=== PATIENT | female | born 1955 | race Two or more races ===

== ENCOUNTER 2020-10-01 13:00 | Outpatient (RCR) | payer MEDICARE, OTHER, MEDICAID, SELFPAY | END 2020-10-02 10:13 | disposition home or self-care (01) | LOC: HO.OT 13:00 | PROVIDERS: Visit Provider Orthopaedic Surgery | DX: M67.90 Unspecified disorder of synovium and tendon, unspecified site (principal) | CPT/HCPCS: 97035; 97110; 97140; 97165; 97760 ==

== ENCOUNTER 2020-10-04 10:41 | Outpatient (REF) | payer MEDICARE, OTHER, MEDICAID, SELFPAY ==
[2020-10-04 11:48] LABS: MANUAL DIFF FLAG NO
[2020-10-04 11:59] LABS: Basophils Percent Auto 0.5 % (0-2); Eosinophils Absolute Auto 0.1 X10*3/uL (0.0-0.4); Eosinophils Percent Auto 2.5 % (0-4); Hematocrit 45.5 % (37-47); Hemoglobin 14.3 g/dl (12.0-16.0); Imm Gran Abs Auto 0.02 X10*3/uL (0.00-0.03); Imm Gran Pct Auto 0.4 % (0.0-0.4); Lymphocytes Absolute Auto 2.4 X10*3/uL (1.2-4.9); Mean Corpuscular HGB Conc 31.4 g/dl (31.0-35.0); Mean Corpuscular Hemoglobin 26.3 pg (27.0-33.0); Mean Corpuscular Volume 83.8 fL (80-98); Mean Platelet Volume 10.1 fL (9.4-12.3); Monocytes Absolute Auto 0.4 X10*3/uL (0.1-1.2); Monocytes Percent Auto 7.3 % (2-11); Neutrophils Absolute Auto 2.7 X10*3/uL (2.0-8.3); Neutrophils Percent Auto 47.3 % (45-73); Platelet Count 186 X10*3/uL (160-400); Red Blood Count 5.43 X10*6/uL (4.20-5.50); Red Cell Distribution Width 12.3 % (11.0-16.0); White Blood Count 5.6 X10*3/uL (4.8-10.8)
[2020-10-04 12:31] LABS: Alanine Aminotransferase 26 U/L (0-31); Alkaline Phosphatase 60 U/L (39-117); Anion Gap 15 (12-20); Aspartate Amino Transferase 21 U/L (5-31); Bilirubin Total 0.6 mg/dL (0.0-1.0); Blood Urea Nitrogen 16 mg/dL (9-16); Calcium 8.9 mg/dL (8.4-10.2); Carbon Dioxide 28 mmol/L (22-29); Chloride 104 mmol/L (96-108); Cholesterol 237 mg/dL; Estimated Glomerular Filt Rate > 60; Glucose Fasting 122 mg/dL (60-99); HDL Cholesterol 55 mg/dL; LDL Cholesterol Calculated 150 mg/dl; Potassium 4.5 mmol/l (3.3-5.1); Sodium 142 mmol/L (135-145); Total Protein 7.3 g/dL (6.5-8.0); Triglycerides 160 mg/dL
[2020-10-04 12:41] LABS: TSH reflex Free T4 1.92 mIU/mL (0.32-4.0); Vitamin D 25-OH Total 17.9 ng/mL (>30)
== END 2020-10-04 10:42 | disposition home or self-care (01) ==
LOC: HO.LAB 10:41
PROVIDERS: Visit Provider Internal Medicine
DX: E78.00 Pure hypercholesterolemia, unspecified (principal); E66.09 Other obesity due to excess calories; E55.9 Vitamin D deficiency, unspecified
CPT/HCPCS: 36415; 80053; 80061; 82306; 84443; 85025

== ENCOUNTER 2021-01-02 11:30 | Outpatient (RCR) | payer MEDICARE, OTHER, MEDICAID, SELFPAY | END 2021-01-02 15:28 | disposition other institution (70) | LOC: HO.OT 11:30 | PROVIDERS: PCP Internal Medicine; Visit Provider Physician Assistant | DX: M25.641 Stiffness of right hand, not elsewhere classified (principal); Z98.890 Other specified postprocedural states | CPT/HCPCS: 97035; 97110; 97140; 97166 ==

== ENCOUNTER → 2021-01-10 13:58 | Outpatient (BNVA) | payer MEDICARE, OTHER, MEDICAID, SELFPAY | PROVIDERS: PCP Internal Medicine; Visit Provider Nurse Practitioner Family | DX: Z13.89 Encounter for screening for other disorder (principal) | CPT/HCPCS: Q3014 ==

== ENCOUNTER 2021-01-25 08:43 | Outpatient (REF) | payer MEDICARE, OTHER, MEDICAID, SELFPAY ==
[2021-01-25 10:20] LABS: Alanine Aminotransferase 23 U/L (0-31); Alkaline Phosphatase 53 U/L (39-117); Anion Gap 13 (12-20); Aspartate Amino Transferase 23 U/L (5-31); Bilirubin Total 0.5 mg/dL (0.0-1.0); Blood Urea Nitrogen 12 mg/dL (9-16); Carbon Dioxide 28 mmol/L (22-29); Chloride 104 mmol/L (96-108); Cholesterol 228 mg/dL; Estimated Glomerular Filt Rate > 60; Glucose Fasting 128 mg/dL (60-99); HDL Cholesterol 51 mg/dL; LDL Cholesterol Calculated 147 mg/dl; Potassium 4.3 mmol/L (3.3-5.1); Sodium 141 mmol/L (135-145); Triglycerides 154 mg/dL
[2021-01-29 10:11] LABS: Vitamin D 25-OH, D2 26 ng/mL; Vitamin D 25-OH, D3 7 ng/mL; Vitamin D 25-OH, Total 33 ng/mL (30-100)
== END 2021-01-25 08:44 | disposition home or self-care (01) ==
LOC: HO.LAB 08:43
PROVIDERS: PCP Internal Medicine; Visit Provider Internal Medicine
DX: E78.5 Hyperlipidemia, unspecified (principal); E55.9 Vitamin D deficiency, unspecified
CPT/HCPCS: 36415; 80053; 80061; 82306

== ENCOUNTER 2021-02-28 07:48 | Day surgery (SDC) | payer MEDICARE, OTHER, MEDICAID, SELFPAY ==
[2021-02-21 16:10] VITALS: BMI 32.9
--- NOTE | 2021-02-28 08:25 | W.PM.OPN ---
Operative Note Operative Note Date of Service: 02/28/21 Narrative: Pre-op diagnosis: Colon cancer screening, history of colon polyps Post-op diagnosis: other (Colon polyps, diverticulosis, hemorrhoids) Procedure: COLONOSCOPY TILL CECUM WITH BIOPSY AND SNARE POLYPECTOMY Consent: Indications for the procedure and potential complications of bleeding, perforation, reaction to medications and missed diagnosis were discussed with the patient and informed consent was obtained. Instrument: Olympus PCF H 190 L variable stiffness pediatric colonoscope Monitoring: Vital signs and clinical assessment, intermittent blood pressure monitoring, continuous EKG monitoring, Pulse oximetry and Carbon Dioxide monitoring were done throughout the procedure. Colon withdrawl time was 17 minutes. Procedure: The patient was placed in the left lateral decubitis position and pre-procedure medications were administered. After a digital rectal examination of the ano-rectum, the video colonoscope was inserted into the rectum and advanced through the colon to the cecum. The colonoscope was slowly withdrawn in a retrograde panoramic fashion and the colon mucosa was carefully examined including a retroflexed view of the rectum. Findings and interventions are described below. Procedure Difficulty: LLQ pressure applied to intubate the transverse colon Findings: Terminal Ileum: Not evaluated Cecum: Normal Ascending Colon: A 5-6 mm sessile polyp removed with the cold biopsy Transverse Colon: 10 mm sessile polyp removed with a cold snare Descending Colon: Normal Sigmoid Colon: Moderate diverticulosis Rectum: Normal Ano-rectum: Perianal skin tags, small internal hemorrhoids and hypertrophied anal papillae Colon preparation: Excellent Impression and Post Procedure Diagnosis: Colonoscopy Findings: Two small to medium sized polyps removed Moderate diverticulosis seen in the sigmoid colon Small hemorrhoids on retroflexed exam. Plan: Await pathology results Patient has an appointment on 03/13/21 in the GI Clinic with Alina Rich FNP-. Repeat Colonoscopy interval based on path results - in 3-5 years if polyps are adenomatous and 10 years if polyps are hyperplastic. Above findings were reviewed with the patient and colon polyps and diverticulosis handouts were given in the discharge area Surgeon: Senia Casper MD BIOPSIES SHOWED: A. Colon, ascending, polypectomy: Tubular adenoma; no high grade dysplasia or carcinoma seen. B. Colon, transverse, polypectomy: Tubular adenoma; no high grade dysplasia or carcinoma seen. Anesthesia: MAC (Dr Murillo) Was an Senior Geotechnical Engineer used for this Procedure?: Yes Senior Geotechnical Engineer: Debora Valdivia Estimated blood loss (mL): 0 Pathology: other (A: ASCENDING COLON POLYP B: TRANSVERSE COLON POLYP) Condition: stable Disposition: PACU
--- NOTE | 2021-02-28 08:25 | MHC.SHP ---
Pre-Procedural Eval Section A The patient is an INPATIENT: No The History & Physical has been completed within 30 days and I have reviewed it.: No Section B Chief Complaint: Screening Details of Present Illness: Colon cancer screening Relevant Family History (Specify if Yes): Yes Relevant Social History: None Present Medications: see Short Stay Collaborative assessment Medical History: Significant History (Dyslipidemia Hypovitaminosis D Impaired glucose tolerance Tubular adenoma) History of Previous Operations: Relevant previous surgery/procedure and date(s) (H/O colonoscopy History of biopsy History of tubal ligation) Allergies: Allergies Allergy/AdvReac Type Severity Reaction Status Date / Time latex Allergy Unknown rash Verified 02/28/21 08:12 Review of Systems Sugical H&P ROS: Negative: Constitution, Cardiovascular, Respiratory and Gastrointestinal Exam Surgical H&P Exam: Normal: Heart, Normal: Lungs, Normal: Extremities and Normal: Abdomen Plan Diagnosis/Plan: Unchanged I have reviewed the history and physical and performed a pertinent physical examination on my patient. No changes have occurred unless specified.
[2021-02-28 08:49] VITALS: BP 147/89; PULSE 68; RESP 16; TEMP 35.7; O2SAT 97
[2021-02-28] MEDS: Lactated Ringers 1,000 ML 50 ML IV (08:50)
--- NOTE | 2021-02-28 09:08 | HO.ANESPROP2 ---
[facility] Active Problems Active Problems: All Active Problems (Updated 02/13/21 @ 13:18 by Ashu Rowley MD) Low back pain (Acute) Tubular adenoma (Acute) Impaired glucose tolerance (Acute) Hypovitaminosis D (Acute) Dyslipidemia (Acute) Past Medical History Medical History Dyslipidemia Hypovitaminosis D Impaired glucose tolerance Tubular adenoma Family History Family History Father Stomach cancer Mother Diabetes Hypertension Brother Thyroid cancer CAD (coronary artery disease) Paternal Uncle CVD (cardiovascular disease) Surgical History Surgical History H/O colonoscopy History of biopsy History of tubal ligation Social History Social History Household Members: None Alcohol intake: current Patient Tobacco Use Status: Never used Tobacco Use of substances other than those prescribed or required for medical reasons: No Are you DNR?: No Advance Directives: No Advance Directives Information Provided: Yes Meds Allergies Allergy/AdvReac Type Severity Reaction Status Date / Time latex Allergy Unknown rash Verified 02/28/21 08:12 Exam Exam Date and Time: February 28, 2021 0908 Height,Weight and Vital Signs: Height 5 ft 6 in Weight 92.533 kg Last Vital Signs Temp 96.3 F L 02/28/21 08:49 Pulse 68 02/28/21 08:49 Resp 16 02/28/21 08:49 BP 147/89 H 02/28/21 08:49 Pulse Ox 97 02/28/21 08:49 Airway Mallampati Class: II TM Dist: >3cm Neck ROM: Full Heart: RRR Lungs: CTA Assessment and Plan Assessment Anesthesia Assessment: Anesthesia Plan Discussed and Chart Reviewed Final Anesthetic Review NPO: Yes ASA Class: II Final Preanesthetic Review: Meds/Allgs Chart Reviewed, Consent Obtained/Reviewed and Anes Risks/Benef Reviewed Patient Risk: Low Procedure Risk: Low Anesthetic Plan Anesthetic Plan: MAC: Disposition: Standard PACU
--- NOTE | 2021-02-28 09:34 | P.CONAN_ITS ---
[facility] Active Problems Active Problems: All Active Problems (Updated 02/13/21 @ 13:18 by Ashu brewer MD) Low back pain (Acute) Tubular adenoma (Acute) Impaired glucose tolerance (Acute) Hypovitaminosis D (Acute) Dyslipidemia (Acute) Past Medical History Medical History Dyslipidemia Hypovitaminosis D Impaired glucose tolerance Tubular adenoma Family History Family History Father Stomach cancer Mother Diabetes Hypertension Brother Thyroid cancer CAD (coronary artery disease) Paternal Uncle CVD (cardiovascular disease) Surgical History Surgical History H/O colonoscopy History of biopsy History of tubal ligation Social History Social History Household Members: None Alcohol intake: current Patient Tobacco Use Status: Never used Tobacco Use of substances other than those prescribed or required for medical reasons: No Are you DNR?: No Advance Directives: No Advance Directives Information Provided: Yes Meds Allergies Allergy/AdvReac Type Severity Reaction Status Date / Time latex Allergy Unknown rash Verified 02/28/21 08:12 Active Medications: Current Medications Generic Name Dose Route Start Last Admin Trade Name Freq PRN Reason Stop Dose Admin Lactated Ringer's 1,000 mls @ 50 mls/hr 02/28/21 09:15 Lr IV .Q20H RAJESH Exam Exam Date and Time: February 28, 2021 0934 Height,Weight and Vital Signs: Height 5 ft 6 in Weight 92.533 kg Last Vital Signs Temp 96.3 F L 02/28/21 08:49 Pulse 68 02/28/21 08:49 Resp 16 02/28/21 08:49 BP 147/89 H 02/28/21 08:49 Pulse Ox 97 02/28/21 08:49 Airway Mallampati Class: II TM Dist: >3cm Neck ROM: Full Partial: Lower Heart: RRR Lungs: CTA Assessment and Plan Assessment Anesthesia Assessment: Anesthesia Plan Discussed and Chart Reviewed Final Anesthetic Review NPO: Yes ASA Class: II Final Preanesthetic Review: Meds/Allgs Chart Reviewed, Consent Obtained/Reviewed and Anes Risks/Benef Reviewed Patient Risk: Low Procedure Risk: Low Anesthetic Plan Anesthetic Plan: MAC: Disposition: Standard PACU
[2021-02-28 09:56] VITALS: BP 125/58; PULSE 58; RESP 18; TEMP 36.9; O2SAT 100
[2021-02-28 10:11] VITALS: BP 135/67; PULSE 60; RESP 18; O2SAT 98
== END 2021-02-28 10:54 | disposition home or self-care (01) ==
PROVIDERS: PCP Internal Medicine; Visit Provider Internal Medicine Gastroenterology
PROC: 0DJD8ZZ Inspection of Lower Intestinal Tract, Via Natural or Artificial Opening Endoscopic (ICD-10-PCS; CPT 45378; principal; 2021-02-28 09:00)
DX: Z12.11 Encounter for screening for malignant neoplasm of colon (principal); Z86.010 Personal history of colon polyps; D12.2 Benign neoplasm of ascending colon; D12.3 Benign neoplasm of transverse colon; K57.30 Diverticulosis of large intestine without perforation or abscess without bleeding; K64.8 Other hemorrhoids; K64.4 Residual hemorrhoidal skin tags; K62.89 Other specified diseases of anus and rectum; E55.9 Vitamin D deficiency, unspecified; E78.5 Hyperlipidemia, unspecified; Z79.899 Other long term (current) drug therapy; Z91.040 Latex allergy status
CPT/HCPCS: 45385; 45380; 88305; J2405

== ENCOUNTER → 2021-03-12 15:30 | Outpatient (BNVA) | payer MEDICARE, OTHER, MEDICAID, SELFPAY | PROVIDERS: PCP Internal Medicine; Referring Provider Internal Medicine; Visit Provider Nurse Practitioner Family | DX: K57.90 Diverticulosis of intestine, part unspecified, without perforation or abscess without bleeding (principal); K59.00 Constipation, unspecified; K64.8 Other hemorrhoids; D36.9 Benign neoplasm, unspecified site; Z98.890 Other specified postprocedural states | CPT/HCPCS: 99212 ==

== ENCOUNTER 2021-04-18 07:53 | Outpatient (REF) | payer MEDICARE, OTHER, MEDICAID, SELFPAY ==
[2021-04-18 09:07] LABS: Alanine Aminotransferase 22 U/L (0-31); Albumin Level 4.2 g/dL (3.5-5.0); Alkaline Phosphatase 50 U/L (39-117); Anion Gap 10 (12-20); Aspartate Amino Transferase 22 U/L (5-31); Bilirubin Total 0.6 mg/dL (0.0-1.0); Blood Urea Nitrogen 19 mg/dL (9-16); Calcium 9.3 mg/dL (8.4-10.2); Carbon Dioxide 29 mmol/L (22-29); Chloride 106 mmol/L (96-108); Cholesterol 230 mg/dL; Estimated Glomerular Filt Rate > 60; Glucose Fasting 110 mg/dL (60-99); HDL Cholesterol 55 mg/dL; LDL Cholesterol Calculated 160 mg/dl; Potassium 4.6 mmol/L (3.3-5.1); Sodium 140 mmol/L (135-145); Total Protein 7.5 g/dL (6.5-8.0); Triglycerides 79 mg/dL
== END 2021-04-18 07:54 | disposition home or self-care (01) ==
LOC: HO.LAB 07:53
PROVIDERS: Visit Provider Internal Medicine
DX: E78.5 Hyperlipidemia, unspecified (principal); R73.02 Impaired glucose tolerance (oral)
CPT/HCPCS: 36415; 80053; 80061

== ENCOUNTER 2021-04-21 13:23 | Outpatient (REF) | payer MEDICARE, OTHER, MEDICAID, SELFPAY ==
--- NOTE | ~2021-04-21 | CT_ITS ---
EXAMINATION: CT ABDOMEN AND PELVIS WITHOUT AND WITH CONTRAST CLINICAL INFORMATION: Kidney cyst. COMPARISON: Previous renal ultrasound January 2018, CT of the abdomen and pelvis June 2018 and pelvic ultrasound most recent December 2015 TECHNIQUE: Multidetector volumetric imaging was performed of the abdomen and pelvis before and after the IV administration of 85 mL of Omnipaque 300 intravenous contrast. Sagittal and coronal reformatted images were obtained on the technologist's workstation. This CT examination was performed using dose optimization techniques as appropriate, variously including the following: *Automated exposure control *Adjustment of mA and/or kV according to patient size (this includes techniques or standardized protocols for targeted exams where dose is matched to indication/reason for exam; i.e. extremities or head) *Use of iterative reconstruction technique DLP: 1162 mGy-cm FINDINGS: LUNG BASES: There is a 2 mm peripheral right lower lobe nodule axial image 13 series 4. The lung bases are otherwise clear. There is mild left lower lobe bronchiectasis. LIVER, GALLBLADDER, AND BILIARY TREE: The liver is slightly low in attenuation suggestive of mild fatty infiltration. The gallbladder is unremarkable with no evidence of radiopaque gallstones, gallbladder wall thickening, or obvious pericholecystic inflammatory changes. PANCREAS: Unremarkable. SPLEEN: Unremarkable. ADRENAL GLANDS: Unremarkable. The liver is normal in size and contour. No focal liver lesion or biliary duct dilatation is seen. KIDNEYS AND URETERS: There is a 3.2 x 4 cm simple cyst in the midpole of the right kidney. Hounsfield units precontrast measure 0. Hounsfield units postcontrast measure 1 with no appreciable enhancement. This measured 2 x 2.[address] scan and is slightly increased in size. There are several small 3-4 mm low-attenuation lesions in the upper pole of the right kidney and lower pole of the left kidney. These are difficult to characterize due to small size but also probably represent cysts. The kidneys are otherwise unremarkable. No renal stone or mass is seen. The collecting systems are normal. There is transient dilatation of both ureters. This appears in different segments on precontrast and portal phase and expiratory phase postcontrast images. No fixed ureteral lesion is seen. BLADDER: Unremarkable. GASTROINTESTINAL TRACT: The small and large bowel are unremarkable. The appendix is unremarkable. ABDOMINAL WALL: There are small umbilical hernias containing fat. LYMPH NODES: Normal. VASCULAR: Unremarkable. PELVIC VISCERA: There is a 4 x 5 cm low-attenuation lesion in the posterior uterus suggestive of a fibroid. OSSEOUS STRUCTURES: There are degenerative changes of the spine. CT/CT abdomen pelvis wo/w con IMPRESSION: Slight interval increase in the simple cyst in the mid right kidney. Probable small bilateral renal cysts measuring less than 5 mm. 4 x 5 cm uterine fibroid.
[2021-04-21] MEDS: iohexoL 350 MG/ML 100 ML INFUS..BTL 85 ML IV (14:32)
[2021-04-21 15:56] LABS: Blood Urea Nitrogen 10 mg/dL (9-16); Estimated Glomerular Filt Rate > 60
== END 2021-04-21 13:24 | disposition home or self-care (01) ==
LOC: HO.CT 13:23
PROVIDERS: PCP Internal Medicine; Visit Provider Urology
DX: R31.9 Hematuria, unspecified (principal); N28.1 Cyst of kidney, acquired; R31.29 Other microscopic hematuria
CPT/HCPCS: 36415; 74178; 82565; 84520; Q9967

== ENCOUNTER → 2021-04-30 13:18 | Outpatient (BNVA) | payer MEDICARE, OTHER, MEDICAID, SELFPAY | PROVIDERS: PCP Internal Medicine; Referring Provider Internal Medicine; Visit Provider Nurse Practitioner Family | DX: K59.01 Slow transit constipation (principal); K57.90 Diverticulosis of intestine, part unspecified, without perforation or abscess without bleeding | CPT/HCPCS: 99212 ==

== ENCOUNTER → 2021-05-14 07:49 | Outpatient (BNVA) | payer MEDICARE, OTHER, MEDICAID, SELFPAY | PROVIDERS: PCP Internal Medicine; Referring Provider Internal Medicine; Visit Provider Advanced Practice Midwife ==

== ENCOUNTER 2021-07-01 11:42 | Outpatient (REF) | payer MEDICARE, OTHER, MEDICAID, SELFPAY ==
--- NOTE | ~2021-07-01 | MM_ITS ---
EXAMINATION: MM SCREENING DIGITAL BREAST TOMOSYNTHESIS, BILATERAL CLINICAL INFORMATION: Screening. Asymptomatic. The lifetime risk of breast cancer based on the Tyrer-Cuzick Model is 10%. COMPARISON: Mammography: 06/26/2020, 12/30/2018, 11/11/2017 TECHNIQUE: Digital breast tomosynthesis is performed in both the craniocaudal and mediolateral oblique views along with computer-aided detection (CAD). Synthesized 2D images are generated from the tomosynthesis. FINDINGS: There are scattered areas of fibroglandular density (ACR BI-RADS breast composition Category b). There are no significant masses, abnormal calcifications, or other abnormalities. There is no developing density. The axilla are unremarkable. Chronic bilateral nipple retraction is again noted. There is a dermal lesion again seen overlying the posterior 8:00 right breast. MM/MM tomosynthesis screening BI IMPRESSION: No significant changes from prior studies. ASSESSMENT: BI-RADS 2: Benign RECOMMENDATION: Routine annual mammography screening. This patient's information was entered into a reminder system with a target due date for their next mammogram.
== END 2021-07-01 11:43 | disposition home or self-care (01) ==
LOC: HO.MAMMO 11:42
PROVIDERS: PCP Internal Medicine; Visit Provider Advanced Practice Midwife
DX: Z12.31 Encounter for screening mammogram for malignant neoplasm of breast (principal)
CPT/HCPCS: 77063; 77067

== ENCOUNTER 2021-10-31 12:43 | Outpatient (REF) | payer MEDICARE, OTHER, MEDICAID, SELFPAY ==
[2021-11-06 12:12] LABS: Vitamin D 25-OH, D2 27 ng/mL; Vitamin D 25-OH, D3 9 ng/mL; Vitamin D 25-OH, Total 36 ng/mL (30-100)
== END 2021-10-31 12:44 | disposition home or self-care (01) ==
LOC: HO.LAB 12:43
PROVIDERS: PCP Internal Medicine; Visit Provider Nurse Practitioner Family
DX: K59.01 Slow transit constipation (principal); E55.9 Vitamin D deficiency, unspecified
CPT/HCPCS: 36415; 82306; 99212

== ENCOUNTER 2021-11-22 08:50 | Outpatient (REF) | payer MEDICARE, OTHER, MEDICAID, SELFPAY ==
[2021-11-22 09:45] LABS: Alanine Aminotransferase 23 U/L (0-31); Albumin Level 3.9 g/dL (3.5-5.0); Alkaline Phosphatase 48 U/L (39-117); Anion Gap 13 (12-20); Aspartate Amino Transferase 25 U/L (5-31); Bilirubin Total 0.9 mg/dL (0.0-1.0); Blood Urea Nitrogen 13 mg/dL (9-16); Calcium 9.5 mg/dL (8.4-10.2); Carbon Dioxide 28 mmol/L (22-29); Chloride 106 mmol/L (96-108); Cholesterol 224 mg/dL; Estimated Glomerular Filt Rate > 60; Glucose Fasting 129 mg/dL (60-99); HDL Cholesterol 56 mg/dL; LDL Cholesterol Calculated 146 mg/dl; Potassium 4.2 mmol/L (3.3-5.1); Sodium 143 mmol/L (135-145); Total Protein 6.8 g/dL (6.5-8.0); Triglycerides 114 mg/dL
[2021-11-26 12:06] LABS: Vitamin D 25-OH, D2 19 ng/mL; Vitamin D 25-OH, D3 5 ng/mL; Vitamin D 25-OH, Total 24 ng/mL (30-100)
== END 2021-11-22 08:51 | disposition home or self-care (01) ==
LOC: HO.LAB 08:50
PROVIDERS: PCP Internal Medicine; Visit Provider Internal Medicine
DX: E55.9 Vitamin D deficiency, unspecified (principal); E78.5 Hyperlipidemia, unspecified; R73.02 Impaired glucose tolerance (oral)
CPT/HCPCS: 36415; 80053; 80061; 82306

== ENCOUNTER 2022-05-18 08:48 | Outpatient (REF) | payer MEDICARE, OTHER, MEDICAID, SELFPAY ==
[2022-05-21 15:46] LABS: HPV mRNA E6/E7 rflx Not Detected (Not Detected)
[2022-05-22 07:27] LABS: HPV mRNA E6/E7 rflx Not Detected (Not Detected)
== END 2022-05-18 08:49 | disposition home or self-care (01) ==
LOC: HO.LAB 08:48
PROVIDERS: Visit Provider Advanced Practice Midwife
DX: Z01.419 Encounter for gynecological examination (general) (routine) without abnormal findings (principal); Z11.51 Encounter for screening for human papillomavirus (HPV)
CPT/HCPCS: 87624; 88142

== ENCOUNTER 2022-07-02 12:07 | Outpatient (REF) | payer MEDICARE, OTHER, MEDICAID, SELFPAY ==
--- NOTE | ~2022-07-02 | MM_ITS ---
EXAMINATION: MM SCREENING DIGITAL BREAST TOMOSYNTHESIS, BILATERAL CLINICAL INFORMATION: Screening. Asymptomatic. The lifetime risk of breast cancer based on the Tyrer-Cuzick Model is 10%. COMPARISON: Mammography: 07/01/2021, 06/26/2020, 12/30/2018 TECHNIQUE: Digital breast tomosynthesis is performed in both the craniocaudal and mediolateral oblique views along with computer-aided detection (CAD). Synthesized 2D images are generated from the tomosynthesis. Additional right MLO view is provided. FINDINGS: There are scattered areas of fibroglandular density (ACR BI-RADS breast composition Category b). There are no significant masses, abnormal calcifications, or other abnormalities. No developing density or architectural abnormality. There is chronic bilateral nipple retraction. Dermal lesions again seen overlying posterior outer and lower right breast. MM/MM tomosynthesis screening BI IMPRESSION: No mammographic evidence of malignancy. ASSESSMENT: BI-RADS 2: Benign RECOMMENDATION: Routine annual mammography screening. This patient's information was entered into a reminder system with a target due date for their next mammogram.
== END 2022-07-02 12:08 | disposition home or self-care (01) ==
LOC: HO.MAMMO 12:07
PROVIDERS: Visit Provider Internal Medicine
DX: Z12.31 Encounter for screening mammogram for malignant neoplasm of breast (principal)
CPT/HCPCS: 77063; 77067

== ENCOUNTER → 2022-09-08 13:38 | Outpatient (BNVA) | payer MEDICARE, OTHER, MEDICAID, SELFPAY | PROVIDERS: PCP Internal Medicine; Visit Provider Advanced Practice Midwife | DX: Q51.28 Other and unspecified doubling of uterus (principal); R87.615 Unsatisfactory cytologic smear of cervix | CPT/HCPCS: 88142; 99212 ==

== ENCOUNTER 2022-09-08 16:11 | Outpatient (REF) | payer MEDICARE, OTHER, MEDICAID, SELFPAY | END 2022-09-08 16:12 | disposition home or self-care (01) | LOC: HO.LNP 16:11 | PROVIDERS: Visit Provider Advanced Practice Midwife | DX: Z13.89 Encounter for screening for other disorder (principal) | CPT/HCPCS: 88142 ==

== ENCOUNTER 2022-10-28 08:40 | Outpatient (REF) | payer MEDICARE, OTHER, MEDICAID, SELFPAY ==
[2022-10-28 09:58] LABS: Vitamin D 25-OH Total 16.5 ng/mL (>30)
== END 2022-10-28 08:41 | disposition home or self-care (01) ==
LOC: HO.LAB 08:40
PROVIDERS: Visit Provider Internal Medicine
DX: E55.9 Vitamin D deficiency, unspecified (principal)
CPT/HCPCS: 36415; 82306

== ENCOUNTER → 2022-10-30 13:22 | Outpatient (BNVA) | payer MEDICARE, OTHER, MEDICAID, SELFPAY | PROVIDERS: PCP Internal Medicine; Referring Provider Internal Medicine; Visit Provider Nurse Practitioner Family | DX: K59.01 Slow transit constipation (principal); K57.30 Diverticulosis of large intestine without perforation or abscess without bleeding | CPT/HCPCS: 99212 ==

== ENCOUNTER 2023-03-06 08:00 | Outpatient (REF) | payer MEDICARE, OTHER, MEDICAID, SELFPAY ==
[2023-03-06 09:17] LABS: Alanine Aminotransferase 18 U/L (0-31); Albumin Level 4.1 g/dL (3.5-5.0); Alkaline Phosphatase 63 U/L (39-117); Anion Gap 14 (12-20); Aspartate Amino Transferase 19 U/L (5-31); Bilirubin Total 0.6 mg/dL (0.0-1.0); Blood Urea Nitrogen 15 mg/dL (9-16); Calcium 9.8 mg/dL (8.4-10.2); Carbon Dioxide 29 mmol/L (22-29); Chloride 103 mmol/L (96-108); Estimated Glomerular Filt Rate > 60; Glucose Fasting 134 mg/dL (60-99); Potassium 4.9 mmol/L (3.3-5.1); Sodium 141 mmol/L (135-145); Total Protein 7.4 g/dL (6.5-8.0)
== END 2023-03-06 08:01 | disposition home or self-care (01) ==
LOC: HO.LAB 08:00
PROVIDERS: PCP Internal Medicine; Visit Provider Internal Medicine
DX: R73.02 Impaired glucose tolerance (oral) (principal)
CPT/HCPCS: 36415; 80053

== ENCOUNTER 2023-03-15 09:28 | Emergency (ER) | payer MEDICARE, OTHER, MEDICAID, SELFPAY ==
[2023-03-15 09:52] VITALS: BP 151/67; PULSE 63; RESP 18; TEMP 36; O2SAT 98; BMI 31.5
[2023-03-15 10:13] LABS: MANUAL DIFF FLAG NO
[2023-03-15 10:15] LABS: Basophils Percent Auto 0.7 % (0-2); Eosinophils Absolute Auto 0.1 X10*3/uL (0.0-0.4); Eosinophils Percent Auto 1.6 % (0-4); Hematocrit 43.5 % (37.0-47.0); Hemoglobin 14.4 g/dl (12.0-16.0); Imm Gran Abs Auto 0.01 X10*3/uL (0.00-0.03); Imm Gran Pct Auto 0.2 % (0.0-0.4); Lymphocytes Absolute Auto 2.3 X10*3/uL (1.2-4.9); Lymphocytes Percent Auto 39.1 % (20-40); Mean Corpuscular HGB Conc 33.1 g/dl (31.0-35.0); Mean Corpuscular Hemoglobin 27.2 pg (27.0-33.0); Mean Corpuscular Volume 82.1 fL (80.0-98.0); Mean Platelet Volume 10.3 fL (9.4-12.3); Monocytes Absolute Auto 0.4 X10*3/uL (0.1-1.2); Monocytes Percent Auto 6.7 % (2-11); Neutrophils Percent Auto 51.7 % (45-73); Platelet Count 186 X10*3/uL (160-400); Red Cell Distribution Width 12.1 % (11.0-16.0); White Blood Count 5.8 X10*3/uL (4.8-10.8)
[2023-03-15 10:36] LABS: Alanine Aminotransferase 16 U/L (0-31); Alkaline Phosphatase 57 U/L (39-117); Anion Gap 13 (12-20); Aspartate Amino Transferase 16 U/L (5-31); Bilirubin Total 0.6 mg/dL (0.0-1.0); Blood Urea Nitrogen 19 mg/dL (9-16); Calcium 10.4 mg/dL (8.4-10.2); Carbon Dioxide 28 mmol/L (22-29); Chloride 107 mmol/L (96-108); Creatinine Clr Calc Pharmacy 69.6; Estimated Glomerular Filt Rate > 60; Glucose Random 126 mg/dL (60-115); Potassium 5.2 mmol/L (3.3-5.1); Sodium 143 mmol/L (135-145); Total Protein 7.7 g/dL (6.5-8.0)
[2023-03-15 12:06] LABS: Appearance Urine Clear; Color Urine Yellow; Glucose Urine UA Negative (Negative); Leukocyte Esterase Urine Moderate (2+) (Negative); Nitrite Urine Negative (Negative); PH 8.5 (5.0-9.0); UMIC TRIGGER UACC YES; Urine Blood Negative (Negative); Urine Ketones Negative (Negative); Urine Protein Trace mg/dL (Neg-Trace)
[2023-03-15 12:16] LABS: Bacteria Urine None Seen (None Seen); Squamous Epithelial Cell Urine 0-2 /HPF (0-2); UACC Culture Trigger YES
--- NOTE | 2023-03-15 13:18 | ED_ITS ---
HPI - Abdominal Pain General Chief Complaint: Abdominal Pain Stated Complaint: abd pain Time Seen by Provider: 03/15/23 10:58 Source: patient and certified detention deputy Mode of arrival: ambulatory History of Present Illness HPI narrative: 68-year-old female who complains of burning sensation over suprapubic area that radiates up into her abdomen she denies any fevers or chills, denies any diarrhea, denies any back pain. Related Data Previous Rx's Medication Instructions Recorded cholecalciferol (vitamin D3) 50 50 mcg PO DAILY 90 days #90 caps 11/04/22 mcg (2,000 unit) capsule Ventolin HFA 90 mcg/actuation 2 puff inhalation Q6H PRN 02/07/23 aerosol inhaler (albuterol sulfate) shortness of breath or wheezing 30 days #8 grams omeprazole 20 mg capsule,delayed 20 mg PO DAILY 30 days #30 caps 03/11/23 release cefdinir 300 mg capsule 300 mg PO BID 3 days #6 caps 03/15/23 phenazopyridine 200 mg tablet 200 mg PO TID PRN pain 6 doses #6 03/15/23 (Pyridium) tabs Allergies Allergy/AdvReac Type Severity Reaction Status Date / Time latex Allergy Intermediate rash Verified 03/15/23 10:02 Review of Systems Review of Systems Pertinent positives and negatives as stated in HPI PMFSH Past Medical History Source: nursing notes reviewed Medical History Class 1 obesity with body mass index (BMI) of 33.0 to 33.9 in adult 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 Diverticulosis Dyslipidemia Hypovitaminosis D Impaired glucose tolerance Mild persistent asthma Tubular adenoma Surgical History H/O colonoscopy History of biopsy History of tubal ligation Family History Family History Father Stomach cancer Mother Diabetes Hypertension Stroke Brother Thyroid cancer CAD (coronary artery disease) Paternal Uncle CVD (cardiovascular disease) Social History Social History Household Members: None Housing: Apartment Alcohol intake: current Alcohol intake frequency: holidays/special occasions only Alcohol type: wine Patient Tobacco Use Status: Never used Tobacco e-Cigarette/Vaping Use: Never Used Second Hand Smoke Exposure: No Advance Directives: No Advance Directives Information Provided: Yes service: No Current occupational status: disabled Cognitive needs: No Hearing needs: No Vision needs: Yes Physical Exam ED Vital Signs: Vital Signs - 24 hr 03/15/23 09:52 Temperature 96.8 F Pulse Rate 63 Respiratory Rate 18 Blood Pressure 151/67 H Pulse Oximetry 98 Oxygen Delivery Method Room Air BMI result Body Mass Index 31.5 VITAL SIGNS: Reviewed. GENERAL: Well developed, well nourished, in no acute distress. HEAD: Normocephalic/atraumatic EYES: PERRLA, EOMI EARS: Ext canals without abnormality NOSE: Nares patent bilateral OROPHARYNX: no oral lesions noted, posterior pharynx clear NECK: Supple, no adenopathy LUNGS: Normal breath sounds. No adventitious sounds or accessory muscle use. SpO2<98> CARDIOVASCULAR: Regular rate and rhythm without noted murmurs ABDOMEN: Soft, suprapubic discomfort, non-distended with bowel sounds. MUSCULOSKELETAL: No tenderness, deformities, or effusions noted on gross inspection. EXTREMITIES: No cyanosis, clubbing or edema. SKIN: Inspection of the skin reveals no rashes NEUROLOGIC: Alert and oriented x 4. Strength and sensation to light touch were grossly intact x 4. Medical Decision Making Medical Decision Making MDM Narrative: 68-year-old female with history and clinical presentation after review of all investigations significant for UTI, patient received initial antibiotics as well as pyridium no was discharged home on remaining course. Differential Diagnosis Please see the discussion above Lab Data Please see the discussion above 03/15/23 10:08 03/15/23 10:08 Labs: Lab Results 03/15/23 03/15/23 03/15/23 Range/Units 10:08 10:08 11:58 WBC 5.8 (4.8-10.8) X10*3/uL RBC 5.30 (4.20-5.50) X10*6/uL Hgb 14.4 (12.0-16.0) g/dl Hct 43.5 (37.0-47.0) % MCV 82.1 (80.0-98.0) fL MCH 27.2 (27.0-33.0) pg MCHC 33.1 (31.0-35.0) g/dl RDW 12.1 (11.0-16.0) % Plt Count 186 (160-400) X10*3/uL MPV 10.3 (9.4-12.3) fL Immature Gran % (Auto) 0.2 (0.0-0.4) % Neut % (Auto) 51.7 (45-73) % Lymph % (Auto) 39.1 (20-40) % [place] % (Auto) 6.7 (2-11) % Eos % (Auto) 1.6 (0-4) % Baso % (Auto) 0.7 (0-2) % Lymph # (Auto) 2.3 (1.2-4.9) X10*3/uL [place] # (Auto) 0.4 (0.1-1.2) X10*3/uL Eos # (Auto) 0.1 (0.0-0.4) X10*3/uL Baso # (Auto) 0.0 (0.0-0.2) X10*3/uL Abs Immat Gran (auto) 0.01 (0.00-0.03) X10*3/uL Absolute Neuts (auto) 3.0 (2.0-8.3) x10*3/uL Absolute Nucleated RBC 0.000 (0.0-0.012) X10*3/uL Nucleated RBC % (auto) 0.0 (0.0-0.2) /100WBC Sodium 143 (135-145) mmol/L Potassium 5.2 H (3.3-5.1) mmol/L Chloride 107 (96-108) mmol/L Carbon Dioxide 28 (22-29) mmol/L Anion Gap 13 (12-20) BUN 19 H (9-16) mg/dL Creatinine 0.89 (0.5-1.4) mg/dL Estim Creat Clear Calc 69.6 Estimated GFR > 60 Random Glucose 126 H (60-115) mg/dL Calcium 10.4 H D (8.4-10.2) mg/dL Total Bilirubin 0.6 (0.0-1.0) mg/dL AST 16 (5-31) U/L ALT 16 (0-31) U/L Alkaline Phosphatase 57 (39-117) U/L Total Protein 7.7 (6.5-8.0) g/dL Albumin 4.0 (3.5-5.0) g/dL Urine Color Yellow Urine Appearance Clear Urine pH 8.5 (5.0-9.0) Ur Specific [place] 1.020 (1.005-1.025) Urine Protein Trace (Neg-Trace) mg/dL Urine Glucose (UA) Negative (Negative) mg/dL Urine Ketones Negative (Negative) mg/dL Urine Blood Negative (Negative) Urine Nitrite Negative (Negative) Ur Leukocyte Esterase Moderate (2+) H (Negative) Urine RBC 3-5 H (0-2) /HPF Urine WBC 11-20 (0-5) /HPF Ur Squamous Epith Cells 0-2 (0-2) /HPF Urine Bacteria None Seen (None Seen) Hyaline Casts 3-5 (0-2) /LPF Medications Administered Discontinued Medications Generic Name Dose Route Start Last Admin Trade Name Freq PRN Reason Stop Dose Admin Nitrofurantoin Macrocrystals 100 mg 03/15/23 13:18 03/15/23 13:45 Nitrofurantoin Monohyd/M-Cryst 100 Mg Capsule PO 03/15/23 13:19 100 mg ONCE ONE Administration Phenazopyridine HCl 200 mg 03/15/23 13:18 03/15/23 13:45 Phenazopyridine Hcl 200 Mg Tablet PO 03/15/23 13:19 200 mg ONCE ONE Administration Discharge Plan Discharge Clinical Impression: Cystitis Patient Disposition: Home, Self-Care Instructions: Urinary Tract Infection in Women (ED) Additional Instructions: 1. Reanudar todos los medicamentos caseros seg?n lo prescrito. 2. Complete todo el ciclo de antibi?ticos seg?n lo indicado. 3. Fifi un seguimiento con el proveedor de atenci?n primaria en los pr?ximos 1 o 2 d?as. Regrese a la chely de emergencias si los s?ntomas empeoran. 1. Resume all home medications as prescribed. 2. Please complete the entire course of antibiotics as ordered. 3. Please follow-up with primary care provider in the next 1-2 days. Return to the ER for any worsening symptoms. Prescriptions: New phenazopyridine [Pyridium] 200 mg tablet 200 mg PO TID PRN (Reason: pain) Qty: 6 0RF cefdinir 300 mg capsule 300 mg PO BID 3 Days Qty: 6 0RF No Action albuterol sulfate [Ventolin HFA] 90 mcg/actuation HFA aerosol inhaler 2 puff inhalation Q6H PRN (Reason: shortness of breath or wheezing) 30 Days Qty: 8 2RF omeprazole 20 mg capsule,delayed release(DR/EC) 20 mg PO DAILY 30 Days Qty: 30 1RF cholecalciferol (vitamin D3) 50 mcg (2,000 unit) capsule 50 mcg PO DAILY 90 Days Qty: 90 1RF Referrals: Janet Islas MD [Primary Care Provider] - Interventions: ED Discharge Assessment Last Done: 03/15/23 13:51 Discharge Date/Time: 03/15/23 13:51 Print Language: Fijian
[2023-03-15] MEDS: Nitrofurantoin Monohyd/M-Cryst 100 MG CAPSULE PO (13:45)
[2023-03-15] MEDS: Phenazopyridine HCL 200 MG TABLET PO (13:45)
== END 2023-03-15 13:51 | disposition home or self-care (01) ==
PROVIDERS: Emergency Provider Student in an Organized Health Care Education/Training Program; PCP Internal Medicine
DX: N30.90 Cystitis, unspecified without hematuria (principal); R10.10 Upper abdominal pain, unspecified; Z79.899 Other long term (current) drug therapy
CPT/HCPCS: 36415; 80053; 81001; 85025; 87086; 99283; 99284

== ENCOUNTER 2023-03-23 15:35 | Outpatient (REF) | payer MEDICARE, OTHER, MEDICAID, SELFPAY ==
--- NOTE | ~2023-03-23 | US_ITS ---
EXAMINATION: US RETROPERITONEAL LIMITED (RENAL ONLY) CLINICAL INFORMATION: Left flank pain. COMPARISON: 02/07/2019 renal ultrasound TECHNIQUE: Real-time ultrasound was used to scan the bilateral kidneys. Permanent documented images obtained and cine loops provided. FINDINGS: RIGHT KIDNEY: 12.1 x 6.0 x 5.0 cm (SAG x AP x TRV). The kidney is normal in size, contour, and echogenicity. Renal cortical thickness is normal. No calculi. 3.6 x 3.4 x 3.9 cm mid pole cyst is seen, previously 2.6 x 2.4 x 2.6 cm on 02/07/2019 No hydronephrosis. LEFT KIDNEY: 12.0 x 5.6 x 4.2 cm (SAG x AP x TRV). The kidney is normal in size, contour, and echogenicity. Renal cortical thickness is normal. No calculi or focal parenchymal lesions. No hydronephrosis. During real-time study, technologist questioned perinephric stranding. US/US renal BI IMPRESSION: 3.6 cm right midpole renal cyst. No hydronephrosis or renal calculi bilaterally.
== END 2023-03-23 15:36 | disposition home or self-care (01) ==
LOC: HO.US 15:35
PROVIDERS: PCP Internal Medicine; Visit Provider Nurse Practitioner Family
DX: R10.9 Unspecified abdominal pain (principal)
CPT/HCPCS: 76775

== ENCOUNTER 2023-03-27 08:44 | Outpatient (REF) | payer MEDICARE, OTHER, MEDICAID, SELFPAY | END 2023-03-27 08:45 | disposition home or self-care (01) | LOC: HO.LAB 08:44 | PROVIDERS: PCP Internal Medicine; Visit Provider Nurse Practitioner Family | DX: E55.9 Vitamin D deficiency, unspecified (principal); E78.5 Hyperlipidemia, unspecified; R73.02 Impaired glucose tolerance (oral); R10.9 Unspecified abdominal pain | CPT/HCPCS: 36415; 80053; 80061; 81001; 81003; 82306; 87086 ==

== ENCOUNTER → 2023-03-31 12:53 | Outpatient (BNVA) | payer MEDICARE, OTHER, MEDICAID, SELFPAY | PROVIDERS: PCP Internal Medicine; Visit Provider Nurse Practitioner Family | DX: K57.90 Diverticulosis of intestine, part unspecified, without perforation or abscess without bleeding (principal); K59.01 Slow transit constipation | CPT/HCPCS: 99212 ==

== ENCOUNTER 2023-05-07 08:14 | Outpatient (REF) | payer MEDICARE, OTHER, MEDICAID, SELFPAY ==
--- NOTE | ~2023-05-07 | FL_ITS ---
EXAMINATION: XR GI SERIES CLINICAL INFORMATION: Gastroesophageal reflux disease without esophagitis. COMPARISON: None available. TECHNIQUE: Routine upper GI air-contrast study is performed in upright and lying position. FINDINGS: Following oral administration of thick barium and effervescent granules is normal propagation bolus from the oral cavity through the pharynx, esophagus into stomach without any evidence of obstruction, narrowing or stricture. On placing patient supine and prone lying there is mild gastroesophageal reflux with a small hiatal hernia suspected. Rest of the visualized stomach, duodenal bulb and the sweep is normal in its course and caliber. The mucosal pattern of stomach and duodenum is normal. FLUOROSCOPY TIME: 1.5 minutes DOSE AREA PRODUCT: 28.58 uGy-m2 (microgray-meter squared) FL/FL upper GI series IMPRESSION: 1. Small hiatal hernia with mild gastroesophageal reflux. 2. Rest of the stomach and duodenum are unremarkable.
== END 2023-05-07 08:15 | disposition home or self-care (01) ==
LOC: HO.XRAY 08:14
PROVIDERS: PCP Internal Medicine; Visit Provider Internal Medicine
DX: K21.9 Gastro-esophageal reflux disease without esophagitis (principal)
CPT/HCPCS: 74240

== ENCOUNTER → 2023-05-07 08:14 | Outpatient (BNV) | payer MEDICARE, OTHER, MEDICAID, SELFPAY | PROVIDERS: PCP Internal Medicine; Visit Provider Radiology Diagnostic Radiology | DX: K21.9 Gastro-esophageal reflux disease without esophagitis (principal) | CPT/HCPCS: 74246 ==

== ENCOUNTER 2023-06-04 08:16 | Outpatient (REF) | payer MEDICARE, OTHER, MEDICAID, SELFPAY ==
--- NOTE | 2023-06-04 12:43 | MHC.AU.HA1 ---
Hearing Aid Evaluation Date of Visit: 06/04/23 Integration Aide Used: Family member interpreted in Somali Historical Information: Description of Hearing: Right Ear: Within normal sloping to moderately-severe sensorineural hearing loss; Left Ear: Moderately-severe to severe sensorineural hearing loss with poor speech discrimination Summary: Marguerite was very confused throughout the whole appointment as she thought this was for an MRI. The ENT reportedly told her she needs an MRI due to her significant asymmetric hearing loss. Explained MRI would be through [facility] and she would need to call [facility] to discuss scheduling the MRI. Explained purpose of this appointment is to discuss hearing aids. Marguerite continued to be confused as to why she needed hearing aids especially on her right ear as she has no trouble in her right ear, how a BiCROS works, why a traditional hearing aid would not be beneficial on the left ear, why she is getting hearing aids before the MRI. Despite explanation of hearing test, medical clearance, speech discrimination, option of right hearing aid vs BiCROS, Marguerite could not stop referring to the MRI she needs. She was upset with the miscommunication; however, after much explanation and discussion, Marguerite opted to trial a BiCROS system. In the meantime, recommend calling [facility] to discuss scheduling MRI. Provided phone number for [facility]. Hearing Aid Prescription: Based on the individual?s shared listening needs, communication environments, dexterity, desire for connectivity, and personal preferences, the following prescription for amplification has been made: Right ear: Make, Model, Color: Phonak Audeo L70-R Color: Sand Beige Battery Size: Rechargeable [place]idway Man/Slim Tube: 1M Type of Earmold/Dome/CShell/SlimTip: Small open dome Left ear: Make, Model, Color: Phonak CROS L-R Color: Sand Beige Battery Size: Rechargeable Skidway Man/Slim Tube: 1C Type of Earmold/Dome/CShell/SlimTip: Small open dome Plan of Care: Patient wishes to purchase hearing aids as prescribed Action Taken/Action Needed: Hearing Instrument Fitting to be scheduled when materials arrive Primary Diagnosis: H90.3 Bilateral Sensorineural Hearing Loss Signature: Provider: Korey Krause, [facility]
== END 2023-06-04 08:17 | disposition home or self-care (01) ==
LOC: HO.HAP 08:16
PROVIDERS: Visit Provider Internal Medicine
DX: Z46.1 Encounter for fitting and adjustment of hearing aid (principal); H91.92 Unspecified hearing loss, left ear
CPT/HCPCS: 92591

== ENCOUNTER 2023-06-24 09:03 | Outpatient (AMB) | payer MEDICARE, OTHER, MEDICAID, SELFPAY ==
--- NOTE | 2023-06-24 09:21 | A.OFFVIS_ITS ---
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 Patient admits she tries to eat a healthy diet including Calcium and Vitamin D. She stays active with exercise. Noticed recent weight loss which she is happy with. Currently not sexually active. Reports recent UTI. Denies any urinary symptoms. Denies family hx of breast, colon and ovarian cancer. Reports left breast pain; denies nipple discharge or injury to the breast. Last pap smear 09/08/22. Last mammogram 07/02/22. UTD on colonoscopy. [facility] Medical History Breast pain in female Diverticulosis Didelphic uterus Class 1 obesity with body mass index (BMI) of 33.0 to 33.9 in adult Mild persistent asthma Constipation by delayed colonic transit Tubular adenoma Impaired glucose tolerance Hypovitaminosis D Dyslipidemia Surgical History H/O colonoscopy History of biopsy History of tubal ligation Family History Father Stomach cancer Mother Diabetes Hypertension Stroke Brother Thyroid cancer CAD (coronary artery disease) Paternal Uncle CVD (cardiovascular disease) Social History Household Members: None Housing: Apartment Alcohol intake: current Alcohol intake frequency: holidays/special occasions only Alcohol type: wine Patient Tobacco Use Status: Never used Tobacco e-Cigarette/Vaping Use: Never Used Second Hand Smoke Exposure: No service: No Current occupational status: disabled Cognitive needs: No Hearing needs: No Vision needs: Yes Female Reproductive History Menstrual control method: permanent sterilization Permanent Sterilization: BTL Menopause type: natural Total pregnancies: 5 Full term: 5 Number of Living Children: 5 Date of last pap smear: 09/08/22 (05/18 R cervix neg,neg L cervix unsat,neg 09/17 L cervix neg) Date of Mammogram: 07/02/22 (Birad 2) Physical Exam Vital Signs: Last Vital Signs BP 130/74 06/24/23 09:23 BMI result Body Mass Index 29.9 Const General: cooperative, healthy appearing, no acute distress, well developed and alert Orientation/consciousness: patient oriented x3 HEENT Head: Yes normal to inspection Eyes General: appearance normal, both eyes and all related structures Neck Neck: Yes normal visual inspection Thyroid: Thyroid normal Chest Other: no masses, no nipple discharge expressed from left breast Chest palpation & inspection: normal inspection of the chest Breast/axilla inspection: normal inspection of the breasts (no puckering, dimpling, peau de orange, retraction, discharge, masses) Breast/axilla palpation: normal palpation of the breasts Resp Effort & Inspection: normal respiratory effort GI Inspection: Yes normal to inspection Palpation (GI): Soft to palpation (to palpation) Rectal Exam - Female: deferred Other: double cervix, right side is undeveloped and vaginal septum General: Yes bladder normal to inspection External Female Exam: normal external appearance and normal appearance of the urethra Speculum Exam - Vagina: normal appearance of the vagina, normal palpation and v agina atrophic Speculum Exam - Cervix: normal appearance of the cervix, normal palpation and Other cervical findings present Bimanual exam- vagina & uterus: normal palpation and normal palpation Bimanual Exam- Adnexa, other: normal adnexae and no masses Skin General skin exam: no rashes or lesions noted Neuro General: patient oriented x3 Cognition (Neuro): normal cognition Extrem General: Yes normal to inspection Psych Attitude: cooperative Thought process: Normal thought process present Assessment & Plan Assessment & Plan (1) Encounter for well woman exam: Code(s): Z01.419 - Encounter for gynecological examination (general) (routine) without abnormal findings Plan: Discussed: Current recommendations for pap smears per ASCCP guidelines. Breast awareness and periodic self breast exams. Encouraged yearly mammograms. Maintaining a healthy lifestyle including a well balanced diet including Calcium and Vitamin D and routine exercise. Contact office with any PMB. All of her questions and concerns were addressed to the best of my ability. RTO in 1 year for AG. (2) Breast pain in female: Comment: behind left nipple Code(s): N64.4 - Mastodynia Plan: Breast US, Dx mammogram ordered. Follow up in person for results. Orders: Orders US breast LT complete Today N64.4 - Mastodynia MM tomosynthesis diagnostic BI Today N64.4 - Mastodynia, Z12.31 - Encounter for screening mammogram for malignant neoplasm of breast Coding Level of Care Code Est Pt Prev Care >65y(48777) Diagnoses Encounter for well woman exam Z01.419 Breast pain in female N64.4
[2023-06-24 09:23] VITALS: BP 130/74; BMI 29.9
== END 2023-06-24 11:56 | disposition home or self-care (01) ==
PROVIDERS: PCP Internal Medicine; Visit Provider Advanced Practice Midwife
DX: Z01.419 Encounter for gynecological examination (general) (routine) without abnormal findings (principal); N64.4 Mastodynia
CPT/HCPCS: 99397

== ENCOUNTER → 2023-06-24 09:03 | Outpatient (BNVA) | payer MEDICARE, OTHER, MEDICAID, SELFPAY | PROVIDERS: PCP Internal Medicine; Visit Provider Advanced Practice Midwife ==

== ENCOUNTER 2023-07-19 08:41 | Outpatient (REF) | payer MEDICARE, OTHER, MEDICAID, SELFPAY ==
--- NOTE | ~2023-07-19 | US_ITS ---
EXAMINATION: MM DIAGNOSTIC DIGITAL BREAST TOMOSYNTHESIS, BILATERAL US BREAST LIMITED, LEFT MAMMOGRAPHY: CLINICAL INFORMATION: Left breast pain behind the nipple. COMPARISON: Mammography: This study is compared with prior mammograms dating back to 2019. TECHNIQUE: Digital breast tomosynthesis is performed in both the craniocaudal and mediolateral oblique views along with computer-aided detection (CAD). Synthesized 2D images are generated from the tomosynthesis. FINDINGS: There are scattered areas of fibroglandular density (ACR BI-RADS breast composition Category b). There are no significant masses, abnormal calcifications, or other abnormalities in either breast. ULTRASOUND: CLINICAL INFORMATION: Left breast pain behind the nipple COMPARISON: None TECHNIQUE: Targeted sonographic evaluation was performed using a high frequency linear transducer. Selected archived documentation. FINDINGS: LEFT BREAST: There is a mixture of fatty and fibroglandular tissue. There are no focal abnormalities of the left nipple or tissue deep to it. Patient also indicated that her pain was in the 3:00 region 5 cm from the nipple. There is no abnormality in this location. US/US breast LT limited mamm only IMPRESSION: No mammographic evidence of malignancy. No focal abnormalities associated with the left nipple areolar complex and tissue deep to it. Clinical follow-up of the patient's breast pain is advised. OVERALL ASSESSMENT: Mammography: BI-RADS 1 - Negative Ultrasound: BI-RADS 1 - Negative RECOMMENDATION: 1 year F/U This recommendation is recommended in reference to future imaging with screening mammography recommended in June 2024. Clinical follow-up for the patient's breast pain is advised. Results were provided to the patient at time of visit by the technologist. This patient's information was entered into a reminder system with a target due date for their next mammogram.
== END 2023-07-19 08:42 | disposition home or self-care (01) ==
LOC: HO.MAMMO 08:41
PROVIDERS: PCP Internal Medicine; Visit Provider Advanced Practice Midwife
DX: N64.4 Mastodynia (principal)
CPT/HCPCS: 76642; 77062; 77066

== ENCOUNTER → 2023-07-19 09:00 | Outpatient (BNV) | payer MEDICARE, OTHER, MEDICAID, SELFPAY | PROVIDERS: PCP Internal Medicine; Visit Provider Radiology Diagnostic Radiology | DX: N64.4 Mastodynia (principal) | CPT/HCPCS: 76642; 77062; 77066; G0279 ==

== ENCOUNTER 2023-08-09 10:42 | Outpatient (REF) | payer MEDICARE, OTHER, MEDICAID, SELFPAY ==
--- NOTE | 2023-08-09 12:43 | MHC.AU.HA2 ---
Hearing Instrument Fitting- Adult- Binaural Date of Visit: 08/09/23 Hearing Instruments Dispensed: Right Ear: Make, Model, Color, Serial Number: Ani Mendozao L70-R SN: [id number] Color: Sand Beige Stained Glass Glazier Helper Repair Warranty: 09/07/2026 Stained Glass Glazier Helper Loss and Damage Warranty: 09/07/2026 [facility] Service Plan: 08/09/2024 Battery Size: Rechargeable [place] Carpenter/Slim Tube: 1M Earmold/Dome/CShell/SlimTip: Small open dome (no retention tail) Type of Wax Guard: CeruShield Left Ear: Make, Model, Color, Serial Number: Ani CROS L-R SN: [id number] Color: Sand Beige Stained Glass Glazier Helper Repair Warranty: 09/07/2026 Stained Glass Glazier Helper Loss and Damage Warranty: 09/07/2026 [facility] Service Plan: 08/09/2024 Battery Size: Rechargeable [place] Carpenter/Slim Tube: 1C Earmold/Dome/CShell/SlimTip: Small open dome (no retention tail) Type of Wax Guard: CeruShield Accessories/Assistive Technology: Phonak Abap Developer Ease SN: [id number] Summary of Fitting: Performed feedback analyzer and real ear measures. Decreased overall gain to 80% due to perceived loudness. Discussed care, use, and rechargeability including manually turning on/off, volume control use, and changing domes and wax guards. Practiced insertion and removal. Paired to cellphone; however, did not pair to [employer] julius at this time. Re-explained how a BiCROS system works and discussed the importance of daily, consistent use in acclimating to the hearing aids. Marguerite reportedly had the MRI and has an upcoming appointment with the ENT in August to review the results. She also reported that she is hoping to move back to [place] in the near future. Recommended establishing care with an numerical analysis group manager and ENT in [place] to continue care. Recommendations: A hearing instrument follow-up was scheduled. Diagnosis Code(s): Primary Diagnosis: H90.3 Bilateral Sensorineural Hearing Loss Signature: Provider: Korey Krause, [facility]
== END 2023-08-09 10:43 | disposition home or self-care (01) ==
LOC: HO.HAP 10:42
PROVIDERS: Visit Provider Internal Medicine
DX: Z46.1 Encounter for fitting and adjustment of hearing aid (principal); Z90.3 Acquired absence of stomach [part of]
CPT/HCPCS: V5011; V5020; V5221; V5240

== ENCOUNTER 2023-08-13 09:29 | Outpatient (AMB) | payer MEDICARE, OTHER, MEDICAID, SELFPAY ==
[2023-08-13 09:58] VITALS: BP 114/66; BMI 29.5
--- NOTE | 2023-08-13 09:58 | A.OFFVIS_ITS ---
Intake Vital Signs 08/13/23 09:58 Height 5 ft 6 in Weight 182 lb 15.739 oz BMI 29.5 BP 114/66 Intake Visit Reasons: Breast US Follow up Intake Note: The patient agreed to use of a chief medical director during this encounter. Scribed for AJ Siddiqui by Pamela Noel chief medical director, on 08/13/2023 at 10:15 am EST Import Export Coordinator Required: Yes Import Export Coordinator Language: Meat Passer Name: Cordelia GUTIERREZ Information Interpreted: non-clinical & clinical Fish Cleaner: Fish Cleaner Present (Cordelia GUTIERREZ) Accompanied by: Self / Same As Patient Allergies latex Allergy (Intermediate, Verified 08/13/23 10:03) rash Post menopausal: Yes HPI HPI Comments History of Present Illness Details She presets to discuss test results secondary to left breast pain. Reports her pain has resolved. [facility] Medical History (Updated 08/13/23 @ 10:15 by Pamela Noel) Diverticulosis Didelphic uterus Class 1 obesity with body mass index (BMI) of 33.0 to 33.9 in adult Mild persistent asthma Constipation by delayed colonic transit Tubular adenoma Impaired glucose tolerance Hypovitaminosis D Dyslipidemia Surgical History H/O colonoscopy History of biopsy History of tubal ligation Family History Father Stomach cancer Mother Diabetes Hypertension Stroke Brother Thyroid cancer CAD (coronary artery disease) Paternal Uncle CVD (cardiovascular disease) Social History Household Members: None Housing: Apartment Alcohol intake: current Alcohol intake frequency: holidays/special occasions only Alcohol type: wine Patient Tobacco Use Status: Never used Tobacco e-Cigarette/Vaping Use: Never Used Second Hand Smoke Exposure: No service: No Current occupational status: disabled Cognitive needs: No Hearing needs: No Vision needs: Yes Review of Systems Const All systems reviewed & are unremarkable except as noted in HPI and below Physical Exam Vital Signs: Last Vital Signs BP 114/66 08/13/23 09:58 BMI result Body Mass Index 29.5 Const General: cooperative, no acute distress and well developed Chest Breast/axilla inspection: normal inspection of the breasts (symmetrical) and Other (no: puckering, dimpling, peau de orange, retraction, discharge or lesions) Breast/axilla palpation: normal palpation of the breasts and other (no masses palpable bilaterally) Results Reviewed Results Reviewed: 07/19/23 US FINDINGS: LEFT BREAST: There is a mixture of fatty and fibroglandular tissue. There are no focal abnormalities of the left nipple or tissue deep to it. Patient also indicated that her pain was in the 3:00 region 5 cm from the nipple. There is no abnormality in this location. IMPRESSION: No mammographic evidence of malignancy. No focal abnormalities associated with the left nipple areolar complex and tissue deep to it. Clinical follow-up of the patient's breast pain is advised. OVERALL ASSESSMENT: Mammography: BI-RADS 1 - Negative Ultrasound: BI-RADS 1 - Negative RECOMMENDATION: 1 year F/U This recommendation is recommended in reference to future imaging with screening mammography recommended in June 2024. Clinical follow-up for the patient's breast pain is advised. Assessment & Plan Assessment & Plan (1) Encounter to discuss test results: Code(s): Z71.2 - Person consulting for explanation of examination or test findings Plan: Reviewed test results with patient. Contact office with any pain, swelling or lumps. RTO 06/28/24 as scheduled for AG. (2) Breast pain in female: Comment: behind left nipple Code(s): N64.4 - Mastodynia Coding Level of Care Code Est Pt Level 3 (38600) Diagnoses Encounter to discuss test results Z71.2 Breast pain in female N64.4
== END 2023-08-13 10:14 | disposition home or self-care (01) ==
PROVIDERS: PCP Internal Medicine; Visit Provider Advanced Practice Midwife
DX: Z71.2 Person consulting for explanation of examination or test findings (principal); N64.4 Mastodynia
CPT/HCPCS: 99213

== ENCOUNTER → 2023-08-13 09:29 | Outpatient (BNVA) | payer MEDICARE, OTHER, MEDICAID, SELFPAY | PROVIDERS: PCP Internal Medicine; Visit Provider Advanced Practice Midwife | DX: Z71.2 Person consulting for explanation of examination or test findings (principal); N64.4 Mastodynia | CPT/HCPCS: 99212 ==

== ENCOUNTER 2023-08-26 11:12 | Outpatient (REF) | payer MEDICARE, OTHER, MEDICAID, SELFPAY ==
--- NOTE | 2023-08-26 12:40 | MHC.AU.HA3 ---
Hearing Instrument Follow-Up- Binaural Date of Visit: 08/26/23 General Car Supervisor Yard Used: yes Right Ear: Make, Model, Color, Serial Number: Ani Sosa L70-R SN: [id number] Color: Sand Beige Chair Inspector Repair Warranty: 09/07/2026 Chair Inspector Loss and Damage Warranty: 09/07/2026 [facility] Service Plan: 08/09/2024 Battery Size: Rechargeable Tram Operator/Slim Tube: 1M Earmold/Dome/CShell/SlimTip:Small open dome (no retention tail) Type of Wax Guard: CeruShield Left Ear: Make, Model, Color, Serial Number: Ani LOPEZ L-R SN: [id number] Color: Sand Beige Chair Inspector Repair Warranty: 09/07/2026 Chair Inspector Loss and Damage Warranty: 09/07/2026 [facility] Service Plan: 08/09/2024 Battery Size: Rechargeable Tram Operator/Slim Tube: 1C Earmold/Dome/CShell/SlimTip: Small open dome (no retention tail) Type of Wax Guard: CeruShield Follow-Up Summary: Fitting follow up; Marguerite reportedly doing well, no adjustments to gain needed. Notices improvement when wearing hearing aids. Reviewed power on/off button and how to use automotive window tinter. Follow up as needed. Recommendations: Recommendations: Please contact our clinic with any questions or concerns. Diagnosis Code(s): Primary Diagnosis: H90.3 Bilateral Sensorineural Hearing Loss Signature: Provider: Altaf Wilde, [facility]
== END 2023-08-26 11:13 | disposition home or self-care (01) ==
LOC: HO.HAP 11:12
PROVIDERS: Visit Provider Internal Medicine
DX: Z13.89 Encounter for screening for other disorder (principal)

== ENCOUNTER 2024-05-04 14:24 | Outpatient (AMB) | payer MEDICARE, OTHER, MEDICAID, SELFPAY ==
[2024-05-04 14:30] VITALS: BP 132/76; BMI 31.5
--- NOTE | 2024-05-04 14:30 | A.OFFPC_ITS ---
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 Accompanied by: Self / Same As Patient Allergies latex Allergy (Intermediate, Verified 05/04/24 14:53) rash Medication List - Last Reconciled 05/04/24 by Janet Garcia MD cholecalciferol (vitamin D3) 50 mcg PO DAILY 90 days Ventolin HFA 90 mcg/actuation (albuterol sulfate) 2 puffs inhalation Q6H PRN NS Tobacco use date assessed: 05/04/24 Fall risk assessment: No Falls in past year Last assessed Fall Risk: 05/04/24 Dental Screening Dental Screen Date: 05/04/24 Did you have a dental visit in the last 12 months?: Yes Did you have a dental problem in the last 6 months where you did not have access to dental care?: No Was dental information given to patient?: Patient has dentist HPI HPI Comments History of Present Illness Details This is a 69-year-old female that comes for her physical exam accompanied by . Mammogram done less than a year ago was normal. Colonoscopy done 2020 showing tubular adenoma next colonoscopy scheduled for 2024. Denies any chest pain or shortness on breath. Upper GI series was discussed. No need for Pap smear due to age and last Pap smear was few years ago. [facility] Medical History Diverticulosis Didelphic uterus Class 1 obesity with body mass index (BMI) of 33.0 to 33.9 in adult Mild persistent asthma Constipation by delayed colonic transit Tubular adenoma Impaired glucose tolerance Hypovitaminosis D Dyslipidemia Surgical History H/O colonoscopy History of biopsy History of tubal ligation Family History Father Stomach cancer Mother Diabetes Hypertension Stroke Brother Thyroid cancer CAD (coronary artery disease) Paternal Uncle CVD (cardiovascular disease) Social History Household Members: None Housing: Apartment Alcohol intake: current Alcohol intake frequency: holidays/special occasions only Alcohol type: wine Patient Tobacco Use Status: Never used Tobacco e-Cigarette/Vaping Use: Never Used Second Hand Smoke Exposure: No service: No Current occupational status: disabled Cognitive needs: No Hearing needs: No Vision needs: Yes Questionnaire PHQ-9 Over the last 2 weeks, how often have you been bothered by any of the following problems? 1. Little interest or pleasure in doing things: not at all 2. Feeling down, depressed, or hopeless: not at all 3. Trouble falling or staying asleep, or sleeping too much: not at all 4. Feeling tired or having little energy: not at all 5. Poor appetite or overeating: not at all 6. Feeling bad about yourself - or that you are a failure or have let yourself or your family down: not at all 7. Trouble concentrating on things, such as reading the newspaper or watching te levision: not at all 8. Moving or speaking so slowly that other people could have noticed. Or the opposite - being so fidgety or restless that you have been moving around a lot more than usual: not at all 9. Thoughts that you would be better off or of hurting yourself in some way: not at all Total score: 0 Depression Screening Interpretation: Negative Depression Screening Done: Yes 65420 - PHQ-9 Billing: Yes Source: Developed by Drs. Alonso Sanon, Trish Cavanaugh, Vadim Mtz and colleagues, with an educational adarsh from [employer]. Thrive Questionnaire Date Thrive assessed: 05/04/24 I am a: Patient What is your living situation today?: I have a steady place to live Within the past 12 months, did the food you bought not last and you didn't have the money to get more?: Never true Within the past 12 months, did you worry whether your food would run out before you got money to buy more?: Never true Do you have trouble paying for medicines?: No Do you have trouble getting transportation to medical appointments?: No Do you have trouble paying your heating and electricity bill?: No Do you have trouble taking care of your child, family member or friend?: No Do you have trouble with day-to-day activities such as bathing, preparing meals, shopping, managing finances, etc.?: No Are you currently unemployed and looking for a job?: No Are you interested in more education?: No Please select the resources that you would like help with: None Currently or been in a relationship where the following occur: No concerns reported THRIVE Score: 0 AUDIT C Alcohol Use Questionnaire (AUDIT-C) 1. How often do you have a drink containing alcohol?: Monthly or less 2. How many drinks containing alcohol do you have on a typical day when you are drinking?: 1 or 2 3. How often do you have six or more drinks on one occasion?: Never Total Score: 1 Score Reviewed/Action Taken: No ANSELMO-7 AMB Questionnaire ANSELMO-7 Date ANSELMO - 7 assessed: 05/04/24 Feeling nervous, anxious, or on edge: 0 = Not at all Not being able to stop or control worryin = Not at all Worrying too much about different things: 0 = Not at all Trouble relaxin = Not at all Being so restless that it is hard to sit still: 0 = Not at all Becoming easily annoyed or irritable: 0 = Not at all Feeling afraid as if something awful might happen: 0 = Not at all Total ANSELMO-7 score (0-4 normal; 5-9 mild; 10-14 moderate; 15-21 severe): 0 Source: Developed by Drs. Alonso Sanon, Trish Cavanaugh, Vadim Mtz and colleagues, with an educational adarsh from [employer]. ANSELMO-7 Assessment Billing ANSELMO-7 Assessment Tool: ANSELMO-7 Assessment 23526 Review of Systems Const All systems reviewed & are unremarkable except as noted in HPI and below Card Denies chest pain at rest, Denies chest pain with activity, Denies edema, Denies irregular heart rhythm, Denies claudication, Denies dyspnea, Denies dyspnea on exertion, Denies orthopnea, Denies paroxysmal nocturnal dyspnea and Denies slow heart rate Resp Denies cough, Denies dyspnea and Denies dyspnea on exertion Physical exam (Primary Care) Vital Signs: Last Vital Signs BP 132/76 05/04/24 14:30 BMI result Body Mass Index 31.5 BMI Assessment/Plan discussion: High BMI High, discussed plan: lifestyle, weight reduction, dietary and physical activity Tobacco/Smoking Status: Tobacco use Status Tobacco use date assessed 05/04/24 05/04/24 14:36 Patient Tobacco Use Status Never used Tobacco 05/04/24 14:36 e-Cigarette/Vaping Use Never Used 05/04/24 14:36 PHQ-9: PHQ-9 Score PHQ-9: Total score 0 05/04/24 15:12 Depression Screening Interpretation: Negative Thrive Assessment: Date of Thrive Assessment Date Thrive assessed 05/04/24 05/04/24 14:36 Currently or been in a relationship where the following occur: No concerns reported [facility] Head: Yes normal to inspection, Yes normocephalic and Yes atraumatic Ears: external ears normal Eyes General: appearance normal, both eyes and all related structures Eyelids: Yes eyelids normal Conjunctivae: conjunctivae normal Neck Neck: Yes normal visual inspection and Yes supple Resp Effort & Inspection: normal respiratory effort Auscultation: clear to auscultation bilaterally Cardio Jugular venous distension: no JVD Rate: regular rate Rhythm: regular rhythm Heart sounds: S1 normal heart sound present and S2 normal heart sound present GI Inspection: Yes normal to inspection Palpation (GI): Soft to palpation and nontender Auscultation: normal bowel sounds Skin General skin exam: no rashes or lesions noted Neuro General: no focal motor deficits Extrem General: Yes full ROM Psych Appearance: grossly normal Immunizations pneumoc 20-herminio conj-dip cr(PF) 0.5 mL IM syringe Performing Provider: Janet Garcia MD Performing Location: [facility] Administered by: BRENDA Reese on 05/04/24 15:12 Dose Route Admin Location Dispensed Lot Number Expiration Date [facility] Health Care Marketing Specialist 0.5 mL IM Left Deltoid 0.5 mL [id number] 02/25/25 [employer] VIS Given Date VIS Provided VIS Publication Date 05/04/24 Single Vaccine 21 Eligibility Eligibility Date Funding Source Not [facility] Eligible 05/04/24 Private Assessment and Plan Assessment & Plan (1) Physical exam: Code(s): Z00.00 - Encounter for general adult medical examination without abnormal findings Plan: Repeat in a year. Orders: Orders Pneumococcal 20 Immunization Today Z23 - Encounter for immunization XR DEXA axial skeleton Today N95.9 - Unspecified menopausal and perimenopausal disorder Coding Level of Care Code Est Pt Prev Care >65y(32339) Diagnoses Physical exam Z00.00 Additional Codes ANSELMO-7 Assessment Billing - ANSELMO-7 Assessment Tool: ANSELMO-7 Assessment 35292 ([id number]) Time Spent (min) 31
== END 2024-05-04 15:14 | disposition home or self-care (01) ==
PROVIDERS: PCP Internal Medicine; Visit Provider Internal Medicine
DX: Z00.00 Encounter for general adult medical examination without abnormal findings (principal); Z23 Encounter for immunization
CPT/HCPCS: 90471; 90677; 99397

== ENCOUNTER 2024-05-11 09:32 | Outpatient (REF) | payer MEDICARE, OTHER, MEDICAID, SELFPAY | END 2024-05-11 09:33 | disposition home or self-care (01) | LOC: HO.HAP 09:32 | PROVIDERS: Visit Provider Otolaryngology | DX: Z13.89 Encounter for screening for other disorder (principal) ==

== ENCOUNTER 2024-05-15 17:34 | Emergency (ER) | payer MEDICARE, OTHER, MEDICAID, SELFPAY ==
[2024-05-15 18:25] VITALS: BP 146/62; PULSE 63; RESP 16; TEMP 36.1; O2SAT 100; BMI 31.5
--- NOTE | 2024-05-15 18:30 | ED_ITS ---
HPI - Nausea/Vomiting/Diarrhea General Chief complaint: Nausea/Vomiting/Diarrhea Stated complaint: vomiting, dizzy Related Data Previous Rx's ?Medication ?Instructions ?Recorded cholecalciferol (vitamin D3) 50 50 mcg PO DAILY 90 days #90 caps 11/04/22 mcg (2,000 unit) capsule Ventolin HFA 90 mcg/actuation 2 puff inhalation Q6H PRN for 08/29/23 aerosol inhaler (albuterol sulfate) wheezing #18 ea sulfamethoxazole 800 1 tab PO BID 3 days #6 tabs 05/16/24 mg-trimethoprim 160 mg tablet (Bactrim DS) Allergies Allergy/AdvReac Type Severity Reaction Status Date / Time latex Allergy Intermediate rash Verified 05/15/24 18:26 [facility] Past Medical History Medical History Diverticulosis Didelphic uterus Class 1 obesity with body mass index (BMI) of 33.0 to 33.9 in adult Mild persistent asthma Constipation by delayed colonic transit Tubular adenoma Impaired glucose tolerance Hypovitaminosis D Dyslipidemia Surgical History H/O colonoscopy History of biopsy History of tubal ligation Family History Family History Father Stomach cancer Mother Diabetes Hypertension Stroke Brother Thyroid cancer CAD (coronary artery disease) Paternal Uncle CVD (cardiovascular disease) Social History Social History Household Members: None Housing: Apartment Alcohol intake: current Alcohol intake frequency: holidays/special occasions only Alcohol type: wine Patient Tobacco Use Status: Never used Tobacco e-Cigarette/Vaping Use: Never Used Second Hand Smoke Exposure: No service: No Current occupational status: disabled Cognitive needs: No Hearing needs: No Vision needs: Yes Physical Exam 2 Vital Signs: Vital Signs: Last Vital Signs Temp 97.0 F 05/15/24 18:25 Pulse 63 05/15/24 18:25 Resp 16 05/15/24 18:25 BP 146/62 H 05/15/24 18:25 Pulse Ox 100 05/15/24 18:25 O2 Del Method Room Air 08/19/24 18:25 BMI result Body Mass Index 31.5 Course Course Course Narrative: This is a Rapid Medical Examination (RME) performed by Mark Macias PA-C in triage. Full HPI, ROS, assessment and treatment plan per primary provider in the Main ED. 46 yo Estonian speaking female presents to the ER for evaluation of nausea, vomiting, chills and dizziness that started at 5pm today. She reports dizziness and feeling like she was going to faint when she stood up. She c/o headache and diffuse abdominal pain. No known sick contacts. In triage patient appears well. Lungs are clear. abd is soft with mild diffuse tenderness, no point tenderness. She is grossly nonfocal neurologically. Steady gait. Plan: labs, EKG, zofran Medications Administered Discontinued Medications Generic Name Dose Route Start Last Admin Trade Name Freq PRN Reason Stop Dose Admin Ondansetron HCl 4 mg 05/15/24 18:30 05/15/24 18:32 Ondansetron Odt 4 Mg Tab.Rapdis TRANSLINGU 05/15/24 18:31 4 mg ONCE ONE Administration Medical Decision Making Lab Data 05/15/24 20:30 05/15/24 20:30 Labs: Lab Results 05/15/24 Range/Units 20:30 WBC 8.1 (4.8-10.8) X10*3/uL RBC 5.48 (4.20-5.50) X10*6/uL Hgb 14.9 (12.0-16.0) g/dl Hct 45.2 (37.0-47.0) % MCV 82.5 (80.0-98.0) fL MCH 27.2 (27.0-33.0) pg MCHC 33.0 (31.0-35.0) g/dl RDW 12.6 (11.0-16.0) % Plt Count 197 (160-400) X10*3/uL MPV 10.0 (9.4-12.3) fL Immature Gran % (Auto) 0.5 H (0.0-0.4) % Neut % (Auto) 84.2 H (45-73) % Lymph % (Auto) 11.3 L (20-40) % [place] % (Auto) 3.5 (2-11) % Eos % (Auto) 0.1 (0-4) % Baso % (Auto) 0.4 (0-2) % Lymph # (Auto) 0.9 L (1.2-4.9) X10*3/uL [place] # (Auto) 0.3 (0.1-1.2) X10*3/uL Eos # (Auto) 0.0 (0.0-0.4) X10*3/uL Baso # (Auto) 0.0 (0.0-0.2) X10*3/uL Abs Immat Gran (auto) 0.04 H (0.00-0.03) X10*3/uL Absolute Neuts (auto) 6.8 (2.0-8.3) x10*3/uL Absolute Nucleated RBC 0.000 (0.0-0.012) X10*3/uL Nucleated RBC % (auto) 0.0 (0.0-0.2) /100WBC Sodium 141 (135-145) mmol/L Potassium 4.5 (3.3-5.1) mmol/L Chloride 103 (96-108) mmol/L Carbon Dioxide 28 (22-29) mmol/L Anion Gap 15 (12-20) BUN 21 H (9-16) mg/dL Creatinine 0.85 (0.5-1.4) mg/dL Estim Creat Clear Calc 71.9 Estimated GFR > 60 Random Glucose 129 H (60-115) mg/dL Calcium 10.3 H D (8.4-10.2) mg/dL Magnesium 2.2 (1.6-2.6) mg/dL Total Bilirubin 0.4 (0.0-1.0) mg/dL Direct Bilirubin 0.2 (0.0-0.5) mg/dL AST 21 (5-31) U/L ALT 20 (0-31) U/L Alkaline Phosphatase 72 (39-117) U/L Total Protein 8.5 H (6.5-8.0) g/dL Albumin 4.6 (3.5-5.0) g/dL Urine Color Yellow Urine Appearance Clear Urine pH 7.5 (5.0-9.0) Ur Specific [place] 1.025 (1.005-1.025) Urine Protein 30 (1+) H (Neg-Trace) mg/dL Urine Glucose (UA) Negative (Negative) mg/dL Urine Ketones Trace (Negative) mg/dL Urine Blood Trace H (Negative) Urine Nitrite Negative (Negative) Ur Leukocyte Esterase Large (3+) H (Negative) Urine RBC 6-10 H (0-2) /HPF Urine WBC 11-20 H (0-5) /HPF Ur Squamous Epith Cells 3-5 (0-2) /HPF Urine Bacteria 1+ (None Seen) Hyaline Casts 0-2 (0-2) /LPF COVID-19 (CARISA) Negative (Negative) COVID-19 Clin Com See Note Discharge Plan Discharge Clinical Impression: Nausea & vomiting Qualifiers: Vomiting type: unspecified Qualified Code(s): R11.2 - Nausea with vomiting, unspecified Patient Disposition: Left W/O Completing Treatment Prescriptions: No Action albuterol sulfate [Ventolin HFA] 90 mcg/actuation HFA aerosol inhaler 2 puff inhalation Q6H PRN (Reason: for wheezing) Qty: 18 2RF sulfamethoxazole-trimethoprim [Bactrim DS] 800-160 mg tablet 1 tab PO BID 3 Days Qty: 6 0RF cholecalciferol (vitamin D3) 50 mcg (2,000 unit) capsule 50 mcg PO DAILY 90 Days Qty: 90 1RF Interventions: LWBS Worksheet Last Done: 05/16/24 00:50 Discharge Date/Time: 05/16/24 00:50
--- NOTE | 2024-05-15 18:30 | ECG_ITS ---
Test Reason : DISSINESS Blood Pressure : / mmHG Vent. Rate : 062 BPM Atrial Rate : 062 BPM P-R Int : 178 ms QRS Dur : 082 ms QT Int : 434 ms P-R-T Axes : -03 005 037 degrees QTc Int : 440 ms Normal sinus rhythm Normal ECG No previous ECGs available Referred By: Alissa Macias Electronically Signed By:BREANA NOWAK
[2024-05-15] MEDS: Ondansetron ODT 4 MG TAB.RAPDIS TRANSLINGU (18:32)
--- NOTE | 2024-05-15 19:21 | MHC.EDTECH ---
This tech took over triage, EKG ordered a while ago, will call patient to perform
[2024-05-15 20:37] LABS: MANUAL DIFF FLAG NO
[2024-05-15 20:40] LABS: Basophils Percent Auto 0.4 % (0-2); Eosinophils Percent Auto 0.1 % (0-4); Hematocrit 45.2 % (37.0-47.0); Hemoglobin 14.9 g/dl (12.0-16.0); Imm Gran Abs Auto 0.04 X10*3/uL (0.00-0.03); Imm Gran Pct Auto 0.5 % (0.0-0.4); Lymphocytes Absolute Auto 0.9 X10*3/uL (1.2-4.9); Lymphocytes Percent Auto 11.3 % (20-40); Mean Corpuscular Hemoglobin 27.2 pg (27.0-33.0); Mean Corpuscular Volume 82.5 fL (80.0-98.0); Monocytes Absolute Auto 0.3 X10*3/uL (0.1-1.2); Monocytes Percent Auto 3.5 % (2-11); Neutrophils Absolute Auto 6.8 x10*3/uL (2.0-8.3); Neutrophils Percent Auto 84.2 % (45-73); Platelet Count 197 X10*3/uL (160-400); Red Blood Count 5.48 X10*6/uL (4.20-5.50); Red Cell Distribution Width 12.6 % (11.0-16.0); White Blood Count 8.1 X10*3/uL (4.8-10.8)
[2024-05-15 20:47] LABS: Appearance Urine Clear; Color Urine Yellow; Glucose Urine UA Negative (Negative); Leukocyte Esterase Urine Large (3+) (Negative); Nitrite Urine Negative (Negative); PH 7.5 (5.0-9.0); Specific Gravity - Urine 1.025 (1.005-1.025); UMIC TRIGGER UACC YES; Urine Blood Trace (Negative); Urine Ketones Trace mg/dL (Negative); Urine Protein 30 (1+) mg/dL (Neg-Trace)
[2024-05-15 20:54] LABS: COVID-19 Test Negative (Negative); IDNOW Serial# 08D9AD1C
[2024-05-15 20:55] LABS: Alanine Aminotransferase 20 U/L (0-31); Albumin Level 4.6 g/dL (3.5-5.0); Alkaline Phosphatase 72 U/L (39-117); Anion Gap 15 (12-20); Aspartate Amino Transferase 21 U/L (5-31); Bilirubin Direct 0.2 mg/dL (0.0-0.5); Bilirubin Total 0.4 mg/dL (0.0-1.0); Blood Urea Nitrogen 21 mg/dL (9-16); Calcium 10.3 mg/dL (8.4-10.2); Carbon Dioxide 28 mmol/L (22-29); Chloride 103 mmol/L (96-108); Creatinine Clr Calc Pharmacy 71.9; Estimated Glomerular Filt Rate > 60; Glucose Random 129 mg/dL (60-115); Magnesium 2.2 mg/dL (1.6-2.6); Potassium 4.5 mmol/L (3.3-5.1); Sodium 141 mmol/L (135-145); Total Protein 8.5 g/dL (6.5-8.0)
[2024-05-15 21:00] LABS: Bacteria Urine 1+ (None Seen); Hyaline Casts Urine 0-2 /LPF (0-2); UACC Culture Trigger YES
== END 2024-05-16 00:50 | disposition left against medical advice (07) ==
PROVIDERS: Physician Assistant; Emergency Provider Emergency Medicine; PCP Internal Medicine
DX: R11.2 Nausea with vomiting, unspecified (principal); R42 Dizziness and giddiness; R10.9 Unspecified abdominal pain; R51.9 Headache, unspecified; Z11.52 Encounter for screening for COVID-19; Z53.21 Procedure and treatment not carried out due to patient leaving prior to being seen by health care provider
CPT/HCPCS: 80048; 80076; 81001; 83735; 85025; 87086; 87147; 87635; 93005; 99283

== ENCOUNTER 2024-05-18 04:44 | Emergency (ER) | payer MEDICARE, OTHER, MEDICAID, SELFPAY ==
--- NOTE | 2024-05-18 05:10 | ED_ITS ---
HPI - Nausea/Vomiting/Diarrhea General Chief complaint: Abdominal Pain Stated complaint: numbness hands Time Seen by Provider: 05/18/24 05:10 Source: patient and family Mode of arrival: ambulatory Limitations: language barrier History of Present Illness ED Provider: Dr. Cummings HPI Narrative: Patient was here 3 days ago with chills and shakes and vomiting. She was RME in triage but left prior to being seen. Her PMD got her UA and started bactrim for UTI. She took one pill. Today with nausea and vomiting again. MD elicited complaint: nausea and vomiting Related Data Previous Rx's ?Medication ?Instructions ?Recorded cholecalciferol (vitamin D3) 50 50 mcg PO DAILY 90 days #90 caps 11/04/22 mcg (2,000 unit) capsule Ventolin HFA 90 mcg/actuation 2 puff inhalation Q6H PRN for 08/29/23 aerosol inhaler (albuterol sulfate) wheezing #18 ea sulfamethoxazole 800 1 tab PO BID 3 days #6 tabs 05/16/24 mg-trimethoprim 160 mg tablet (Bactrim DS) ondansetron 4 mg disintegrating 4 mg PO Q8H 4 days #12 tabs 05/18/24 tablet Allergies Allergy/AdvReac Type Severity Reaction Status Date / Time latex Allergy Intermediate rash Verified 05/18/24 05:18 Review of Systems 2 Review of Systems: Yes all other systems are reviewed and are negative Neurologic: Denies Sensory deficit (Neuro) PMFSH Past Medical History Medical History Diverticulosis Didelphic uterus Class 1 obesity with body mass index (BMI) of 33.0 to 33.9 in adult Mild persistent asthma Constipation by delayed colonic transit Tubular adenoma Impaired glucose tolerance Hypovitaminosis D Dyslipidemia Surgical History H/O colonoscopy History of biopsy History of tubal ligation Family History Family History Father Stomach cancer Mother Diabetes Hypertension Stroke Brother Thyroid cancer CAD (coronary artery disease) Paternal Uncle CVD (cardiovascular disease) Social History Social History Household Members: None Housing: Apartment Alcohol intake: current Alcohol intake frequency: holidays/special occasions only Alcohol type: wine Patient Tobacco Use Status: Never used Tobacco e-Cigarette/Vaping Use: Never Used Second Hand Smoke Exposure: No Advance Directives: No Advance Directives Information Provided: Yes Do you have a plan to hurt others: No Plan service: No Current occupational status: disabled Cognitive needs: No Hearing needs: No Vision needs: Yes Physical Exam 2 Vital Signs: Vital Signs: Last Vital Signs Temp 95.8 F L 05/18/24 05:16 Pulse 85 05/18/24 05:16 Resp 24 H 05/18/24 05:16 Pulse Ox 100 05/18/24 05:16 O2 Del Method Room Air 05/18/24 05:16 BMI result Body Mass Index 31.8 Const: Other: shaking and vomiting Nutritional Appearance: average body habitus Orientation/consciousness: oriented to person and patient oriented x3 Limitations: no limitations HEENT: Head: Yes normal to inspection Ears: external ears normal General nose exam: Normal external nose present Mouth: Normal oral and palatal mucosa present and oropharynx normal Throat: Yes posterior oropharynx normal Eyes: General: appearance normal, both eyes and all related structures Neck: Other: supple Neck: Yes normal visual inspection Chest: Chest palpation & inspection: normal inspection of the chest Resp: Auscultation: clear to auscultation bilaterally Cardio: Jugular venous distension: no JVD Rate: regular rate Rhythm: r egular rhythm Heart sounds: S1 normal heart sound present and S2 normal heart sound present GI: Inspection: Yes normal to inspection Palpation (GI): Soft to palpation, nontender and No hepatosplenomegaly present Auscultation: normal bowel sounds : General: Yes no CVA tenderness Back/Spine/Pelvis: Back: no CVA tenderness Skin: General skin exam: no rashes or lesions noted Neuro: General: oriented to person and patient oriented x3 Cranial nerves: Yes CN's II-XII intact bilaterally Motor exam (neuro): 5/5 motor strength present throughout Sensory Exam: No Sensory deficit (Neuro) Extrem: General: Yes normal to inspection Psych: Appearance: grossly normal Medications Administered Discontinued Medications Generic Name Dose Route Start Last Admin Trade Name Freq PRN Reason Stop Dose Admin Sodium Chloride 1,000 mls @ 500 mls/hr 05/18/24 05:15 05/18/24 05:39 Ns IVCONT 05/18/24 07:14 500 mls/hr .Q2H RAJESH Administration Ondansetron HCl 4 mg 05/18/24 05:12 05/18/24 05:30 Ondansetron Hcl 4 Mg/2 Ml Vial IVPUSH 05/18/24 05:13 4 mg ONCE ONE Administration Pantoprazole Sodium 40 mg 05/18/24 05:12 05/18/24 05:34 Pantoprazole Sodium 40 Mg/10 Ml Vial IVPUSH 05/18/24 05:13 40 mg ONCE ONE Administration Medical Decision Making Differential Diagnosis Differential Diagnoses: The differential diagnosis associated with the presentation includes (nausea, vomiting, UTI, sepsis) Admission/Observation Consideration of admission/observation: Escalation of care including admission/observation considered (upon arrival patient considered for admission) Lab Data 05/18/24 05:26 05/18/24 05:26 Labs: Lab Results 05/18/24 Range/Units 05:26 WBC 4.8 (4.8-10.8) X10*3/uL RBC 5.20 (4.20-5.50) X10*6/uL Hgb 14.5 (12.0-16.0) g/dl Hct 41.5 (37.0-47.0) % MCV 79.8 L (80.0-98.0) fL MCH 27.9 (27.0-33.0) pg MCHC 34.9 (31.0-35.0) g/dl RDW 12.7 (11.0-16.0) % Plt Count 179 (160-400) X10*3/uL MPV 10.3 (9.4-12.3) fL Immature Gran % (Auto) 0.4 (0.0-0.4) % Neut % (Auto) 55.9 (45-73) % Lymph % (Auto) 36.5 (20-40) % [place] % (Auto) 5.8 (2-11) % Eos % (Auto) 0.8 (0-4) % Baso % (Auto) 0.6 (0-2) % Lymph # (Auto) 1.8 (1.2-4.9) X10*3/uL [place] # (Auto) 0.3 (0.1-1.2) X10*3/uL Eos # (Auto) 0.0 (0.0-0.4) X10*3/uL Baso # (Auto) 0.0 (0.0-0.2) X10*3/uL Abs Immat Gran (auto) 0.02 (0.00-0.03) X10*3/uL Absolute Neuts (auto) 2.7 (2.0-8.3) x10*3/uL Absolute Nucleated RBC 0.000 (0.0-0.012) X10*3/uL Nucleated RBC % (auto) 0.0 (0.0-0.2) /100WBC Sodium 138 (135-145) mmol/L Potassium 3.5 D (3.3-5.1) mmol/L Chloride 106 (96-108) mmol/L Carbon Dioxide 18 L (22-29) mmol/L Anion Gap 18 (12-20) BUN 17 H (9-16) mg/dL Creatinine 1.02 (0.5-1.4) mg/dL Estim Creat Clear Calc 60.2 Estimated GFR 54 Random Glucose 174 H (60-115) mg/dL Calcium 9.9 (8.4-10.2) mg/dL Total Bilirubin 0.7 (0.0-1.0) mg/dL AST 19 (5-31) U/L ALT 19 (0-31) U/L Alkaline Phosphatase 56 (39-117) U/L Total Protein 7.8 (6.5-8.0) g/dL Albumin 4.3 (3.5-5.0) g/dL Lipase 11 (8-78) U/L Independent Historian Clinical information obtained from an independent historian. History obtained from or confirmed by: Spouse Prescription Management I considered prescription management with: Antibiotic (patient already placed on bactrim) Discharge Plan Discharge Clinical Impression: Nausea & vomiting, Acute UTI Patient Disposition: Home, Self-Care Instructions: Acute Nausea and Vomiting (ED), Urinary Tract Infection in Older Adults (ED) Additional Instructions: continue with your antibiotics and finish them Prescriptions: New ondansetron 4 mg tablet,disintegrating 4 mg PO Q8H 4 Days Qty: 12 0RF No Action albuterol sulfate [Ventolin HFA] 90 mcg/actuation HFA aerosol inhaler 2 puff inhalation Q6H PRN (Reason: for wheezing) Qty: 18 2RF sulfamethoxazole-trimethoprim [Bactrim DS] 800-160 mg tablet 1 tab PO BID 3 Days Qty: 6 0RF cholecalciferol (vitamin D3) 50 mcg (2,000 unit) capsule 50 mcg PO DAILY 90 Days Qty: 90 1RF Referrals: Janet Isals MD [Primary Care Provider] - 5 days Print Language: Nicaraguan
[2024-05-18 05:16] VITALS: PULSE 85; RESP 24; TEMP 35.4; O2SAT 100; BMI 31.8
[2024-05-18 05:30] LABS: Basophils Percent Auto 0.6 % (0-2); Eosinophils Percent Auto 0.8 % (0-4); Hematocrit 41.5 % (37.0-47.0); Hemoglobin 14.5 g/dl (12.0-16.0); Imm Gran Abs Auto 0.02 X10*3/uL (0.00-0.03); Imm Gran Pct Auto 0.4 % (0.0-0.4); Lymphocytes Absolute Auto 1.8 X10*3/uL (1.2-4.9); Lymphocytes Percent Auto 36.5 % (20-40); MANUAL DIFF FLAG NO; Mean Corpuscular HGB Conc 34.9 g/dl (31.0-35.0); Mean Corpuscular Hemoglobin 27.9 pg (27.0-33.0); Mean Corpuscular Volume 79.8 fL (80.0-98.0); Mean Platelet Volume 10.3 fL (9.4-12.3); Monocytes Absolute Auto 0.3 X10*3/uL (0.1-1.2); Monocytes Percent Auto 5.8 % (2-11); Neutrophils Absolute Auto 2.7 x10*3/uL (2.0-8.3); Neutrophils Percent Auto 55.9 % (45-73); Platelet Count 179 X10*3/uL (160-400); Red Cell Distribution Width 12.7 % (11.0-16.0); White Blood Count 4.8 X10*3/uL (4.8-10.8)
[2024-05-18] MEDS: ondansetron HCL 4 MG/2 ML VIAL IVPUSH (05:30)
[2024-05-18] MEDS: Pantoprazole Sodium 40 MG/10 ML VIAL IVPUSH (05:34)
[2024-05-18] MEDS: 0.9 % Sodium Chloride 1,000 ML 500 ML IVCONT (05:39)
[2024-05-18 05:44] LABS: Alanine Aminotransferase 19 U/L (0-31); Albumin Level 4.3 g/dL (3.5-5.0); Alkaline Phosphatase 56 U/L (39-117); Anion Gap 18 (12-20); Aspartate Amino Transferase 19 U/L (5-31); Bilirubin Total 0.7 mg/dL (0.0-1.0); Blood Urea Nitrogen 17 mg/dL (9-16); Calcium 9.9 mg/dL (8.4-10.2); Carbon Dioxide 18 mmol/L (22-29); Chloride 106 mmol/L (96-108); Creatinine Clr Calc Pharmacy 60.2; Estimated Glomerular Filt Rate 54; Glucose Random 174 mg/dL (60-115); Lipase 11 U/L (8-78); Potassium 3.5 mmol/L (3.3-5.1); Sodium 138 mmol/L (135-145); Total Protein 7.8 g/dL (6.5-8.0)
--- NOTE | 2024-05-18 06:02 | PC.NURSE ---
Pt is a 69 y/o female who presents for evaluation of abd pain with nausea and vomiting that started shortly after midnight. Pt was seen here on 05/15 for similar complaints. On arrival pt was hyperventilating and reporting tingling in her extremities, after some redirection, tingling resolved and pt reports feeling a little better. IV access established in right AC with NS running @ 500mL/hr. Family at the bedside.
[2024-05-18 07:58] VITALS: BP 138/62; PULSE 78; RESP 20; TEMP 36.6; O2SAT 100
== END 2024-05-18 08:06 | disposition home or self-care (01) ==
PROVIDERS: Emergency Provider Emergency Medicine; PCP Internal Medicine
DX: R11.2 Nausea with vomiting, unspecified (principal); N39.0 Urinary tract infection, site not specified; E78.5 Hyperlipidemia, unspecified; J45.909 Unspecified asthma, uncomplicated; Z79.899 Other long term (current) drug therapy
CPT/HCPCS: 36415; 80053; 83690; 85025; 96361; 96374; 96375; 99283; 99284; J2405; J2470

== ENCOUNTER 2024-05-25 08:50 | Outpatient (REF) | payer MEDICARE, OTHER, MEDICAID, SELFPAY ==
--- NOTE | ~2024-05-25 | MM_ITS ---
EXAMINATION: BONE DENSITOMETRY CLINICAL INDICATION: Menopause. COMPARISON: This is the patient's baseline examination. TECHNIQUE: Using a Catglobe DXA System (software version: 13.1) manufactured by [employer], dual-energy x-ray absorptiometry was performed of the lumbar spine and left hip. The images are of good technical quality. Summary results are attached. FINDINGS: LEFT FEMUR, NECK: BMD 0.914 g/cm2, Z-score 0.1, T-score -0.9, normal. LEFT FEMUR, TOTAL: BMD 0.91 g/cm2, Z-score 0.0, T-score -0.7, normal. AP SPINE L1-L4: BMD 1.072 g/cm2, Z-score -0.1, T-score -0.9, normal. IDENTIFIED RISK FACTORS: Menopause, rheumatoid arthritis. HISTORY OF FRACTURE: None listed. MEDICATIONS: Calcium, vitamin D. MM/XR DEXA axial skeleton IMPRESSION: 1. DIAGNOSIS: Normal bone density based on the lowest T-score value of -0.9 in the femur neck and lumbar spine applying World Health Organization criteria. 2. 10-YEAR FRACTURE RISK PREDICTION, FRAX: According to the guidelines, FRAX calculation should only be performed on patients in the osteopenia bone density category. Therefore, FRAX was not performed on this patient. 3. Treatment Recommendations: NOF guidelines recommend consideration for treatment in postmenopausal women and men age 50 and older presenting with the following: -A hip or vertebral (clinical or morphometric) fracture. -T-score less than or equal to -2.5 at the femoral neck or spine after appropriate evaluation to exclude secondary causes. -Low bone mass at the hip or spine and a 10-year fracture probability by FRAX of greater than or equal to 3% for hip fracture or greater than or equal to 20% for major osteoporotic fracture based on the [place] adapted WHO algorithm. 4. Other Recommendations: All treatment decisions require clinical judgment and consideration of individual patient factors, including patient preferences, comorbidities, previous drug use, risk factors not captured in the FRAX model (e.g. frailty, falls, vitamin D deficiency, increased bone turnover, interval significant decline in bone density) and possible under or overestimation of fracture risk by FRAX. FUTURE SCAN RECOMMENDATION: People with diagnosed cases of osteoporosis or at high risk for fracture should have regular bone mineral density tests. For patients eligible for Medicare, routine testing is allowed once every 2 years. The testing frequency can be increased to one year for patients who have rapidly progressing disease, those who are receiving or discontinuing medical therapy to restore bone mass, or have additional risk factors. Electronically signed by: Neville Neumann MD 05/30/2024 11:08 AM EDT
== END 2024-05-25 08:51 | disposition home or self-care (01) ==
LOC: HO.MAMMO 08:50
PROVIDERS: PCP Internal Medicine; Visit Provider Internal Medicine
DX: Z13.820 Encounter for screening for osteoporosis (principal); Z78.0 Asymptomatic menopausal state
CPT/HCPCS: 77080

== ENCOUNTER 2024-06-28 09:10 | Outpatient (AMB) | payer MEDICARE, OTHER, MEDICAID, SELFPAY ==
--- NOTE | 2024-06-28 09:19 | MHC.OFFVIS ---
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 She is doing well with no concerns: burning w/urination, pelvic pressure. Treated for bladder infection in inf. Attempting to eat a healthy diet with calcium and vitamin D. No regular exercise. Currently not sexually active. Denies any vaginal dryness or irritation. STI testing offered; she accepts. Last pap smear; 2021. Last mammogram; 2022. Colonoscopy is UTD. Denies any family history of breast, ovarian or colon cancer. [facility] Medical History (Updated 06/28/24 @ 10:15 by Caryn Alcantar CNM) Pelvic pain Dysuria Diverticulosis Didelphic uterus Class 1 obesity with body mass index (BMI) of 33.0 to 33.9 in adult Mild persistent asthma Constipation by delayed colonic transit Tubular adenoma Impaired glucose tolerance Hypovitaminosis D Dyslipidemia Surgical History H/O colonoscopy History of biopsy History of tubal ligation Family History Father Stomach cancer Mother Diabetes Hypertension Stroke Brother Thyroid cancer CAD (coronary artery disease) Paternal Uncle CVD (cardiovascular disease) Social History Household Members: None Housing: Apartment Alcohol intake: current Alcohol intake frequency: holidays/special occasions only Alcohol type: wine Patient Tobacco Use Status: Never used Tobacco e-Cigarette/Vaping Use: Never Used Second Hand Smoke Exposure: No service: No Current occupational status: disabled Cognitive needs: No Hearing needs: No Vision needs: Yes Female Reproductive History Menstrual Age of Menarche: 15 Menopause type: natural Date of menopause: 09/27/02 Age of menopause: 57 Total pregnancies: 5 Full term: 5 History of abnormal pap smear: No History of STI: No Review of Systems Const All systems reviewed & are unremarkable except as noted in HPI and below Reports as per HPI Eyes Reports no additional complaints ENT Reports no additional complaints Card Reports no additional complaints Resp Reports no additional complaints GI Reports as per HPI and Reports no additional complaints Reports as per HPI Musc Reports no additional complaints Skin/Breast Reports as per HPI Neuro Reports no additional complaints Psych Reports no additional complaints Endo Reports no additional complaints Pee/Lymph Reports no additional complaints Aller/Immun Reports no additional complaints Physical Exam Vital Signs: Last Vital Signs BP 118/76 06/28/24 09:30 BMI result Body Mass Index 31.6 Const General: cooperative, healthy appearing, no acute distress, well developed and alert Orientation/consciousness: patient oriented x3 HEENT Head: Yes normal to inspection Eyes General: appearance normal, both eyes and all related structures Neck Neck: Yes normal visual inspection Thyroid: Thyroid normal Chest Chest palpation & inspection: normal inspection of the chest and other (no puckering, dimpling, peau de orange, retraction, discharge, masses) Breast/axilla inspection: normal inspection of the breasts Breast/axilla palpation: normal palpation of the breasts Resp Effort & Inspection: normal respiratory effort GI Inspection: Yes normal to inspection Palpation (GI): Soft to palpation Rectal Exam - Female: deferred General: Yes bladder normal to palpation External Female Exam: normal external appearance and normal appearance of the urethra Speculum Exam - Vagina: normal appearance of the vagina, normal palpation, normal vaginal discharge and vagina atrophic Speculum Exam - Cervix: normal appearance of the cervix and normal palpation Bimanual exam- vagina & uterus: normal bimanual exam, normal palpation, uterine size normal, bladder normal to palpation, normal palpation and non-tender Bimanual Exam- Adnexa, other: no masses and tender on the left Skin General skin exam: no rashes or lesions noted Rashes: no rashes Neuro General: patient oriented x3 Cognition (Neuro): normal cognition Extrem General: Yes normal to inspection Psych Attitude: cooperative Thought process: Normal thought process present Results AMB Urinalysis Dipstick UR Leukocytes Moderate Last Edit by Ameena Olivares on 06/28/24 12:21 70 Ameena Olivares 06/28/24 12:21 UR Nitrite Last Edit by Ameena Olivares on 06/28/24 12:21 UR Urobilinogen 4 Last Edit by Ameena Olivares on 06/28/24 12:21 UR Protein Negative Last Edit by Ameena Olivares on 06/28/24 12:21 UR Ph 6.0 Last Edit by Ameean Olivares on 06/28/24 12:21 UR Blood Small Last Edit by Ameena Olivares on 06/28/24 12:21 UR Specific Brandon 1.005 Last Edit by Ameena Olivares on 06/28/24 12:21 UR Ketone Negative Last Edit by Ameena Olivares on 06/28/24 12:21 UR Bilirubin Negative Last Edit by Ameena Olivares on 06/28/24 12:21 UR Glucose Negative Last Edit by Ameena Olivares on 06/28/24 12:21 Results Reviewed Results Reviewed: Laboratory Last Values Urine pH (Clinic) 6.0 06/28/24 12:19 Specific Brandon (Clinic) 1.005 06/28/24 12:19 Ur Protein (Clinic) Negative 06/28/24 12:19 Ur Ketones (Clinic) Negative 06/28/24 12:19 Urine Blood (Clinic) Small 06/28/24 12:19 Urine Bilirubin (Clinic) Negative 06/28/24 12:19 Urobilinogen (Clinic) 4 06/28/24 12:19 Leukocyte Esterase (Clinic) Moderate 06/28/24 12:19 Urine Glucose (Clinic) Negative 06/28/24 12:19 Assessment & Plan Assessment & Plan (1) Encounter for well woman exam with routine gynecological exam: Code(s): Z01.419 - Encounter for gynecological examination (general) (routine) without abnormal findings Category: Medical Plan Discussed: Current recommendations for pap smears per ASCCP guidelines. Urine sent for culture, to start amoxicillin t.i.d. for 5 days, increase fluid to intake, await culture results. Hydrate well. If pain is increased or persistent to report to the emergency room for immediate care. Pelvic ultrasound ordered, follow up office in person for results. Breast awareness, periodic self breast exams and yearly mammogram. Maintain a healthy lifestyle, well balanced diet including Calcium 1,200 mg and Vitamin D 600 IU daily, and routine exercise. Contact the office with any postmenopausal bleeding. Patient verbalizes understanding and agrees to the plan of care. She was given opportunity to ask questions and all questions were answered to the best of my ability. RTO in 1 year for annual studio operation engineer exam. This note is constructed using voice recognition software. While every effort has been made to ensure accuracy, housekeeping/laundry supervisor errors may have been included. Orders: Orders MM tomosynthesis screening BI Today Z12.31 - Encounter for screening mammogram for malignant neoplasm of breast Bacterial Vaginosis Panel Today Z01.419 - Encounter for gynecological examination (general) (routine) without abnormal findings Urine Culture Today R30.0 - Dysuria AMB Urinalysis Dipstick Today R30.0 - Dysuria, Z13.9 - Encounter for screening, unspecified US pelvic and transvaginal Today R10.2 - Pelvic and perineal pain, R30.0 - Dysuria CT NG by PCR Today Z01.419 - Encounter for gynecological examination (general) (routine) without abnormal findings Medications: New amoxicillin complete all medication 500 mg PO TID 15 caps 0RF 5 days Coding Level of Care Code Est Pt Prev Care >65y(09911) Diagnoses Encounter for well woman exam with routine gynecological exam Z01.419
[2024-06-28 09:30] VITALS: BP 118/76; BMI 31.6
== END 2024-06-28 11:33 | disposition home or self-care (01) ==
LOC: HO.HWS 09:10
PROVIDERS: PCP Internal Medicine; Visit Provider Advanced Practice Midwife
DX: Z01.419 Encounter for gynecological examination (general) (routine) without abnormal findings (principal)
CPT/HCPCS: 99397

== ENCOUNTER 2024-06-28 09:10 | Outpatient (REF) | payer MEDICARE, OTHER, MEDICAID, SELFPAY ==
[2024-06-29 04:36] LABS: CT PCR NOT DETECTED (Not Detect.); NG PCR NOT DETECTED (Not Detect.)
[2024-06-29 09:15] LABS: Bacterial Vaginosis PCR NEGATIVE (Negative); Candida Group PCR NOT DETECTED (Not Detect); Candida glab krusei PCR NOT DETECTED (Not Detect); Trichomonas vaginalis PCR NOT DETECTED (Not Detect)
== END 2024-06-28 09:11 | disposition home or self-care (01) ==
LOC: HO.LNP 09:10
PROVIDERS: PCP Internal Medicine; Visit Provider Advanced Practice Midwife
DX: Z01.419 Encounter for gynecological examination (general) (routine) without abnormal findings (principal); R30.0 Dysuria; R10.2 Pelvic and perineal pain
CPT/HCPCS: 0352U; 81002; 87086; 87491; 87591; 99397

== ENCOUNTER 2024-07-04 11:19 | Outpatient (REF) | payer MEDICARE, MEDICAID, SELFPAY ==
--- NOTE | ~2024-07-04 | US_ITS ---
EXAMINATION: US PELVIS CLINICAL INFORMATION: Dysuria and pelvic pain COMPARISON: CT abdomen and pelvis 04/21/2021 TECHNIQUE: Ultrasound of the pelvis is performed using both transabdominal and transvaginal transducers along with Doppler. Transvaginal imaging is performed due to inadequate visualization transabdominally. FINDINGS: Uterus: The uterus is anteverted and measures 9.3 x 6.2 x 5.8 cm The double wall endometrial thickness is 3 mm. A small amount of fluid is seen within the endometrial canal. Nabothian cysts are present in the cervix 3 uterine fibroids are seen on the right the largest near the fundus measuring 4.5 x 3.7 x 4.4 cm (previously large 6.4 x 4.6 and. 2 additional smaller fibroids are seen just beneath this in the body of the right measuring 0.9 x 1.2 x 0.7 cm and 1.8 x 1.8 x 1.7 cm. Both of these were also present in the past, the former having decreased in size and the latter has increased in size slightly. Neither ovary could be visualized. US/US pelvic and transvaginal IMPRESSION: Uterine fibroids as described above. Electronically signed by: Nick Zaldivar MD 07/04/2024 03:33 PM EDT RP
== END 2024-07-04 11:20 | disposition home or self-care (01) ==
LOC: HO.US 11:19
PROVIDERS: PCP Internal Medicine; Visit Provider Advanced Practice Midwife
DX: R30.0 Dysuria (principal); R10.2 Pelvic and perineal pain
CPT/HCPCS: 76830; 76856

== ENCOUNTER 2024-07-07 09:48 | Outpatient (AMB) | payer MEDICARE, MEDICAID, OTHER, SELFPAY ==
[2024-07-07 09:56] VITALS: BP 134/74; PULSE 58; O2SAT 100; BMI 31.6
--- NOTE | 2024-07-07 09:56 | MHC.OFFVIS ---
Vital Signs 07/07/24 09:56 Height 5 ft 6 in Weight 195 lb 12.328 oz BMI 31.6 BP 134/74 Blood Pressure Location Rt brachial Position Sitting Pulse 58 Pulse Source Pulse Oximeter Pulse Oximetry (%) 100 Oxygen Delivery Method Room Air Intake Visit Reasons: Follow up N/V s/p ER visit 05/15/24 Intake Note: Marguerite presents in office today for a scheduled FUV. CC; [place] [facility] [place] of [place]15-[place] Pt left on this day AMA and then returned to the ED on 05/18 when they were seen for an additional consult and remained there until discharge. Pt was diagnosed with an acute UTI and treated with antibx per ED. Pt reports that their condition is much improved since being seen at the ED. Pt has completed all antibx as intended. Pt reports that they could use a refill of their medication that controls their constipation. Pt cannot recall which medication they are taking. Pt was most recently rx'd colace. Transmission And Protection Engineer Required: Yes Transmission And Protection Engineer Services: Transmission And Protection Engineer Present Transmission And Protection Engineer Name: [id number] Meggan Information Interpreted: non-clinical & clinical Accompanied by: Family/Other Allergies latex Allergy (Intermediate, Verified 07/07/24 09:58) rash adhesive Allergy (Mild, Verified 07/07/24 10:05) Rash Medication List - Last Reconciled 07/07/24 by ASIM Burroughs-DIMAS cholecalciferol (vitamin D3) 50 mcg PO DAILY 90 days docosahexaenoic acid (Algal [place]-3 DHA) mg PO docusate sodium 100 mg PO BEDTIME niacin ER 250 mg PO BEDTIME Ventolin HFA 90 mcg/actuation (albuterol sulfate) 2 puffs inhalation Q6H PRN NS vitamin B comp and C no.3 (B Complex Plus Vitamin C) 1 cap PO DAILY vitamin K2 45 mcg PO DAILY HPI HPI Follow up N/V s/p ER visit 05/15/24: Details: LAST VISIT: 03/31/2023 Diverticulosis Continue high-fiber diet. Patient was encouraged to increase fluid intake. Constipation by delayed colonic transit Patient continues to be constipated. Feels like does not empty her bowels completely. Continue Colace and will add Senokot. Patient was also encouraged to increase fluid intake and activity to promote better bowel motility. I will see her in 6 months, sooner on as needed basis. Patient is agreeable to this plan and verbalizes understanding of instructions. She was given the opportunity to ask questions and all questions answered. Plan Medications New docusate sodium 100 mg PO DAILY 30 caps 3RF K59.00 - Constipation, unspecified sennosides (Natural Senna Laxative) 8.6 mg PO BEDTIME 90 tabs 3RF constipation K59.00 - Constipation, unspecified Discontinued omeprazole Discontinued Reason: Patient Refused 20 mg PO DAILY 30 days 30 caps 1RF TODAY'S VISIT Patient is here today for follow-up and to discuss going for colonoscopy. Patient reports that for the most part she has been feeling well. Episode of abdominal pain nausea and vomiting back in April of this year. Patient was seen in the ER and was found to have UTI. Treated with antibiotic then. Patient denies any abdominal pain at this time. Patient denies any melena, hematochezia. Denies any dyspepsia, dysphagia or odynophagia. Denies any acid reflux. Reports to have good appetite. Patient currently is taking Metamucil. Used to take Colace and reports that it was effective. Patient denies any issues with anesthesia in the past. No history of sleep apnea. Not on any anticoagulation medication. Denies any family history of CRC patient's father at the young age from stomach cancer [facility] Medical History Pelvic pain Dysuria Diverticulosis Didelphic uterus Class 1 obesity with body mass index (BMI) of 33.0 to 33.9 in adult Mild persistent asthma Constipation by delayed colonic transit Tubular adenoma Impaired glucose tolerance Hypovitaminosis D Dyslipidemia Surgical History H/O colonoscopy History of biopsy History of tubal ligation Family History Father Stomach cancer Mother Diabetes Hypertension Stroke Brother Thyroid cancer CAD (coronary artery disease) Paternal Uncle CVD (cardiovascular disease) Social History Household Members: None Housing: Apartment Alcohol intake: current Alcohol intake frequency: holidays/special occasions only Alcohol type: wine Patient Tobacco Use Status: Never used Tobacco e-Cigarette/Vaping Use: Never Used Second Hand Smoke Exposure: No service: No Current occupational status: disabled Cognitive needs: No Hearing needs: No Vision needs: Yes Female Reproductive History Menstrual Age of Menarche: 15 Date of menopause: 09/27/02 Review of Systems Const Denies weight gain and Denies weight loss ENT Reports no additional complaints, Denies dysphagia and Denies odynophagia Card Reports no additional complaints Resp Reports no additional complaints GI Denies abdominal pain, Denies belching, Denies melena, Denies bloating, Denies change in bowel habits, Denies dysphagia, Denies excessive flatus, Denies dyspepsia, Denies heartburn, Denies diarrhea, Denies loose stools, Denies nausea, Denies odynophagia and Denies vomiting Musc Reports no additional complaints Neuro Reports no additional complaints Psych Reports no additional complaints Endo Reports no additional complaints Physical Exam Vital Signs: Last Vital Signs Pulse 58 07/07/24 09:56 BP 134/74 07/07/24 09:56 Pulse Ox 100 07/07/24 09:56 Oxygen Delivery Method Room Air 07/07/24 09:56 BMI result Body Mass Index 31.6 Const General: healthy appearing and no acute distress Nutritional Appearance: obese Orientation/consciousness: patient oriented x3 Resp Effort & Inspection: normal respiratory effort, able to speak in complete sentences, no tracheal deviation and symmetric chest movement Auscultation: clear to auscultation bilaterally Cardio Rate: regular rate Heart sounds: S1 normal heart sound present and S2 normal heart sound present GI Inspection: Yes normal to inspection, No distended and Yes obesity Palpation (GI): Soft to palpation, not firm, nontender and No hepatosplenomegaly present Auscultation: normal bowel sounds General: Yes no CVA tenderness Back/Spine/Pelvis Back: no CVA tenderness Skin General skin exam: elasticity normal, turgor normal and dry skin Neuro General: patient oriented x3 Psych Appearance: grossly normal Mental Status: mental status grossly normal Assessment & Plan Assessment & Plan (1) Diverticulosis: Code(s): K57.90 - Diverticulosis of intestine, part unspecified, without perforation or abscess without bleeding Category: Medical (2) Constipation by delayed colonic transit: Code(s): K59.01 - Slow transit constipation Category: Medical (3) Screen for colon cancer: Code(s): Z12.11 - Encounter for screening for malignant neoplasm of colon Plan Increase fluid intake and activity to promote better bowel motility. Continue taking Metamucil. Patient can take Colace to help her move her bowels better. Colonoscopy scheduled for September. What to expect before during and after procedure discussed with patient. Stressed the importance of clear liquid diet and good bowel prep day before procedure. Patient will follow-up after the procedure, sooner on as needed basis. She is agreeable to this plan and verbalizes understanding of instructions. She was given the opportunity to ask questions and all questions answered. Thank you for allowing me to participate in her care Medications: New docusate sodium 100 mg PO BEDTIME 90 caps 3RF K59.00 - Constipation, unspecified bisacodyl (Dulcolax (bisacodyl)) take 4 tabs at noon the day before your colonoscopy 20 mg (4 x 5 mg) PO ONCE 1 day 4 tabs 0RF Z12.11 - Encounter for screening for malignant neoplasm of colon polyethylene glycol 3350 (Miralax) As directed by gastroenterology department at [facility] 238 grams PO ONCE 238 grams 0RF Z12.11 - Encounter for screening for malignant neoplasm of colon Coding Level of Care Code Est Pt Level 3 (69239) Diagnoses Diverticulosis K57.90 Constipation by delayed colonic transit K59.01 Screen for colon cancer Z12.11 Time Spent (min) 30 Comment 20 minutes spent with patient and additional 10 minutes spent reviewing her records
== END 2024-07-07 10:43 | disposition home or self-care (01) ==
PROVIDERS: PCP Internal Medicine; Visit Provider Nurse Practitioner Family
DX: K57.90 Diverticulosis of intestine, part unspecified, without perforation or abscess without bleeding (principal); K59.01 Slow transit constipation; Z12.11 Encounter for screening for malignant neoplasm of colon
CPT/HCPCS: 99213

== ENCOUNTER → 2024-07-07 09:48 | Outpatient (BNVA) | payer MEDICARE, MEDICAID, SELFPAY | PROVIDERS: PCP Internal Medicine; Visit Provider Nurse Practitioner Family | DX: Z12.11 Encounter for screening for malignant neoplasm of colon (principal); K57.90 Diverticulosis of intestine, part unspecified, without perforation or abscess without bleeding; K59.01 Slow transit constipation | CPT/HCPCS: 99212 ==

== ENCOUNTER 2024-07-09 22:29 | Emergency (ER) | payer MEDICARE, MEDICAID, SELFPAY ==
--- NOTE | ~2024-07-09 | CT_ITS ---
EXAMINATION: CT HEAD WITHOUT CONTRAST CLINICAL INFORMATION: Headache and dizziness. COMPARISON: None available. TECHNIQUE: Contiguous axial imaging was performed from the skull base to vertex without intravenous administration of contrast. This CT examination was performed using dose optimization techniques as appropriate, variously including the following: *Automated exposure control *Adjustment of mA and/or kV according to patient size (this includes techniques or standardized protocols for targeted exams where dose is matched to indication/reason for exam; i.e. extremities or head) *Use of iterative reconstruction technique DLP: 649 mGy-cm FINDINGS: The lateral, third and fourth ventricles are normally outlined. The cortical sulci and basal cisterns are normally outlined well. There is no acute territorial defects, hemorrhage or midline shift. The extra-axial spaces are unremarkable. Calvarium/scalp: Intact. Maxillofacial sinuses and mastoids: Clear as visualized. CT/CT head/brain wo IV con IMPRESSION: No acute intracranial pathology. Electronically signed by: Navin Vivas MD 07/10/2024 04:19 AM EDT
[2024-07-09 22:32] VITALS: BP 132/96; BP 151/68; PULSE 69; PULSE 75; RESP 22; TEMP 36.6; O2SAT 100; O2SAT 99; BMI 32.1
[2024-07-09 22:59] LABS: Basophils Percent Auto 0.5 % (0-2); Eosinophils Absolute Auto 0.1 X10*3/uL (0.0-0.4); Eosinophils Percent Auto 1.6 % (0-4); Hematocrit 40.5 % (37.0-47.0); Hemoglobin 13.8 g/dl (12.0-16.0); Imm Gran Abs Auto 0.02 X10*3/uL (0.00-0.03); Imm Gran Pct Auto 0.4 % (0.0-0.4); Lymphocytes Absolute Auto 1.6 X10*3/uL (1.2-4.9); Lymphocytes Percent Auto 29.4 % (20-40); MANUAL DIFF FLAG NO; Mean Corpuscular HGB Conc 34.1 g/dl (31.0-35.0); Mean Corpuscular Hemoglobin 27.3 pg (27.0-33.0); Mean Corpuscular Volume 80.2 fL (80.0-98.0); Mean Platelet Volume 10.3 fL (9.4-12.3); Monocytes Absolute Auto 0.3 X10*3/uL (0.1-1.2); Neutrophils Absolute Auto 3.4 x10*3/uL (2.0-8.3); Neutrophils Percent Auto 62.1 % (45-73); Platelet Count 168 X10*3/uL (160-400); Red Blood Count 5.05 X10*6/uL (4.20-5.50); Red Cell Distribution Width 12.5 % (11.0-16.0); White Blood Count 5.5 X10*3/uL (4.8-10.8)
[2024-07-09 23:51] LABS: Alanine Aminotransferase 19 U/L (0-31); Alkaline Phosphatase 59 U/L (39-117); Anion Gap 18 (12-20); Aspartate Amino Transferase 18 U/L (5-31); Bilirubin Total 0.5 mg/dL (0.0-1.0); Blood Urea Nitrogen 15 mg/dL (9-16); Calcium 9.3 mg/dL (8.4-10.2); Carbon Dioxide 18 mmol/L (22-29); Chloride 107 mmol/L (96-108); Creatinine Clr Calc Pharmacy 79.1; Estimated Glomerular Filt Rate > 60; Glucose Random 178 mg/dL (60-115); Potassium 3.6 mmol/L (3.3-5.1); Sodium 139 mmol/L (135-145)
[2024-07-10] VITALS: BP 130/42; PULSE 59; RESP 15; TEMP 36.8; O2SAT 100
[2024-07-10 01:44] LABS: Appearance Urine Clear; Color Urine Yellow; Glucose Urine UA Negative (Negative); Leukocyte Esterase Urine Large (3+) (Negative); Nitrite Urine Negative (Negative); PH >= 9.0 (5.0-9.0); UMIC TRIGGER UACC YES; Urine Blood Negative (Negative); Urine Ketones 15 mg/dL (Negative); Urine Protein Negative (Neg-Trace)
[2024-07-10 01:48] LABS: Bacteria Urine None Seen (None Seen); Hyaline Casts Urine 0-2 /LPF (0-2); RBC Urine 0-2 /HPF (0-2); UACC Culture Trigger YES; WBC Urine 21-50 /HPF (0-5)
--- NOTE | 2024-07-10 02:10 | ED.GENADULT ---
HPI - General Adult General Chief complaint: General Medical Stated complaint: Nausea, vomiting x30 mins Time Seen by Provider: 07/10/24 02:09 Source: patient Mode of arrival: ambulatory Limitations: no limitations History of Present Illness ED Provider: caio MORELOS narrative: Patient is 69 years old with no significant cardiac history woke up from sleep with a rash like feeling to the head followed by nausea vomiting cold sweats and dizziness similar episode happened in 05/20 diagnose as UTI with urine culture negative started on Bactrim patient denied any dysuria frequency felt nonspecific dizziness which is gone now patient has vomited about 4 times with no significant abdominal pain no diarrhea Related Data Home Medications ?Medication ?Instructions ?Recorded ?Confirmed docosahexaenoic acid 200 mg mg PO 06/28/24 07/10/24 capsule (Algal [place]-3 DHA) niacin 250 mg capsule,extended 250 mg PO BEDTIME 06/28/24 07/10/24 release vitamin B comp and C no.3 15 mg-10 1 cap PO DAILY 06/28/24 07/10/24 mg-50 mg-5 mg-300 mg capsule (B Complex Plus Vitamin C) vitamin K2 45 mcg capsule 45 mcg PO DAILY 06/28/24 07/10/24 Previous Rx's ?Medication ?Instructions ?Recorded cholecalciferol (vitamin D3) 50 50 mcg PO DAILY 90 days #90 caps 11/04/22 mcg (2,000 unit) capsule Ventolin HFA 90 mcg/actuation 2 puff inhalation Q6H PRN for 08/29/23 aerosol inhaler (albuterol sulfate) wheezing #18 ea bisacodyl 5 mg tablet,delayed 20 mg (4 x 5 mg) PO ONCE 1 day #4 07/07/24 release (Dulcolax (bisacodyl)) tabs docusate sodium 100 mg capsule 100 mg PO BEDTIME #90 caps 07/07/24 polyethylene glycol 3350 17 238 g PO ONCE #238 grams 07/07/24 gram/dose oral powder (Miralax) meclizine 12.5 mg tablet 12.5 mg PO TID PRN dizziness #20 07/10/24 tabs Allergies Allergy/AdvReac Type Severity Reaction Status Date / Time latex Allergy Intermediate rash Verified 07/10/24 14:41 adhesive Allergy Mild Rash Verified 07/10/24 14:41 Review of Systems Review of Systems: Yes all other systems are reviewed and are negative [facility] Past Medical History Medical History Pelvic pain Dysuria Diverticulosis Didelphic uterus Class 1 obesity with body mass index (BMI) of 33.0 to 33.9 in adult Mild persistent asthma Constipation by delayed colonic transit Tubular adenoma Impaired glucose tolerance Hypovitaminosis D Dyslipidemia Surgical History H/O colonoscopy History of biopsy History of tubal ligation Family History Family History Father Stomach cancer Mother Diabetes Hypertension Stroke Brother Thyroid cancer CAD (coronary artery disease) Paternal Uncle CVD (cardiovascular disease) Social History Social History Household Members: None Housing: Apartment Alcohol intake: current Alcohol intake frequency: holidays/special occasions only Alcohol type: wine Patient Tobacco Use Status: Never used Tobacco e-Cigarette/Vaping Use: Never Used Second Hand Smoke Exposure: No service: No Current occupational status: disabled Cognitive needs: No Hearing needs: No Vision needs: Yes Physical Exam ED Vital Signs: Vital Signs - 24 hr 07/09/24 22:32 07/10/24 00:00 Temperature 97.8 F 98.2 F Pulse Rate 69 59 Respiratory Rate 22 H 15 Blood Pressure 151/68 H 130/42 L Pulse Oximetry 100 100 Oxygen Delivery Method Room Air Room Air BMI result Body Mass Index 32.1 Appearance: Alert. Oriented X3. No acute distress. Eyes: No pallor or icterus no nystagmus ENT: Pharynx normal. Oral Mucosa moist Neck: Normal inspection. Neck supple. CVS: Normal heart rate and rhythm. Pulses normal. Respiratory: No respiratory distress. Equal air entry bilateral, no wheezing/rales/rhonchi Abdomen: Soft and nontender. Bowel sounds are present, no mass palpable, no CVA tenderness Skin: Skin warm and dry. Normal skin color. Normal skin turgor. Extremities: No lower extremity edema. No calf tenderness Neuro: Oriented X 3. No motor deficit. Medical Decision Making Medical Decision Making MDM Narrative: Patient nonspecific headache with dizziness and vomiting woke up from sleep get a head CT to rule out any mass Lab Data MDM Lab Attestation statement: I reviewed the patient's lab results. 07/09/24 22:52 07/09/24 22:52 Labs: Lab Results 07/09/24 07/10/24 Range/Units 22:52 01:36 WBC 5.5 (4.8-10.8) X10*3/uL RBC 5.05 (4.20-5.50) X10*6/uL Hgb 13.8 (12.0-16.0) g/dl Hct 40.5 (37.0-47.0) % MCV 80.2 (80.0-98.0) fL MCH 27.3 (27.0-33.0) pg MCHC 34.1 (31.0-35.0) g/dl RDW 12.5 (11.0-16.0) % Plt Count 168 (160-400) X10*3/uL MPV 10.3 (9.4-12.3) fL Immature Gran % (Auto) 0.4 (0.0-0.4) % Neut % (Auto) 62.1 (45-73) % Lymph % (Auto) 29.4 (20-40) % [place] % (Auto) 6.0 (2-11) % Eos % (Auto) 1.6 (0-4) % Baso % (Auto) 0.5 (0-2) % Lymph # (Auto) 1.6 (1.2-4.9) X10*3/uL [place] # (Auto) 0.3 (0.1-1.2) X10*3/uL Eos # (Auto) 0.1 (0.0-0.4) X10*3/uL Baso # (Auto) 0.0 (0.0-0.2) X10*3/uL Abs Immat Gran (auto) 0.02 (0.00-0.03) X10*3/uL Absolute Neuts (auto) 3.4 (2.0-8.3) x10*3/uL Absolute Nucleated RBC 0.000 (0.0-0.012) X10*3/uL Nucleated RBC % (auto) 0.0 (0.0-0.2) /100WBC Sodium 139 (135-145) mmol/L Potassium 3.6 (3.3-5.1) mmol/L Chloride 107 (96-108) mmol/L Carbon Dioxide 18 L (22-29) mmol/L Anion Gap 18 (12-20) BUN 15 (9-16) mg/dL Creatinine 0.78 (0.5-1.4) mg/dL Estim Creat Clear Calc 79.1 Estimated GFR > 60 Random Glucose 178 H (60-115) mg/dL Calcium 9.3 D (8.4-10.2) mg/dL Total Bilirubin 0.5 (0.0-1.0) mg/dL AST 18 (5-31) U/L ALT 19 (0-31) U/L Alkaline Phosphatase 59 (39-117) U/L Total Protein 7.0 (6.5-8.0) g/dL Albumin 4.0 (3.5-5.0) g/dL Urine Color Yellow Urine Appearance Clear Urine pH >= 9.0 (5.0-9.0) Ur Specific [place] 1.010 (1.005-1.025) Urine Protein Negative (Neg-Trace) mg/dL Urine Glucose (UA) Negative (Negative) mg/dL Urine Ketones 15 (Negative) mg/dL Urine Blood Negative (Negative) Urine Nitrite Negative (Negative) Ur Leukocyte Esterase Large (3+) H (Negative) Urine RBC 0-2 (0-2) /HPF Urine WBC 21-50 H (0-5) /HPF Ur Squamous Epith Cells 3-5 (0-2) /HPF Urine Bacteria None Seen (None Seen) Hyaline Casts 0-2 (0-2) /LPF Discharge Plan Discharge Clinical Impression: Benign paroxysmal positional vertigo Patient Disposition: Home, Self-Care Instructions: Benign Paroxysmal Positional Vertigo (ED) Additional Instructions: Care as advised Meclizine 1 tablet every 8 hours as needed for severe dizziness Follow with your PCP Prescriptions: New meclizine 12.5 mg tablet 12.5 mg PO TID PRN (Reason: dizziness) Qty: 20 0RF No Action albuterol sulfate [Ventolin HFA] 90 mcg/actuation HFA aerosol inhaler 2 puff inhalation Q6H PRN (Reason: for wheezing) Qty: 18 2RF cholecalciferol (vitamin D3) 50 mcg (2,000 unit) capsule 50 mcg PO DAILY 90 Days Qty: 90 1RF niacin 250 mg capsule, extended release 250 mg PO BEDTIME vitamin K2 45 mcg capsule 45 mcg PO DAILY B Complex Plus Vitamin C 36-55-90-5-300 mg capsule 1 cap PO DAILY Rx Instructions: give with food (meal/snack) Algal [place]-3 DHA 200 mg capsule PO docusate sodium 100 mg capsule 100 mg PO BEDTIME Qty: 90 3RF bisacodyl [Dulcolax (bisacodyl)] 5 mg tablet,delayed release (DR/EC) 20 mg PO ONCE 1 Days Qty: 4 0RF Rx Instructions: take 4 tabs at noon the day before your colonoscopy polyethylene glycol 3350 [Miralax] 17 gram/dose powder 238 g PO ONCE Qty: 238 0RF Rx Instructions: As directed by gastroenterology department at [facility] Interventions: ED Discharge Assessment Last Done: 07/10/24 04:55 Discharge Date/Time: 07/10/24 04:57 Print Language: Armenian
[2024-07-10 02:48] VITALS: BP 147/52; PULSE 65; RESP 16; TEMP 36.2; O2SAT 98
[2024-07-10 04:55] VITALS: BP 147/52; PULSE 65; RESP 16; TEMP 36.2; O2SAT 98
== END 2024-07-10 04:57 | disposition home or self-care (01) ==
PROVIDERS: Emergency Provider Internal Medicine; PCP Internal Medicine
DX: H81.10 Benign paroxysmal vertigo, unspecified ear (principal); R11.2 Nausea with vomiting, unspecified; R51.9 Headache, unspecified; Z79.899 Other long term (current) drug therapy
CPT/HCPCS: 36415; 70450; 80053; 81001; 85025; 87086; 99283

== ENCOUNTER 2024-07-10 14:16 | Outpatient (AMB) | payer MEDICARE, MEDICAID, SELFPAY ==
--- NOTE | 2024-07-10 14:23 | A.OFFPC_ITS ---
Vital Signs 07/10/24 14:24 Height 5 ft 6 in Weight 192 lb BMI 31.0 BP 142/70 H Blood Pressure Location Lt brachial Position Sitting Intake Visit Reasons: [facility] 07/09 Nausea/Vomiting Cold Rolling Coordinator Required: No Accompanied by: Spouse Allergies latex Allergy (Intermediate, Verified 07/10/24 14:41) rash adhesive Allergy (Mild, Verified 07/10/24 14:41) Rash Medication List - Last Reconciled 07/10/24 by Janet Garcia MD bisacodyl (Dulcolax (bisacodyl)) 20 mg (4 x 5 mg) PO ONCE 1 day cholecalciferol (vitamin D3) 50 mcg PO DAILY 90 days docosahexaenoic acid (Algal [place]-3 DHA) mg PO docusate sodium 100 mg PO BEDTIME meclizine 12.5 mg PO TID PRN niacin ER 250 mg PO BEDTIME polyethylene glycol 3350 (Miralax) 238 grams PO ONCE Ventolin HFA 90 mcg/actuation (albuterol sulfate) 2 puffs inhalation Q6H PRN NS vitamin B comp and C no.3 (B Complex Plus Vitamin C) 1 cap PO DAILY vitamin K2 45 mcg PO DAILY Tobacco use date assessed: 05/04/24 Fall risk assessment: No Falls in past year Last assessed Fall Risk: 07/10/24 Dental Screening Dental Screen Date: 05/04/24 HPI HPI Comments History of Present Illness Details This is a 69-year-old female that comes accompanied by for hospital discharge follow-up with discharge date of today. She said she woke up to pee last night and when she was coming back to the bed started having episode of dizziness associated with nausea and vomiting. She felt chills and generalized weakness and called 911. At ER she had head CT which was negative. Labs did not show any significant abnormality. Urinalysis was also within normal limits. She was prescribed meclizine but has not felt dizziness yet. Denies any nausea, vomiting or dizziness at the moment. Has hearing loss and use hearing aids and saw ENT this year. Complains of some left ear discomfort but clinical exam looks normal. I told her to call her ENT for follow-up. She also complains of some pelvic pain and ultrasound of the pelvis only reveals fibromas. The pain is intermittent in nature and not associated with urination. [facility] Medical History (Updated 07/10/24 @ 16:00 by Janet Garcia MD) Pelvic pain Dysuria Diverticulosis Didelphic uterus Class 1 obesity with body mass index (BMI) of 33.0 to 33.9 in adult Mild persistent asthma Constipation by delayed colonic transit Tubular adenoma Impaired glucose tolerance Hypovitaminosis D Dyslipidemia Surgical History H/O colonoscopy History of biopsy History of tubal ligation Family History Father Stomach cancer Mother Diabetes Hypertension Stroke Brother Thyroid cancer CAD (coronary artery disease) Paternal Uncle CVD (cardiovascular disease) Social History Household Members: None Housing: Apartment Alcohol intake: current Alcohol intake frequency: holidays/special occasions only Alcohol type: wine Patient Tobacco Use Status: Never used Tobacco e-Cigarette/Vaping Use: Never Used Second Hand Smoke Exposure: No service: No Current occupational status: disabled Cognitive needs: No Hearing needs: No Vision needs: Yes Female Reproductive History Menstrual Age of Menarche: 15 Date of menopause: 09/27/02 Questionnaire Thrive Questionnaire Date Thrive assessed: 05/04/24 ANSELMO-7 AMB Questionnaire ANSELMO-7 Date ANSELMO - 7 assessed: 05/04/24 Source: Developed by Drs. Alonso Sanon, Trish Cavanaugh, Vadim Mtz and colleagues, with an educational adarsh from [employer]. Review of Systems Const All systems reviewed & are unremarkable except as noted in HPI and below Card Denies chest pain at rest, Denies chest pain with activity, Denies edema, Denies irregular heart rhythm, Denies claudication, Denies dyspnea, Denies dyspnea on exertion, Denies orthopnea, Denies paroxysmal nocturnal dyspnea and Denies slow heart rate Resp Denies cough, Denies dyspnea and Denies dyspnea on exertion Denies urinary incontinence, Denies urinary hesitancy and Denies urinary urgency Musc Denies atrophy, Denies deformity and Denies limited range of motion Skin/Breast Denies bleeding lesions, Denies changing lesions and Denies rash Physical exam (Primary Care) Vital Signs: Last Vital Signs BP 142/70 H 07/10/24 14:24 BMI result Body Mass Index 31.0 BMI Assessment/Plan discussion: High BMI High, discussed plan: lifestyle, weight reduction, dietary and physical activity Tobacco/Smoking Status: Tobacco use Status Tobacco use date assessed 05/04/24 07/10/24 14:27 Patient Tobacco Use Status Never used Tobacco 07/10/24 14:27 e-Cigarette/Vaping Use Never Used 07/10/24 14:27 Thrive Assessment: Date of Thrive Assessment Date Thrive assessed 05/04/24 07/10/24 14:27 Resp Effort & Inspection: normal respiratory effort Auscultation: clear to auscultation bilaterally Cardio Jugular venous distension: no JVD Rate: regular rate Rhythm: regular rhythm Heart sounds: S1 normal heart sound present and S2 normal heart sound present Neuro Cognition (Neuro): normal cognition Gait exam (Neuro): Normal gait present Coordination: Romberg test negative Extrem General: Yes full ROM Office Procedures Flu Questionnaire Does the patient have a severe egg allergy?: No Does the patient have severe life threatening allergies?: No Does the patient have a fever or illness today?: No Has the patient ever had Guillain-[place] Syndrome?: No Has the patient ever had any past reaction to a flu shot?: No Immunizations Fluarix Triv [id number] (PF) 45 mcg (15 mcg x 3)/0.5 mL IM syringe Performing Provider: Janet Garcia MD Per[facility] Administered by: BRENDA Reese on 07/10/24 15:00 Dose Route Admin Location Dispensed Lot Number Expiration Date FORMERLY NAMED [facility] [employer] 0.5 mL IM Left Deltoid 0.5 mL [id number] 03/26/25 [id number] [facility] VIS Given Date VIS Provided VIS Publication Date 07/10/24 Single Vaccine 21 Eligibility Eligibility Date Funding Source Not [facility] Eligible 07/10/24 Private Coding Level of Care Code Est Pt Level 3 (06896) Complex EM visit Add On G2211 Diagnoses Hospital discharge follow-up Z09 Benign paroxysmal positional vertigo H81.10 Pelvic pain R10.2 Time Spent (min) 19 Assessment & Plan Assessment & Plan (1) Hospital discharge follow-up: Code(s): Z09 - Encounter for follow-up examination after completed treatment for conditions other than malignant neoplasm Category: Medical Plan: Discharge today after having head CT which was negative and labs which were unremarkable. Also had a urinalysis that has mild white blood cells. Was prescribed meclizine which she has not started yet. (2) Benign paroxysmal positional vertigo: Code(s): H81.10 - Benign paroxysmal vertigo, unspecified ear Category: Medical Plan: Use meclizine as needed. (3) Pelvic pain: Code(s): R10.2 - Pelvic and perineal pain Category: Medical Plan: Follow-up with OBGYN. Orders: Orders Influenza [id number] Immunization Today Z23 - Encounter for immunization Comprehensive [employer] Panel Fast Today H81.10 - Benign paroxysmal vertigo, unspecified ear
[2024-07-10 14:24] VITALS: BP 142/70; BMI 31.0
== END 2024-07-10 14:57 | disposition home or self-care (01) ==
PROVIDERS: PCP Internal Medicine; Visit Provider Internal Medicine
DX: Z09 Encounter for follow-up examination after completed treatment for conditions other than malignant neoplasm (principal); H81.10 Benign paroxysmal vertigo, unspecified ear; R10.2 Pelvic and perineal pain; Z23 Encounter for immunization

== ENCOUNTER → 2024-07-10 14:16 | Outpatient (BNVA) | payer MEDICARE, OTHER, MEDICAID, SELFPAY | PROVIDERS: PCP Internal Medicine; Visit Provider Internal Medicine | DX: Z23 Encounter for immunization (principal); Z09 Encounter for follow-up examination after completed treatment for conditions other than malignant neoplasm; H81.10 Benign paroxysmal vertigo, unspecified ear; R10.2 Pelvic and perineal pain | CPT/HCPCS: 90471; 90656; 99212 ==

== ENCOUNTER 2024-07-17 09:08 | Outpatient (REF) | payer MEDICARE, MEDICAID, SELFPAY ==
--- NOTE | ~2024-07-17 | MM_ITS ---
EXAMINATION: MM SCREENING DIGITAL BREAST TOMOSYNTHESIS, BILATERAL CLINICAL INFORMATION: Screening. Asymptomatic. COMPARISON: Mammography: Comparison is made with available priors TECHNIQUE: Digital breast mammography with tomosynthesis is performed in both the craniocaudal and mediolateral oblique views along with computer-aided detection (CAD). FINDINGS: There are scattered areas of fibroglandular density (ACR BI-RADS breast composition Category b). There are no significant masses, abnormal calcifications, or other abnormalities. MM/MM tomosynthesis screening BI IMPRESSION: No mammographic evidence of malignancy. ASSESSMENT: BI-RADS BI-RADS 1 - Negative RECOMMENDATION: Routine annual mammography screening. 1 year F/U This examination should not preclude the clinical evaluation of a suspicious palpable abnormality. This patient's information was entered into a reminder system with a target due date for their next mammogram. Electronically signed by: Kristie Wright DO 07/28/2024 10:08 AM [place]
== END 2024-07-17 09:09 | disposition home or self-care (01) ==
LOC: HO.MAMMO 09:08
PROVIDERS: PCP Internal Medicine; Visit Provider Advanced Practice Midwife
DX: Z12.31 Encounter for screening mammogram for malignant neoplasm of breast (principal)
CPT/HCPCS: 77063; 77067

== ENCOUNTER → 2024-07-17 09:30 | Outpatient (BNV) | payer MEDICARE, MEDICAID, SELFPAY | PROVIDERS: PCP Internal Medicine; Visit Provider Internal Medicine | DX: Z12.31 Encounter for screening mammogram for malignant neoplasm of breast (principal) | CPT/HCPCS: 77063; 77067 ==

== ENCOUNTER 2024-07-18 13:23 | Emergency (ER) | payer MEDICARE, OTHER, MEDICAID, SELFPAY ==
[2024-07-18 14:22] VITALS: BP 147/65; PULSE 65; RESP 16; TEMP 36.5; O2SAT 100
--- NOTE | 2024-07-18 14:32 | ED_ITS ---
HPI - Dizziness General Chief Complaint: Dizziness Stated Complaint: Vomiting, dizziness Time Seen by Provider: 07/18/24 15:17 History of Present Illness ED Provider: Nate MORELOS Narrative: The patient is a 69-year-old female who has been having problems with intermittent dizziness over the last 8 days. She came to the emergency room very early in the morning on July 10 with a complaint of dizziness. She had a negative head CT. She was thought to probably have vertigo and was discharged with meclizine. She followed up with her PCP later the same day. At the time that she saw her doctor she was asymptomatic. She says that 2 days later on July 12 she had another episode of dizziness that lasted about an hour. Today at around noon she was in her kitchen cooking when she again felt a sense of dizziness. This came on gradually. She vomited while she was dizzy. She took a dose of meclizine did not feel that she was better and so came to the emergency room. However by the time I was seeing her her dizziness has resolved. She has not had any difficulty speaking. She has changes. She has had no unilateral weakness in her extremities. She has had no numbness or tingling in her extremities. She currently feels that she has no difficulty walking. She has no headache. The patient says that she took a meclizine today when her dizziness began today. She subsequently vomited. After vomiting she took a dose of ondansetron. After taking the ondansetron she started to feel better. The patient says that she feels like she might have fluid in her ears. She is particularly worried about her left ear. The patient says that she has been fine earlier in the morning before her symptoms started at around noon. She had been fine yesterday. Related Data Home Medications ?Medication ?Instructions ?Recorded ?Confirmed docosahexaenoic acid 200 mg mg PO 06/28/24 07/10/24 capsule (Algal [place]-3 DHA) niacin 250 mg capsule,extended 250 mg PO BEDTIME 06/28/24 07/10/24 release vitamin B comp and C no.3 15 mg-10 1 cap PO DAILY 06/28/24 07/10/24 mg-50 mg-5 mg-300 mg capsule (B Complex Plus Vitamin C) vitamin K2 45 mcg capsule 45 mcg PO DAILY 06/28/24 07/10/24 Previous Rx's ?Medication ?Instructions ?Recorded cholecalciferol (vitamin D3) 50 50 mcg PO DAILY 90 days #90 caps 11/04/22 mcg (2,000 unit) capsule Ventolin HFA 90 mcg/actuation 2 puff inhalation Q6H PRN for 08/29/23 aerosol inhaler (albuterol sulfate) wheezing #18 ea bisacodyl 5 mg tablet,delayed 20 mg (4 x 5 mg) PO ONCE 1 day #4 07/07/24 release (Dulcolax (bisacodyl)) tabs docusate sodium 100 mg capsule 100 mg PO BEDTIME #90 caps 07/07/24 polyethylene glycol 3350 17 238 g PO ONCE #238 grams 07/07/24 gram/dose oral powder (Miralax) meclizine 12.5 mg tablet 12.5 mg PO TID PRN dizziness #20 07/10/24 tabs Allergies Allergy/AdvReac Type Severity Reaction Status Date / Time latex Allergy Intermediate rash Verified 07/18/24 14:25 adhesive Allergy Mild Rash Verified 07/18/24 14:25 Review of Systems 2 Review of Systems: Yes all other systems are reviewed and are negative PMFSH Past Medical History Medical History Pelvic pain Dysuria Diverticulosis Didelphic uterus Class 1 obesity with body mass index (BMI) of 33.0 to 33.9 in adult Mild persistent asthma Constipation by delayed colonic transit Tubular adenoma Impaired glucose tolerance Hypovitaminosis D Dyslipidemia Surgical History H/O colonoscopy History of biopsy History of tubal ligation Family History Family History Father Stomach cancer Mother Diabetes Hypertension Stroke Brother Thyroid cancer CAD (coronary artery disease) Paternal Uncle CVD (cardiovascular disease) Social History Social History Household Members: None Housing: Apartment Alcohol intake: current Alcohol intake frequency: holidays/special occasions only Alcohol type: wine Patient Tobacco Use Status: Never used Tobacco e-Cigarette/Vaping Use: Never Used Second Hand Smoke Exposure: No Advance Directives: No Advance Directives Information Provided: Yes Do you have a plan to hurt others: No Plan service: No Current occupational status: disabled Cognitive needs: No Hearing needs: No Vision needs: Yes Physical Exam 2 Vital Signs: Vital Signs: Last Vital Signs Temp 97.2 F 07/18/24 19:09 Pulse 58 07/18/24 19:09 Resp 15 07/18/24 19:09 BP 152/64 H 07/18/24 19:09 Pulse Ox 100 07/18/24 19:09 O2 Del Method Room Air 07/18/24 19:09 BMI result Body Mass Index 30.0 Const: Other: The patient is a pleasant 69-year-old woman who is awake and alert. She does not appear in obvious distress or have an obvious neurological deficit. She was interviewed with a Korean language tutor. HEENT: Other: The face is symmetrical. Mucous membranes are moist. The tongue is midline. Tympanic membranes are unremarkable bilaterally. Ear canals are clear. Eyes: Other: pupils are round, equal, and react to light. Extraocular movements are intact. I do not appreciate any nystagmus. Visual flood are intact complication. Neck: Other: Neck is supple, no JVD. She does not seem to have any difficulty moving her neck in any way and moving her head does not seem to provoke any symptoms. Resp: Effort & Inspection: normal respiratory effort Auscultation: clear to auscultation bilaterally Cardio: Rate: regular rate Rhythm: regular rhythm Heart sounds: S1 normal heart sound present and S2 normal heart sound present GI: Other: Abdomen is soft nontender Skin: Other: skin is dry and unremarkable Neuro: Other: the patient is awake and alert with normal mental status. She is appropriately oriented and cognition seems normal. She follows commands correctly. Eye movements are intact and I do not find any nystagmus. Visual flood are intact to confrontation. The face is symmetrical. Speech is clear and normal. She has normal strength in all extremities. She has normal finger-nose. Normal heel-webb. Sensation is intact. Gait is steady and normal. Extrem: Other: No peripheral edema Course Course Course Narrative: This is a rapid medical exam performed by Nayla Zavala PA-C. The patient is a 69-year-old female with a history of asthma, hyperlipidemia and recent diagnosis of vertigo presents with dizziness and nausea. Patient was seen last week with similar symptoms, she was prescribed meclizine, however her nausea has persisted. Associated nasal congestion and ear pressure. On exam patient has bilateral serous otitis, this is the likely trigger. No indication for screening labs, we will obtain a viral panel. Medical Decision Making Medical Decision Making [facility] Narrative: the patient is a very pleasant 69-year-old who presents after having had an episode of acute dizziness and nausea while cooking in her kitchen today. She took a dose of meclizine and then vomited. She subsequently took a dose of ondansetron. She came to the hospital. Her symptoms have resolved. her neurological exam does not reveal any deficits. This is the 3rd episode in 8 days of acute dizziness. Each of these episodes has been quite brief. she had a negative head CT on an ER visit here on July 10, 8 days ago. Since her symptoms have resolved and she has no findings on exam I doubt a repeat head CT would be of utility. I suspect that these Episodes of dizziness are probably not TIAs. I suspect this is probably more of a peripheral phenomenon. I think the patient may be discharged to follow-up with her regular doctor. She also has an ENT appointment In the next few days. She should return if worse. Lab Data 07/18/24 17:40 07/18/24 18:09 Labs: Lab Results 07/18/24 07/18/24 07/18/24 Range/Units 15:11 17:40 18:09 WBC 5.5 (4.8-10.8) X10*3/uL RBC 4.82 (4.20-5.50) X10*6/uL Hgb 13.3 (12.0-16.0) g/dl Hct 39.6 (37.0-47.0) % MCV 82.2 (80.0-98.0) fL MCH 27.6 (27.0-33.0) pg MCHC 33.6 (31.0-35.0) g/dl RDW 12.3 (11.0-16.0) % Plt Count 177 (160-400) X10*3/uL MPV 10.3 (9.4-12.3) fL Immature Gran % (Auto) 0.4 (0.0-0.4) % Neut % (Auto) 55.9 (45-73) % Lymph % (Auto) 36.1 (20-40) % [place] % (Auto) 6.4 (2-11) % Eos % (Auto) 0.7 (0-4) % Baso % (Auto) 0.5 (0-2) % Lymph # (Auto) 2.0 (1.2-4.9) X10*3/uL [place] # (Auto) 0.4 (0.1-1.2) X10*3/uL Eos # (Auto) 0.0 (0.0-0.4) X10*3/uL Baso # (Auto) 0.0 (0.0-0.2) X10*3/uL Abs Immat Gran (auto) 0.02 (0.00-0.03) X10*3/uL Absolute Neuts (auto) 3.1 (2.0-8.3) x10*3/uL Absolute Nucleated RBC 0.000 (0.0-0.012) X10*3/uL Nucleated RBC % (auto) 0.0 (0.0-0.2) /100WBC Sodium 141 (135-145) mmol/L Potassium 4.8 D (3.3-5.1) mmol/L Chloride 106 (96-108) mmol/L Carbon Dioxide 31 H (22-29) mmol/L Anion Gap 9 L (12-20) BUN 16 (9-16) mg/dL Creatinine 0.78 (0.5-1.4) mg/dL Estim Creat Clear Calc 79.1 Estimated GFR > 60 Random Glucose 104 (60-115) mg/dL Calcium 10.1 D (8.4-10.2) mg/dL Magnesium 2.1 (1.6-2.6) mg/dL Total Bilirubin 0.4 (0.0-1.0) mg/dL Direct Bilirubin 0.1 (0.0-0.5) mg/dL AST 23 (5-31) U/L ALT 16 (0-31) U/L Alkaline Phosphatase 53 (39-117) U/L Troponin I High Sens < 2.7 (<3.5-17.0) ng/L B-Natriuretic Peptide 26 (<100) pg/mL Total Protein 7.0 (6.5-8.0) g/dL Albumin 4.0 (3.5-5.0) g/dL Influenza Type A (PCR) NEGATIVE (Negative) Influenza Type B (PCR) NEGATIVE (Negative) RSV RNA Qual (PCR) NEGATIVE (Negative) SARS-CoV-2 RNA (RT-PCR) NEGATIVE (Negative) Discharge Plan Discharge Clinical Impression: Dizziness, Vomiting Patient Disposition: Home, Self-Care Additional Instructions: Your testing in the emergency room today seems reassuring again. If you have another episode of symptoms it would be reasonable to try both the ondansetron (the medication for nausea) and meclizine (the medication for dizziness. Please keep your appointment with the ENT doctor in 2 days. Also plan on following up with your regular doctor again. Return to the emergency room if significantly worse. Prescriptions: No Action albuterol sulfate [Ventolin HFA] 90 mcg/actuation HFA aerosol inhaler 2 puff inhalation Q6H PRN (Reason: for wheezing) Qty: 18 2RF meclizine 12.5 mg tablet 12.5 mg PO TID PRN (Reason: dizziness) Qty: 20 0RF cholecalciferol (vitamin D3) 50 mcg (2,000 unit) capsule 50 mcg PO DAILY 90 Days Qty: 90 1RF niacin 250 mg capsule, extended release 250 mg PO BEDTIME vitamin K2 45 mcg capsule 45 mcg PO DAILY B Complex Plus Vitamin C 82-85-75-5-300 mg capsule 1 cap PO DAILY Rx Instructions: give with food (meal/snack) Algal [place]-3 DHA 200 mg capsule PO docusate sodium 100 mg capsule 100 mg PO BEDTIME Qty: 90 3RF bisacodyl [Dulcolax (bisacodyl)] 5 mg tablet,delayed release (DR/EC) 20 mg PO ONCE 1 Days Qty: 4 0RF Rx Instructions: take 4 tabs at noon the day before your colonoscopy polyethylene glycol 3350 [Miralax] 17 gram/dose powder 238 g PO ONCE Qty: 238 0RF Rx Instructions: As directed by gastroenterology department at [facility] Referrals: Janet Islas MD [Primary Care Provider] - (Recurrent episodes of dizziness) Anthony Christy MD [Physician] - (Episodes of dizziness) Interventions: ED Discharge Assessment Last Done: 07/18/24 19:09 Discharge Date/Time: 07/18/24 19:10 Print Language: Korean
[2024-07-18 16:34] LABS: Influenza A PCR NEGATIVE (Negative); Influenza B PCR NEGATIVE (Negative); Resp Syncy Virus RNA Qual PCR NEGATIVE (Negative); SARS COV2 PCR INHOUSE NEGATIVE (Negative)
--- NOTE | 2024-07-18 16:54 | ECG_ITS ---
Test Reason : DIZZINESS Blood Pressure : / mmHG Vent. Rate : 056 BPM Atrial Rate : 056 BPM P-R Int : 168 ms QRS Dur : 084 ms QT Int : 428 ms P-R-T Axes : -04 002 030 degrees QTc Int : 413 ms Sinus bradycardia Nonspecific ST abnormality Abnormal ECG When compared with ECG of 15-MAY-2024 19:21, No significant change was found Referred By: Camacho Sullivan Electronically Signed By:Jason Amaya
[2024-07-18 17:27] VITALS: BP 152/64; PULSE 58; RESP 15; TEMP 36.2; O2SAT 100
[2024-07-18 17:46] LABS: MANUAL DIFF FLAG NO
[2024-07-18 17:55] LABS: Basophils Percent Auto 0.5 % (0-2); Eosinophils Percent Auto 0.7 % (0-4); Hematocrit 39.6 % (37.0-47.0); Hemoglobin 13.3 g/dl (12.0-16.0); Imm Gran Abs Auto 0.02 X10*3/uL (0.00-0.03); Imm Gran Pct Auto 0.4 % (0.0-0.4); Lymphocytes Percent Auto 36.1 % (20-40); Mean Corpuscular HGB Conc 33.6 g/dl (31.0-35.0); Mean Corpuscular Hemoglobin 27.6 pg (27.0-33.0); Mean Corpuscular Volume 82.2 fL (80.0-98.0); Mean Platelet Volume 10.3 fL (9.4-12.3); Monocytes Absolute Auto 0.4 X10*3/uL (0.1-1.2); Monocytes Percent Auto 6.4 % (2-11); Neutrophils Absolute Auto 3.1 x10*3/uL (2.0-8.3); Neutrophils Percent Auto 55.9 % (45-73); Platelet Count 177 X10*3/uL (160-400); Red Blood Count 4.82 X10*6/uL (4.20-5.50); Red Cell Distribution Width 12.3 % (11.0-16.0); White Blood Count 5.5 X10*3/uL (4.8-10.8)
[2024-07-18 18:15] LABS: B Type Natriuretic Peptide 26 pg/mL (<100)
[2024-07-18 18:21] LABS: Troponin-I High Sensitivity < 2.7 ng/L (<3.5-17.0)
[2024-07-18 18:33] LABS: Alanine Aminotransferase 16 U/L (0-31); Alkaline Phosphatase 53 U/L (39-117); Anion Gap 9 (12-20); Aspartate Amino Transferase 23 U/L (5-31); Bilirubin Direct 0.1 mg/dL (0.0-0.5); Bilirubin Total 0.4 mg/dL (0.0-1.0); Blood Urea Nitrogen 16 mg/dL (9-16); Calcium 10.1 mg/dL (8.4-10.2); Carbon Dioxide 31 mmol/L (22-29); Chloride 106 mmol/L (96-108); Creatinine Clr Calc Pharmacy 79.1; Estimated Glomerular Filt Rate > 60; Glucose Random 104 mg/dL (60-115); Magnesium 2.1 mg/dL (1.6-2.6); Potassium 4.8 mmol/L (3.3-5.1); Sodium 141 mmol/L (135-145)
[2024-07-18 19:09] VITALS: BP 152/64; PULSE 58; RESP 15; TEMP 36.2; O2SAT 100
== END 2024-07-18 19:10 | disposition home or self-care (01) ==
PROVIDERS: Physician Assistant Medical; Emergency Provider Emergency Medicine; PCP Internal Medicine
DX: R42 Dizziness and giddiness (principal); R11.2 Nausea with vomiting, unspecified; R00.1 Bradycardia, unspecified; R06.02 Shortness of breath; Z03.818 Encounter for observation for suspected exposure to other biological agents ruled out; Z79.899 Other long term (current) drug therapy
CPT/HCPCS: 0241U; 36415; 80048; 80076; 83735; 83880; 84484; 85025; 93005; 99283; 99284

== ENCOUNTER → 2024-07-18 16:54 | Outpatient (BNV) | payer MEDICARE, OTHER, SELFPAY | PROVIDERS: Emergency Provider Emergency Medicine; PCP Internal Medicine; Visit Provider Internal Medicine Cardiovascular Disease | DX: R94.31 Abnormal electrocardiogram [ECG] [EKG] (principal) | CPT/HCPCS: 93010 ==

== ENCOUNTER 2024-07-26 09:54 | Outpatient (AMB) | payer MEDICARE, OTHER, MEDICAID, SELFPAY ==
--- NOTE | 2024-07-26 09:56 | MHC.OFFVIS ---
Intake Visit Reasons: Ultrasound follow up Radiologic Therapist Required: Yes Radiologic Therapist Language: Elevator Operator Services: Radiologic Therapist Present Radiologic Therapist Name: [id number] Information Interpreted: non-clinical & clinical Software Release Manager: Software Release Manager Present Allergies latex Allergy (Intermediate, Verified 07/26/24 10:04) rash adhesive Allergy (Mild, Verified 07/26/24 10:04) Rash Is last menstrual period known: Yes HPI Comments Details: Patient is here today for follow up on her pelvic ultrasound, history of pelvic pain and dysuria. All cultures were negative. She denies any VB. All of her pelvic pain and urinary symptoms have all resolved. [facility] Medical History Pelvic pain Dysuria Diverticulosis Didelphic uterus Class 1 obesity with body mass index (BMI) of 33.0 to 33.9 in adult Mild persistent asthma Constipation by delayed colonic transit Tubular adenoma Impaired glucose tolerance Hypovitaminosis D Dyslipidemia Surgical History H/O colonoscopy History of biopsy History of tubal ligation Family History Father Stomach cancer Mother Diabetes Hypertension Stroke Brother Thyroid cancer CAD (coronary artery disease) Paternal Uncle CVD (cardiovascular disease) Social History Household Members: None Housing: Apartment Alcohol intake: current Alcohol intake frequency: holidays/special occasions only Alcohol type: wine Patient Tobacco Use Status: Never used Tobacco e-Cigarette/Vaping Use: Never Used Second Hand Smoke Exposure: No service: No Current occupational status: disabled Cognitive needs: No Hearing needs: No Vision needs: Yes Female Reproductive History Menstrual Age of Menarche: 15 Date of menopause: 09/27/02 Review of Systems Const All systems reviewed & are unremarkable except as noted in HPI and below Endo Reports no additional complaints Physical Exam Const General: cooperative, healthy appearing and no acute distress Psych Appearance: well kempt Attitude: cooperative Thought process: Normal thought process present Results Reviewed Results Reviewed: [address] [address] Ultrasound Report Signed Patient: Marguerite Enriquez MR#: [id number] : 1955 Acct:[id number] Age/Sex: 69 / F ADM Date: 07/04/24 Loc: HO.US Attending Dr: Caryn Alcantar CNM Ordering Physician: Caryn Alcantar CNM Date of Service: 07/04/24 Procedure(s): US pelvic and transvaginal Accession Number(s): [id number] cc: Caryn Alcantar CNM; Janet Islas MD~ EXAMINATION: US PELVIS CLINICAL INFORMATION: Dysuria and pelvic pain COMPARISON: CT abdomen and pelvis 04/21/2021 TECHNIQUE: Ultrasound of the pelvis is performed using both transabdominal and transvaginal transducers along with Doppler. Transvaginal imaging is performed due to inadequate visualization transabdominally. FINDINGS: Uterus: The uterus is anteverted and measures 9.3 x 6.2 x 5.8 cm The double wall endometrial thickness is 3 mm. A small amount of fluid is seen within the endometrial canal. Nabothian cysts are present in the cervix 3 uterine fibroids are seen on the right the largest near the fundus measuring 4.5 x 3.7 x 4.4 cm (previously large 6.4 x 4.6 and. 2 additional smaller fibroids are seen just beneath this in the body of the right measuring 0.9 x 1.2 x 0.7 cm and 1.8 x 1.8 x 1.7 cm. Both of these were also present in the past, the former having decreased in size and the latter has increased in size slightly. Neither ovary could be visualized. US/US pelvic and transvaginal IMPRESSION: Uterine fibroids as described above. Electronically signed by: Nick Zaldivar MD 07/04/2024 03:33 PM EDT Dictated By: Nick Zaldivar MD Signed By: <Electronically signed by Nick Zaldivar MD in OV> 07/04/24 1533 DD/ 1139 TD/TT: 07/04/24 1207 Chronic Disease Epidemiologist: SS Assessment & Plan Assessment & Plan (1) Encounter to discuss test results: Code(s): Z71.2 - Person consulting for explanation of examination or test findings (2) Fibroid: Code(s): D21.9 - Benign neoplasm of connective and other soft tissue, unspecified Category: Medical Plan Discussed: Ultrasound findings-uterine fibroids-last study 2016 largest 1 has decreased in size once slightly-few mm larger, maybe a technical reporting variance. Counseled re: Leiomyoma: common pelvic neoplasm. Differential diagnosis-may include but not limited to- leiomyosarcoma which is a rare uterine sarcoma 3-7/100,000, difficult to distinguish from fibroids on ultrasound from uterine sarcoma's. Unlikely any single test will have a highly positive predictive value. Hysterectomy is not recommended for sole purpose of excluding malignant neoplasm. Consult for surgical exploration, medical treatment, other treatments, verses expectant management, pros and cons, risks and benefits. Expectant management follow up for stability. Follow up in person for test results. Report any PMB, pelvic pressure, bloating, or pain. Referral to MD if indicated for level of care if indicated. All of her questions and concerns were addressed to the best of my ability and shared decision making. She is agreeable to the plan of care. This note is constructed using voice recognition software. While every effort has been made to ensure accuracy, accounts payables clerk errors may have been included. Orders: Orders US pelvic and transvaginal 10/30/24 D21.9 - Benign neoplasm of connective and other soft tissue, unspecified Coding Level of Care Code Est Pt Level 3 (08694) Diagnoses Encounter to discuss test results Z71.2 Fibroid D21.9
== END 2024-07-26 10:51 | disposition home or self-care (01) ==
LOC: HO.HWS 09:54
PROVIDERS: PCP Internal Medicine; Visit Provider Advanced Practice Midwife
DX: Z71.2 Person consulting for explanation of examination or test findings (principal); D21.9 Benign neoplasm of connective and other soft tissue, unspecified
CPT/HCPCS: 99213

== ENCOUNTER → 2024-07-26 09:54 | Outpatient (BNVA) | payer MEDICARE, OTHER, MEDICAID, SELFPAY | PROVIDERS: PCP Internal Medicine; Visit Provider Advanced Practice Midwife | DX: Z71.2 Person consulting for explanation of examination or test findings (principal); D21.9 Benign neoplasm of connective and other soft tissue, unspecified | CPT/HCPCS: 99212 ==

== ENCOUNTER → 2024-07-27 13:17 | Outpatient (BNVA) | payer MEDICARE, MEDICAID, SELFPAY | PROVIDERS: PCP Internal Medicine ==

== ENCOUNTER 2024-08-17 02:01 | Emergency (ER) | payer MEDICARE, OTHER, MEDICAID, SELFPAY ==
--- NOTE | 2024-08-17 | ECG_ITS ---
Test Reason : VERTIGO Blood Pressure : / mmHG Vent. Rate : 055 BPM Atrial Rate : 055 BPM P-R Int : 184 ms QRS Dur : 084 ms QT Int : 456 ms P-R-T Axes : 002 -01 031 degrees QTc Int : 436 ms Sinus bradycardia Otherwise normal ECG When compared with ECG of 18-JUL-2024 17:15, No significant change was found Referred By: Generic ED Physician Electronically Signed By:LEI GARCIA MD
--- NOTE | ~2024-08-17 | XR_ITS ---
EXAMINATION: XR CHEST CLINICAL INFORMATION: Shortness of breath. COMPARISON: None available. TECHNIQUE: Frontal view of the chest was obtained. FINDINGS: Normal appearance of the cardiomediastinal structures. No effusions or pneumothoraces. Normal pattern of pulmonary vasculature. No focal pulmonary consolidation. XR/XR chest 1V IMPRESSION: No acute cardiopulmonary abnormalities. Electronically signed by: Surinder Whitt MD 08/17/2024 05:51 AM [facility]
[2024-08-17 02:08] VITALS: BP 130/80; BP 153/63; PULSE 59; PULSE 60; RESP 18; TEMP 36.6; O2SAT 100; O2SAT 99; BMI 32.2
[2024-08-17 02:25] LABS: MANUAL DIFF FLAG NO
[2024-08-17 02:27] LABS: Basophils Percent Auto 0.5 % (0-2); Eosinophils Absolute Auto 0.1 X10*3/uL (0.0-0.4); Hematocrit 41.4 % (37.0-47.0); Imm Gran Abs Auto 0.02 X10*3/uL (0.00-0.03); Imm Gran Pct Auto 0.3 % (0.0-0.4); Lymphocytes Absolute Auto 1.8 X10*3/uL (1.2-4.9); Lymphocytes Percent Auto 29.6 % (20-40); Mean Corpuscular HGB Conc 33.8 g/dl (31.0-35.0); Mean Corpuscular Hemoglobin 27.5 pg (27.0-33.0); Mean Corpuscular Volume 81.3 fL (80.0-98.0); Monocytes Absolute Auto 0.4 X10*3/uL (0.1-1.2); Monocytes Percent Auto 7.2 % (2-11); Neutrophils Absolute Auto 3.7 x10*3/uL (2.0-8.3); Neutrophils Percent Auto 61.4 % (45-73); Platelet Count 193 X10*3/uL (160-400); Red Blood Count 5.09 X10*6/uL (4.20-5.50); Red Cell Distribution Width 12.4 % (11.0-16.0)
--- NOTE | 2024-08-17 02:35 | PC.NURSE ---
pt biba from home, a&ox4, vss. virtual sheriffs at bedside. pt reports dizziness/headache with n/v/abdominal pain starting yesterday. pt reports pain as 4/10 in abdomen and head, pt reports sensitivity to light. pt has been seen at [facility] several times, hx of vertigo. 20g placed in L ac, labs obtained and sent. neurological exam negative for any deficits
[2024-08-17 02:40] LABS: Alanine Aminotransferase 29 U/L (0-31); Albumin Level 4.1 g/dL (3.5-5.0); Alkaline Phosphatase 80 U/L (39-117); Anion Gap 16 (12-20); Aspartate Amino Transferase 25 U/L (5-31); Bilirubin Total 0.5 mg/dL (0.0-1.0); Blood Urea Nitrogen 23 mg/dL (9-16); Calcium 9.8 mg/dL (8.4-10.2); Carbon Dioxide 23 mmol/L (22-29); Chloride 104 mmol/L (96-108); Creatinine Clr Calc Pharmacy 77.3; Estimated Glomerular Filt Rate > 60; Glucose Random 115 mg/dL (60-115); Potassium 3.6 mmol/L (3.3-5.1); Sodium 139 mmol/L (135-145); Total Protein 7.4 g/dL (6.5-8.0)
[2024-08-17 02:45] LABS: Troponin-I High Sensitivity 3.3 ng/L (<3.5-17.0)
--- NOTE | 2024-08-17 03:06 | MHC.EDTECH ---
Assumed care of pt,introduced self to pt,EKG completed per order and signed by provider,warm blanket given,lights dimmed,patient is resting quietly, at bedside,call patel in reach
--- NOTE | 2024-08-17 03:19 | PC.NURSE ---
pt noted to de sat to 81% on room air, pt placed on 2L nasal cannula and sating 92-94%. provider aware. pt denies copd.
[2024-08-17 03:20] VITALS: O2SAT 81; O2SAT 94
--- NOTE | 2024-08-17 03:33 | ED.GENADULT ---
HPI - General Adult General Chief complaint: General Medical Stated complaint: vertigo/vomiting Time Seen by Provider: 08/17/24 03:33 Source: patient Mode of arrival: EMS Limitations: no limitations History of Present Illness ED Provider: Dr. Harjit Rosario HPI narrative: 69-year-old female with a history of diverticulosis, dyslipidemia, vertigo who presents emergency department for evaluation of positional vertigo, emesis and left-sided neck pain. The patient states that she was sitting in the living room watching television at 0 100 hours when she had a sudden onset of dizziness when she stood up. She describes the dizziness as a room spinning lightheaded by feeling. The dizziness is intermittent and resolved when she sat down and states that ill. The dizziness with return with minimal position change. Patient has had similar presentations in the past. She states that she had associated nausea with 2 episodes of emesis. Patient also is complaining of left-sided neck pain. She states this pain started at 01:00 hours and is worse with movement. She denied numbness or weakness of her upper lower extremities. She denied visual changes. The patient has had ED visits in the past with similar complaints. She states that her symptoms were severe and she had time to the hospital by ambulance for evaluation. Related Data Home Medications ?Medication ?Instructions ?Recorded ?Confirmed docosahexaenoic acid 200 mg mg PO 06/28/24 07/10/24 capsule ([facility]-3 DHA) niacin 250 mg capsule,extended 250 mg PO BEDTIME 06/28/24 07/10/24 release vitamin B comp and C no.3 15 mg-10 1 cap PO DAILY 06/28/24 07/10/24 mg-50 mg-5 mg-300 mg capsule (B Complex Plus Vitamin C) vitamin K2 45 mcg capsule 45 mcg PO DAILY 06/28/24 07/10/24 Previous Rx's ?Medication ?Instructions ?Recorded cholecalciferol (vitamin D3) 50 50 mcg PO DAILY 90 days #90 caps 11/04/22 mcg (2,000 unit) capsule Ventolin HFA 90 mcg/actuation 2 puff inhalation Q6H PRN for 08/29/23 aerosol inhaler (albuterol sulfate) wheezing #18 ea bisacodyl 5 mg tablet,delayed 20 mg (4 x 5 mg) PO ONCE 1 day #4 07/07/24 release (Dulcolax (bisacodyl)) tabs docusate sodium 100 mg capsule 100 mg PO BEDTIME #90 caps 07/07/24 polyethylene glycol 3350 17 238 g PO ONCE #238 grams 07/07/24 gram/dose oral powder (Miralax) meclizine 12.5 mg tablet 12.5 mg PO TID PRN dizziness #20 07/10/24 tabs meclizine 25 mg tablet (Dramamine 25 mg PO TID PRN dizziness #20 tabs 08/17/24 Less Drowsy) ondansetron 4 mg disintegrating 4 mg PO Q6-8H PRN nausea and 08/17/24 tablet vomiting #20 tabs Allergies Allergy/AdvReac Type Severity Reaction Status Date / Time latex Allergy Intermediate rash Verified 08/17/24 02:19 adhesive Allergy Mild Rash Verified 08/17/24 02:19 Review of Systems Review of Systems: Yes all other systems are reviewed and are negative PMFSH Past Medical History Medical History Pelvic pain Dysuria Diverticulosis Didelphic uterus Class 1 obesity with body mass index (BMI) of 33.0 to 33.9 in adult Mild persistent asthma Constipation by delayed colonic transit Tubular adenoma Impaired glucose tolerance Hypovitaminosis D Dyslipidemia Surgical History H/O colonoscopy History of biopsy History of tubal ligation Family History Family History Father Stomach cancer Mother Diabetes Hypertension Stroke Brother Thyroid cancer CAD (coronary artery disease) Paternal Uncle CVD (cardiovascular disease) Social History Social History Household Members: None Housing: Apartment Alcohol intake: current Alcohol intake frequency: holidays/special occasions only Alcohol type: wine Patient Tobacco Use Status: Never used Tobacco Smoked in Last 30 Days: No e-Cigarette/Vaping Use: Never Used Second Hand Smoke Exposure: No Use of substances other than those prescribed or required for medical reasons: No Advance Directives: No Advance Directives Information Provided: No Do you have a plan to hurt others: No Plan service: No Current occupational status: disabled Cognitive needs: No Hearing needs: No Vision needs: Yes Physical Exam ED Vital Signs: Vital Signs - 24 hr 08/17/24 02:08 08/17/24 03:20 08/17/24 03:20 Temperature 97.9 F Pulse Rate 59 Respiratory Rate 18 Blood Pressure 153/63 H Pulse Oximetry 100 81 L 94 Oxygen Delivery Method Room Air Room Air Nasal Cannula Oxygen Flow Rate 2 08/17/24 05:56 Temperature 97.6 F Pulse Rate 56 Respiratory Rate 17 Blood Pressure 124/53 L Pulse Oximetry 99 Oxygen Delivery Method Room Air Oxygen Flow Rate BMI result Body Mass Index 32.2 vital signs revealed elevated blood pressure otherwise unremarkable. Exam: General: Awake, alert in no distress Head: Normocephalic, atraumatic EENT: PERRL, Lateral nystagmus Lids normal, sclera normal, conjunctiva normal, nose normal , ears normal, throat without erythema or exudates Neck: Supple, no adenopathy Lung: breath sounds symmetric, no wheezing, rales or rhonchi Chest: symmetric movement, nontender Heart: regular rate and rhythm, normal S1, S2 no murmurs or rubs Abdomen: soft, non-tender, nondistended, normal bowel sounds Back: no vertebral tenderness, no CVAT Extremities: no deformities, moves all extremities symmetrically Neuro: Awake, alert, oriented, normal speech, cranial nerves intact, moves all extremities symmetrically, good utvcbi-ha-sxgm-to-finger, good rapid finger movement, normal heel to webb. Inducible vertigo with position change Psych: Pleasant, cooperative Medications Administered Discontinued Medications Generic Name Dose Route Start Last Admin Trade Name Freq PRN Reason Stop Dose Admin Sodium Chloride 1,000 mls @ 999 mls/hr 08/17/24 04:16 08/17/24 05:31 Ns IV 08/17/24 05:16 Infused .Q1H1M STA Infusion Meclizine HCl 25 mg 08/17/24 04:16 08/17/24 04:26 Meclizine Hcl 25 Mg Tablet PO 08/17/24 04:17 25 mg ONCE STA Administration Ondansetron HCl 4 mg 08/17/24 04:16 08/17/24 04:26 Ondansetron Hcl 4 Mg/2 Ml Vial IVPUSH 08/17/24 04:17 4 mg ONCE ONE Administration Medical Decision Making Medical Decision Making MDM Narrative: 69-year-old female with a history of diverticulosis, dyslipidemia, vertigo who presents emergency department for evaluation of positional vertigo, emesis and left-sided neck pain with symptoms being at 01:00 hours while she was watching television and when she stood up. Symptoms have been intermittent and exacerbated by position change. She had no significant associated symptoms such as headache, visual change, numbness or weakness of her extremities. She has been evaluated in the emergency department the past with similar presentations. Differential diagnosis: Includes but is not limited to cerebellar stroke, positional vertigo, anemia, electrolyte abnormalities Course: my independent interpretation of the laboratory evaluation is as follows: CBC was normal. CMP was normal. Troponin was detectable but not elevated at 3.3. The patient was treated with normal saline IV x1 L, meclizine 25 mg orally and Zofran 4 mg IV. Patient had significant improvement of her symptoms after the above treatment. Patient was discharged home with prescriptions for meclizine 25 mg 3 times a day and Zofran ODT 4 mg every 8 hours as needed for nausea and vomiting Lab Data MDM Lab Attestation statement: I reviewed the patient's lab results. 08/17/24 02:21 08/17/24 02:21 Labs: Lab Results 08/17/24 08/17/24 Range/Units 02:21 04:36 WBC 6.0 (4.8-10.8) X10*3/uL RBC 5.09 (4.20-5.50) X10*6/uL Hgb 14.0 (12.0-16.0) g/dl Hct 41.4 (37.0-47.0) % MCV 81.3 (80.0-98.0) fL MCH 27.5 (27.0-33.0) pg MCHC 33.8 (31.0-35.0) g/dl RDW 12.4 (11.0-16.0) % Plt Count 193 (160-400) X10*3/uL MPV 10.0 (9.4-12.3) fL Immature Gran % (Auto) 0.3 (0.0-0.4) % Neut % (Auto) 61.4 (45-73) % Lymph % (Auto) 29.6 (20-40) % [place] % (Auto) 7.2 (2-11) % Eos % (Auto) 1.0 (0-4) % Baso % (Auto) 0.5 (0-2) % Lymph # (Auto) 1.8 (1.2-4.9) X10*3/uL [place] # (Auto) 0.4 (0.1-1.2) X10*3/uL Eos # (Auto) 0.1 (0.0-0.4) X10*3/uL Baso # (Auto) 0.0 (0.0-0.2) X10*3/uL Abs Immat Gran (auto) 0.02 (0.00-0.03) X10*3/uL Absolute Neuts (auto) 3.7 (2.0-8.3) x10*3/uL Absolute Nucleated RBC 0.000 (0.0-0.012) X10*3/uL Nucleated RBC % (auto) 0.0 (0.0-0.2) /100WBC Sodium 139 (135-145) mmol/L Potassium 3.6 D (3.3-5.1) mmol/L Chloride 104 (96-108) mmol/L Carbon Dioxide 23 (22-29) mmol/L Anion Gap 16 (12-20) BUN 23 H (9-16) mg/dL Creatinine 0.80 (0.5-1.4) mg/dL Estim Creat Clear Calc 77.3 Estimated GFR > 60 Random Glucose 115 (60-115) mg/dL Calcium 9.8 (8.4-10.2) mg/dL Total Bilirubin 0.5 (0.0-1.0) mg/dL AST 25 (5-31) U/L ALT 29 (0-31) U/L Alkaline Phosphatase 80 (39-117) U/L Troponin I High Sens 3.3 (<3.5-17.0) ng/L Total Protein 7.4 (6.5-8.0) g/dL Albumin 4.1 (3.5-5.0) g/dL Urine Color Yellow Urine Appearance Clear Urine pH 8.0 (5.0-9.0) Ur Specific [place] <= 1.005 (1.005-1.025) Urine Protein Negative (Neg-Trace) mg/dL Urine Glucose (UA) Negative (Negative) mg/dL Urine Ketones Negative (Negative) mg/dL Urine Blood Negative (Negative) Urine Nitrite Negative (Negative) Ur Leukocyte Esterase Large (3+) H (Negative) Urine RBC 0-2 (0-2) /HPF Urine WBC 11-20 H (0-5) /HPF Ur Squamous Epith Cells 0-2 (0-2) /HPF Urine Bacteria None Seen (None Seen) Hyaline Casts 0-2 (0-2) /LPF Independent Interpretation I performed an independent interpretation of an: EKG Interpretation: My independent interpretation of the patient's 12 EKG done at 02:47 hours is as follows: Sinus bradycardia with a rate of 55, normal NV interval, QRS duration QTC interval, no ST segment elevation, no ST segment depression, no significant T-wave abnormalities, no PACs, no PVCs Independent Historian Clinical information obtained from an independent historian. History obtained from or confirmed by: Spouse Prescription Management I considered prescription management with: Other ( anti vertigo medication: Meclizine, antiemetic: Zofran ODT) Chronic Conditions Patient?s care impacted by: Other ( hyperlipidemia) Discharge Plan Discharge Clinical Impression: Acute dehydration Benign paroxysmal positional vertigo Qualifiers: Laterality: unspecified laterality Qualified Code(s): H81.10 - Benign paroxysmal vertigo, unspecified ear Nausea and vomiting Qualifiers: Vomiting type: unspecified Qualified Code(s): R11.2 - Nausea with vomiting, unspecified Patient Disposition: Home, Self-Care Instructions: Benign Paroxysmal Positional Vertigo (ED) Additional Instructions: Your symptoms are consistent with benign positional vertigo, this is caused by the balance mechanism in your inner ear. Your blood work was unremarkable. Take meclizine 25 mg pills, 1 pill 3 times a day for the next 3 days for dizziness then as needed for dizziness. ?This medication will make you sleepy. ?Do not drive or work while taking this medication. Take Zofran ODT 4 mg pills, 1 pill dissolved in your mouth every 8 hours as needed for nausea and vomiting. Follow-up with your doctor in 2 days. Please return to the emergency department if your symptoms get worse or if you develop any symptoms that are concerning to you. Prescriptions: New meclizine [Dramamine Less Drowsy] 25 mg tablet 25 mg PO TID PRN (Reason: dizziness) Qty: 20 0RF ondansetron 4 mg tablet,disintegrating 4 mg PO Q6-8H PRN (Reason: nausea and vomiting) Qty: 20 0RF No Action albuterol sulfate [Ventolin HFA] 90 mcg/actuation HFA aerosol inhaler 2 puff inhalation Q6H PRN (Reason: for wheezing) Qty: 18 2RF meclizine 12.5 mg tablet 12.5 mg PO TID PRN (Reason: dizziness) Qty: 20 0RF cholecalciferol (vitamin D3) 50 mcg (2,000 unit) capsule 50 mcg PO DAILY 90 Days Qty: 90 1RF niacin 250 mg capsule, extended release 250 mg PO BEDTIME vitamin K2 45 mcg capsule 45 mcg PO DAILY B Complex Plus Vitamin C 23-57-61-5-300 mg capsule 1 cap PO DAILY Rx Instructions: give with food (meal/snack) [facility]-3 DHA 200 mg capsule PO docusate sodium 100 mg capsule 100 mg PO BEDTIME Qty: 90 3RF bisacodyl [Dulcolax (bisacodyl)] 5 mg tablet,delayed release (DR/EC) 20 mg PO ONCE 1 Days Qty: 4 0RF Rx Instructions: take 4 tabs at noon the day before your colonoscopy polyethylene glycol 3350 [Miralax] 17 gram/dose powder 238 g PO ONCE Qty: 238 0RF Rx Instructions: As directed by gastroenterology department at [facility] Interventions: ED Discharge Assessment Last Done: 08/17/24 05:56 Discharge Date/Time: 08/17/24 05:57 Print Language: [place]
[2024-08-17] MEDS: 0.9 % Sodium Chloride 1,000 ML 999 ML IV (04:26)
[2024-08-17] MEDS: ondansetron HCL 4 MG/2 ML VIAL IVPUSH (04:26)
[2024-08-17] MEDS: Meclizine HCl 25 MG TABLET PO (04:26)
--- NOTE | 2024-08-17 04:38 | PC.NURSE ---
rn at bedside to assist pt to bedside commode. pt did not report dizziness with standing. ua obtained and sent.
[2024-08-17 04:41] LABS: Appearance Urine Clear; Color Urine Yellow; Glucose Urine UA Negative (Negative); Leukocyte Esterase Urine Large (3+) (Negative); Nitrite Urine Negative (Negative); Specific Gravity - Urine <= 1.005 (1.005-1.025); UMIC TRIGGER UACC YES; Urine Blood Negative (Negative); Urine Ketones Negative (Negative); Urine Protein Negative (Neg-Trace)
[2024-08-17 04:46] LABS: Bacteria Urine None Seen (None Seen); Hyaline Casts Urine 0-2 /LPF (0-2); RBC Urine 0-2 /HPF (0-2); Squamous Epithelial Cell Urine 0-2 /HPF (0-2); UACC Culture Trigger YES
[2024-08-17 05:56] VITALS: BP 124/53; PULSE 56; RESP 17; TEMP 36.4; O2SAT 99
== END 2024-08-17 05:57 | disposition home or self-care (01) ==
PROVIDERS: Emergency Provider Emergency Medicine Emergency Medical Services; PCP Internal Medicine
DX: H81.10 Benign paroxysmal vertigo, unspecified ear (principal); E86.0 Dehydration; M54.2 Cervicalgia; R00.1 Bradycardia, unspecified; R11.10 Vomiting, unspecified; Z79.899 Other long term (current) drug therapy
CPT/HCPCS: 36415; 71045; 80053; 81001; 84484; 85025; 87086; 93005; 96361; 96374; 99284; 99285; J2405

== ENCOUNTER → 2024-08-17 02:47 | Outpatient (BNV) | payer MEDICARE, OTHER, MEDICAID, SELFPAY | PROVIDERS: Emergency Provider Emergency Medicine Emergency Medical Services; PCP Internal Medicine; Visit Provider Internal Medicine Cardiovascular Disease | DX: R00.1 Bradycardia, unspecified (principal) | CPT/HCPCS: 93010 ==

== ENCOUNTER 2024-09-13 09:08 | Emergency (ER) | payer MEDICARE, OTHER, MEDICAID, SELFPAY ==
--- NOTE | ~2024-09-13 | CT_ITS ---
EXAMINATION: CT HEAD WITHOUT CONTRAST CLINICAL INFORMATION: Dizziness COMPARISON: Prior CT head dated 07/10/2024 TECHNIQUE: Contiguous axial imaging was performed from the skull base to vertex without intravenous administration of contrast. This CT examination was performed using dose optimization techniques as appropriate, variously including the following: *Automated exposure control *Adjustment of mA and/or kV according to patient size (this includes techniques or standardized protocols for targeted exams where dose is matched to indication/reason for exam; i.e. extremities or head) *Use of iterative reconstruction technique DLP: 741 mGy-cm FINDINGS: No intra or extra-axial fluid collection or hemorrhage, mass, or mass effect. Calvarium intact. Minor mucoperiosteal thickening observed within the right and left maxillary sinus. CT/CT head/brain wo IV con IMPRESSION: No acute intracranial pathology. Electronically signed by: Teddy Alonzo MD 09/13/2024 01:27 [place] [facility] [place]
[2024-09-13 09:22] VITALS: BP 147/67; BP 159/68; PULSE 62; PULSE 67; RESP 30; TEMP 36.4; O2SAT 100; BMI 33.5
--- NOTE | 2024-09-13 09:30 | ECG_ITS ---
Test Reason : dizziness Blood Pressure : / mmHG Vent. Rate : 060 BPM Atrial Rate : 060 BPM P-R Int : 170 ms QRS Dur : 084 ms QT Int : 436 ms P-R-T Axes : 005 000 022 degrees QTc Int : 436 ms Normal sinus rhythm Normal ECG When compared with ECG of 17-AUG-2024 02:47, No significant change was found Referred By: Generic ED Physician Electronically Signed By:TUTU GILL
--- NOTE | 2024-09-13 09:57 | ED.DIZZY ---
HPI - Dizziness General Chief Complaint: Dizziness Stated Complaint: RECENT DX OF VERTIGO @ [facility] PER EMS Time Seen by Provider: 09/13/24 09:37 Source: patient and EMS Mode of arrival: EMS Limitations: no limitations History of Present Illness HPI Narrative: This is a 69 years old the patient with history of vertigo presented to emergency department with a chief complaint of dizziness nausea vomiting since 08:00 o'clock in the morning. She has been having these episodes since April she had an extensive workup she had an MRI which I reviewed which showed a 6 mm meningioma and arachnoid cyst. Patient was referred to physical therapy for the vertigo for exercise of vestibular rehabilitation MD elicited complaint: dizziness Pertinent past history: BPPV Onset (ago): month(s) Timing: sudden onset Severity: moderate Description: sense of movement History of similar symptoms: Yes Exacerbating factors: nothing Relieving factors: nothing Associated symptoms: nausea and vomiting Related Data Home Medications ?Medication ?Instructions ?Recorded ?Confirmed docosahexaenoic acid 200 mg mg PO 06/28/24 07/10/24 capsule ([facility]-3 DHA) niacin 250 mg capsule,extended 250 mg PO BEDTIME 06/28/24 07/10/24 release vitamin B comp and C no.3 15 mg-10 1 cap PO DAILY 06/28/24 07/10/24 mg-50 mg-5 mg-300 mg capsule (B Complex Plus Vitamin C) vitamin K2 45 mcg capsule 45 mcg PO DAILY 06/28/24 07/10/24 Previous Rx's ?Medication ?Instructions ?Recorded cholecalciferol (vitamin D3) 50 50 mcg PO DAILY 90 days #90 caps 11/04/22 mcg (2,000 unit) capsule Ventolin HFA 90 mcg/actuation 2 puff inhalation Q6H PRN for 08/29/23 aerosol inhaler (albuterol sulfate) wheezing #18 ea bisacodyl 5 mg tablet,delayed 20 mg (4 x 5 mg) PO ONCE 1 day #4 07/07/24 release (Dulcolax (bisacodyl)) tabs docusate sodium 100 mg capsule 100 mg PO BEDTIME #90 caps 07/07/24 polyethylene glycol 3350 17 238 g PO ONCE #238 grams 07/07/24 gram/dose oral powder (Miralax) meclizine 12.5 mg tablet 12.5 mg PO TID PRN dizziness #20 07/10/24 tabs meclizine 25 mg tablet (Dramamine 25 mg PO TID PRN dizziness #20 tabs 08/17/24 Less Drowsy) ondansetron 4 mg disintegrating 4 mg PO Q6-8H PRN nausea and 08/17/24 tablet vomiting #20 tabs Allergies Allergy/AdvReac Type Severity Reaction Status Date / Time latex Allergy Intermediate rash Verified 08/17/24 02:19 adhesive Allergy Mild Rash Verified 09/13/24 09:23 Review of Systems Constitutional: Constitutional: Reports no additional constitutional complaints Gastrointestinal: Gastrointestinal: Reports nausea and Reports vomiting PMFSH Past Medical History Attestation statement: The following information was validated with the patient. Medical History Pelvic pain Dysuria Diverticulosis Didelphic uterus Class 1 obesity with body mass index (BMI) of 33.0 to 33.9 in adult Mild persistent asthma Constipation by delayed colonic transit Tubular adenoma Impaired glucose tolerance Hypovitaminosis D Dyslipidemia Surgical History H/O colonoscopy History of biopsy History of tubal ligation Family History Family History Father Stomach cancer Mother Diabetes Hypertension Stroke Brother Thyroid cancer CAD (coronary artery disease) Paternal Uncle CVD (cardiovascular disease) Social History Social History Household Members: None Housing: Apartment Alcohol intake: current Alcohol intake frequency: holidays/special occasions only Alcohol type: wine Patient Tobacco Use Status: Never used Tobacco Smoked in Last 30 Days: No e-Cigarette/Vaping Use: Never Used Second Hand Smoke Exposure: No Use of substances other than those prescribed or required for medical reasons: No Advance Directives: No Advance Directives Information Provided: Yes service: No Current occupational status: disabled Cognitive needs: No Hearing needs: No Vision needs: Yes Physical Exam Vital Signs: Vital Signs: Last Vital Signs Temp 98.4 F 09/13/24 14:08 Pulse 65 09/13/24 14:08 Resp 18 09/13/24 14:08 BP 140/68 H 09/13/24 14:08 Pulse Ox 99 09/13/24 14:08 O2 Del Method Room Air 09/13/24 14:08 BMI result Body Mass Index 33.5 Const: General: cooperative Nutritional Appearance: well nourished Orientation/consciousness: patient oriented x3 Limitations: no limitations HEENT: Head: Yes normal to inspection Face and sinus: Yes normal facial exam Mouth: Normal oral and palatal mucosa present Throat: Yes posterior oropharynx normal Neck: Neck: Yes normal visual inspection Resp: Effort & Inspection: normal respiratory effort and able to speak in complete sentences Auscultation: clear to auscultation bilaterally Cardio: Jugular venous distension: no JVD Rate: regular rate Rhythm: regular rhythm GI: Inspection: Yes normal to inspection Palpation (GI): Soft to palpation, not firm, nontender and no guarding Auscultation: normal bowel sounds Skin: General skin exam: no rashes or lesions noted, elasticity normal and turgor normal Lesions: no lesions Rashes: no rashes Neuro: General: patient oriented x3 Cranial nerves: Yes CN's II-XII intact bilaterally Course Reevaluation(s) Reevaluation #1: Patient is feeling much better at this time, exam ambulatory without any problem no dizziness whatsoever anticipate discharge Medications Administered Discontinued Medications Generic Name Dose Route Start Last Admin Trade Name Freq PRN Reason Stop Dose Admin Diphenhydramine HCl 12.5 mg 09/13/24 09:55 09/13/24 10:07 Diphenhydramine Hcl 50 Mg/Ml Vial IVPUSH 09/13/24 09:56 12.5 mg ONCE ONE Administration Sodium Chloride 1,000 mls @ 999 mls/hr 09/13/24 10:00 09/13/24 11:08 Ns IVCONT 09/13/24 11:00 Infused .Q1H1M RAJESH Infusion Metoclopramide HCl 10 mg 09/13/24 09:55 09/13/24 10:09 Metoclopramide Hcl 10 Mg/2 Ml Vial IVPUSH 09/13/24 09:56 10 mg ONCE ONE Administration Medical Decision Making Medical Decision Making [facility] Narrative: Patient presented with complaint on nausea and vomiting will administer fluid antiemetic and reassessed Differential Diagnosis Differential Diagnoses: The differential diagnosis associated with the presentation includes Gastroenteritis/vertigo/viral syndrome Admission/Observation Consideration of admission/observation: Escalation of care including admission/observation considered Lab Data [facility] Lab Attestation statement: I reviewed the patient's lab results. 09/13/24 10:38 09/13/24 10:38 Labs: Lab Results 09/13/24 Range/Units 10:38 WBC 4.5 L (4.8-10.8) X10*3/uL RBC 4.65 (4.20-5.50) X10*6/uL Hgb 12.9 (12.0-16.0) g/dl Hct 38.9 (37.0-47.0) % MCV 83.7 (80.0-98.0) fL MCH 27.7 (27.0-33.0) pg MCHC 33.2 (31.0-35.0) g/dl RDW 12.1 (11.0-16.0) % Plt Count 168 (160-400) X10*3/uL MPV 9.9 (9.4-12.3) fL Immature Gran % (Auto) 0.4 (0.0-0.4) % Neut % (Auto) 69.1 (45-73) % Lymph % (Auto) 22.0 (20-40) % [place] % (Auto) 6.9 (2-11) % Eos % (Auto) 0.9 (0-4) % Baso % (Auto) 0.7 (0-2) % Lymph # (Auto) 1.0 L (1.2-4.9) X10*3/uL [place] # (Auto) 0.3 (0.1-1.2) X10*3/uL Eos # (Auto) 0.0 (0.0-0.4) X10*3/uL Baso # (Auto) 0.0 (0.0-0.2) X10*3/uL Abs Immat Gran (auto) 0.02 (0.00-0.03) X10*3/uL Absolute Neuts (auto) 3.1 (2.0-8.3) x10*3/uL Absolute Nucleated RBC 0.000 (0.0-0.012) X10*3/uL Nucleated RBC % (auto) 0.0 (0.0-0.2) /100WBC Sodium 142 (135-145) mmol/L Potassium 3.9 (3.3-5.1) mmol/L Chloride 111 H (96-108) mmol/L Carbon Dioxide 26 (22-29) mmol/L Anion Gap 9 L (12-20) BUN 15 (9-16) mg/dL Creatinine 0.67 (0.5-1.4) mg/dL Estim Creat Clear Calc 91.0 Estimated GFR > 60 Random Glucose 110 (60-115) mg/dL Calcium 8.5 D (8.4-10.2) mg/dL Total Bilirubin 0.5 (0.0-1.0) mg/dL AST 22 (5-31) U/L ALT 16 (0-31) U/L Alkaline Phosphatase 53 (39-117) U/L Troponin I High Sens < 2.7 (<3.5-17.0) ng/L Total Protein 6.7 (6.5-8.0) g/dL Albumin 3.7 (3.5-5.0) g/dL Independent Interpretation I performed an independent interpretation of an: EKG Interpretation: Electrocardiogram was reviewed interpreted by me as sinus rhythm rate [address]-T changes Radiology Impression Discussion of test interpretation with radiology: I have reviewed the radiologist's reading. Independent Historian Clinical information obtained from an independent historian. History obtained from or confirmed by: Spouse Discharge Plan Discharge Clinical Impression: Dizziness Patient Disposition: Home, Self-Care Instructions: Dizziness (ED) Additional Instructions: Follow-up with your primary care physician: Today make an appointment blood work was normal CT scan shows showed no acute pathology Prescriptions: No Action albuterol sulfate [Ventolin HFA] 90 mcg/actuation HFA aerosol inhaler 2 puff inhalation Q6H PRN (Reason: for wheezing) Qty: 18 2RF meclizine 12.5 mg tablet 12.5 mg PO TID PRN (Reason: dizziness) Qty: 20 0RF meclizine [Dramamine Less Drowsy] 25 mg tablet 25 mg PO TID PRN (Reason: dizziness) Qty: 20 0RF ondansetron 4 mg tablet,disintegrating 4 mg PO Q6-8H PRN (Reason: nausea and vomiting) Qty: 20 0RF cholecalciferol (vitamin D3) 50 mcg (2,000 unit) capsule 50 mcg PO DAILY 90 Days Qty: 90 1RF niacin 250 mg capsule, extended release 250 mg PO BEDTIME vitamin K2 45 mcg capsule 45 mcg PO DAILY B Complex Plus Vitamin C 11-07-13-5-300 mg capsule 1 cap PO DAILY Rx Instructions: give with food (meal/snack) [facility] [place]-3 DHA 200 mg capsule PO docusate sodium 100 mg capsule 100 mg PO BEDTIME Qty: 90 3RF bisacodyl [Dulcolax (bisacodyl)] 5 mg tablet,delayed release (DR/EC) 20 mg PO ONCE 1 Days Qty: 4 0RF Rx Instructions: take 4 tabs at noon the day before your colonoscopy polyethylene glycol 3350 [Miralax] 17 gram/dose powder 238 g PO ONCE Qty: 238 0RF Rx Instructions: As directed by gastroenterology department at [facility] Interventions: ED Discharge Assessment Last Done: 09/13/24 14:08 Discharge Date/Time: 09/13/24 14:15 Print Language: Citizen [place]
[2024-09-13] MEDS: 0.9 % Sodium Chloride 1,000 ML 999 ML IVCONT (10:04)
[2024-09-13] MEDS: diphenhydrAMINE HCL 50 MG/ML VIAL 12.5 MG IVPUSH (10:07)
[2024-09-13] MEDS: Metoclopramide HCl 10 MG/2 ML VIAL IVPUSH (10:09)
[2024-09-13 10:41] LABS: MANUAL DIFF FLAG NO
[2024-09-13 10:42] LABS: Basophils Percent Auto 0.7 % (0-2); Eosinophils Percent Auto 0.9 % (0-4); Hematocrit 38.9 % (37.0-47.0); Hemoglobin 12.9 g/dl (12.0-16.0); Imm Gran Abs Auto 0.02 X10*3/uL (0.00-0.03); Imm Gran Pct Auto 0.4 % (0.0-0.4); Mean Corpuscular HGB Conc 33.2 g/dl (31.0-35.0); Mean Corpuscular Hemoglobin 27.7 pg (27.0-33.0); Mean Corpuscular Volume 83.7 fL (80.0-98.0); Mean Platelet Volume 9.9 fL (9.4-12.3); Monocytes Absolute Auto 0.3 X10*3/uL (0.1-1.2); Monocytes Percent Auto 6.9 % (2-11); Neutrophils Absolute Auto 3.1 x10*3/uL (2.0-8.3); Neutrophils Percent Auto 69.1 % (45-73); Platelet Count 168 X10*3/uL (160-400); Red Blood Count 4.65 X10*6/uL (4.20-5.50); Red Cell Distribution Width 12.1 % (11.0-16.0); White Blood Count 4.5 X10*3/uL (4.8-10.8)
[2024-09-13 10:59] LABS: Alanine Aminotransferase 16 U/L (0-31); Albumin Level 3.7 g/dL (3.5-5.0); Alkaline Phosphatase 53 U/L (39-117); Anion Gap 9 (12-20); Aspartate Amino Transferase 22 U/L (5-31); Bilirubin Total 0.5 mg/dL (0.0-1.0); Blood Urea Nitrogen 15 mg/dL (9-16); Calcium 8.5 mg/dL (8.4-10.2); Carbon Dioxide 26 mmol/L (22-29); Chloride 111 mmol/L (96-108); Estimated Glomerular Filt Rate > 60; Glucose Random 110 mg/dL (60-115); Potassium 3.9 mmol/L (3.3-5.1); Sodium 142 mmol/L (135-145); Total Protein 6.7 g/dL (6.5-8.0)
[2024-09-13 11:05] LABS: Troponin-I High Sensitivity < 2.7 ng/L (<3.5-17.0)
[2024-09-13 12:20] VITALS: BP 136/59; PULSE 61; RESP 14; TEMP 36.2; O2SAT 99
[2024-09-13 14:08] VITALS: BP 140/68; PULSE 65; RESP 18; TEMP 36.9; O2SAT 99
== END 2024-09-13 14:15 | disposition home or self-care (01) ==
PROVIDERS: Emergency Provider Emergency Medicine; PCP Internal Medicine
DX: R42 Dizziness and giddiness (principal); R11.2 Nausea with vomiting, unspecified; Z79.899 Other long term (current) drug therapy
CPT/HCPCS: 36415; 70450; 80053; 84484; 85025; 93005; 96361; 96374; 96375; 99284; J1200; J2765

== ENCOUNTER → 2024-09-13 09:30 | Outpatient (BNV) | payer MEDICARE, OTHER, MEDICAID, SELFPAY | PROVIDERS: Emergency Provider Emergency Medicine; PCP Internal Medicine; Visit Provider Internal Medicine | DX: R42 Dizziness and giddiness (principal) | CPT/HCPCS: 93010 ==

== ENCOUNTER 2024-09-18 14:47 | Outpatient (AMB) | payer MEDICARE, OTHER, MEDICAID, SELFPAY ==
--- NOTE | 2024-09-18 14:56 | MHC.PC.OV ---
Vital Signs 09/18/24 14:57 Height 5 ft 5 in Weight 193 lb 6 oz BMI 32.2 BP 140/70 H Blood Pressure Location Lt brachial Position Sitting Pulse 75 Pulse Source Pulse Oximeter Pulse Oximetry (%) 97 Oxygen Delivery Method Room Air Int[place] [facility] [place] Intake Note: Patient is here to follow-up after a [place] [facility] [place]. Complaint of a possible Hernia in Oesophagus. Requesting for referal. Associate Account Executive Required: Yes Associate Account Executive Language: Credit Negotiator Name: Candy ([id number]) Information Interpreted: non-clinical & clinical Latin American Studies Director: Present Accompanied by: Spouse Allergies latex Allergy (Intermediate, Verified 09/18/24 15:33) rash adhesive Allergy (Mild, Verified 09/18/24 15:33) Rash Medication List - Last Reconciled 09/18/24 by Kathy Lakhani PA-C bisacodyl (Dulcolax (bisacodyl)) 20 mg (4 x 5 mg) PO ONCE 1 day cholecalciferol (vitamin D3) 50 mcg PO DAILY 90 days docosahexaenoic acid (Algal [place]-3 DHA) mg PO docusate sodium 100 mg PO BEDTIME meclizine 12.5 mg PO TID PRN meclizine 50 mg PO .every 6 hours PRN niacin ER 250 mg PO BEDTIME ondansetron 4 mg PO Q6-8H PRN polyethylene glycol 3350 (Miralax) 238 grams PO ONCE Ventolin HFA 90 mcg/actuation (albuterol sulfate) 2 puffs inhalation Q6H PRN NS vitamin B comp and C no.3 (B Complex Plus Vitamin C) 1 cap PO DAILY vitamin K2 45 mcg PO DAILY Tobacco use date assessed: 09/18/24 Fall risk assessment: No Falls in past year Last assessed Fall Risk: 09/18/24 Dental Screening Dental Screen Date: 05/04/24 [facility] Medical History Pelvic pain Dysuria Diverticulosis Didelphic uterus Class 1 obesity with body mass index (BMI) of 33.0 to 33.9 in adult Mild persistent asthma Constipation by delayed colonic transit Tubular adenoma Impaired glucose tolerance Hypovitaminosis D Dyslipidemia Surgical History H/O colonoscopy History of biopsy History of tubal ligation Family History Father Stomach cancer Mother Diabetes Hypertension Stroke Brother Thyroid cancer CAD (coronary artery disease) Paternal Uncle CVD (cardiovascular disease) Social History Household Members: None Housing: Apartment Alcohol intake: current Alcohol intake frequency: holidays/special occasions only Alcohol type: wine Patient Tobacco Use Status: Never used Tobacco e-Cigarette/Vaping Use: Never Used Second Hand Smoke Exposure: No service: No Current occupational status: disabled Cognitive needs: No Hearing needs: No Vision needs: Yes Female Reproductive History Menstrual Age of Menarche: 15 Date of menopause: 09/27/02 Questionnaire Thrive Questionnaire Date Thrive assessed: 05/04/24 ANSELMO-7 AMB Questionnaire ANSELMO-7 Date ANSELMO - 7 assessed: 05/04/24 Source: Developed by Drs. Alonso Sanon, Trish Cavanaugh, Vadim Mtz and colleagues, with an educational adarsh from [employer]. Physical exam (Primary Care) Vital Signs: Last Vital Signs Pulse 75 09/18/24 14:57 BP 140/70 H 09/18/24 14:57 Pulse Ox 97 09/18/24 14:57 Oxygen Delivery Method Room Air 09/18/24 14:57 BMI result Body Mass Index 32.2 Tobacco/Smoking Status: Tobacco use Status Tobacco use date assessed 09/18/24 09/18/24 15:08 Patient Tobacco Use Status Never used Tobacco 09/18/24 15:08 e-Cigarette/Vaping Use Never Used 09/18/24 15:08 Thrive Assessment: Date of Thrive Assessment Date Thrive assessed 05/04/24 09/18/24 15:08 Coding Level of Care Code Est Pt Level 4 (31169) Complex EM visit Add On G2211 Diagnoses Vertigo R42 Meningioma D32.9 Nausea and vomiting in adult R11.2 Arachnoid cyst G93.0 Assessment & Plan Assessment & Plan (1) Vertigo: Code(s): R42 - Dizziness and giddiness Category: Medical (2) Meningioma: Code(s): D32.9 - Benign neoplasm of meninges, unspecified Category: Medical (3) Nausea and vomiting in adult: Code(s): R11.2 - Nausea with vomiting, unspecified Category: Medical (4) Arachnoid cyst: Code(s): G93.0 - Cerebral cysts Category: Medical Plan Plan - Continue Meclizine for symptomatic management of dizziness. - continue Zofran for nausea/vomiting. - follow-up with neurosurgery as scheduled. - Follow-up with physical therapy for vestibular rehab as scheduled - follow-up with ENT as scheduled - return in 1-2 months for reassessment Medications: New meclizine 50 mg PO .every 6 hours PRN 60 tabs 0RF dizziness Discontinued meclizine (Dramamine Less Drowsy) Discontinued Reason: Duplicate 25 mg PO TID PRN 20 tabs 0RF dizziness Scribe Plan - Not visible on output: History of Present Illness The patient is a 69-year-old female presenting with persistent dizziness and vomiting. These symptoms began in April following a urinary tract infection (UTI). Although treated for the UTI, the dizziness has persisted irrespective of the infection. The dizziness is accompanied by other symptoms such as sweating, chills, tingling in the hands and feet, and occasionally, a tingling sensation in the mouth. The patient reports episodes are unpredictable, sometimes feeling well for two days before symptoms recur. Physical therapy was recommended but not yet initiated. Recent imaging reveals a 6 mm meningioma, and an abnormal cerebrospinal fluid (CSF) signal was noted suggesting arachnoid cyst. The patient's current medications include Meclizine, which helps control the dizziness, but episodes continue intermittently. Patient is also on Zofran and it is helping with her nausea and vomiting. She reports today was the only day that it did not help her with her nausea and she actually vomited. She has eaten and drank and since then. The patient denies any falls but describes feeling unsteady at times. Social History Review of Systems - Neurological: Reports dizziness, tingling in hands, feet, and mouth. - Ear, Nose, Throat: Reports no significant changes in vision but experiences blurry vision when dizzy. Physical Exam Appearance: Alert. Oriented X3. No acute distress. Head: Normal external exam. Normocephalic. Atraumatic. No Yoo signs noted. No raccoon eyes noted. Eyes: Pupils are equal, round, and reactive to light. Extraocular movements intact. Conjunctiva and sclera normal. Eyelids normal. Ears: External auditory canal normal. Tympanic membranes normal. Reports dizziness and occasional tinnitus. Throat: Pharynx normal. Uvula midline. Moist mucous membranes. Neck: Normal inspection. Neck supple. Full range of motion. No adenopathy. No meningeal signs. Cardiovascular: Normal heart rate and rhythm. Respiratory: No respiratory distress. Painless inspiration. Back: Full range of motion noted. Skin: Skin warm and dry. Normal skin color. Normal skin turgor. No rashes/lesions/lacerations noted. Extremities: Extremities exhibit normal range of motion. Extremities nontender. Reports tingling in hands and feet. Neuro: Oriented X 3. No motor deficit. No sensory deficit. Reflexes normal. Reports dizziness, tingling in the mouth, and occasional blurred vision when dizzy. Negative pronator drift. Negative Romberg test. Patient perform normal tandem walk test. Patient performed normal [id number] test. Normal webb to toe test. Results - Imaging: MRI indicates a 6 mm meningioma and an abnormal CSF signal. CT scan on 09/13/2024 by emergency department at [facility] within normal limits no acute processes were noted Plan - Continue Meclizine for symptomatic management of dizziness. - continue Zofran for nausea/vomiting. - follow-up with neurosurgery as scheduled. - Follow-up with physical therapy for vestibular rehab as scheduled - follow-up with ENT as scheduled - return in 1-2 months for reassessment Patient was informed and verbally consented to the use of an ambient scribe for clinic note documentation during this visit. Discussion Notes I discussed with the patient the MRI findings of a 6 mm meningioma and the abnormal CSF signal. We reviewed the available management options, including neurosurgical evaluation, to understand the need for potential intervention. The benefits of continued symptomatic management with Meclizine were outlined, as well as the role of physical therapy in symptom improvement. I addressed her questions, providing reassurance regarding the lack of immediate life-threatening concerns, and recommended follow-up appointments for continued symptom monitoring and treatment evaluation. Patient Instructions - Continue taking Meclizine as prescribed for dizziness control. - patient to continue Zofran as prescribed for nausea and vomiting - Attend the neurosurgery consultation. - Begin physical therapy sessions as soon as possible. - Monitor symptom changes and report any worsening to the clinic. - Follow up with primary care for ongoing management.
[2024-09-18 14:57] VITALS: BP 140/70; PULSE 75; O2SAT 97; BMI 32.2
== END 2024-09-18 15:34 | disposition home or self-care (01) ==
PROVIDERS: PCP Internal Medicine; Visit Provider Internal Medicine
DX: R42 Dizziness and giddiness (principal); D32.9 Benign neoplasm of meninges, unspecified; R11.2 Nausea with vomiting, unspecified; G93.0 Cerebral cysts

== ENCOUNTER → 2024-09-18 14:47 | Outpatient (BNVA) | payer MEDICARE, OTHER, MEDICAID, SELFPAY | PROVIDERS: PCP Internal Medicine; Visit Provider Internal Medicine | DX: R42 Dizziness and giddiness (principal); D32.9 Benign neoplasm of meninges, unspecified; R11.2 Nausea with vomiting, unspecified; G93.0 Cerebral cysts | CPT/HCPCS: 99212 ==

== ENCOUNTER 2024-10-20 08:51 | Day surgery (SDC) | payer MEDICARE, OTHER, MEDICAID, SELFPAY ==
--- NOTE | 2024-10-19 10:59 | HO.ANESPROP2 ---
Documented by User: Ml Galo NP 10/19/24 11:00 HPI - Anesthesia Eval Consult details Narrative: 69yo F for Colonoscopy PMFSH Active Problems Active Problems: All Active Problems Arachnoid cyst (Acute) Nausea and vomiting in adult (Acute) Meningioma (Acute) Vertigo (Acute) Fibroid (Acute) Hospital discharge follow-up (Acute) Pelvic pain (Acute) Dysuria (Acute) Encounter for well woman exam with routine gynecological exam (Acute) Breast pain in female (Acute ~07/26/24) Left flank pain (Acute) Left ear hearing loss (Acute) Foot lesion (Acute) Ear discomfort (Acute) Skin lesion (Acute) Diverticulosis (Acute) Didelphic uterus (Acute) Physical exam (Acute) Class 1 obesity with body mass index (BMI) of 33.0 to 33.9 in adult (Acute) Mild persistent asthma (Acute) Constipation by delayed colonic transit (Acute) Low back pain (Acute) Impaired glucose tolerance (Acute) Hypovitaminosis D (Acute) Dyslipidemia (Acute) Past Medical History Medical History Pelvic pain Dysuria Diverticulosis Didelphic uterus Class 1 obesity with body mass index (BMI) of 33.0 to 33.9 in adult Mild persistent asthma Constipation by delayed colonic transit Tubular adenoma Impaired glucose tolerance Hypovitaminosis D Dyslipidemia Family History Family History Father Stomach cancer Mother Diabetes Hypertension Stroke Brother Thyroid cancer CAD (coronary artery disease) Paternal Uncle CVD (cardiovascular disease) Surgical History Surgical History H/O colonoscopy History of biopsy History of tubal ligation Social History Social History Household Members: None Housing: Apartment Are you a primary resident care manager to a significant other at home: No Do you presently have visiting nurse or other home services: No Alcohol intake: current Alcohol intake frequency: holidays/special occasions only Alcohol type: wine Patient Tobacco Use Status: Never used Tobacco e-Cigarette/Vaping Use: Never Used Second Hand Smoke Exposure: No service: No Current occupational status: disabled Cognitive needs: No Hearing needs: No Vision needs: Yes Meds Allergies Allergy/AdvReac Type Severity Reaction Status Date / Time latex Allergy Intermediate rash Verified 09/18/24 15:33 adhesive Allergy Mild Rash Verified 09/18/24 15:33 Home Medications ?Medication ?Instructions ?Recorded ?Confirmed ?Last Taken ?Type docosahexaenoic acid 200 mg mg PO 06/28/24 07/10/24 Unknown History capsule (Algal [place]-3 DHA) niacin 250 mg capsule,extended 250 mg PO BEDTIME 06/28/24 10/20/24 Unknown History release vitamin B comp and C no.3 15 mg-10 1 cap PO DAILY 06/28/24 10/20/24 Unknown History mg-50 mg-5 mg-300 mg capsule (B Complex Plus Vitamin C) vitamin K2 45 mcg capsule 45 mcg PO DAILY 06/28/24 10/20/24 Unknown History Exam Narrative Narrative: EKG 08/2024 Vent. Rate : 060 BPM Atrial Rate : 060 BPM P-R Int : 170 ms QRS Dur : 084 ms QT Int : 436 ms P-R-T Axes : 005 000 022 degrees QTc Int : 436 ms Normal sinus rhythm Normal ECG When compared with ECG of 17-AUG-2024 02:47, No significant change was found Assessment and Plan Assessment Anesthesia Assessment: Chart Reviewed Documented by User: Jenna Beach MD 10/20/24 10:41 [facility] Past Medical History Medical History Pelvic pain Dysuria Diverticulosis Didelphic uterus Class 1 obesity with body mass index (BMI) of 33.0 to 33.9 in adult Mild persistent asthma Constipation by delayed colonic transit Tubular adenoma Impaired glucose tolerance Hypovitaminosis D Dyslipidemia Family History Family History Father Stomach cancer Mother Diabetes Hypertension Stroke Brother Thyroid cancer CAD (coronary artery disease) Paternal Uncle CVD (cardiovascular disease) Family history of problems with anesthesia: No Surgical History Surgical History H/O colonoscopy History of biopsy History of tubal ligation History of Problems with Anesthesia: No Social History Social History Household Members: None Housing: Apartment Are you a primary resident care manager to a significant other at home: No Do you presently have visiting nurse or other home services: No Alcohol intake: current Alcohol intake frequency: holidays/special occasions only Alcohol type: wine Patient Tobacco Use Status: Never used Tobacco e-Cigarette/Vaping Use: Never Used Second Hand Smoke Exposure: No service: No Current occupational status: disabled Cognitive needs: No Hearing needs: No Vision needs: Yes Meds Allergies Allergy/AdvReac Type Severity Reaction Status Date / Time latex Allergy Intermediate rash Verified 09/18/24 15:33 adhesive Allergy Mild Rash Verified 09/18/24 15:33 Home Medications ?Medication ?Instructions ?Recorded ?Confirmed ?Last Taken ?Type docosahexaenoic acid 200 mg mg PO 06/28/24 07/10/24 Unknown History capsule (Algal [place]-3 DHA) niacin 250 mg capsule,extended 250 mg PO BEDTIME 06/28/24 10/20/24 Unknown History release vitamin B comp and C no.3 15 mg-10 1 cap PO DAILY 06/28/24 10/20/24 Unknown History mg-50 mg-5 mg-300 mg capsule (B Complex Plus Vitamin C) vitamin K2 45 mcg capsule 45 mcg PO DAILY 06/28/24 10/20/24 Unknown History Exam Airway Mallampati Class: II TM Dist: >3cm Neck ROM: Full Heart: rrr Lungs: cta Assessment and Plan Assessment Anesthesia Assessment: Anesthesia Plan Discussed Final Anesthetic Review Family History of Problems with Anesthesia: No History of Problems with Anesthesia: No NPO: Yes ASA Class: II Final Preanesthetic Review: No Changes in Pt Med Stat, Meds/Allgs Chart Reviewed and Consent Obtained/Reviewed Patient Risk: Low Procedure Risk: Low Anesthetic Plan Anesthetic Plan: MAC: Disposition: Standard PACU
--- OUTSIDE RECORDS SUMMARY | 2024-10-20 09:14 | XMS_ITS | Encounter Summary ---
Author Organization [employer] [facility] Address [address] [place] [address] [address] [place] [address] Care Team Providers Care Hand Presser Name Role Phone Unavailable Primary Care Provider Unavailabl e Encounter Details Date Type Department Care Team (Latest Contact Info) Description 06/05/2019 Abstract [facility]HC CONVERSIONS Dental, Provider, DDS Social History Tobacco Use Types Packs/Day Years Used Date Smoking Tobacco: Never Assessed Comments Unknown Sex and Gender Information Value Date Recorded Sex Assigned at Female 07/27/2022 10:16 AM EDT Legal Sex Female 10:16 AM EDT Gender Identity Female 07/27/2022 10:16 AM EDT Sexual Orientation Choose not to disclose 2021 10:16 AM EDT documented as of this encounter Plan of Treatment Not on file documented as of this encounter Visit Diagnoses Not on filedocumented in this encounter
--- OUTSIDE RECORDS SUMMARY | 2024-10-20 09:14 | XMS_ITS | Patient Health Record ---
Author Organization [facility] Address [address] [place] [address] Care Team Providers Care Black Leather Buffer Name Role Phone Janet Islas Primary Care Provider Kolby Hansen Jr Unavailable REASON FOR REFERRAL No Information MEDICATIONS Medication SIG (Take, Route, Frequency, Duration) Notes Start Date End Date Status Vitamin D3 2400 UNIT/ML Active ProAir HFA 108 (90 Base) MCG/ACT 2 puffs as needed Inhalation every 4 hrs Active Colyte with Flavor Packs 240 GM As directed Orally Over the specified time. for 1 day(s) 03/13/2015 Active SOCIAL HISTORY Sex Assigned At : Social History Observation Description Sex Assigned At Unknown PROBLEMS Problem Type ICD Code Onset Dates Problem Status W/U Status Risk SNOMED Code Notes Problem Colon cancer screening (V76.51) Active confirmed 782410738 Problem Abdominal pain, left lower quadrant (789.04) Active confirmed 811334544 PLAN OF TREATMENT Future Test Test Name Order Date COLONOSCOPY 03/13/2015 Insurance Providers Payer Name Payer Address Payer Phone Subscriber Number Group Number Insured Name Patient Relationship to Insured Coverage Start Date Coverage End Date MEDICARE OF [place] [address] [place] [address] [phone] [id number] SANA JARA Self - patient is the insured PGBA DO NOT USE DO NOT USE [facility] CLAIMS USE [place] [address] [place] [phone] [id number] SANA JARA Self - patient is the insured MEDICAID OF [facility] [employer] [address] [place] [address] [id number] LYNN Self - patient is the insured MEDICAL (GENERAL) HISTORY Medical History History ICD Code kidney disease asthma Surgical History Surgery Date(Month/Year) varicose vein stripping tubal ligation
--- OUTSIDE RECORDS SUMMARY | 2024-10-20 09:14 | XMS_ITS | Clinical Summary ---
Author Organization [email or web address] Address [address] [place] [address] [address] [place] [address] Care Team Providers Care Utilization Review Specialist Name Role Phone Unavailable Primary Care Provider Unavailabl e Allergies Active Allergy Reactions Criticality Noted Date Comments Latex Rash Low 08/04/2021 Other reaction(s): Rash Medications cholecalciferol (Vitamin D-3) 10 MCG (400 UNIT) tablet Active Ventolin HFA 108 (90 Base) MCG/ACT inhaler INHALE 2 PUFFS BY MOUTH EVERY 6 HOURS NEEDED FOR WHEEZE/SHOR TNESS OF BREATH 01/07/2023 Active Social History Tobacco Use Types Packs/Day Years Used Date Smoking Tobacco: Never Smokeless Tobacco: Never Tobacco Cessation:Counseling Given: Not Answered Alcohol Use Standard Drinks/Week Comments Yes 0 (1 standard drink = 0.6 oz pur e alcohol) Comments Unknown Sex and Gender Information Value Date Recorded Sex Assigned at Female 07/27/2022 10:16 AM EDT Legal Sex Female 10:16 AM EDT Gender Identity Female 07/27/2022 10:16 AM EDT Sexual Orientation Choose not to disclose 2021 10:16 AM EDT Plan of Treatment Health Maintenance Due Date Last Done Comments CT Colonography 1957 Colonoscopy 1957 Colorectal Cancer Screening 1957 Dental Oral Exam 1957 Dental Prophylaxis 1957 Dental X-Ray: Bitewings 1957 Dental X-Ray: Full Mouth 1957 Depression Screening 1957 FIT DNA/Cologuard 1957 FIT 1957 FOBT 1957 Lipid Panel 1957 SDOH Screening 1957 Sigmoidoscopy 1957 Alcohol/Substance Use Screening 1969 Hepatitis C Screening 1975 Mammogram 1997 Zoster Vaccines (1 of 2) 2007 Pneumococcal Vaccine: 65+ Years (2 of 2 - PCV) 06/05/2011 06/05/2010 RSV Patients and Patients Aged 60 years or older (1 - Risk 60-74 years 1-dose series) 2017 Tobacco Screening 01/27/2024 01/26/2023 COVID-19 Vaccine (3 - season) 2024 02/13/2021, 01/23/2021 Influenza Vaccine (#1) 2024 , 07/31/2019, 07/25/2018, Additional history exists DTaP/Tdap/Td Vaccines (3 - Td or Tdap) 11/25/2026 11/25/2016, 06/08/2013, 05/02/2003 HIB Vaccines Aged Out No longer eligi ble based on patient's age to complete this topic HPV Vaccines Aged Out No longer eligi ble based on patient's age to complete this topic Hepatitis A Vaccines Aged Out No long er eligible based on patient's age to complete this topic Hepatitis B Vaccines Aged Out No long er eligible based on patient's age to complete this topic IPV Vaccines Aged Out No longer eligi ble based on patient's age to complete this topic Meningococcal Vaccine Aged Out No nishi teena eligible based on patient's age to complete this topic RSV under 20 months Aged Out No longe r eligible based on patient's age to complete this topic Rotavirus Vaccines Aged Out No longer eligible based on patient's age to complete this topic Insurance [place]
[2024-10-20 09:53] VITALS: BP 139/80; PULSE 71; RESP 18; TEMP 36.7; O2SAT 98
[2024-10-20] MEDS: Lactated Ringers 1,000 ML 100 ML IVCONT (09:53)
--- NOTE | 2024-10-20 10:16 | MHC.SHP ---
Pre-Procedural Eval Section A - 24 Hr Update-Section A only Date of Service: 10/20/24 The patient is an INPATIENT: No The patient has been examined within 24 hours of the surgical procedure. The History & Physical has been completed within 30 days and I have reviewed it.: No Section B - Complete if H&P > 30 days Chief Complaint: Surveillance for colon polyps Relevant Family History (Specify if Yes): Yes Relevant Social History: None Present Medications: see Short Stay Collaborative assessment Medical History: Significant History (Pelvic pain Dysuria Diverticulosis Didelphic uterus Class 1 obesity with body mass index (BMI) of 33.0 to 33.9 in adult Mild persistent asthma Constipation by delayed colonic transit Tubular adenoma Impaired glucose tolerance Hypovitaminosis D Dyslipidemia) History of Previous Operations: Relevant previous surgery/procedure and date(s) (H/O colonoscopy History of biopsy History of tubal ligation) Allergies: Allergies Allergy/AdvReac Type Severity Reaction Status Date / Time latex Allergy Intermediate rash Verified 09/18/24 15:33 adhesive Allergy Mild Rash Verified 09/18/24 15:33 Review of Systems Sugical H&P ROS: Negative: Constitution, Cardiovascular, Respiratory and Gastrointestinal Exam Surgical H&P Exam: Normal: Heart, Normal: Lungs, Normal: Extremities and Normal: Abdomen Plan Diagnosis/Plan: Unchanged I have reviewed the history and physical and performed a pertinent physical examination on my patient. No changes have occurred unless specified. Time Spent With Patient Time: Total time managing care of this patient today ____ minutes.
[2024-10-20 10:23] VITALS: BMI 31.3
--- NOTE | 2024-10-20 11:12 | HO.ANESPROP2 ---
[facility] Active Problems Active Problems: All Active Problems (Updated 09/18/24 @ 15:37 by Kathy Lakhani PA-C) Arachnoid cyst (Acute) Nausea and vomiting in adult (Acute) Meningioma (Acute) Vertigo (Acute) Fibroid (Acute) Hospital discharge follow-up (Acute) Pelvic pain (Acute) Dysuria (Acute) Encounter for well woman exam with routine gynecological exam (Acute) Breast pain in female (Acute ~07/26/24) Left flank pain (Acute) Left ear hearing loss (Acute) Foot lesion (Acute) Ear discomfort (Acute) Skin lesion (Acute) Diverticulosis (Acute) Didelphic uterus (Acute) Physical exam (Acute) Class 1 obesity with body mass index (BMI) of 33.0 to 33.9 in adult (Acute) Mild persistent asthma (Acute) Constipation by delayed colonic transit (Acute) Low back pain (Acute) Impaired glucose tolerance (Acute) Hypovitaminosis D (Acute) Dyslipidemia (Acute) Past Medical History Medical History Pelvic pain Dysuria Diverticulosis Didelphic uterus Class 1 obesity with body mass index (BMI) of 33.0 to 33.9 in adult Mild persistent asthma Constipation by delayed colonic transit Tubular adenoma Impaired glucose tolerance Hypovitaminosis D Dyslipidemia Family History Family History Father Stomach cancer Mother Diabetes Hypertension Stroke Brother Thyroid cancer CAD (coronary artery disease) Paternal Uncle CVD (cardiovascular disease) Family history of problems with anesthesia: No Surgical History Surgical History H/O colonoscopy History of biopsy History of tubal ligation History of Problems with Anesthesia: No Social History Social History Household Members: None Housing: Apartment Are you a primary career technical education teacher to a significant other at home: No Do you presently have visiting nurse or other home services: No Alcohol intake: current Alcohol intake frequency: holidays/special occasions only Alcohol type: wine Patient Tobacco Use Status: Never used Tobacco e-Cigarette/Vaping Use: Never Used Second Hand Smoke Exposure: No service: No Current occupational status: disabled Cognitive needs: No Hearing needs: No Vision needs: Yes Meds Allergies Allergy/AdvReac Type Severity Reaction Status Date / Time latex Allergy Intermediate rash Verified 09/18/24 15:33 adhesive Allergy Mild Rash Verified 09/18/24 15:33 Active Medications: Current Medications Albuterol Sulfate (Albuterol Sulfate (0.083%) 2.5 Mg/3 Ml Vial.Neb) 2.5 mg INHALE ONCE PRN PRN Reason: Shortness of Breath/Wheezing Lactated Ringer's (Lr) 1,000 mls @ 100 mls/hr IVCONT .Q10H RAJESH Last Admin: 10/20/24 09:53 Dose: 100 mls/hr Naloxone HCl (Naloxone Hcl 0.4 Mg/Ml Vial) 0.04 mg IVPUSH Q5M PRN PRN Reason: Excessive sedation or RR < 8 Home Medications ?Medication ?Instructions ?Recorded ?Confirmed ?Last Taken ?Type docosahexaenoic acid 200 mg mg PO 06/28/24 07/10/24 Unknown History capsule (Algal [place]-3 DHA) niacin 250 mg capsule,extended 250 mg PO BEDTIME 06/28/24 10/20/24 Unknown History release vitamin B comp and C no.3 15 mg-10 1 cap PO DAILY 06/28/24 10/20/24 Unknown History mg-50 mg-5 mg-300 mg capsule (B Complex Plus Vitamin C) vitamin K2 45 mcg capsule 45 mcg PO DAILY 06/28/24 10/20/24 Unknown History Exam Height,Weight and Vital Signs: Height 5 ft 6 in Weight 87.997 kg Last Vital Signs Temp 98.1 F 10/20/24 09:53 Pulse 71 10/20/24 09:53 Resp 18 10/20/24 09:53 BP 139/80 10/20/24 09:53 Pulse Ox 98 10/20/24 09:53 O2 Del Method Room Air 10/20/24 09:53 Airway Mallampati Class: II TM Dist: >3cm Neck ROM: Full Heart: rrr Lungs: cta Assessment and Plan Assessment Anesthesia Assessment: Anesthesia Plan Discussed and Chart Reviewed Final Anesthetic Review Family History of Problems with Anesthesia: No History of Problems with Anesthesia: No NPO: Yes ASA Class: II Final Preanesthetic Review: No Changes in Pt Med Stat, Meds/Allgs Chart Reviewed and Consent Obtained/Reviewed Patient Risk: Low Procedure Risk: Low Anesthetic Plan Anesthetic Plan: MAC: Disposition: Standard PACU
--- NOTE | 2024-10-20 12:02 | HO.OPN-COLON ---
Colonoscopy Operative Note Operative Note Date of Service: 10/20/24 Narrative: COLONOSCOPY TILL CECUM WITH BIOPSIES AND SNARE POLYPECTOMY Pre-op diagnosis: Surveillance for colon polyps. Post-op diagnosis:? Colon polyps, Diverticulosis, hemorrhoids Endoscopist:? Senia Casper MD Anesthesia:?MAC Consent: Indications for the procedure and potential complications of bleeding, perforation, reaction to medications and missed diagnosis were discussed with the patient and informed consent was obtained. Instrument: Olympus PCF H 190 L variable stiffness pediatric colonoscope Monitoring: Vital signs and clinical assessment, intermittent blood pressure monitoring, continuous EKG monitoring, Pulse oximetry and Carbon Dioxide monitoring were done throughout the procedure. Please see anesthesia flowsheet. Colon withdrawl time was 22 minutes. Procedure: The patient was placed in the left lateral decubitis position and pre-procedure medications were administered. After a digital rectal examination of the ano-rectum, the video colonoscope was inserted into the rectum and advanced through the colon to the cecum. The colonoscope was slowly withdrawn in a retrograde panoramic fashion and the colon mucosa was carefully examined including a retroflexed view of the rectum. Findings and interventions are described below. Procedure Difficulty: Colon was long and tortuous and there was spasm and some loop formation Findings: Terminal Ileum: Not evaluated Cecum: Normal Ascending Colon: A 3-4 mm sessile polyp in the distal AC - removed with a cold biopsy Transverse Colon: Normal Descending Colon: Normal Sigmoid Colon: A 7-8 mm sessile polyp - removed with a cold snare. Moderate diverticulosis Rectum: Normal Ano-rectum: Moderate internal hemorrhoids, hypertrophied anal papillae and perianal skin tags Colon preparation: Good after some irrigation. [place] Bowel Preparation Scale Right colon; 2 Transverse colon: 2 Left colon; 2 (0 = Unprepared colon segment with mucosa not seen due to solid stool that cannot be cleared. 1 = Portion of mucosa of the colon segment seen, but other areas of the colon segment not well seen due to staining, residual stool and/or opaque liquid. 2 = Minor amount of residual staining, small fragments of stool and/or opaque liquid, but mucosa of colon segment seen well. 3 = Entire mucosa of colon segment seen well with no residual staining, small fragments of stool or opaque liquid) Impression and Post Procedure Diagnosis: Colonoscopy Findings: Two small polyps were removed Moderate diverticulosis seen in the sigmoid colon Moderate hemorrhoids on retroflexed exam. Plan: Pt has a FU appointment on 11/03/24 with Giovanna Rich NP Repeat Colonoscopy in 5 years if polyps are adenomatous and to a history of adenomatous colon polyps. Above findings were reviewed with the patient and relevant handouts were given and the discharge area.
[2024-10-20 12:03] VITALS: BP 156/48; PULSE 56; RESP 16; TEMP 36.1; O2SAT 97
[2024-10-20 12:33] VITALS: BP 117/57; PULSE 57; RESP 17; TEMP 36.1; O2SAT 99
== END 2024-10-20 13:00 | disposition home or self-care (01) ==
PROVIDERS: PCP Internal Medicine; Visit Provider Internal Medicine Gastroenterology
PROC: 0DJD8ZZ Inspection of Lower Intestinal Tract, Via Natural or Artificial Opening Endoscopic (ICD-10-PCS; CPT 45378; principal; 2024-10-20 11:10)
DX: Z12.11 Encounter for screening for malignant neoplasm of colon (principal); Z86.0101 Personal history of adenomatous and serrated colon polyps; K63.5 Polyp of colon; K57.30 Diverticulosis of large intestine without perforation or abscess without bleeding; K64.8 Other hemorrhoids; K64.4 Residual hemorrhoidal skin tags; K62.89 Other specified diseases of anus and rectum; Z91.040 Latex allergy status
CPT/HCPCS: 45385; 45380; 88305; J2003; J2704

== ENCOUNTER → 2024-10-20 08:51 | Outpatient (BNV) | payer MEDICARE, OTHER, MEDICAID, SELFPAY | PROVIDERS: PCP Internal Medicine; Visit Provider Internal Medicine Gastroenterology | DX: Z12.11 Encounter for screening for malignant neoplasm of colon (principal); Z86.0100 Personal history of colon polyps, unspecified; D12.5 Benign neoplasm of sigmoid colon; K63.5 Polyp of colon; K57.30 Diverticulosis of large intestine without perforation or abscess without bleeding; K64.8 Other hemorrhoids | CPT/HCPCS: 45380; 45385 ==

== ENCOUNTER 2024-10-30 13:19 | Outpatient (REF) | payer MEDICARE, OTHER, MEDICAID, SELFPAY ==
--- NOTE | ~2024-10-30 | US_ITS ---
EXAMINATION: US PELVIS TRANSABDOMINAL AND TRANSVAGINAL HISTORY: D21.9 - Benign neoplasm of connective and other soft tissue, unspecified COMPARISON: Comparison is made with the prior examination dated 07/04/2024. TECHNIQUE: Transabdominal and endovaginal real-time 2D ramirez-scale ultrasound was performed. FINDINGS: Uterus: The uterus is normal in size, measuring 8.5 x 5.6 x 6.2 cm. Myometrium has a normal echotexture. Again seen are multiple fibroids including a fundal fibroid measuring 4.0 x 3.3 x 4.8 cm (previously 4.1 x 3.7 x 4.4 cm), and right-sided fibroids measuring 1.7 x 1.3 x 1.7 cm (previously 1.8 x 1.8 x 1.7 cm), and 1.4 x 1.3 x 1.1 cm (previously 0.9 x 1.2 x 0.7 cm). Endometrium: The endometrial stripe is not visualized. Right ovary: The right ovary is not identified. Left ovary: The left ovary is not identified. Pelvic fluid: none. US/US pelvic and transvaginal IMPRESSION: Fibroid uterus as described. Electronically signed by: Alonso Myers MD 10/30/2024 02:17 PM [facility]
--- OUTSIDE RECORDS SUMMARY | 2024-10-30 14:36 | XMS_ITS | Clinical Summary ---
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
--- OUTSIDE RECORDS SUMMARY | 2024-10-30 14:37 | XMS_ITS | Encounter Summary ---
Author Organization [employer] [facility] Address [address] [place] [address] [address] [place] [address] Care Team Providers Care Sap Sd Analyst Name Role Phone Unavailable Primary Care Provider [...]
--- OUTSIDE RECORDS SUMMARY | 2024-10-30 14:37 | XMS_ITS | Data Portability ---
Author Organization [place] - [facility], Allergy Address [address] [place] [id number] Assessment Encounter Date Assessment Date Assessment LastModified by Organization Details LastModified Time 05/01/2024 05/01/2024 Reviewed with patient the hearing is stable. Asymmetric, with right being the better hearing ear. MRI of the IACs previously demonstrated no retrocochlear pathology to explain this asymmetry. Speech recognition is poor bilaterally and has fallen a bit since last year. Only 16% on the left. Recommend continued binaural amplification with updated settings. Recommend noise avoidance or protection. Follow up in one year for updated audiometric testing, sooner with perceived change. Medical clearance form and copy of audio provided to patient. Not available 05/01/2024 13:51:55 05/01/2024 05/01/2024 Recommendations: Follow up with referring provider. 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 Physical exam notable for loss of balance on Romberg and leftward rotation on Fukuda step test. Potential etiologies reviewed to include central, vestibular, neurologic, and metabolic causes. CT head previously normal 07/10, report reviewed today from [facility]. Given the history and the abnormal Romberg exam, recommend MRI of brain and internal auditory canal and return for results. In the interim, we discussed fall prevention and overall lifestyle modifications for dizziness. Recommend avoidance of meclizine; rationale reviewed and patient understands. Not available 07/20/2024 15:31:14 09/11/2024 09/11/2024 MRI demonstrates no retrocochlear lesion to explain patient's vertigo. There is a 6 mm meningioma and an abnormal CSF signal thought to possibly represent an arachnoid cyst. For these we will refer to neurovascular surgery. As the vertigo episodes are preceded by neck pain, will order CT of the spine and referral to spinal surgeon. As there is sometimes head pressure and light sensitivity as well, a brochure regarding migraine-associa willie dizziness was also provided. Patient to follow up here in 6 months. Not available 09/11/2024 16:06:20 Plan of Treatment Reminders Order Date Submit Date Provider Last Modified By Organization Details Last Modified Time Details Appointments Dizzy Follow Up 20 2024 03:10P M HODAN SHAH MD Not available Not available Not available Lab None recorded. Referral spine center referral - Referral for Periphera l vertigo. CT of cervical spine pending result. Thank you. 2023 024 [email or web address] [facility], [address] [place], [address], 10/03/2024 08:33:03 neurologi jennifer surgeon referral - Referral for Intracran ial meningiom a. Thank you. 2023 024 [email or web address] [facility], [address] [place], [address], 10/09/2024 11:32:44 Procedures None recorded. Surgeries None recorded. Imaging MRI, brain + internal auditory canal, w/wo contrast - MRI, BRAIN + INTERNAL AUDITORY CANAL, W/WO CONTRAST 2023 024 [email or web address] [facility]), [address] [facility], [address], 08/17/2024 12:27:58 CT, cervical spine, w/o contrast 2023 024 [email or web address] [facility], [address] [facility], [address], [place], [address], 10/04/2024 13:42:30 Medication Orders None recorded. Patient TargetsNo targets recorded. Patient InstructionsNo instructions recorded. Reason for Referral Neurological Surgeon Referra l for Intracranial meningioma Referral for Intracranial meningioma. Thank you. Referring Physician: Osvaldo Henriquez, Otolaryngology, Encounter Date: 09/11/2024 Spine Center Referral for Pe ripheral vertigo Referral for Peripheral vertigo. CT of cervical spine pending result. Thank you. Referring Physician: Osvaldo Henriquez, Otolaryngology, Encounter Date: 09/11/2024 Results Created Date Observation Date Name Description Value Unit Range Abnormal Flag Note LastModifiedBy Organization Detail LastModifiedTime 05/01/20 audio gram No observ ation record ed. BARCODE Not Available 2023 15:32:07 05/02/20 audio gram No observ ation record ed. [email or web address] Not Available 02/2024 11:02:16 05/16/20 24 05/19/2023 imagi ng/di agnos tic resul t No observ ation record ed. [email or web address] Not Available 10:53:05 05/16/20 24 06/18/2023 imagi ng/di agnos tic resul t No observ ation record ed. [email or web address] Not Available 10:53:06 05/16/20 24 05/19/2023 audio gram No observ ation record ed. [email or web address] Not Available 10:53:10 07/20/2007/10/2024 CT, head + brain , w/o contr ast No observ ation record ed. [facility]-[address] [place], [address], 07/24/2024 09:53:19 07/20/2007/10/2024 CT, head, w/o contr ast No observ ation record ed. [email or web address] Not Available 06/28 11:48:00 07/31/2007/27/2024 MRI, brain + brain stem, w/wo contr [facility] Access ion Number : [id number] Patien t Name: Jamie Wooda l Record Number : [id number] Date of : 1954 Date of Exam: 2023 Referr ing Physic johny: Libby n, Deirdr e [facility] [address] [facility] [address], [place] [address] Exam: MR Brain (C-/C+ ) CPT 41605 Room Descri ption: [place] Siem Verio 3.0T HISTOR Y: Balanc e issues . Dizzin ess. TECHNI QUE: Multip lanar, multis equenc e MRI of the brain was perfor med before and after the uneven tful admini strati on of 19 mL Dotare m intrav enous contra st. COMPAR JOHN: CT head, 020. FINDIN GS: This exam is mildly degrad ed by motion . BRAIN and EXTRA- AXIAL SPACES : The ventri cles and sulci are normal in size. Mildly enlarg ed empty sella is noted. A few scatte red foci of T2 prolon gation are seen in the deep and subcor tical white matter bilate rally. Howeve r, there is no eviden ce of restri cted diffus ion to sugges t acute infarc tion. The brains tem and cerebe llum are normal . There is no hemorr carlos a, midlin e shift, or mass effect . There is no extra- axial collec tion. Flow voids are preser renita in the domina nt intrac ranial vessel s. Asymme tric CSF signal is seen within the medial aspect of the right cavern ous sinus measur ing about 1.2 x 0.6 cm. Thin axial sequen ce was obtain ed throug h the grad intern al audito ry canals . Bilate ral 7th and 8th nerves are symmet danielle and normal in calibe r. There is no defini te mass or abnorm al enhanc ement in either IAC or CP angle cister n. Fluid signal is preser renita in the membra nous labyri nth struct ures. There is a 6 x 5 mm dural based enhanc ing nodule along the right anteri or superi or falx (serie s 11, image 44) consis tent with tiny mening ioma. No other areas of abnorm al enhanc ement are seen in the brain or mening es. EXTRAC RANIAL SOFT TISSUE S: Sinuse s and mastoi ds are clear. Orbits are grossl y unrema rkable . BONES: Bone marrow signal is normal . IMPRES TARUN: 1. No eviden ce of acute/ subacu te infarc tion. No retroc ochlea r lesion . 2. 6 mm mening ioma along the right anteri or falx, of doubtf ul clinic al signif icance . 3. Asymme tric CSF signal is seen in the right cavern ous sinus, which may repres ent a small arachn oid cyst. 4. Mild T2 signal abnorm ality is seen in the suprat entori al white matter , nonspe cific though most likely relate d to mild chroni c microv ascula r ischem ic change . Electr onical ly Signed By: Oxana ascencio MD [facility]) [address] [facility] [place], [address], 08/01/2024 12:51:20 09/28/19 25 09/26/2024 CT, cervi jennifer spine , w/ contr ast No observ ation record ed. [email or web address] [facility] [address] [address], [place], [address], 10/04/2024 14:29:51 10/06/19 25 09/26/2024 CT, cervi jennifer spine , w/ contr ast No observ ation record ed. [email or web address] Not Available 09/27 10:10:03 Result Notes None recorded. Problems Name Problem SNOMED Code Status Onset Date Resolution Date Notes Provider Name and Address Organization Details Recorded Time Sensorine ural hearing loss of bilateral ears 118583486 Active 2022 Sensorine ural hearing loss, bilateral ; Note: Date Diagnosed : 05/19/2023 10:09 AM (H90.3) Not Available [facility] 02:56:54 Tinnitus of left ear 27388371166 06 Active 2022 Tinnitus, left ear; Note: Date Diagnosed : 05/19/2023 10:52 AM (H93.12) Not Available [facility] 4 02:56:57 Sensorine ural hearing loss 58601681 Active 2023 MAYRA GUERRA [facility] [address], [place], [place], [address] , [place] - [facility] 4 13:14:51 Bilateral tinnitus 87068594369 02 Active 2023 OSVALDO HENRIQUEZ PA-C [address], [place], [place], [address] , [place] - [facility] 4 13:49:24 Vertigo 029472535 Active 2023 OSVALDO HENRIQUEZ PA-C [address], [place], [place], [address] , [place] - [facility] 4 15:30:47 Intracran ial meningiom a 206878983 Active 2023 OSVALDO HENRIQUEZ PA-C [address], [place], [place], [address] , [place] - [facility] 4 15:17:34 Arachnoid cyst 04213040 Active 2023 OSVALDO HENRIQUEZ PA-C [address], [place], [place], [address] , [place] - [facility] 4 15:17:39 Periphera l vertigo 49191841 Active 2023 OSVALDO HENRIQUEZ PA-C [address], [place], [address] , [place] - [facility] 4 15:30:13 Benign neoplasm of meninges 648959164 Active 2023 Cinthia spaulding [place] - [facility] 4 14:24:58 Problem Notes None recorded. Procedures Surgical History Date Name Laterality Status Provider Name and Address Organization Details Recorded Time 05/01/2024 Air & Speech Audio with Tymps (74368, 65639 & 68333) completed MAYRA GUERRA, AUD [address] [facility] [address], [place], [address], [facility] - [facility] 05/01/2024 13:14:45 Imaging Results Imaging Date Name Status LastModified by Organiz ation Details LastModified Time 05/01/2024 audiogram completed BARCODE Information no t available 05/01/2024 15:32:07 05/02/2024 audiogram completed [email or web address] Information not available 05/02/2024 11:02:16 05/19/2023 imaging/diagno stic result completed Information not available 05/16/2024 10:53:05 06/18/2023 imaging/diagno stic result completed Information not available 05/16/2024 10:53:06 05/19/2023 audiogram completed Information not available 05/16/2024 10:53:10 07/10/2024 CT, head + brain, w/o contrast completed [facility] [address] [place], [address], 07/24/2024 09:53:19 07/10/2024 CT, head, w/o contrast completed Information not available 07/20/2024 11:48:00 07/27/2024 MRI, brain + brain stem, w/wo contrast completed [facility]) [address] [place], [address], 08/01/2024 12:51:20 09/26/2024 CT, cervical spine, w/ contrast completed [facility] [address] [facility] [address], [place], [address], 10/04/2024 14:29:51 09/26/2024 CT, cervical spine, w/ contrast completed Information not available 10/06/2024 10:10:03 Procedure Notes None recorded. Medical Equipment None Reported. Medications Name Sig Start Date Stop Date Status Note LastModified by Organization Details LastModified Time amoxicilli n 500 mg capsule TAKE 1 CAPSULE BY MOUTH THREE TIMES A DAY FOR 5 DAYS UNTIL FINISHED active Not Available Not Available No t Available meclizine 12.5 mg tablet TAKE 1 TABLET BY MOUTH 3 TIMES A DAY NEEDED FOR DIZZINESS active Not Available Not Available No t Available sulfametho xazole 800 mg-trimeth oprim 160 mg tablet TAKE 1 TABLET BY MOUTH TWICE A DAY FOR 3 DAYS active Not Available Not Available No t Available meclizine 25 mg tablet active Not Available Not Available Not Available polymyxin B sulfate 10,000 unit-trime thoprim 1 mg/mL eye drops 1 DROP(S) EYES (BOTH) EVERY 8 HOURS (INTERVAL ),X5 DAY(S) active Not Available Not Available No t Available ondansetro n 4 mg disintegra ting tablet TAKE 1 TABLET BY MOUTH EVERY 8 HOURS FOR 4 DAYS active Not Available Not Available No t Available Ventolin HFA 90 mcg/actuat ion aerosol inhaler active Medicatio n ID: [id number] Br and Name: Ventolin HFA Send Method: E-Prescri bed Subs Allowed: subs OK Medica tionGener icName: Ventolin HFA Not Available Not Available Not Available neomycin-p olymyxin-h ydrocort 3.5 mg-10,000 unit/mL-1 % ear drops,susp 2 DROP(S) EARS (BOTH) 4XDAILY,X 5 DAY(S) active Not Available Not Available No t Available cholecalci ferol (vitamin D3) 50 mcg (2,000 unit) capsule active Medicatio n ID: [id number] Br and Name: cholecalc iferol (vitamin D3) Send Method: E-Prescri bed Subs Allowed: subs OK Specia l Instructi on: TAKE 1 CAPSULE BY MOUTH EVERY DAY Medic ationGene ricName: cholecalc iferol (vitamin D3) Not Available Not Available Not Available Gavilax 17 gram/dose oral powder MIX AND TAKE ONCE DIRECTED BY GASTROENT EROLOGY DEPARTMEN T AT [facility] active Not Available Not Available No t Available Vitals Date Recorded Body height Body mass index (BMI) Body weight Provider Name and Address Organization Details Last Updated DateTime 07/20/2024 167.64 cm 31 kg/m2 89005.74 g Caryn Koenig [place] - [facility] 07/20/2024 10:36:41 Date Recorded Body height Body mass index (BMI) Body weight Provider Name and Address Organization Details Last Updated DateTime 09/11/2024 167.64 cm 31 kg/m2 50918.74 g Jasson Morrell [place] - [facility] 09/11/2024 15:13:19 Social History None recorded. Functional Status None recorded. Mental Status None recorded. Family History Nothing Reported. Medical History No medical history recorded. Gynecological HistoryNo gynecological history recorded. Obstetrics History GPAL:G 0 P 0 0 0 0 Past Encounters Encounter ID Performer Location Encounter Start Date Encounter Closed Date Diagnosis/Indication Diagnosis SNOMED-CT Code Diagnosis ICD10 Code Diagnosis Note [id number] NOLAN SANCHEZ MD [facility] [address] [address] 05/01/2024 12:44:59 05/01/2024 13:51:33 Sensorineural hearing loss of bilateral ears 088328434 H90.3 Bilateral tinnitus 72584 83883 102 H93.13 [id number] DEMETRIUS LANCE [facility] [address] [address] 05/01/2024 13:14:02 05/01/2024 16:59:39 Sensorineural hearing loss 90059092 H90.5 Audiologic al evaluation results: Right ear: {{Normal sloping* M ild Modera te Moderat yobani-severe Severe Pr ofound Nor mal auditory thresholds }} to {{mild* mo derate mod erately-se lewis sever e profound with}} {{sensorin eural hearing loss with* cond uctive hearing loss with mixed hearing loss with}} {{excellen t good* fa ir poor no t measurable }} word recognitio n. Left ear: {{Normal sloping Mi ld Moderat e* Moderat yobani-severe Severe Pr ofound Nor mal auditory thresholds }} to {{mild mod erate mode rately-sev ere severe profound* with}} {{sensorin eural hearing loss with* cond uctive hearing loss with mixed hearing loss with}} {{excellen t good ibis r poor* no t measurable }} word recognitio n. Tympanomet ry: Right Ear:{{Type A* Type As Type Ad Type C Type C, shallow & rounded Ty pe B Type B with large volume Cou ld not maintain a hermetic seal}} Left Ear:{{Type A* Type As Type Ad Type C Type C, shallow & rounded Ty pe B Type B with large volume Cou ld not maintain a hermetic seal}} [id number] HODAN SHAH MD [facility] [address] [address] 07/20/2024 10:08:55 07/20/2024 11:42:51 Vertigo 323887056 R42 Sensorineu ral hearing loss of bilateral ears 428347625 H90.3 Tinnitus of left ear 652 9678842 106 H93.12 [id number] BREANA KATZ MD [facility] [address] [place] [address] 09/11/2024 15:03:39 09/11/2024 16:45:46 Intracranial meningioma 573503804 D32.0 Arachnoid cyst 45761226 G93.0 Peripheral vertigo 44117 001 H81.399 Health Concerns Section Related Observation LastModified by Organization Detai ls LastModified Time None Recorded Concern Status LastModified by Organization Details LastModified Time None Recorded Advance Directives Directive None Recorded Payers Encounter Date Sequence Insurance Name Policy Number Policy Ghosh Covered Member ID Ghosh Member ID Guarantor Name 05/01/2024 1 [place] [employer] Marguerite Zamora [id number] [facility] 05/01/2024 2 [place] [facility] Marguerite Zamora [id number] [facility] 05/01/2024 1 [place] [employer] Marguerite Zamora [id number] [facility] 05/01/2024 2 [place] [facility] Marguerite Zamora [id number] [facility] 07/20/2024 1 [place] [employer] Marguerite Zamora [id number] [facility] 07/20/2024 2 [place] [facility] Marguerite Zamora [id number] Marguerite Mccall 09/11/2024 1 [place] [employer] Marguerite Zamora [id number] Marguerite Mccall 09/11/2024 2 [place] [facility] Marguerite Zamora [id number] Marguerite Mccall Notes Date Note Type Note Provider Name and Address Organization Details Recorded Time 05/01/2024 text/html Audiological Evaluation HPIReported bypatient.Hearing loss perceived:both ears: left ear worse DEMETRIUS LANCE [address] [facility],[address], [address], [place] - [facility] 05/01/2024 13:17:43 05/01/2024 text/html 69 year old nadja deng presents with spouse for evaluation of ears and hearing. Patient reports there has been a change in hearing in the left greater than right ear. Had an infection in December with some bleeding from the left ear but does not recall the hearing changing at that time. There is sometimes otalgia in the left ear, described as occasional, dull, and brief. There is no otorrhea. She occasionally has tinnitus. She does wear hearing aids, updated last April. Got them in [place] NOLAN SANCHEZ MD [address] [facility],[address] [address], [place], [address], [facility] 05/01/2024 17:14:01 07/20/2024 text/html 69 year old nadja deng with history of asymmetric hearing loss affecting the left greater than right ear presents with her daughter for evaluation of disequilibrium which patient defines as spinning for a few seconds with associated nausea and vomiting. Once she vomits, she begins to feel better; stops spinning but feels off-balance for a while thereafter. She does get a little short of breath and feels her heart racing after vomiting, attributes to anxiety about her symptoms. Sometimes there is a headache at the back of the head and tenderness behind the left ear. Hears a faint ringing in the left ear. Hearing does not change. First episode occurred 08/06/24 and she has had 3 episodes in total. They are not triggered by position change. Can awaken from sleep or occur while seated. Has been to [facility] three times in the past 2 weeks for the dizziness and they have not found anything. Blood pressure was a little high in ED but came down on its own, glucose was normal, CT head was normal. Was given meclizine and odansetron. Episodes are not worsened, improved, or aborted by any factors she can isolate. Episodes are not accompanied by any confusion, slurred speech, facial or extremity weakness, numbness, paralysis, chest pain, vision change or loss of visual field, photophobia, nor phonophobia. There is no personal history of migraine, though her siblings have them. There is no personal or family history of aneurysm or other vascular anomaly. Patient has no lower extremity neuropathy nor lower extremity joint problems. No increased anxiety lately, no paroxysmal nocturnal dyspnea or other concern for obstructive sleep apnea. Patient follows a low-salt, low-sugar diet, hydrates well, and has not recently started any new medications or had any significant lifestyle changes. She does not feel that her hearing has changed since her audiogram here in April. Her hearing aids fit well and provide very good benefit. HODAN SHAH MD [address] [place] [address], [address], [facility] 07/20/2024 17:31:12 09/11/2024 text/html 69 year old nadja deng with history of dizziness presents for re-evaluation and results of MRI brain. She reports episodes persist, has had about five episodes since last evaluated. Can tell when they are about to happen, feels tension at the back of the neck and some tension in the head and perhaps a little increased sensitivity to lights. Takes a 12.5 mg meclizine. She does have aural fullness at times, does not correlate to these episodes. Her hearing does not change with episodes and there is no associated tinnitus. BREANA KATZ MD [address] [facility],[address], [address], [facility] 09/12/2024 10:20:53 OBGyn Episode No OBEpisode recorded.
== END 2024-10-30 13:20 | disposition home or self-care (01) ==
LOC: HO.US 13:19
PROVIDERS: PCP Internal Medicine; Visit Provider Advanced Practice Midwife
DX: D21.9 Benign neoplasm of connective and other soft tissue, unspecified (principal)
CPT/HCPCS: 76830; 76856

== ENCOUNTER → 2024-10-30 13:22 | Outpatient (BNV) | payer MEDICARE, OTHER, MEDICAID, SELFPAY | PROVIDERS: PCP Internal Medicine; Visit Provider Radiology Diagnostic Radiology | DX: D25.9 Leiomyoma of uterus, unspecified (principal) | CPT/HCPCS: 76830; 76856 ==

== ENCOUNTER → 2024-11-03 11:15 | Outpatient (BNVA) | payer MEDICARE, MEDICAID, SELFPAY | PROVIDERS: PCP Internal Medicine; Visit Provider Nurse Practitioner Family | DX: K57.90 Diverticulosis of intestine, part unspecified, without perforation or abscess without bleeding (principal); K59.01 Slow transit constipation; R10.32 Left lower quadrant pain; D12.6 Benign neoplasm of colon, unspecified; Z98.890 Other specified postprocedural states | CPT/HCPCS: 99212 ==

== ENCOUNTER → 2024-11-03 11:15 | Outpatient (AMB) | payer MEDICARE, MEDICAID, SELFPAY | PROVIDERS: PCP Internal Medicine; Visit Provider Nurse Practitioner Family | CPT/HCPCS: 99213 ==

== ENCOUNTER 2024-11-15 09:06 | Outpatient (AMB) | payer MEDICARE, MEDICAID, SELFPAY ==
--- OUTSIDE RECORDS SUMMARY | 2024-11-15 09:18 | XMS_ITS | Patient Health Record ---
Author Organization [facility] Address [address] [place] [address] Care Team Providers Care Payroll Coordinator Name Role Phone Janet Islas Primary Care Provider Kolby Hansen Jr Unavailable [phone] REASON FOR REFERRAL No Information MEDICATIONS Medication [...] Problem Colon cancer screening (V76.51) Active confirmed 356069256 Problem Abdominal pain, left lower quadrant (789.04) Active confirmed 321862541 PLAN OF TREATMENT Future Test Test Name Order Date COLONOSCOPY 03/13/2015 Insurance Providers Payer Name Payer Address Payer Phone Subscriber Number Group Number Insured Name Patient Relationship to Insured Coverage Start Date Coverage End Date [place] [address] [place] [address] [phone] [id number] SANA JARA Self - patient is the insured PGBA DO NOT USE DO NOT USE [facility] CLAIMS USE [place] [address] [place] [phone] [id number] SANA JARA Self - patient is the insured MEDICAID OF [facility] Schedulize [address] [place] [phone] [id number] LYNN Self - patient is the insured MEDICAL (GENERAL) HISTORY Medical History History ICD Code kidney disease asthma Surgical History Surgery Date(Month/Year) varicose vein stripping tubal ligation
--- OUTSIDE RECORDS SUMMARY | 2024-11-15 09:18 | XMS_ITS | Data Portability ---
Author Organization [place] - [facility], Allergy Address [address] [place] [id number] Assessment Encounter Date Assessment Date Assessment LastModified [...] previously normal 07/10, report reviewed today from [facility]. Given the history and the abnormal [...] result. Thank you. 2023 024 [email or web address] [facility], [address] [place], [address], 10/03/2024 08:33:03 neurologi jennifer surgeon referral - Referral for Intracran ial meningiom a. Thank you. 2023 024 [email or web address] [facility], [address] [place], [address], 10/09/2024 11:32:44 Procedures None recorded. Surgeries None recorded. Imaging CT, cervical spine, w/o contrast 2023 024 [email or web address] [facility], [address] [facility], [address], [place], [address], 10/04/2024 13:42:30 MRI, brain + internal auditory canal, w/wo contrast - MRI, BRAIN + INTERNAL AUDITORY CANAL, W/WO CONTRAST 2023 024 [email or web address] [facility] ([facility]), [address] [place], [address], 08/17/2024 12:27:58 Medication Orders None recorded. Patient TargetsNo targets [...] contr ast No observ ation record ed. [facility]-[address] [place], [address], 07/24/2024 09:53:19 07/20/2007/10/2024 CT, head, w/o contr ast No observ ation record ed. 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 Bilate ral [...] onical ly Signed By: Oxana ascencio MD [facility] ([facility]) [address] [facility], [place], [address], 08/01/2024 12:51:20 09/28/19 25 09/26/2024 CT, cervi jennifer spine , w/ contr ast No observ ation record ed. [facility] [address] [address], [place], [address], 10/04/2024 14:29:51 10/06/19 25 09/26/2024 CT, cervi jennifer spine , w/ contr ast No observ ation record ed. [email or web address] Not Available 2024 12:17:32 Result Notes None recorded. Problems Name Problem SNOMED Code Status Onset Date Resolution Date Notes Provider Name and Address Organization Details Recorded Time Sensorine ural hearing loss of bilateral ears 851410288 Active 2022 Sensorine ural hearing loss, bilateral ; Note: Date Diagnosed : 05/19/2023 10:09 AM (H90.3) Not Available [facility] 02:56:54 Tinnitus of left ear 54507626383 06 Active 2022 Tinnitus, left ear; Note: Date Diagnosed : 05/19/2023 10:52 AM (H93.12) Not Available [facility] 4 02:56:57 Sensorine ural hearing loss 28148456 Active 2023 MAYRADIANA JOHNSONDEMETRIUS OROURKE [address], [place], [place], [address] , [place] - [facility] 4 13:14:51 Bilateral tinnitus 47241172922 02 Active 2023 OSVALDO HENRIQUEZ PA-C [address] [facility], [place], [place], [address] , [place] - [facility] 4 13:49:24 Vertigo 272713659 Active 2023 OSVALDO HENRIQUEZ PA-C [address], [place], [place], [address] , [place] - [facility] 4 15:30:47 Intracran ial meningiom a 326070740 Active 2023 OSVALDO HENRIQUEZ PA-C [address] [facility], [place], [place], [address] , [place] - [facility] 4 15:17:34 Arachnoid cyst 96957026 Active 2023 OSVALDO HENRIQUEZ PA-C [address] [facility], [place], [place], [address] , [place] - [facility] 4 15:17:39 Periphera l vertigo 60384328 Active 2023 OSVALDO HENRIQUEZ PA-C [address] [facility], [place], [place], [address] , [place] - [facility] 4 15:30:13 Benign neoplasm of meninges 712883241 Active 2023 Cinthia spaulding [place] - [facility] 4 14:24:58 Problem Notes None recorded. Procedures Surgical History Date Name Laterality Status Provider Name and Address Organization Details Recorded Time 05/01/2024 Air & Speech Audio with Tymps (85170, 06230 & 97953) completed MAYRA GUERRA, AUD [address] [facility] [address], [place], [address], [facility] - [facility] 05/01/2024 13:14:45 Imaging Results Imaging Date Name [...] CT, head + brain, w/o contrast completed [facility] [address] [place], [address], 07/24/2024 09:53:19 07/10/2024 CT, head, w/o contrast completed [email or web address] Information not available 07/20/2024 11:48:00 07/27/2024 MRI, brain + brain stem, w/wo contrast completed [facility] ([facility]) [address] [place], [address], 08/01/2024 12:51:20 09/26/2024 CT, cervical spine, w/ contrast completed [email or web address] [facility] [address] [facility] [address], [place], [address], 10/04/2024 14:29:51 09/26/2024 CT, cervical spine, w/ contrast completed [email or web address] Information not available 11/01/2024 12:17:32 Procedure Notes None recorded. Medical Equipment None [...] ion aerosol inhaler active Medicatio n ID: [id number] Br and Name: Ventolin HFA Send Method: E-Prescri bed Subs Allowed: subs OK Medica tionGener icName: Ventolin HFA Not Available Not Available Not Available neomycin-p olymyxin-h ydrocort 3.5 mg-10,000 unit/mL-1 % ear drops,susp 2 DROP(S) EARS (BOTH) 4XDAILY,X 5 DAY(S) active Not Available Not Available No t Available cholecalci ferol (vitamin D3) 50 mcg (2,000 unit) capsule active Medicatio n ID: [id number] Br and Name: cholecalc iferol (vitamin D3) Send Method: E-Prescri bed Subs Allowed: subs OK Specia l Instructi on: TAKE 1 CAPSULE BY MOUTH EVERY DAY Medic ationGene ricName: cholecalc iferol (vitamin D3) Not Available Not Available Not Available Gavilax 17 gram/dose oral powder MIX AND TAKE ONCE DIRECTED BY GASTROENT EROLOGY DEPARTMEN T AT [facility] active Not Available Not Available No t Available Vitals Date Recorded Body height Body mass index (BMI) Body weight Provider Name and Address Organization Details Last Updated DateTime 07/20/2024 167.64 cm 31 kg/m2 32413.74 g Caryn Koenig [place] - [facility] 07/20/2024 10:36:41 Date Recorded Body height Body mass index (BMI) Body weight Provider Name and Address Organization Details Last Updated DateTime 09/11/2024 167.64 cm 31 kg/m2 81923.74 g Jasson Morrell [place] - [facility] 09/11/2024 15:13:19 Social History None recorded. Functional Status None recorded. Mental Status None recorded. Family History Nothing Reported. Medical History No medical history recorded. Gynecological HistoryNo gynecological history recorded. Obstetrics History GPAL:G 0 P 0 0 0 0 Past Encounters Encounter ID Performer Location Encounter Start Date Encounter Closed Date Diagnosis/Indication Diagnosis SNOMED-CT Code Diagnosis ICD10 Code Diagnosis Note [id number] NOLAN SANCHEZ MD [facility] [address] [address] 05/01/2024 12:44:59 05/01/2024 13:51:33 Sensorineural hearing loss of bilateral ears 050818955 H90.3 Bilateral tinnitus 40575 56626 102 H93.13 [id number] DEMETRIUS LANCE [facility] [address] [address] 05/01/2024 13:14:02 05/01/2024 16:59:39 Sensorineural hearing loss 07344381 H90.5 Audiologic al evaluation results: Right ear: [...] Cou ld not maintain a hermetic seal}} [id number] HODAN SHAH MD [facility] [address] [address] 07/20/2024 10:08:55 07/20/2024 11:42:51 Vertigo 658673269 R42 Sensorineu ral hearing loss of bilateral ears 234297685 H90.3 Tinnitus of left ear 748 6707746 106 H93.12 [id number] BREANA KATZ MD [facility] [address] [place] [address] 09/11/2024 15:03:39 09/11/2024 16:45:46 Intracranial meningioma 322878185 D32.0 Arachnoid cyst 59372885 G93.0 Peripheral vertigo 35529 001 H81.399 Health Concerns Section Related Observation LastModified by Organization Detai ls LastModified Time None Recorded Concern Status LastModified by Organization Details LastModified Time None Recorded Advance Directives Directive None Recorded Payers Encounter Date Sequence Insurance Name Policy Number Policy Ghosh Covered Member ID Ghosh Member ID Guarantor Name 05/01/2024 1 [place] [employer] Marguerite Zamora [id number] [facility] 05/01/2024 2 [place] [facility] Marguerite Zamora [id number] [facility] 05/01/2024 1 [place] [employer] Marguerite Zamora [id number] [facility] 05/01/2024 2 [place] [facility] Marguerite Zamora [id number] [facility] 07/20/2024 1 [place] [employer] Marguerite Zamora [id number] [facility] 07/20/2024 2 [place] [facility] Marguerite Zamora [id number] Marguerite Mccall 09/11/2024 1 [place] [employer] Marguerite Zamora [id number] Marguerite Mccall 09/11/2024 2 [place] [facility] Marguerite Zamora [id number] Marguerite Mccall Notes Date Note Type Note Provider Name and Address Organization Details Recorded Time 05/01/2024 text/html Audiological Evaluation HPIReported bypatient.Hearing loss perceived:both ears: left ear worse DEMETRIUS LANCE [address] [facility],[address], [address], [place] - [facility] 05/01/2024 13:17:43 05/01/2024 text/html 69 year old [...] aids, updated last April. Got them in [place] NOLAN SANCHEZ MD [address] [facility],[address] [address], [place], [address], [facility] 05/01/2024 17:14:01 07/20/2024 text/html 69 year old [...] or occur while seated. Has been to [facility] three times in the past 2 weeks [...] provide very good benefit. HODAN SHAH MD [address] [place] [address], [address], [facility] 07/20/2024 17:31:12 09/11/2024 text/html 69 year old [...] is no associated tinnitus. BREANA KATZ MD [address] [place] [address],[address], [address], [facility] 09/12/2024 10:20:53 OBGyn Episode No OBEpisode recorded.
--- OUTSIDE RECORDS SUMMARY | 2024-11-15 09:18 | XMS_ITS | Clinical Summary ---
Author Organization [employer] Address [address] [place] [address] [address] [place] [address] Care Team Providers Care Assembler For Puller Over Hand Name Role Phone Unavailable Primary Care Provider [...]
--- OUTSIDE RECORDS SUMMARY | 2024-11-15 09:18 | XMS_ITS | Encounter Summary ---
Author Organization [facility] Address [address] [place] [address] [address] [place] [address] Care Team Providers Care Last Picker Name Role Phone Unavailable Primary Care Provider [...]
--- NOTE | 2024-11-15 09:30 | A.OFFVIS_ITS ---
Intake Visit Reasons: Ultrasound follow up Live Out Nanny Required: Yes Live Out Nanny Language: Counterintelligence Specialist Services: Live Out Nanny Present (In person) Live Out Nanny Name: BRENDA Morgan Information Interpreted: non-clinical & clinical Ballistics Expert: Ballistics Expert Present (BRENDA Morgan) Accompanied by: Self / Same As Patient Allergies latex Allergy (Intermediate, Verified 11/15/24 09:31) rash adhesive Allergy (Mild, Verified 11/15/24 09:31) Rash Is last menstrual period known: Yes HPI Comments Details: Patient is here today for a follow up pelvic ultrasound, history of fibroids. She denies any pelvic pain bloating or vaginal bleeding. She reports some upper GI discomfort, has a follow up with her PCP tomorrow and agrees to mention this concern. [facility] Medical History Pelvic pain Dysuria Diverticulosis Didelphic uterus Class 1 obesity with body mass index (BMI) of 33.0 to 33.9 in adult Mild persistent asthma Constipation by delayed colonic transit Tubular adenoma Impaired glucose tolerance Hypovitaminosis D Dyslipidemia Surgical History H/O colonoscopy History of biopsy History of tubal ligation Family History Father Stomach cancer Mother Diabetes Hypertension Stroke Brother Thyroid cancer CAD (coronary artery disease) Paternal Uncle CVD (cardiovascular disease) Social History Household Members: None Housing: Apartment Are you a primary gericare aide teacher to a significant other at home: No Do you presently have visiting nurse or other home services: No Alcohol intake: current Alcohol intake frequency: holidays/special occasions only Alcohol type: wine Patient Tobacco Use Status: Never used Tobacco e-Cigarette/Vaping Use: Never Used Second Hand Smoke Exposure: No service: No Current occupational status: disabled Cognitive needs: No Hearing needs: No Vision needs: Yes Female Reproductive History Menstrual Age of Menarche: 15 Date of menopause: 09/27/02 Review of Systems Const All systems reviewed & are unremarkable except as noted in HPI and below Endo Reports no additional complaints Physical Exam Const General: cooperative, healthy appearing and no acute distress Psych Appearance: well kempt Attitude: cooperative Thought process: Normal thought process present Results Reviewed Results Reviewed: [address] [address] Ultrasound Report Signed Patient: Marguerite Enriquez MR#: [id number] : 1955 Acct:[id number] Age/Sex: 69 / F ADM Date: 10/30/24 Loc: HO.US Attending Dr: Caryn Alcantar CNM Ordering Physician: Caryn Alcantar CNM Date of Service: 10/30/24 Procedure(s): US pelvic and transvaginal Accession Number(s): [id number] cc: Caryn Alcantar CNM; Janet Islas MD~ EXAMINATION: US PELVIS TRANSABDOMINAL AND TRANSVAGINAL HISTORY: D21.9 - Benign neoplasm of connective and other soft tissue, unspecified COMPARISON: Comparison is made with the prior examination dated 07/04/2024. TECHNIQUE: Transabdominal and endovaginal real-time 2D ramirez-scale ultrasound was performed. FINDINGS: Uterus: The uterus is normal in size, measuring 8.5 x 5.6 x 6.2 cm. Myometrium has a normal echotexture. Again seen are multiple fibroids including a fundal fibroid measuring 4.0 x 3.3 x 4.8 cm (previously 4.1 x 3.7 x 4.4 cm), and right-sided fibroids measuring 1.7 x 1.3 x 1.7 cm (previously 1.8 x 1.8 x 1.7 cm), and 1.4 x 1.3 x 1.1 cm (previously 0.9 x 1.2 x 0.7 cm). Endometrium: The endometrial stripe is not visualized. Right ovary: The right ovary is not identified. Left ovary: The left ovary is not identified. Pelvic fluid: none. US/US pelvic and transvaginal IMPRESSION: Fibroid uterus as described. Electronically signed by: Alonso Myers MD 10/30/2024 02:17 PM [facility] Dictated By: Alonso Myers MD Signed By: <Electronically signed by Alonso Myers MD in OV> 10/30/24 1417 DD/ 1340 TD/TT: 10/30/24 1400 Statement Services Representative: Assessment & Plan Assessment & Plan (1) Fibroid: Code(s): D21.9 - Benign neoplasm of connective and other soft tissue, unspecified Category: Medical Plan Discussed ultrasound findings 3 of the 4 fibroids have decreased in size 1 is slightly enlarged. Counseled re: Leiomyoma: common pelvic neoplasm. Differential diagnosis-may include but not limited to- leiomyosarcoma which is a rare uterine sarcoma 3- 7/100,000, difficult to distinguish from fibroids on ultrasound from uterine sarcoma's. Unlikely any single test will have a highly positive predictive value. Hysterectomy is not recommended for sole purpose of excluding malignant neoplasm. Consult for surgical exploration, medical treatment, other treatments, verses expectant management, pros and cons, risks and benefits. Expectant management follow up in 6 months, then yearly for stability. Patient prefers to proceed with expectant management. Report any PMB, pelvic pressure, bloating, or pain. Referral to MD if indicated for level of care if indicated. Orders placed for follow up in 05/16/2025, and a follow up office visit to discuss results. The patient expressed understanding and agreement with the plan of care. All of her questions and concerns were addressed to the best of my ability. This note is constructed using voice recognition software. While every effort has been made to ensure accuracy, air crew member errors may have been included. Orders: Orders US pelvic and transvaginal 04/30/25 D21.9 - Benign neoplasm of connective and other soft tissue, unspecified Coding Level of Care Code Est Pt Level 3 (82543) Diagnoses Fibroid D21.9
== END 2024-11-15 09:54 | disposition home or self-care (01) ==
LOC: HO.HWS 09:06
PROVIDERS: PCP Internal Medicine; Visit Provider Advanced Practice Midwife
DX: D21.9 Benign neoplasm of connective and other soft tissue, unspecified (principal)
CPT/HCPCS: 99213

== ENCOUNTER 2024-11-15 13:16 | Emergency (ER) | payer MEDICARE, OTHER, MEDICAID, SELFPAY ==
[2024-11-15 13:50] VITALS: BP 131/74; BP 136/51; PULSE 63; PULSE 64; RESP 16; TEMP 36.6; O2SAT 100; O2SAT 98; BMI 30.7
--- NOTE | 2024-11-15 13:50 | ED_ITS ---
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 She has frequent attacks. She notes today the episode was worse and made her nauseated and it lasted 30 minutes. No CP/SOB. She took 12.5mg of meclizine which helped. She has new ENT appointment soon. She denies any other complaints. MD complaint: chronic dizziness and electric shocks Onset (ago): month(s) (since april) Location: head, face, upper extremity and lower extremity Radiation: non-radiation Severity: moderate Quality: stabbing Pain Consistency: intermittent Relieving factors: none Exacerbating factors: none Associated symptoms: nausea/vomiting Treatments prior to arrival: other Related Data Home Medications ?Medication ?Instructions ?Recorded ?Confirmed docosahexaenoic acid 200 mg mg PO 06/28/24 07/10/24 capsule (Algal [place]-3 DHA) niacin 250 mg capsule,extended 250 mg PO BEDTIME 06/28/24 10/20/24 release vitamin B comp and C no.3 15 mg-10 1 cap PO DAILY 06/28/24 10/20/24 mg-50 mg-5 mg-300 mg capsule (B Complex Plus Vitamin C) vitamin K2 45 mcg capsule 45 mcg PO DAILY 06/28/24 10/20/24 Previous Rx's ?Medication ?Instructions ?Recorded cholecalciferol (vitamin D3) 50 50 mcg PO DAILY 90 days #90 caps 11/04/22 mcg (2,000 unit) capsule Ventolin HFA 90 mcg/actuation 2 puff inhalation Q6H PRN for 08/29/23 aerosol inhaler (albuterol sulfate) wheezing #18 ea docusate sodium 100 mg capsule 100 mg PO BEDTIME #90 caps 07/07/24 meclizine 12.5 mg tablet 12.5 mg PO TID PRN dizziness #20 07/10/24 tabs meclizine 50 mg tablet 50 mg PO .every 6 hours PRN 09/18/24 dizziness #60 tabs ondansetron 4 mg disintegrating 4 mg PO Q6-8H PRN nausea and 10/02/24 tablet vomiting #20 tabs wheat dextrin 3 gram/3.5 gram oral 1 packet PO DAILY #28 ea 11/03/24 powder packet (Benefiber Clear Sugar Free(dextrin)) Allergies Allergy/AdvReac Type Severity Reaction Status Date / Time latex Allergy Intermediate rash Verified 11/15/24 13:54 adhesive Allergy Mild Rash Verified 11/15/24 13:54 Review of Systems 2 Review of Systems: Constitutional : No Fever, No Chills, No Fatigue ENT/Mouth : No sore throat, No Rhinorrhea Eyes: No Eye Pain, No Swelling, No Redness Cardiovascular : No Chest Pain, No SOB, No Dyspnea on Exertion Respiratory : No Cough, No Sputum Gastrointestinal : pos Nausea, pos Vomiting, No Diarrhea, No abdominal Pain Genitourinary : No Dysuria, No Urinary Frequency, No Hematuria, Musculoskeletal : No joint pain, No Myalgias, No Joint Swelling Skin : No Skin Lesions, No rash Neuro : No Weakness, No Numbness, pos Dizziness, positive Headache Psych : No Anxiety/Panic, No Depression All other systems reviewed and are negative [facility] Past Medical History Attestation statement: The following information was validated with the patient. Source: old records reviewed Medical History Pelvic pain Dysuria Diverticulosis Didelphic uterus Class 1 obesity with body mass index (BMI) of 33.0 to 33.9 in adult Mild persistent asthma Constipation by delayed colonic transit Tubular adenoma Impaired glucose tolerance Hypovitaminosis D Dyslipidemia Surgical History H/O colonoscopy History of biopsy History of tubal ligation Family History Family History Father Stomach cancer Mother Diabetes Hypertension Stroke Brother Thyroid cancer CAD (coronary artery disease) Paternal Uncle CVD (cardiovascular disease) Social History Social History Household Members: None Housing: Apartment Are you a primary palliative care nurse to a significant other at home: No Do you presently have visiting nurse or other home services: No Alcohol intake: current Alcohol intake frequency: holidays/special occasions only Alcohol type: wine Patient Tobacco Use Status: Never used Tobacco e-Cigarette/Vaping Use: Never Used Second Hand Smoke Exposure: No Advance Directives: No Advance Directives Information Provided: Yes Advance Directives on File: No service: No Current occupational status: disabled Cognitive needs: No Hearing needs: No Vision needs: Yes Physical Exam ED Vital Signs: Vital Signs - 24 hr 11/15/24 13:50 11/15/24 19:12 11/15/24 19:14 Temperature 97.8 F 96.9 F Pulse Rate 63 59 65 Respiratory Rate 16 14 Blood Pressure 136/51 L 137/58 L 137/66 Pulse Oximetry 98 100 Oxygen Delivery Method Room Air Room Air 11/15/24 19:15 11/15/24 19:15 Temperature Pulse Rate 62 72 Respiratory Rate Blood Pressure 137/66 126/64 Pulse Oximetry Oxygen Delivery Method BMI result Body Mass Index 30.7 Appearance: Alert. Oriented X3. No acute distress. on her phone texting no issues Eyes: Pupils equal, round and reactive to light. ENT: Pharynx normal. atraumatic Neck: Normal inspection. Neck supple. CVS: Normal heart rate and rhythm. Pulses normal. Respiratory: No respiratory distress. Breath sounds normal. Abdomen: Soft and nontender. Skin: Skin warm and dry. Normal skin color. Normal skin turgor. Extremities: No lower extremity edema. No calf ttp Neuro: Oriented X 3. No motor deficit. No sensory deficit. CN2-12 intact Course Course Course Narrative: RME, this is a rapid medical exam performed by Hugo Addison please refer to primary provider for complete H&P- 69-year-old female past medical history significant for vertigo, hypertension, obesity, hyperlipidemia presents for evaluation of dizziness and vomiting started about an hour prior to arrival. She feels as though she was ?shaking. She arrives via EMS and was given Zofran by EMS. Plan for EKG, labs viral testing. Medical Decision Making Medical Decision Making [facility] Narrative: 69 yo female with PMH of recurrently dizziness and electric shocks but no focal deficits and this has been going on for months at this time no CP/SOB to suggest VTE or ACS mild t wave inversions will send off trop x 1, check lytes, provide supportive medications. Her hearing loss, tinnitus and vertigo point towards a more senior living issue such as Meniere's disease. Will start on zofran and one time dose of ativan overall not toxic Differential Diagnosis Differential Diagnoses: The differential diagnosis associated with the presentation includes dizziness, meniere's disease VS stable and negative trop doubt cardiac ischemia Admission/Observation Consideration of admission/observation: Escalation of care including admission/observation considered not toxic stable for DC Lab Data [facility] Lab Attestation statement: I reviewed the patient's lab results. 11/15/24 17:01 11/15/24 17:01 Labs: Lab Results 11/15/24 Range/Units 17:01 WBC 6.5 (4.8-10.8) X10*3/uL RBC 5.22 (4.20-5.50) X10*6/uL Hgb 14.3 (12.0-16.0) g/dl Hct 43.5 (37.0-47.0) % MCV 83.3 (80.0-98.0) fL MCH 27.4 (27.0-33.0) pg MCHC 32.9 (31.0-35.0) g/dl RDW 12.3 (11.0-16.0) % Plt Count 195 (160-400) X10*3/uL MPV 10.2 (9.4-12.3) fL Immature Gran % (Auto) 0.3 (0.0-0.4) % Neut % (Auto) 63.8 (45-73) % Lymph % (Auto) 28.2 (20-40) % [place] % (Auto) 6.5 (2-11) % Eos % (Auto) 0.6 (0-4) % Baso % (Auto) 0.6 (0-2) % Lymph # (Auto) 1.8 (1.2-4.9) X10*3/uL [place] # (Auto) 0.4 (0.1-1.2) X10*3/uL Eos # (Auto) 0.0 (0.0-0.4) X10*3/uL Baso # (Auto) 0.0 (0.0-0.2) X10*3/uL Abs Immat Gran (auto) 0.02 (0.00-0.03) X10*3/uL Absolute Neuts (auto) 4.1 (2.0-8.3) x10*3/uL Absolute Nucleated RBC 0.000 (0.0-0.012) X10*3/uL Nucleated RBC % (auto) 0.0 (0.0-0.2) /100WBC Sodium 139 (135-145) mmol/L Potassium 4.7 D (3.3-5.1) mmol/L Chloride 108 (96-108) mmol/L Carbon Dioxide 24 (22-29) mmol/L Anion Gap 12 (12-20) BUN 14 (9-16) mg/dL Creatinine 0.76 (0.5-1.4) mg/dL Estim Creat Clear Calc 82.2 Estimated GFR > 60 Random Glucose 97 (60-115) mg/dL Calcium 9.2 D (8.4-10.2) mg/dL Magnesium 2.3 (1.6-2.6) mg/dL Total Bilirubin 0.3 (0.0-1.0) mg/dL AST 26 (5-31) U/L ALT 24 (0-31) U/L Alkaline Phosphatase 68 (39-117) U/L Troponin I High Sens < 2.7 (<3.5-17.0) ng/L Total Protein 7.9 (6.5-8.0) g/dL Albumin 4.1 (3.5-5.0) g/dL Lipase 16 (8-78) U/L Influenza Type A (PCR) NEGATIVE (Negative) Influenza Type B (PCR) NEGATIVE (Negative) RSV RNA Qual (PCR) NEGATIVE (Negative) SARS-CoV-2 RNA (RT-PCR) NEGATIVE (Negative) Independent Interpretation I performed an independent interpretation of an: EKG Interpretation: Rate: 63 Rhythm: NSR [place]: left, LVH Normal P waves. Normal CHRISTY. Normal QRS complex. ST T wave : inverted T waves V1-V3, no CYN qTC: 452 prior studies: new t wave inversions The study has been interpreted contemporaneously by me. EKG #2 Rate: 58 Rhythm: sinus bradycardia [place]: left Normal P waves. Normal CHRISTY. Normal QRS complex. ST T wave : no CYN, inverted t waves V1 and V2 qTC: 439 prior studies: no acute ischemia mild anterior t wave inversions The study has been interpreted contemporaneously by me. . Independent Historian Clinical information obtained from an independent historian. History obtained from or confirmed by: Spouse and Other External Record Review External record reviewed: Outpatient record Discharge Plan Discharge Clinical Impression: Dizziness Patient Disposition: Home, Self-Care Instructions: Dizziness (ED) Additional Instructions: labs reassuring, return for any worsening symptoms or concerns please follow up with ENT return for any worsening symptoms for concerns. Prescriptions: No Action albuterol sulfate [Ventolin HFA] 90 mcg/actuation HFA aerosol inhaler 2 puff inhalation Q6H PRN (Reason: for wheezing) Qty: 18 2RF ondansetron 4 mg tablet,disintegrating 4 mg PO Q6-8H PRN (Reason: nausea and vomiting) Qty: 20 0RF meclizine 12.5 mg tablet 12.5 mg PO TID PRN (Reason: dizziness) Qty: 20 0RF cholecalciferol (vitamin D3) 50 mcg (2,000 unit) capsule 50 mcg PO DAILY 90 Days Qty: 90 1RF niacin 250 mg capsule, extended release 250 mg PO BEDTIME vitamin K2 45 mcg capsule 45 mcg PO DAILY B Complex Plus Vitamin C 97-20-08-5-300 mg capsule 1 cap PO DAILY Rx Instructions: give with food (meal/snack) Algal [place]-3 DHA 200 mg capsule PO Benefiber Clear SF (dextrin) 3 gram/3.5 gram powder in packet 1 packet PO DAILY Qty: 28 5RF Rx Instructions: mix into at least 4 oz water or juice before administering docusate sodium 100 mg capsule 100 mg PO BEDTIME Qty: 90 3RF meclizine 50 mg tablet 50 mg PO .every 6 hours PRN (Reason: dizziness) Qty: 60 0RF Print Language: Georgian
--- NOTE | 2024-11-15 13:58 | ECG_ITS ---
Test Reason : weakness Blood Pressure : */* mmHG Vent. Rate : 63 BPM Atrial Rate : 63 BPM P-R Int : 166 ms QRS Dur : 84 ms QT Int : 442 ms P-R-T Axes : 38 -5 21 degrees QTcB Int : 452 ms Artifact in tracing Normal sinus rhythm Minimal voltage criteria for LVH, may be normal variant ( R in aVL ) Borderline ECG When compared with ECG of 13-Sep-2024 09:43, T wave inversion now evident in Anterior leads Referred By: Sebastien Addison Electronically Signed By: TUTU GILL
[2024-11-15 17:13] LABS: MANUAL DIFF FLAG NO
[2024-11-15 17:17] LABS: Basophils Percent Auto 0.6 % (0-2); Eosinophils Percent Auto 0.6 % (0-4); Hematocrit 43.5 % (37.0-47.0); Hemoglobin 14.3 g/dl (12.0-16.0); Imm Gran Abs Auto 0.02 X10*3/uL (0.00-0.03); Imm Gran Pct Auto 0.3 % (0.0-0.4); Lymphocytes Absolute Auto 1.8 X10*3/uL (1.2-4.9); Lymphocytes Percent Auto 28.2 % (20-40); Mean Corpuscular HGB Conc 32.9 g/dl (31.0-35.0); Mean Corpuscular Hemoglobin 27.4 pg (27.0-33.0); Mean Corpuscular Volume 83.3 fL (80.0-98.0); Mean Platelet Volume 10.2 fL (9.4-12.3); Monocytes Absolute Auto 0.4 X10*3/uL (0.1-1.2); Monocytes Percent Auto 6.5 % (2-11); Neutrophils Absolute Auto 4.1 x10*3/uL (2.0-8.3); Neutrophils Percent Auto 63.8 % (45-73); Platelet Count 195 X10*3/uL (160-400); Red Blood Count 5.22 X10*6/uL (4.20-5.50); Red Cell Distribution Width 12.3 % (11.0-16.0); White Blood Count 6.5 X10*3/uL (4.8-10.8)
[2024-11-15 17:29] LABS: Alanine Aminotransferase 24 U/L (0-31); Albumin Level 4.1 g/dL (3.5-5.0); Alkaline Phosphatase 68 U/L (39-117); Anion Gap 12 (12-20); Aspartate Amino Transferase 26 U/L (5-31); Bilirubin Total 0.3 mg/dL (0.0-1.0); Blood Urea Nitrogen 14 mg/dL (9-16); Calcium 9.2 mg/dL (8.4-10.2); Carbon Dioxide 24 mmol/L (22-29); Chloride 108 mmol/L (96-108); Creatinine Clr Calc Pharmacy 82.2; Estimated Glomerular Filt Rate > 60; Glucose Random 97 mg/dL (60-115); Lipase 16 U/L (8-78); Potassium 4.7 mmol/L (3.3-5.1); Sodium 139 mmol/L (135-145); Total Protein 7.9 g/dL (6.5-8.0)
[2024-11-15 17:54] LABS: Influenza A PCR NEGATIVE (Negative); Influenza B PCR NEGATIVE (Negative); Resp Syncy Virus RNA Qual PCR NEGATIVE (Negative); SARS COV2 PCR INHOUSE NEGATIVE (Negative)
--- OUTSIDE RECORDS SUMMARY | 2024-11-15 17:56 | XMS_ITS | Encounter Summary ---
Author Organization [employer] [facility] Address [address] [place] [address] [address] [place] [address] Care Team Providers Care Channel Layer Name Role Phone Unavailable Primary Care Provider [...]
--- NOTE | 2024-11-15 18:27 | ECG_ITS ---
Test Reason : repeat Blood Pressure : */* mmHG Vent. Rate : 58 BPM Atrial Rate : 58 BPM P-R Int : 172 ms QRS Dur : 84 ms QT Int : 448 ms P-R-T Axes : 2 5 24 degrees QTcB Int : 439 ms Sinus bradycardia Otherwise normal ECG When compared with ECG of 15-Nov-2024 14:19, No significant change was found Referred By: Leah Neumann Electronically Signed By: TUTU GILL
[2024-11-15 18:42] LABS: Magnesium 2.3 mg/dL (1.6-2.6)
[2024-11-15 19:12] VITALS: BP 137/58; PULSE 59
[2024-11-15 19:12] LABS: Troponin-I High Sensitivity < 2.7 ng/L (<3.5-17.0)
[2024-11-15 19:14] VITALS: BP 137/66; PULSE 65; RESP 14; TEMP 36.1; O2SAT 100
[2024-11-15 19:15] VITALS: BP 126/64; BP 137/66; PULSE 62; PULSE 72
[2024-11-15 20:01] LABS: Appearance Urine Clear; Color Urine Yellow; Glucose Urine UA Negative (Negative); Leukocyte Esterase Urine Small (1+) (Negative); Nitrite Urine Negative (Negative); PH >= 9.0 (5.0-9.0); UMIC TRIGGER UACC YES; Urine Blood Negative (Negative); Urine Ketones Negative (Negative); Urine Protein Negative (Neg-Trace)
[2024-11-15] MEDS: LORazepam 0.5 MG TABLET 0.25 MG PO (20:04)
[2024-11-15 20:05] VITALS: BP 126/64; PULSE 72; RESP 16; TEMP -17.7; TEMP 0
[2024-11-15] MEDS: Ondansetron ODT 4 MG TAB.RAPDIS TRANSLINGU (20:05)
[2024-11-15 20:27] LABS: Bacteria Urine None Seen (None Seen); Hyaline Casts Urine 0-2 /LPF (0-2); RBC Urine 0-2 /HPF (0-2); Squamous Epithelial Cell Urine 0-2 /HPF (0-2); UACC Culture Trigger YES; WBC Urine 0-5 /HPF (0-5)
== END 2024-11-15 20:06 | disposition home or self-care (01) ==
PROVIDERS: Physician Assistant; Emergency Provider Emergency Medicine; PCP Internal Medicine
DX: R42 Dizziness and giddiness (principal); R11.2 Nausea with vomiting, unspecified; J45.909 Unspecified asthma, uncomplicated; Z03.818 Encounter for observation for suspected exposure to other biological agents ruled out; Z79.899 Other long term (current) drug therapy
CPT/HCPCS: 0241U; 80053; 81001; 83690; 83735; 84484; 85025; 87086; 93005; 99212; 99284

== ENCOUNTER → 2024-11-15 13:58 | Outpatient (BNV) | payer MEDICARE, OTHER, MEDICAID, SELFPAY | PROVIDERS: Emergency Provider Emergency Medicine; PCP Internal Medicine; Visit Provider Internal Medicine | DX: R00.1 Bradycardia, unspecified (principal) | CPT/HCPCS: 93010 ==

== ENCOUNTER 2024-11-16 12:56 | Outpatient (AMB) | payer MEDICARE, MEDICAID, SELFPAY ==
--- NOTE | 2024-11-16 13:10 | A.OFFPC_ITS ---
Vital Signs 11/16/24 13:13 Height 5 ft 7 in Weight 195 lb 6 oz BMI 30.6 BP 130/68 Blood Pressure Location Lt brachial Position Sitting Pulse 60 Pulse Source Pulse Oximeter Temp 96.9 F Temp Source Temporal Artery Scan Pulse Oximetry (%) 98 Oxygen Delivery Method Room Air Intake Visit Reasons: bp, glucose Intake Note: Patient is here to follow up on BP, Glucose. Secondary Teacher Required: Yes Secondary Teacher Language: Turner Splitter Machine Operator Name: Janet Garcia MD Information Interpreted: non-clinical & clinical Child Advocate: Not Required per policy Accompanied by: Spouse Allergies latex Allergy (Intermediate, Verified 11/16/24 13:27) rash adhesive Allergy (Mild, Verified 11/16/24 13:27) Rash Medication List - Last Reconciled 11/16/24 by Janet Garcia MD cholecalciferol (vitamin D3) 50 mcg PO DAILY 90 days docosahexaenoic acid (Algal [place]-3 DHA) mg PO docusate sodium 100 mg PO BEDTIME meclizine 12.5 mg PO TID PRN meclizine 50 mg PO .every 6 hours PRN niacin ER 250 mg PO BEDTIME ondansetron 4 mg PO Q6-8H PRN Ventolin HFA 90 mcg/actuation (albuterol sulfate) 2 puffs inhalation Q6H PRN NS vitamin B comp and C no.3 (B Complex Plus Vitamin C) 1 cap PO DAILY vitamin K2 45 mcg PO DAILY wheat dextrin (Benefiber Clear Sugar Free(dextrin)) 1 packet PO DAILY Tobacco use date assessed: 11/16/24 Fall risk assessment: No Falls in past year Last assessed Fall Risk: 11/16/24 Dental Screening Dental Screen Date: 11/16/24 Did you have a dental visit in the last 12 months?: Yes Did you have a dental problem in the last 6 months where you did not have access to dental care?: No Was dental information given to patient?: Patient has dentist HPI HPI Comments History of Present Illness Details This is a 69-year-old female that comes today as hospital discharge follow-up with discharge date from yesterday due to an episode of dizziness associated with thunderclap headache and tremors that happened yesterday. Occa sionally she has tinnitus on the left ear but it was not present yesterday. She denies dizziness when moving the head and she said she was just sitting down. She has been accompanied by in all her appointments with me. She wanted to call her daughter in-law Silva that nose more details about her medical history. She had an MRI of the brain in August showing a 6 mm meningioma and cyst and was refer by ENT to Neurosurgery which saw her recently and declines the need for surgery. Neurosurgeon said that this brain findings did not explain her dizziness and vertigo. She took vestibular therapy with no significant improvement. She is angry and upset because she demands a diagnosis of her dizziness. I gave her differential diagnosis of Meniere's as well as BPPV and vestibulitis. She wants a 2nd opinion in ENT and will be referred to [place]. No chest pain or shortness on breath. Labs, urine and EKG were discussed. [facility] Medical History (Updated 11/16/24 @ 13:54 by Janet Garcia MD) Pelvic pain Dysuria Diverticulosis Didelphic uterus Class 1 obesity with body mass index (BMI) of 33.0 to 33.9 in adult Mild persistent asthma Constipation by delayed colonic transit Tubular adenoma Impaired glucose tolerance Hypovitaminosis D Dyslipidemia Surgical History H/O colonoscopy History of biopsy History of tubal ligation Family History Father Stomach cancer Mother Diabetes Hypertension Stroke Brother Thyroid cancer CAD (coronary artery disease) Paternal Uncle CVD (cardiovascular disease) Social History Household Members: None Housing: Apartment Are you a primary day care provider to a significant other at home: No Do you presently have visiting nurse or other home services: No Alcohol intake: current Alcohol intake frequency: holidays/special occasions only Alcohol type: wine Patient Tobacco Use Status: Never used Tobacco e-Cigarette/Vaping Use: Never Used Second Hand Smoke Exposure: No service: No Current occupational status: disabled Cognitive needs: No Hearing needs: No Vision needs: Yes Female Reproductive History Menstrual Age of Menarche: 15 Date of menopause: 09/27/02 Questionnaire PHQ-9 Over the last 2 weeks, how often have you been bothered by any of the following problems? 1. Little interest or pleasure in doing things: not at all 2. Feeling down, depressed, or hopeless: not at all 3. Trouble falling or staying asleep, or sleeping too much: not at all 4. Feeling tired or having little energy: not at all 5. Poor appetite or overeating: not at all 6. Feeling bad about yourself - or that you are a failure or have let yourself or your family down: not at all 7. Trouble concentrating on things, such as reading the newspaper or watching television: not at all 8. Moving or speaking so slowly that other people could have noticed. Or the opposite - being so fidgety or restless that you have been moving around a lot more than usual: not at all 9. Thoughts that you would be better off or of hurting yourself in some way: not at all Total score: 0 Depression Screening Interpretation: Negative Depression Screening Done: Yes 43566 - PHQ-9 Billing: Yes Source: Developed by Drs. Alonso Sanon, Trish Cavanaugh, Vadim Mtz and colleagues, with an educational adarsh from [employer]. Thrive Questionnaire Date Thrive assessed: 11/16/24 I am a: Patient What is your living situation today?: I have a steady place to live Within the past 12 months, did the food you bought not last and you didn't have the money to get more?: Never true Within the past 12 months, did you worry whether your food would run out before you got money to buy more?: Never true Do you have trouble paying for medicines?: No Do you have trouble getting transportation to medical appointments?: No Do you have trouble paying your heating and electricity bill?: No Do you have trouble taking care of your child, family member or friend?: No Do you have trouble with day-to-day activities such as bathing, preparing meals, shopping, managing finances, etc.?: No Are you currently unemployed and looking for a job?: No Are you interested in more education?: No Please select the resources that you would like help with: None Currently or been in a relationship where the following occur: No concerns reported THRIVE Score: 0 AUDIT C Alcohol Use Questionnaire (AUDIT-C) 1. How often do you have a drink containing alcohol?: Monthly or less 2. How many drinks containing alcohol do you have on a typical day when you are drinking?: 1 or 2 Total Score: 1 ANSELMO-7 AMB Questionnaire ANSELMO-7 Date ANSELMO - 7 assessed: 11/16/24 Feeling nervous, anxious, or on edge: 0 = Not at all Not being able to stop or control worryin = Not at all Worrying too much about different things: 0 = Not at all Trouble relaxin = Not at all Being so restless that it is hard to sit still: 0 = Not at all Becoming easily annoyed or irritable: 0 = Not at all Feeling afraid as if something awful might happen: 0 = Not at all Total ANSELMO-7 score (0-4 normal; 5-9 mild; 10-14 moderate; 15-21 severe): 0 Source: Developed by Drs. Alonso Sanon, Trish Cavanaugh, Vadim Mtz and colleagues, with an educational adarsh from [employer]. ANSELMO-7 Assessment Billing ANSELMO-7 Assessment Tool: ANSELMO-7 Assessment 28970 Review of Systems Const All systems reviewed & are unremarkable except as noted in HPI and below Reports headache(s) ENT Reports vertigo, Reports dizziness and Reports headache(s) Card Denies chest pain at rest, Denies chest pain with activity, Denies edema, Denies irregular heart rhythm, Denies claudication, Denies dyspnea, Denies dyspnea on exertion, Denies orthopnea, Denies paroxysmal nocturnal dyspnea and Denies slow heart rate Resp Denies cough, Denies dyspnea and Denies dyspnea on exertion GI Denies abdominal pain, Denies change in bowel habits, Denies excessive flatus, Denies nausea and Denies vomiting Musc Denies abnormal gait Neuro Denies abnormal gait, Reports vertigo, Reports dizziness, Reports headache(s) and Denies lack of coordination Physical exam (Primary Care) Vital Signs: Last Vital Signs Temp 96.9 F 11/16/24 13:13 Pulse 60 11/16/24 13:13 BP 130/68 11/16/24 13:13 Pulse Ox 98 11/16/24 13:13 Oxygen Delivery Method Room Air 11/16/24 13:13 BMI result Body Mass Index 30.6 Tobacco/Smoking Status: Tobacco use Status Tobacco use date assessed 11/16/24 11/16/24 13:17 Patient Tobacco Use Status Never used Tobacco 11/16/24 13:17 e-Cigarette/Vaping Use Never Used 11/16/24 13:17 PHQ-9: PHQ-9 Score PHQ-9: Total score 0 11/16/24 13:29 Depression Screening Interpretation: Negative Thrive Assessment: Date of Thrive Assessment Date Thrive assessed 11/16/24 11/16/24 13:17 Currently or been in a relationship where the following occur: No concerns reported HENMT Head: Yes normal to inspection, Yes normocephalic and Yes atraumatic Ears: external ears normal Resp Effort & Inspection: normal respiratory effort Auscultation: clear to auscultation bilaterally Cardio Jugular venous distension: no JVD Rate: regular rate Rhythm: regular rhythm Heart sounds: S1 normal heart sound present and S2 normal heart sound present Neuro Romberg Test: Negative Extrem General: Yes full ROM Coding Level of Care Code Est Pt Level 4 (17672) Complex EM visit Add On G2211 Diagnoses Hospital discharge follow-up Z09 Vertigo R42 Meningioma D32.9 Nausea and vomiting in adult R11.2 Additional Codes ANSELMO-7 Assessment Billing - ANSELMO-7 Assessment Tool: ANSELMO-7 Assessment 27272 ([id number]) PHQ-9 - 14825 - PHQ-9 Billing: Yes ([id number]) Time Spent (min) 26 Assessment & Plan Assessment & Plan (1) Hospital discharge follow-up: Code(s): Z09 - Encounter for follow-up examination after completed treatment for conditions other than malignant neoplasm Category: Medical (2) Vertigo: Code(s): R42 - Dizziness and giddiness Category: Medical (3) Meningioma: Code(s): D32.9 - Benign neoplasm of meninges, unspecified Category: Medical (4) Nausea and vomiting in adult: Code(s): R11.2 - Nausea with vomiting, unspecified Category: Medical Plan I increase meclizine from 12.5 mg to 25 mg to be used as needed for dizziness. I did refer her to ENT in [place]. She should continue taking ondansetron as needed for the nausea. She should not drive anymore up until dizziness resolved. She is aware that if she drives she is at risk of having an accident and putting herself to harm and can harm others. Orders: Referrals Ear/Nose/Throat Referral R42 - Dizziness and giddiness Medications: New meclizine 25 mg PO TID PRN 90 tabs 0RF dizziness 30 days Discontinued meclizine Discontinued Reason: Patient Completed Course 12.5 mg PO TID PRN 20 tabs 0RF dizziness
[2024-11-16 13:13] VITALS: BP 130/68; PULSE 60; TEMP 36.1; O2SAT 98; BMI 30.6
--- OUTSIDE RECORDS SUMMARY | 2024-11-16 13:50 | XMS_ITS | Clinical Summary ---
Author Organization [employer] Address [address] [place] [address] [address] [place] [address] Care Team Providers Care Emergency Department Technician Name Role Phone Unavailable Primary Care Provider [...]
--- OUTSIDE RECORDS SUMMARY | 2024-11-16 13:50 | XMS_ITS | Patient Health Record ---
Author Organization [facility] Address [address] [place] [address] Care Team Providers Care Director Quality Systems Name Role Phone Janet Islas Primary Care [...] Problem Colon cancer screening (V76.51) Active confirmed [id number] Problem Abdominal pain, left lower quadrant (789.04) Active confirmed [id number] PLAN OF TREATMENT Future Test Test Name Order Date COLONOSCOPY 03/13/2015 Insurance Providers Payer Name Payer Address Payer Phone Subscriber Number Group Number Insured Name Patient Relationship to Insured Coverage Start Date Coverage End Date MEDICARE OF [place] [address] [place] [address] [id number] SANA JARA Self - patient is the insured PGBA DO NOT USE DO NOT USE [facility] CLAIMS USE [place] [address] [place] [phone] [id number] SANA JARA Self - patient is the insured MEDICAID OF [facility] [id number] [address] [place] [address] [id number] LYNN Self - patient is the insured MEDICAL (GENERAL) HISTORY Medical History History ICD Code kidney disease asthma Surgical History Surgery Date(Month/Year) varicose vein stripping tubal ligation
--- OUTSIDE RECORDS SUMMARY | 2024-11-16 13:50 | XMS_ITS | Data Portability ---
Author Organization [place] [facility], All[facility] Address [address] [place] [id number] Assessment Encounter Date Assessment Date Assessment LastModified [...] previously normal 07/10, report reviewed today from [facility]. Given the history and the abnormal [...] result. Thank you. 2023 024 [email or web address] [facility], [address] [place], [address], 10/03/2024 08:33:03 neurologi jennifer surgeon referral - Referral for Intracran ial meningiom a. Thank you. 2023 024 [email or web address] [facility], [address] [place], [address], 10/09/2024 11:32:44 Procedures None recorded. Surgeries None recorded. Imaging CT, cervical spine, w/o contrast 2023 024 [email or web address] [facility], [address] [facility], [address], [place], [address], 10/04/2024 13:42:30 MRI, brain + internal auditory canal, w/wo contrast - MRI, BRAIN + INTERNAL AUDITORY CANAL, W/WO CONTRAST 2023 024 [email or web address] [facility] ([facility]), [address] [place], [address], 08/17/2024 12:27:58 Medication Orders None recorded. Patient [...] contr ast No observ ation record ed. [facility]-[address] [place], [address], 07/24/2024 09:53:19 07/20/2007/10/2024 CT, head, w/o contr ast No observ ation record ed. [email or web address] Not Available 06/28 11:48:00 07/31/2007/27/2024 MRI, brain + brain stem, w/wo [facility] Access ion Number : [id number] Patien t Name: Jamie Wooda l Record Number : [id number] Date of : 1954 Date of Exam: 2023 Referr ing Physic johny: Libby n, Deirdr e [facility] ns [facility] [address] [facility] [address], [place] [address] Exam: MR Brain (C-/C+ ) CPT 22972 Room Descri ption: [place] Siem Verio 3.0T HISTOR Y: Balanc e [...] ce was obtain ed throug h the news internship al audito ry canals . Bilate [...] onical ly Signed By: Oxana ascencio MD [facility] ([facility]) [address] [facility], [place], [address], 08/01/2024 12:51:20 09/28/19 25 09/26/2024 CT, cervi jennifer spine , w/ contr ast No observ ation record ed. [email or web address] [facility] [address] [address], [place], [address], 10/04/2024 14:29:51 10/06/19 25 09/26/2024 CT, cervi jennifer spine , w/ contr ast No observ ation record ed. [email or web address] Not Available 2024 12:17:32 Result Notes None recorded. Problems Name Problem SNOMED Code Status Onset Date Resolution Date Notes Provider Name and Address Organization Details Recorded Time Sensorine ural hearing loss of bilateral ears 255172647 Active 2022 Sensorine ural hearing loss, bilateral ; Note: Date Diagnosed : 05/19/2023 10:09 AM (H90.3) Not Available [employer] 02:56:54 Tinnitus of left ear 81308232432 06 Active 2022 Tinnitus, left ear; Note: Date Diagnosed : 05/19/2023 10:52 AM (H93.12) Not Available [facility] 4 02:56:57 Sensorine ural hearing loss 10949241 Active 2023 MAYRADIANA JOHNSONDEMETRIUS OROURKE [address], [place], [place], [address] , [place] - [facility] 4 13:14:51 Bilateral tinnitus 93698901511 02 Active 2023 OSVALDO HENRIQUEZ PA-C [address] [facility] [address], [place], [place], [address] , [place] - [facility] 4 13:49:24 Vertigo 980490891 Active 2023 OSVALDO HENRIQUEZ PA-C [address], [place], [place], [address] , [place] - [facility] 4 15:30:47 Intracran ial meningiom a 033611747 Active 2023 OSVALDO HENRIQUEZ PA-C [address] [facility] [address], [place], [place], [address] , [place] - [facility] 4 15:17:34 Arachnoid cyst 15757414 Active 2023 OSVALDO HENRIQUEZ PA-C [address] [facility] [address], [place], [place], [address] , [place] - [facility] 4 15:17:39 Periphera l vertigo 44894064 Active 2023 OSVALDO HENRIQUEZ PA-C [address] [facility] [address], [place], [place], [address] , [place] - [facility] 4 15:30:13 Benign neoplasm of meninges 803458888 Active 2023 Cinthia spaulding [place] - [facility] 4 14:24:58 Problem Notes None recorded. Procedures Surgical History Date Name Laterality Status Provider Name and Address Organization Details Recorded Time 05/01/2024 Air & Speech Audio with Tymps (89765, 99054 & 82137) completed MAYRA GUERRA, AUD [address] [facility] [address], [place], [address], [facility] - [facility] 05/01/2024 13:14:45 Imaging Results Imaging Date Name [...] CT, head + brain, w/o contrast completed [facility] [address] [place], [address], 07/24/2024 09:53:19 07/10/2024 CT, head, w/o contrast completed [email or web address] Information not available 07/20/2024 11:48:00 07/27/2024 MRI, brain + brain stem, w/wo contrast completed [facility] ([facility]) [address] [place], [address], 08/01/2024 12:51:20 09/26/2024 CT, cervical spine, w/ contrast completed [email or web address] [facility] [address] [facility] [address], [place], [address], 10/04/2024 14:29:51 09/26/2024 CT, cervical spine, w/ [...] ion aerosol inhaler active Medicatio n ID: [id number] Br and Name: Ventolin HFA Send Method: E-Prescri bed Subs Allowed: subs OK Medica tionGener icName: Ventolin HFA Not Available Not Available Not Available neomycin-p olymyxin-h ydrocort 3.5 mg-10,000 unit/mL-1 % ear drops,susp 2 DROP(S) EARS (BOTH) 4XDAILY,X 5 DAY(S) active Not Available Not Available No t Available cholecalci ferol (vitamin D3) 50 mcg (2,000 unit) capsule active Medicatio n ID: [id number] Br and Name: cholecalc iferol (vitamin D3) Send Method: E-Prescri bed Subs Allowed: subs OK Specia l Instructi on: TAKE 1 CAPSULE BY MOUTH EVERY DAY Medic ationGene ricName: cholecalc iferol (vitamin D3) Not Available Not Available Not Available Gavilax 17 gram/dose oral powder MIX AND TAKE ONCE DIRECTED BY [facility]OENT EROLOGY DEPARTMEN T AT [facility] active Not Available Not Available No t Available Vitals Date Recorded Body height Body mass index (BMI) Body weight Provider Name and Address Organization Details Last Updated DateTime 07/20/2024 167.64 cm 31 kg/m2 74696.74 g Caryn Koenig [place] - [facility] 07/20/2024 10:36:41 Date Recorded Body height Body mass index (BMI) Body weight Provider Name and Address Organization Details Last Updated DateTime 09/11/2024 167.64 cm 31 kg/m2 27510.74 g Jasson Morrell [place] - [facility] 09/11/2024 15:13:19 Social History None recorded. Functional Status None recorded. Mental Status None recorded. Family History Nothing Reported. Medical History No medical history recorded. Gynecological HistoryNo gynecological history recorded. Obstetrics History GPAL:G 0 P 0 0 0 0 Past Encounters Encounter ID Performer Location Encounter Start Date Encounter Closed Date Diagnosis/Indication Diagnosis SNOMED-CT Code Diagnosis ICD10 Code Diagnosis Note [id number] NOLAN SANCHEZ MD [facility] [address] [address] 05/01/2024 12:44:59 05/01/2024 13:51:33 Sensorineural hearing loss of bilateral ears 001529542 H90.3 Bilateral tinnitus 70919 08850 102 H93.13 [id number] DEMETRIUS LANCE [facility] [address] [address] 05/01/2024 13:14:02 05/01/2024 16:59:39 Sensorineural hearing loss 33057784 H90.5 Audiologic al evaluation results: Right ear: [...] Cou ld not maintain a hermetic seal}} [id number] HODAN SHAH MD [facility] [address] [address] 07/20/2024 10:08:55 07/20/2024 11:42:51 Vertigo 536212629 R42 Sensorineu ral hearing loss of bilateral ears 079675782 H90.3 Tinnitus of left ear 935 9143991 106 H93.12 [id number] BREANA KATZ MD [facility] [address] [place] [address] 09/11/2024 15:03:39 09/11/2024 16:45:46 Intracranial meningioma 152279493 D32.0 Arachnoid cyst 59659647 G93.0 Peripheral vertigo 55864 001 H81.399 Health Concerns Section Related Observation LastModified by Organization Detai ls LastModified Time None Recorded Concern Status LastModified by Organization Details LastModified Time None Recorded Advance Directives Directive None Recorded Payers Encounter Date Sequence Insurance Name Policy Number Policy Ghosh Covered Member ID Ghosh Member ID Guarantor Name 05/01/2024 1 [place] [employer] Marguerite Zamora [id number] [facility] 05/01/2024 2 [place] [facility] Marguerite Zamora [id number] [facility] 05/01/2024 1 [place] [employer] Marguerite Zamora [id number] [facility] 05/01/2024 2 [place] [facility] Marguerite Zamora [id number] [facility] 07/20/2024 1 [place] [employer] Marguerite Zamora [id number] [facility] 07/20/2024 2 [place] [facility] Marguerite Zamora [id number] [facility] 09/11/2024 1 [place] [employer] Marguerite Zamora [id number] [facility] 09/11/2024 2 [place] [facility] Marguerite Zamora [id number] Marguerite Mccall Notes Date Note Type Note Provider Name and Address Organization Details Recorded Time 05/01/2024 text/html Audiological Evaluation HPIReported bypatient.Hearing loss perceived:both ears: left ear worse DEMETRIUS LANCE [address] [facility],[address], [address], [place] - [facility] 05/01/2024 13:17:43 05/01/2024 text/html 69 year old [...] aids, updated last April. Got them in [place] NOLAN SANCHEZ MD [address] [facility],[address] [address], [place], [address], [facility] 05/01/2024 17:14:01 07/20/2024 text/html 69 year old [...] or occur while seated. Has been to [facility] three times in the past 2 weeks [...] provide very good benefit. HODAN SHAH MD [address] [place] [address], [phone], [facility] 07/20/2024 17:31:12 09/11/2024 text/html 69 year old [...] is no associated tinnitus. BREANA KATZ MD [address] [place] [address],[address], [address], [facility] 09/12/2024 10:20:53 OBGyn Episode No OBEpisode recorded.
--- OUTSIDE RECORDS SUMMARY | 2024-11-16 13:50 | XMS_ITS | Encounter Summary ---
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
== END 2024-11-16 13:58 | disposition home or self-care (01) ==
PROVIDERS: PCP Internal Medicine; Visit Provider Internal Medicine
DX: Z09 Encounter for follow-up examination after completed treatment for conditions other than malignant neoplasm (principal); R42 Dizziness and giddiness; D32.9 Benign neoplasm of meninges, unspecified; R11.2 Nausea with vomiting, unspecified

== ENCOUNTER → 2024-11-16 12:56 | Outpatient (BNVA) | payer MEDICARE, MEDICAID, SELFPAY | PROVIDERS: PCP Internal Medicine; Visit Provider Internal Medicine | DX: Z09 Encounter for follow-up examination after completed treatment for conditions other than malignant neoplasm (principal); R42 Dizziness and giddiness; D32.9 Benign neoplasm of meninges, unspecified; R11.2 Nausea with vomiting, unspecified | CPT/HCPCS: 96127; 99212 ==

== ENCOUNTER 2025-04-20 08:16 | Outpatient (REF) | payer MEDICARE, OTHER, MEDICAID, SELFPAY ==
--- OUTSIDE RECORDS SUMMARY | 2025-04-20 08:22 | XMS_ITS | Data Portability ---
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 Not available 05/01/2024 13:14:20 07/20/2024 07/20/2024 69 [...] previously normal 07/10, report reviewed today from [facility]. Given the history and the abnormal [...] in 6 months. 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 We went over the M ni re's disease brochure in detail and discussed triggers including sodium intake, caffeine intake, and stress. I recommended low-sodium diet of less than 2000 mg a day. I recommended complete caffeine cessation. We discussed preventative treatment in the form of daily use of triamterene/hydr ochlorothiazide. She wants to proceed with this so I sent this to her pharmacy. I will see her back in 3 months for reevaluation and hearing testing, as with treatment of M ni re's disease there can be improvement in the hearing as a result. In the meantime I given her a copy of today's audiogram to bring to her emergency specialist at [facility] audiology to ensure that her hearing aids are adjusted to match her current level of hearing loss. [email or web address] Not available 02/05/2025 11:17:28 02/05/2025 02/05/2025 Follow up with referring provider. Not available 02/05/2025 10:29:41 Plan of Treatment Reminders Order Date Submit Date Provider Last Modified By Organization Details Last Modified Time Details Appointments Hearing Test 2024 01:00P M Hearing Test Not available Not available Not available Establish ed 10 2024 01:30P M HODAN SHAH MD Not available Not available Not available Lab None recorded. Referral spine center referral - Referral for Periphera l vertigo. CT of cervical spine pending result. Thank you. 2023 024 [email or web address] [facility], [address] [place], [address], 10/03/2024 08:33:03 neurologi jennifer surgeon referral - Referral for Intracran ial meningiom a. Thank you. 2023 024 [email or web address] [facility] Scheduling, [address] [place], [address], 10/09/2024 11:32:44 Procedures None recorded. Surgeries None recorded. Imaging CT, cervical spine, w/o contrast 2023 024 [email or web address] [facility] [place], [address], [address], [place], [address], 10/04/2024 13:42:30 MRI, brain + internal auditory canal, w/wo contrast - MRI, BRAIN + INTERNAL AUDITORY CANAL, W/WO CONTRAST 2023 024 [email or web address] [facility] ([facility]), [address], [place], [address], 08/17/2024 12:27:58 Medication Orders triamtere ne 37.5 mg-hydroc hlorothia zide 25 mg tablet 2024 025 [id number], [address] [facility], [place], [address], 02/05/2025 11:14:05 Patient TargetsNo targets recorded. Patient InstructionsNo instructions recorded. Reason for Referral Neurological Surgeon Referra l for Intracranial meningioma Referral for Intracranial meningioma. Thank you. Referring Physician: Osvaldo Henriquez Otolaryngology, Encounter Date: 09/11/2024 Spine Center Referral for Pe ripheral vertigo Referral for Peripheral vertigo. CT of cervical spine pending result. Thank you. Referring Physician: Osvaldo Henriquez Otolaryngology, Encounter Date: 09/11/2024 Results Created Date Observation Date Name Description Value Unit Range Abnormal Flag Note LastModifiedBy Organization Detail LastModifiedTime 05/01/20 24 audio gram No observ ation record ed. BARCODE Not Available 2023 15:32:07 05/02/20 24 audio gram No observ ation record ed. [...] contr ast No observ ation record ed. [facility] [address] [facility], [place], [address], 07/24/2024 09:53:19 07/20/2007/10/2024 CT, head, w/o contr ast No observ ation record ed. [email or web address] Not Available 06/28 11:48:00 07/31/2007/27/2024 MRI, brain + brain stem, w/wo contr ast [facility] [place] [facility] Access ion Number : [id number] Javier mello Name: Jamie Wood ia Medica l Record Number : [id number] Date of : 1954 Date of Exam: 2023 Referr ing Physic johny: Ketche n, Deirdr e ENT Surgeo ns [facility] [address] [facility] [address] [address] Exam: MR Brain (C-/C+ ) CPT 38379 Room Descri ption: [facility] 3.0T HISTOR Y: Balanc e issues . [...] ce was obtain ed throug h the internet marketing director al audito ry canals . Bilate ral [...] onical ly Signed By: Oxana ascencio MD [facility] ([facility]) [address], [place], [address], 08/01/2024 12:51:20 09/28/1909/26/2024 CT, cervi jennifer spine , w/ contr ast No observ ation record ed. [facility] [place] [address] [facility] [address], [place], [address], 10/04/2024 14:29:51 10/06/19 25 09/26/2024 CT, cervi jennifer spine , w/ contr ast No observ ation record ed. [email or web address] Not Available 2024 12:17:32 02/06/20 audio gram No observ ation record ed. BARCODE Not Available 2024 15:52:35 Result Notes Documentation Provider Name and Address Organization Details Recorded Time Mri, Brain + Brain Stem, W/wo Contrast : [facility] Accession Number: [id number] Patient Name: Marguerite Mccall Date of : 1955 Date of Exam: 07-27-2024 Referring Physician: Osvaldo Henriquez [facility] [address] [address] Exam: MR Brain (C-/C+) CPT 22521 Room Description: [facility] 3.0T HISTORY: Balance issues. Dizziness. TECHNIQUE: Multiplanar, multisequence MRI of the brain was performed before and after the uneventful administration of 19 mL Dotarem intravenous contrast. COMPARISON: CT head, 10/22/2019. FINDINGS: This exam is mildly degraded by motion. BRAIN and EXTRA-AXIAL SPACES: The ventricles and sulci are normal in size. Mildly enlarged empty sella is noted. A few scattered foci of T2 prolongation are seen in the deep and subcortical white matter bilaterally. However, there is no evidence of restricted diffusion to suggest acute infarction. The brainstem and cerebellum are normal. There is no hemorrhage, midline shift, or mass effect. There is no extra-axial collection. Flow voids are preserved in the dominant intracranial vessels. Asymmetric CSF signal is seen within the medial aspect of the right cavernous sinus measuring about 1.2 x 0.6 cm. Thin axial sequence was obtained through the internal auditory canals. Bilateral 7th and 8th nerves are symmetric and normal in caliber. There is no definite mass or abnormal enhancement in either IAC or CP angle cistern. Fluid signal is preserved in the membranous labyrinth structures. There is a 6 x 5 mm dural based enhancing nodule along the right anterior superior falx (series 11, image 44) consistent with tiny meningioma. No other areas of abnormal enhancement are seen in the brain or meninges. EXTRACRANIAL SOFT TISSUES: Sinuses and mastoids are clear. Orbits are grossly unremarkable. BONES: Bone marrow signal is normal. IMPRESSION: 1. No evidence of acute/subacute infarction. No retrocochlear lesion. 2. 6 mm meningioma along the right anterior falx, of doubtful clinical significance. 3. Asymmetric CSF signal is seen in the right cavernous sinus, which may represent a small arachnoid cyst. 4. Mild T2 signal abnormality is seen in the supratentorial white matter, nonspecific though most likely related to mild chronic microvascular ischemic change. Electronically Signed By: Oxana HENRIQUEZ PA-C [address] [facility],[place] [address], [place], [address], [facility] - [facility] 08/01/2024 12:51:20 Problems Name Problem SNOMED Code Status Onset Date Resolution Date Notes Provider Name and Address Organization Details Recorded Time Sensorine ural hearing loss of bilateral ears 288326144 Active 2022 Sensorine ural hearing loss, bilateral ; Note: Date Diagnosed : 05/19/2023 10:09 AM (H90.3) Not Available [facility] 4 02:56:54 Tinnitus of left ear 99307427604 06 Active 2022 Tinnitus, left ear; Note: Date Diagnosed : 05/19/2023 10:52 AM (H93.12) Not Available [facility] 4 02:56:57 Bilateral tinnitus 11260695249 02 Active 2023 OSVALDO HENRIQUEZ PA-C [address] [facility] [place] [address], [place], [address] , [facility] - [facility] 4 13:49:24 Vertigo 251017978 Active 2023 OSVALDO HENRIQUEZ PA-C [address] [place],[address] [facility], [place], [address] , [place] - [facility] 4 15:30:47 Intracran ial meningiom a 431755078 Active 2023 OSVALDO HENRIQUEZ PA-C [address] [place] [address], [place], [address] , [place] - [facility] 4 15:17:34 Arachnoid cyst 80002732 Active 2023 OSVALDO HENRIQUEZ PA-C [address] [place] [address], [place], [address] , [place] - [facility] 4 15:17:39 Periphera l vertigo 44219055 Active 2023 OSVALDO HENRIQUEZ PA-C [address] [place] [address], [facility] [place] [place], [address] , [place] - [facility] 4 15:30:13 Benign neoplasm of meninges 328448187 Active 2023 Cinthia spaulding, [place] - [facility] 4 14:24:58 Active M ni re's disease 48683525 Active 2024 HODAN SHAH MD [address] [place] [address], [place], [address] , [place] - [facility] 5 11:11:25 Problem Notes None recorded. Procedures Surgical History Date Name Laterality Status Provider Name and Address Organization Details Recorded Time 02/05/2025 Comp Audio with Tymps - 01265 & 06572 completed DEMETRIUS LANCE [address] [place] [address], [address], [place] - [facility] 02/05/2025 10:29:41 05/01/2024 Air & Speech Audio with Tymps - 39746, 29610 & [address] completed DEMETRIUS LANCE [address] [place] [address],[address], [address], [place] - [facility] 05/01/2024 13:14:45 Imaging Results None recorded. Procedure Notes None recorded. Medical Equipment None Reported. Allergies Allergen ID Allergen Name Allergen Category Reaction Reaction Severity Criticality Documentation Date Start Date Code Code System Note Provider Name and Address Organization Details Recorded Time 092808 ethinyl estradiol / levonorge strel medicatio n Not available Not available Not available 02/05/2025 34769 8 RxNorm Yara spaulding [place] - [facility] 5 10:16:56 Medications Name Sig Start Date Stop Date Status Note LastModified by Organization Details LastModified Time amoxicill in 500 mg capsule TAKE 1 CAPSULE BY MOUTH THREE TIMES A DAY FOR 5 DAYS UNTIL FINISHED 02/05 completed Not Available Not Available Not Available meclizine 50 mg tablet TAKE 1 TABLET BY MOUTH EVERY 6 HOURS NEEDED DIZZINES S 02/05 completed Not Available Not Available Not Available meclizine 12.5 mg tablet TAKE 1 TABLET BY MOUTH 3 TIMES A DAY NEEDED FOR DIZZINES S 02/05 completed Not Available Not Available Not Available sulfameth oxazole 800 mg-trimet hoprim 160 mg tablet TAKE 1 TABLET BY MOUTH TWICE A DAY FOR 3 DAYS 02/05 completed Not Available Not Available Not Available meclizine 25 mg tablet TAKE 1 TABLET BY MOUTH THREE TIMES A DAY NEEDED FOR DIZZINES S active Not Available Not Available No t Available polymyxin B sulfate 10,000 unit-trim ethoprim 1 mg/mL eye drops 1 DROP(S) EYES (BOTH) EVERY 8 HOURS (INTERVA L),X5 DAY(S) 02/05 completed Not Available Not Available Not Available triamtere ne 37.5 mg-hydroc hlorothia zide 25 mg tablet TAKE 1 TABLET BY MOUTH EVERY DAY active Not Available Not Available No t Available ondansetr on 4 mg disintegr ating tablet DISSOLVE 1 TABLET ORALLY EVERY 6 TO 8 HOURS NEEDED FOR NAUSEA AND VOMITING active Not Available Not Available No t Available Ventolin HFA 90 mcg/actua tion aerosol inhaler 02/05 completed Medicati on ID: [id number] B rand Name: Ventolin HFA Send Method: E-Prescr ibed Sub s Allowed: subs OK Medic ationGen ericName : Ventolin HFA Not Available Not Available Not Available neomycin- polymyxin -hydrocor t 3.5 mg-10,000 unit/mL-1 % ear drops,krystyna p 2 DROP(S) EARS (BOTH) 4XDAILY, X5 DAY(S) 02/05 completed Not Available Not Available Not Available Laxative (bisacody l) 5 mg tablet,de layed release TAKE 4 TABS AT NOON THE DAY BEFORE YOUR COLONOSC OPY 02/05 completed Not Available Not Available Not Available cholecalc iferol (vitamin D3) 50 mcg (2,000 unit) capsule 02/05 completed Medicati on ID: [id number] B rand Name: cholecal ciferol (vitamin D3) Send Method: E-Prescr ibed Sub s Allowed: subs OK Speci al Instruct ion: TAKE 1 CAPSULE BY MOUTH EVERY DAY Medi cationGe nericNam e: cholecal ciferol (vitamin D3) Not Available Not Available Not Available Gavilax 17 gram/dose oral powder MIX AND TAKE ONCE DIRECTED BY GASTROEN TEROLOGY DEPARTME NT AT [facility] 02/05 completed Not Available Not Available Not Available Vitals Date Recorded Body height Provider Name an d Address Organization Details Last Updated DateTime 02/05/2025 167.64 cm Yara Beckford [place] - [facility] 02/05/2025 10:16:49 Date Recorded Body height Body mass index (BMI) Body weight Provider Name and Address Organization Details Last Updated DateTime 07/20/2024 167.64 cm 31 kg/m2 99503.74 g Caryn Koenig [place] - [facility] 07/20/2024 10:36:41 Date Recorded Body height Body mass index (BMI) Body weight Provider Name and Address Organization Details Last Updated DateTime 09/11/2024 167.64 cm 31 kg/m2 77750.74 g Jasson Morrell [place] - [facility] 09/11/2024 15:13:19 Social History Question Answer Notes LastModified by Organizat ion Details LastModified Time Tobacco Smoking Status Never Smoker Yara spaulding [place] - [facility] 02/05/2025 10:17:26 What Type Of Telephone Clerk Do You Use? None [email or web address] Information not available 02/05/2025 Do You Have Any Pets? No Information not available 02/05/2025 Are You Passively Exposed To Smoke? No [email or web address] Information not available 02/05/2025 Are There Any Smokers In Your House? No [email or web address] Information not available 02/05/2025 Sex: Unknown Functional Status Question Answer Note LastModified by Organization Details LastModified Time Do you use any illicit or recreational drugs? No [email or web address] Information not available 02/05/2025 Do you or have you ever used any other forms of tobacco or nicotine? No Information not available 02/05/2025 What is your level of alcohol consumption? None [email or web address] Information not available 02/05/2025 What type of noise exposure are you exposed to? noExposureToExcessiveNoise [email or web address] Infor mation not available 02/05/2025 Mental Status None recorded. Family History Nothing Reported. Medical History Condition Response Allergies/Hayfever Y Heart Problems N Anxiety N Tonsil Infections N Emphysema N Migraines N Thyroid Problems N Developmental Delay N Glaucoma N Depression N COPD N Nasal or Sinus Problems N Anemia N Immune System Disorder N Anesthesia Complications N Heart Attack (MD) N Other Skin Condition N Diabetes N Rhinitis N Bleeding Disorder N Food Allergy N Arthritis Y Hearing Loss Y Hyperlipidemia N Cancer N Stroke N Dementia N Nasal polyps N Asthma Y High Cholesterol N Sleep Disorder Y GERD/Reflux N Liver Disease N Fibromyalgia N Hypertension N Speech Delay N Kidney Disease N Gynecological HistoryNo gynecological history recorded. Obstetrics History GPAL:G 0 P 0 0 0 0 Past Encounters Encounter ID Performer Location Encounter Start Date Encounter Closed Date Diagnosis/Indication Diagnosis SNOMED-CT Code Diagnosis ICD10 Code Diagnosis Note [id number] OSVALDO HENRIQUEZ PA-C [facility] [address] [address] 05/01/2024 12:44:59 05/01/2024 13:51:33 Sensorineural hearing loss of bilateral ears 434037267 H90.3 Bilateral tinnitus 95266 39826 102 H93.13 [id number] DEMETRIUS LANCE [facility] [address] [address] 05/01/2024 13:14:02 05/01/2024 16:59:39 Sensorineural hearing loss 33660015 H90.5 Audiologic al evaluation results: Right ear: Normal sloping to mild sensorineu ral hearing loss with good word recognitio n. Left ear: Moderate to profound sensorineu ral hearing loss with poor word recognitio n. Tympanomet ry: Right Ear:Type A Left Ear:Type A [id number] OSVALDO HENRIQUEZ PA-C [facility] [address] [address] 07/20/2024 10:08:55 07/20/2024 11:42:51 Vertigo 959640091 R42 Sensorineu ral hearing loss of bilateral ears 992751365 H90.3 Tinnitus of left ear 746 4494971 106 H93.12 [id number] OSVALDO HENRIQUEZ PA-C [facility] [address] [address] 09/11/2024 15:03:39 09/11/2024 16:45:46 Intracranial meningioma 019594320 D32.0 Arachnoid cyst 11230694 G93.0 Peripheral vertigo 88361 001 H81.399 [id number] HODAN SHAH MD [facility] [address] [address] 02/05/2025 09:56:18 02/05/2025 11:16:26 Active M ni re's disease 86980966 H81.02 Sensorineu ral hearing loss of bilateral ears 327506065 H90.3 [id number] DEMETRIUS LANCE [facility] [address] [address] 02/05/2025 10:29:19 02/05/2025 12:33:52 Sensorineural hearing loss of bilateral ears 567706974 H90.3 Audiologic al evaluation results:Ri ght ear:Normal sloping to moderate sensorineu ral hearing loss with excellent word recognitio n.Left ear:Severe to profound sensorineu ral hearing loss with poor word recognitio n.Tympanom etry:Right Ear:Type ALeft Ear:Type A Health Concerns Section Related Observation LastModified by Organization Detai ls LastModified Time None Recorded Concern Status LastModified by Organization Details LastModified Time None Recorded Advance Directives Directive None Recorded Payers Insurance Date Sequence Insurance Name Policy Number Policy Ghosh Covered Member ID Ghosh Member ID Guarantor Name 02/02/2025 1 [place] B[place] [employer] [employer] Marguerite Zamora [id number] Marguerite Mccall 02/02/2025 2 [place] [facility] Marguerite Zamora [id number] Marguerite Mccall 08/13/2024 2 UNSPECIFIED REMIT PAYOR Marguerite Mccall Notes Date Note Type Note Provider Name and Address Organization Details Recorded Time 05/01/2024 text/html Audiological Evaluation HPIReported by PatientHearing LossFor hearing loss perceived, patient reportshearing loss in both ears (left ear worse). DEMETRIUS LANCE [address], [address], [facility] 05/01/2024 13:17:43 05/01/2024 text/html ROS as noted in the HPI 69 year old female presents with spouse for evaluation of ears [...] aids, updated last April. Got them in Riley SANCHEZ MD [address], [address], [facility] 05/01/2024 17:14:01 07/20/2024 text/html ROS as noted in the HPI 69 year old female with history of asymmetric hearing loss affecting [...] or occur while seated. Has been to [facility] three times in the past 2 [...] provide very good benefit. HODAN SHAH MD [address] [place] [address],[address], [address], [facility] - [facility] 07/20/2024 17:31:12 09/11/2024 text/html ROS as noted in the HPI 69 year old female with history of dizziness presents for re-evaluation [...] no associated tinnitus. BREANA KATZ MD [address] [facility],[address], [address], [place] - [facility] 09/12/2024 10:20:53 02/05/2025 text/html Audiological Evaluation HPIReported by PatientHearing LossFor hearing loss perceived, patient reportshearing loss in both ears (left ear worse).Use of amplification or other hearing devicesFor use of amplification or other hearing devices, patient reportshearing aid (both ears). DEMETRIUS LANCE [address] [facility] [place] [address], [address], [place] - [facility] 02/05/2025 10:30:46 02/05/2025 text/html 70-year-old female previously evaluated by Osvaldo Henriquez PA-C for evaluation of episodic vertigo. Patient reports that vertigo will be preceded by a feeling of tension at the back of the neck with some pressure in the head and some increased sensitivity to light. MRI scan showed 6 mm meningioma. Patient was referred to [facility] for evaluation of neck pain. Imaging of the neck showed spondylitic changes and facet arthrosis which could be a cause of the neck pain. Injections offered but declined by patient. Subsequent MRI showed multilevel degenerative disc disease with foraminal narrowing, without canal stenosis or disc herniation. At her recent follow-up with the spine specialists in October, patient reported resolution of neck pain and vertigo. Patient did have physical therapy at [facility]. Patient saw Dr. Perez at [facility] last month at which point she had not had any episodes since early November. He felt patient's symptoms were consistent with left-sided M ni re's disease and recommended follow-up if symptoms recurred Patient has binaural amplification dispensed through [facility] audiology. Patient comes in today accompanied by her [id number] who is helping to translate Gambian and provide history. Patient reports that she had a string of exacerbation of balance disturbance back in October, but has been asymptomatic since then with regards to episodic dizziness. HODAN SHAH MD [address] [facility] [address], [place], [address], [place] - [facility] 02/05/2025 11:18:19 OBGyn Episode No OBEpisode recorded.
--- NOTE | 2025-04-20 10:29 | MHC.AU.HA3 ---
Hearing Instrument Follow-Up- Binaural Date of Visit: 04/20/25 Right Ear: Make, Model, Color, Serial Number: Ani Audeo L70-R SN: [id number] Color: Sand Beige [employer] Car Driver Repair Warranty: 09/07/2026 Racing Car Driver Loss and Damage Warranty: 09/07/2026 [facility] Service Plan: 08/09/2024 Battery Size: Rechargeable Crystal Slicer/Slim Tube: 1M Earmold/Dome/CShell/SlimTip:Small open dome (no retention tail) Type of Wax Guard: CeruShield Dispensed By: [facility] Date of Fittin08/09/23 Left Ear: Donn, Model, Color, Serial Number: Ani CROS L-R SN: [id number] Color: Sand Beige [employer] Car Driver Repair Warranty: 09/07/2026 Racing Car Driver Loss and Damage Warranty: 09/07/2026 [facility] Service Plan: 08/09/2024 Battery Size: Rechargeable Crystal Slicer/Slim Tube: 1C Earmold/Dome/CShell/SlimTip: Small open dome (no retention tail) Type of Wax Guard: CeruShield Dispensed By: [facility] Date of Fittin08/09/23 Follow-Up Summary: Marguerite is here with her . Had recent audio at ENT. No significant changes for right ear. Hearing aid adjustment not necessary. Marguerite reports feeling that she isn't getting anything from the left side. Cleaned and checked aid/cros. Cleaned hearing aids (2), ran through dehumidifier (2), replaced domes (2), [place] [address] 6 units. Listening check positive right. Not picking up any transmission from left. System sounds heard when left button is pushed. Then left . Put in our lead shipper and light was red. Marguerite reported both aid/cros solid green in lead shipper this morning. Sending left cros to [employer]. Recommendations: Recommendations: Patient will be contacted when materials have arrived. Recommendations (Other): Needs appt to make sure aid and cros are paired. Diagnosis Code(s): Primary Diagnosis: H90.3 Bilateral Sensorineural Hearing Loss Signature: Provider: Korey Sotelo, [facility]
== END 2025-04-20 08:17 | disposition home or self-care (01) ==
LOC: HO.HAP 08:16
PROVIDERS: PCP Internal Medicine; Visit Provider Otolaryngology
DX: Z46.1 Encounter for fitting and adjustment of hearing aid (principal); H90.3 Sensorineural hearing loss, bilateral
CPT/HCPCS: 92593; 99499

== ENCOUNTER 2025-04-30 10:44 | Outpatient (REF) | payer MEDICARE, OTHER, MEDICAID, SELFPAY ==
--- NOTE | ~2025-04-30 | US_ITS ---
CLINICAL HISTORY: D21.9 - Benign neoplasm of connective and other soft tissue, unspecified --- Additional Notes or Special Instructions: 6 month follow up for stability Ultrasound of the female pelvis Comparison: US/SR - US PELVIS TRANSABDOMINAL AND TRANSVAGINAL - 10/30/24 13:41 EST US/SR - US PELVIS TRANSABDOMINAL AND TRANSVAGINAL - 07/04/24 11:34 EDT Technique: Grayscale ultrasound with assistance of color Doppler. Transabdominal scanning performed for overall anatomy. Transvaginal scanning performed for better anatomic delineation. Findings: Retroverted and retroflexed uterus is enlarged for the age, measuring 9.8 x 5.2 x 6.3 cm, previously 8.5 x 5.6 x 6.2 cm. Heterogeneous myometrium, several fibroids are visualized: Intramural fundal fibroid 4.1 x 4.1 x 4.7 cm, previously 4.0 x 3.3 x 4.8 cm. Intramural fibroid in the anterior body 2.1 x 1.4 x 1.7 cm, previously 1.7 x 1.3 x 1.7 cm. Intramural fibroid in the right anterior body 1.0 x 1.3 x 1.2 cm, previously 1.4 x 1.3 x 1.1 cm. Endometrium is not well seen, grossly unremarkable, 5 mm in thickness. Unremarkable cervix, small nabothian cysts. Ovaries are not visualized, no adnexal mass seen. Small anechoic free fluid in the posterior cul-de-sac. Impression: 1. Enlarged uterus with fibroids, as detailed above. 2. Nonvisualization of ovaries. 3. Small free fluid in the pelvis. This document has been electronically signed by: Kenya Gr MD on 05/01/2025 10:50:08
--- OUTSIDE RECORDS SUMMARY | 2025-04-30 11:38 | XMS_ITS | Clinical Summary ---
Author Organization [employer] Address [address] [place] [address] [address] [place] [address] Care Team Providers Care Beater Out Leveling Machine Name Role Phone Unavailable Primary Care Provider [...] season) 2024 02/13/2021, 01/23/2021 Influenza Vaccine (#1) 2025 , 07/31/2019, 07/25/2018, Additional history exists DTaP/Tdap/Td [...] patient's age to complete this topic Meningococcal B Vaccine Aged Out No l onger eligible based on patient's age to complete this topic Meningococcal Vaccine Aged Out No nishi teena eligible based on patient's age to complete this topic RSV under 20 months Aged Out No longe r eligible based on patient's age to complete this topic Rotavirus Vaccines Aged Out No longer eligible based on patient's age to complete this topic Insurance [facility] MEDICAID STAND ADULT
== END 2025-04-30 10:45 | disposition home or self-care (01) ==
LOC: HO.US 10:44
PROVIDERS: PCP Internal Medicine; Visit Provider Advanced Practice Midwife
DX: D21.9 Benign neoplasm of connective and other soft tissue, unspecified (principal)
CPT/HCPCS: 76830; 76856

== ENCOUNTER → 2025-04-30 10:46 | Outpatient (BNV) | payer MEDICARE, OTHER, MEDICAID, SELFPAY | PROVIDERS: PCP Internal Medicine; Visit Provider Radiology Diagnostic Radiology | DX: D25.9 Leiomyoma of uterus, unspecified (principal); N85.2 Hypertrophy of uterus | CPT/HCPCS: 76830; 76856 ==

== ENCOUNTER 2025-05-07 14:10 | Outpatient (AMB) | payer MEDICARE, OTHER, MEDICAID, SELFPAY ==
--- NOTE | 2025-05-07 14:16 | A.OFFPC_ITS ---
Vital Signs 05/07/25 14:17 Height 5 ft 7 in Weight 208 lb 8 oz BMI 32.7 BP 120/68 Blood Pressure Location Lt brachial Position Sitting Respiration 18 Pulse 67 Pulse Source Pulse Oximeter Temp 97 F Temp Source Temporal Artery Scan Pulse Oximetry (%) 98 Oxygen Delivery Method Room Air Intake Visit Reasons: annual Public Relations Supervisor Required: No Accompanied by: Allergies latex Allergy (Intermediate, Verified 05/07/25 14:45) rash adhesive Allergy (Mild, Verified 05/07/25 14:45) Rash Medication List - Last Reconciled 05/07/25 by Janet Garcia MD cholecalciferol (vitamin D3) 50 mcg PO DAILY 90 days docosahexaenoic acid (Algal [place]-3 DHA) mg PO docusate sodium 100 mg PO BEDTIME meclizine 25 mg PO TID PRN 30 days meclizine 50 mg PO .every 6 hours PRN niacin ER 250 mg PO BEDTIME ondansetron 4 mg PO Q6-8H PRN Ventolin HFA 90 mcg/actuation (albuterol sulfate) 2 puffs inhalation Q6H PRN NS vitamin B comp and C no.3 (B Complex Plus Vitamin C) 1 cap PO DAILY vitamin K2 45 mcg PO DAILY wheat dextrin (Benefiber Clear Sugar Free(dextrin)) 1 packet PO DAILY Tobacco use date assessed: 05/07/25 Fall risk assessment: No Falls in past year Last assessed Fall Risk: 05/07/25 Dental Screening Dental Screen Date: 05/07/25 Did you have a dental visit in the last 12 months?: No Did you have a dental problem in the last 6 months where you did not have access to dental care?: No Was dental information given to patient?: Patient has dentist HPI HPI Comments History of Present Illness Details The patient is a 70-year-old female presenting for a physical examination. She received a pneumonia vaccine last year and a Tdap vaccine in 2016, with the next Tdap due in 2026. Her mammogram in June of last year was normal. A colonoscopy performed this year revealed a tubular adenoma, with the next colonoscopy scheduled for 2029. A Pap smear was conducted in 2021. A Dexascan performed in 2023 was normal, with the next one due in 2025. [facility] Medical History Pelvic pain Dysuria Diverticulosis Didelphic uterus Class 1 obesity with body mass index (BMI) of 33.0 to 33.9 in adult Mild persistent asthma Constipation by delayed colonic transit Tubular adenoma Impaired glucose tolerance Hypovitaminosis D Dyslipidemia Surgical History H/O colonoscopy History of biopsy History of tubal ligation Family History Father Stomach cancer Mother Diabetes Hypertension Stroke Brother Thyroid cancer CAD (coronary artery disease) Paternal Uncle CVD (cardiovascular disease) Social History Household Members: None Housing: Apartment Are you a primary care professionals to a significant other at home: No Do you presently have visiting nurse or other home services: No Alcohol intake: current Alcohol intake frequency: holidays/special occasions only Alcohol type: wine Patient Tobacco Use Status: Never used Tobacco e-Cigarette/Vaping Use: Never Used Second Hand Smoke Exposure: No service: No Current occupational status: disabled Cognitive needs: No Hearing needs: No Vision needs: Yes Female Reproductive History Menstrual Age of Menarche: 15 Date of menopause: 09/27/02 Questionnaire PHQ-9 Over the last 2 weeks, how often have you been bothered by any of the following problems? 1. Little interest or pleasure in doing things: not at all 2. Feeling down, depressed, or hopeless: not at all 3. Trouble falling or staying asleep, or sleeping too much: not at all 4. Feeling tired or having little energy: not at all 5. Poor appetite or overeating: not at all 6. Feeling bad about yourself - or that you are a failure or have let yourself or your family down: not at all 7. Trouble concentrating on things, such as reading the newspaper or watching television: not at all 8. Moving or speaking so slowly that other people could have noticed. Or the opposite - being so fidgety or restless that you have been moving around a lot more than usual: not at all 9. Thoughts that you would be better off or of hurting yourself in some way: not at all Total score: 0 Depression Screening Interpretation: Negative Depression Screening Done: Yes 49898 - PHQ-9 Billing: Yes Source: Developed by Drs. Alonso Sanon, Trish Cavanaugh, Vadim Mtz and colleagues, with an educational adarsh from [employer]. Thrive Questionnaire Date Thrive assessed: 05/07/25 I am a: Patient What is your living situation today?: I have a steady place to live Within the past 12 months, did the food you bought not last and you didn't have the money to get more?: Never true Within the past 12 months, did you worry whether your food would run out before you got money to buy more?: Never true Do you have trouble paying for medicines?: No Do you have trouble getting transportation to medical appointments?: No Do you have trouble paying your heating and electricity bill?: No Do you have trouble taking care of your child, family member or friend?: No Do you have trouble with day-to-day activities such as bathing, preparing meals, shopping, managing finances, etc.?: No Are you currently unemployed and looking for a job?: No Are you interested in more education?: No Please select the resources that you would like help with: None Currently or been in a relationship where the following occur: No concerns reported THRIVE Score: 0 AUDIT C Alcohol Use Questionnaire (AUDIT-C) 1. How often do you have a drink containing alcohol?: Monthly or less 2. How many drinks containing alcohol do you have on a typical day when you are drinking?: 1 or 2 Total Score: 1 Score Reviewed/Action Taken: No ANSELMO-7 AMB Questionnaire ANSELMO-7 Date ANSELMO - 7 assessed: 05/07/25 Feeling nervous, anxious, or on edge: 0 = Not at all Not being able to stop or control worryin = Not at all Worrying too much about different things: 0 = Not at all Trouble relaxin = Not at all Being so restless that it is hard to sit still: 0 = Not at all Becoming easily annoyed or irritable: 0 = Not at all Feeling afraid as if something awful might happen: 0 = Not at all Total ANSELMO-7 score (0-4 normal; 5-9 mild; 10-14 moderate; 15-21 severe): 0 Source: Developed by Drs. Alonso Sanon, Trish Cavanaugh, Vadim Mtz and colleagues, with an educational adarsh from [employer]. ANSELMO-7 Assessment Billing ANSELMO-7 Assessment Tool: ANSELMO-7 Assessment 86076 Review of Systems Const All systems reviewed & are unremarkable except as noted in HPI and below Card Denies chest pain at rest, Denies chest pain with activity, Denies edema, Denies irregular heart rhythm, Denies claudication, Denies dyspnea, Denies dyspnea on exertion, Denies orthopnea, Denies paroxysmal nocturnal dyspnea and Denies slow heart rate Resp Denies cough, Denies dyspnea and Denies dyspnea on exertion GI Denies abdominal pain, Denies change in bowel habits, Denies excessive flatus, Denies nausea and Denies vomiting Physical exam (Primary Care) Vital Signs: Last Vital Signs Temp 97 F 05/07/25 14:17 Pulse 67 05/07/25 14:17 Resp 18 05/07/25 14:17 BP 120/68 05/07/25 14:17 Pulse Ox 98 05/07/25 14:17 Oxygen Delivery Method Room Air 05/07/25 14:17 BMI result Body Mass Index 32.7 BMI Assessment/Plan discussion: High BMI High, discussed plan: lifestyle, weight reduction, dietary and physical activity Tobacco/Smoking Status: Tobacco use Status Tobacco use date assessed 05/07/25 05/07/25 14:24 Patient Tobacco Use Status Never used Tobacco 05/07/25 14:24 e-Cigarette/Vaping Use Never Used 05/07/25 14:24 PHQ-9: PHQ-9 Score PHQ-9: Total score 0 05/07/25 14:24 Depression Screening Interpretation: Negative Thrive Assessment: Date of Thrive Assessment Date Thrive assessed 05/07/25 05/07/25 14:24 Currently or been in a relationship where the following occur: No concerns reported HENMT Head: Yes normal to inspection, Yes normocephalic and Yes atraumatic Ears: external ears normal Eyes General: appearance normal, both eyes and all related structures Eyelids: Yes eyelids normal Conjunctivae: conjunctivae normal Neck Neck: Yes normal visual inspection and Yes supple Resp Effort & Inspection: normal respiratory effort Auscultation: clear to auscultation bilaterally Cardio Jugular venous distension: no JVD Rate: regular rate Rhythm: regular rhythm Heart sounds: S1 normal heart sound present and S2 normal heart sound present GI Inspection: Yes normal to inspection Palpation (GI): Soft to palpation and nontender Auscultation: normal bowel sounds Skin General skin exam: no rashes or lesions noted Neuro General: no focal motor deficits Extrem General: Yes full ROM Psych Appearance: grossly normal Coding Level of Care Code Est Pt Prev Care >65y(52465) Diagnoses Physical exam Z00.00 Additional Codes ANSELMO-7 Assessment Billing - ANSELMO-7 Assessment Tool: ANSELMO-7 Assessment 74288 ([id number]) PHQ-9 - 53627 - PHQ-9 Billing: Yes ([id number]) Time Spent (min) 30 Assessment & Plan Assessment & Plan (1) Physical exam: Code(s): Z00.00 - Encounter for general adult medical examination without abnormal findings Category: Medical Plan Repeat in a year. DEXA scan done 2025. Next colonoscopy 2029. Next Td vaccine 2026. Orders: Orders Lipid Panel Today E78.5 - Hyperlipidemia, unspecified Vitamin D 25-OH Total Today E55.9 - Vitamin D deficiency, unspecified Comprehensive [place]. Panel Fast Today E78.5 - Hyperlipidemia, unspecified
[2025-05-07 14:17] VITALS: BP 120/68; PULSE 67; RESP 18; TEMP 36.1; O2SAT 98; BMI 32.7
--- OUTSIDE RECORDS SUMMARY | 2025-05-07 14:41 | XMS_ITS | Clinical Summary ---
Author Organization [employer] Address [address] [place] [address] [address] [place] [address] Care Team Providers Care Chip Mixer Name Role Phone Unavailable Primary Care Provider [...] patient's age to complete this topic Insurance [facility] ST[facility]
== END 2025-05-07 15:00 | disposition home or self-care (01) ==
LOC: HO.HMCH 14:11
PROVIDERS: PCP Internal Medicine; Visit Provider Internal Medicine
DX: Z00.00 Encounter for general adult medical examination without abnormal findings (principal)

== ENCOUNTER → 2025-05-07 14:10 | Outpatient (BNVA) | payer MEDICARE, OTHER, MEDICAID, SELFPAY | PROVIDERS: PCP Internal Medicine; Visit Provider Internal Medicine | DX: Z00.00 Encounter for general adult medical examination without abnormal findings (principal); E78.5 Hyperlipidemia, unspecified; E55.9 Vitamin D deficiency, unspecified | CPT/HCPCS: 96127; 99397 ==

== ENCOUNTER 2025-05-14 14:05 | Outpatient (REF) | payer MEDICARE, OTHER, MEDICAID, SELFPAY ==
--- OUTSIDE RECORDS SUMMARY | 2025-05-14 14:52 | XMS_ITS | Clinical Summary ---
Author Organization [employer] Address [address] [place] [address] 7t [place] [address] Care Team Providers Care Director Data Processing Name Role Phone Unavailable Primary Care Provider [...] patient's age to complete this topic Insurance [facility] MEDICAID STAND ADULT
--- NOTE | 2025-05-14 16:21 | MHC.AU.HA3 ---
Hearing Instrument Follow-Up- Binaural Date of Visit: 05/14/25 Right Ear: Donn, Model, Color, Serial Number: Ani Audeo [id number] SN: [id number] Color: Sand Beige Assistant Film Editor Repair Warranty: 09/07/2026 Assistant Film Editor Loss and Damage Warranty: 09/07/2026 [facility] Service Plan: 08/09/2024 Battery Size: Rechargeable Cardiovascular Surgeon/Slim Tube: 1M Earmold/Dome/CShell/SlimTip:Small open dome (no retention tail) Type of Wax Guard: CeruShield Dispensed By: [facility] Date of Fittin08/09/23 Left Ear: Donn, Model, Color, Serial Number: Ani CROS [id number]-R SN: [id number] Color: Sand Beige Assistant Film Editor Repair Warranty: 09/07/2026 Assistant Film Editor Loss and Damage Warranty: 09/07/2026 [facility] Service Plan: 08/09/2024 Battery Size: Rechargeable Cardiovascular Surgeon/Slim Tube: 1C Earmold/Dome/CShell/SlimTip: Small open dome (no retention tail) Type of Wax Guard: CeruShield Dispensed By: [facility] Date of Fittin08/09/23 Follow-Up Summary: Dispensed repaired L CROS. Paired aids in [employer]. Listening check positive. Marguerite reports improvement. Recommendations: Recommendations: Hearing instrument follow-up or maintenance as needed. Diagnosis Code(s): Primary Diagnosis: H90.3 Bilateral Sensorineural Hearing Loss Signature: Provider: Korey Sotelo, [facility]
== END 2025-05-14 14:06 | disposition home or self-care (01) ==
LOC: HO.HAP 14:05
PROVIDERS: Visit Provider Internal Medicine
DX: Z46.1 Encounter for fitting and adjustment of hearing aid (principal); H90.3 Sensorineural hearing loss, bilateral
CPT/HCPCS: 92593

== ENCOUNTER 2025-05-16 10:35 | Outpatient (AMB) | payer MEDICARE, OTHER, MEDICAID, SELFPAY ==
--- NOTE | 2025-05-16 10:37 | MHC.OFFVIS ---
Intake Visit Reasons: ultrasound follow up Apprentice Painter Neckties Required: Yes Apprentice Painter Neckties Language: Telegraph Repeater Installer Name: Olga Bess Information Interpreted: non-clinical & clinical Billet Inspector: Billet Inspector Present Allergies latex Allergy (Intermediate, Verified 05/16/25 10:41) rash adhesive Allergy (Mild, Verified 05/16/25 10:41) Rash Is last menstrual period known: Yes HPI Comments Details: Patient is here today for a follow up pelvic ultrasound, history of fibroids. She denies any pelvic pain, pressure, bloating or VB. History of didelphys. [facility] Medical History Pelvic pain Dysuria Diverticulosis Didelphic uterus Class 1 obesity with body mass index (BMI) of 33.0 to 33.9 in adult Mild persistent asthma Constipation by delayed colonic transit Tubular adenoma Impaired glucose tolerance Hypovitaminosis D Dyslipidemia Surgical History H/O colonoscopy History of biopsy History of tubal ligation Family History Father Stomach cancer Mother Diabetes Hypertension Stroke Brother Thyroid cancer CAD (coronary artery disease) Paternal Uncle CVD (cardiovascular disease) Social History Household Members: None Housing: Apartment Are you a primary home care and home health aides teacher to a significant other at home: No Do you presently have visiting nurse or other home services: No Alcohol intake: current Alcohol intake frequency: holidays/special occasions only Alcohol type: wine Patient Tobacco Use Status: Never used Tobacco e-Cigarette/Vaping Use: Never Used Second Hand Smoke Exposure: No service: No Current occupational status: disabled Cognitive needs: No Hearing needs: No Vision needs: Yes Female Reproductive History Menstrual Age of Menarche: 15 Date of menopause: 09/27/02 Review of Systems Const All systems reviewed & are unremarkable except as noted in HPI and below Endo Reports no additional complaints Physical Exam Const General: cooperative, healthy appearing and no acute distress Psych Appearance: well kempt Attitude: cooperative Thought process: Normal thought process present Results Reviewed Results Reviewed: [address] [address] Ultrasound Report Signed Patient: Marguerite Enriquez MR#: [id number] : 1955 Acct:[id number] Age/Sex: 70 / F ADM Date: 04/30/25 Loc: HO.US Attending Dr: Caryn Alcantar CNM Ordering Physician: Caryn Alcantar CNM Date of Service: 04/30/25 Procedure(s): US pelvic and transvaginal Accession Number(s): [id number] cc: Caryn Alcantar CNM; Janet Islas MD~ CLINICAL HISTORY: D21.9 - Benign neoplasm of connective and other soft tissue, unspecified --- Additional Notes or Special Instructions: 6 month follow up for stability Ultrasound of the female pelvis Comparison: US/SR - US PELVIS TRANSABDOMINAL AND TRANSVAGINAL - 10/30/24 13:41 EST US/SR - US PELVIS TRANSABDOMINAL AND TRANSVAGINAL - 07/04/24 11:34 EDT Technique: Grayscale ultrasound with assistance of color Doppler. Transabdominal scanning performed for overall anatomy. Transvaginal scanning performed for better anatomic delineation. Findings: Retroverted and retroflexed uterus is enlarged for the age, measuring 9.8 x 5.2 x 6.3 cm, previously 8.5 x 5.6 x 6.2 cm. Heterogeneous myometrium, several fibroids are visualized: Intramural fundal fibroid 4.1 x 4.1 x 4.7 cm, previously 4.0 x 3.3 x 4.8 cm. Intramural fibroid in the anterior body 2.1 x 1.4 x 1.7 cm, previously 1.7 x 1.3 x 1.7 cm. Intramural fibroid in the right anterior body 1.0 x 1.3 x 1.2 cm, previously 1.4 x 1.3 x 1.1 cm. Endometrium is not well seen, grossly unremarkable, 5 mm in thickness. Unremarkable cervix, small nabothian cysts. Ovaries are not visualized, no adnexal mass seen. Small anechoic free fluid in the posterior cul-de-sac. Impression: 1. Enlarged uterus with fibroids, as detailed above. 2. Nonvisualization of ovaries. 3. Small free fluid in the pelvis. This document has been electronically signed by: Kenya Gr MD on 05/01/2025 10:50:08 Dictated By: Kenya Gr MD Signed By: <Electronically signed by Kenya Gr MD in OV> 05/01/25 1051 DD/ 1050 TD/TT: 05/01/25 1050 Lead Network Architect: Assessment & Plan Assessment & Plan (1) Fibroid: Code(s): D21.9 - Benign neoplasm of connective and other soft tissue, unspecified Category: Medical Plan Discussed: Impression: 1. Enlarged uterus with fibroids, as detailed above. 2. Nonvisualization of ovaries. 3. Small free fluid in the pelvis. Stable Fibroids. Endometrial thickness 5mm, <4 mm is considered normal for PM. Recommended to have a EMB to rule out any abnormal findings with tissue sampling for atypia, hyperplasia, precancer, or cancer. Patient wants all testing to make sure she is and remains healthy. Pre-procedure counseling for anticipatory guidance completed, advised to take 3 Advil with food and fluids 1 hour before her appointment time. Appointment to be scheduled before leaving the department. The patient expressed understanding and agreement with the plan of care. All of her questions and concerns were addressed to the best of my ability. This note is constructed using voice recognition software. While every effort has been made to ensure accuracy, farm supervisor errors may have been included. Coding Level of Care Code Est Pt Level 3 (57566) Diagnoses Fibroid D21.9
--- OUTSIDE RECORDS SUMMARY | 2025-05-16 11:54 | XMS_ITS | Patient Health Record ---
Author Organization [facility] Address [address] [place] [address] Care Team Providers Care Label Drier Name Role Phone Janet Islas Primary Care Provider Kolby Hansen Jr Unavailable Reason For Referral No Information Medications Medication SIG (Take, Route, Frequency, Duration) Notes Start Date End Date Status Vitamin D3 2400 UNIT/ML Active ProAir HFA 108 (90 Base) MCG/ACT 2 puffs as needed Inhalation every 4 hrs Active Colyte with Flavor Packs 240 GM As directed Orally Over the specified time. for 1 day(s) 03/13/2015 Active Problems Problem Type SNOMED Code ICD Code Onset Dates Problem Status W/U Status Risk Notes Problem 454222192 Abdominal pain, left lower quadrant (789.04) Active confirmed Problem 970536455 Colon cancer screening (V76.51) Active confirmed Plan Of Treatment Future Test Test Name Order Date COLONOSCOPY 03/13/2015 Insurance Providers Payer Name Payer Address Payer Phone Subscriber Number Group Number Insured Name Patient Relationship to Insured Coverage Start Date Coverage End Date MEDICARE OF [place] [address] [facility] [place] [address] [id number] SANA JARA Self - patient is the insured PGBA DO NOT USE DO NOT USE [facility] CLAIMS USE [facility] [address] [place] [address] [id number] SANA JARA Self - patient is the insured MEDICAID OF [facility] [address] [place] [address] [phone] [id number] SANA JARA Self - patient is the insured Medical (General) History Medical History History ICD Code kidney disease asthma Surgical History Surgery Date(Month/Year) varicose vein stripping tubal ligation
--- OUTSIDE RECORDS SUMMARY | 2025-05-16 11:54 | XMS_ITS | Clinical Summary ---
Author Organization [employer] Address [address] [place] [address] 7[address] [place] [address] Care Team Providers Care Pigment Furnace Tender Name Role Phone Unavailable Primary Care Provider [...] patient's age to complete this topic Insurance [facility] MEDICAID STAND ADULT
== END 2025-05-16 11:51 | disposition home or self-care (01) ==
LOC: HO.HWS 10:35
PROVIDERS: PCP Internal Medicine; Visit Provider Advanced Practice Midwife
DX: D21.9 Benign neoplasm of connective and other soft tissue, unspecified (principal)
CPT/HCPCS: 99213

== ENCOUNTER → 2025-05-16 10:35 | Outpatient (BNVA) | payer MEDICARE, OTHER, MEDICAID, SELFPAY | PROVIDERS: PCP Internal Medicine; Visit Provider Advanced Practice Midwife | DX: D21.9 Benign neoplasm of connective and other soft tissue, unspecified (principal) | CPT/HCPCS: 99212 ==

== ENCOUNTER 2025-05-24 09:30 | Outpatient (REF) | payer MEDICARE, OTHER, MEDICAID, SELFPAY | END 2025-05-24 09:31 | disposition home or self-care (01) | LOC: HO.LNP 09:30 | PROVIDERS: PCP Internal Medicine; Visit Provider Advanced Practice Midwife | DX: R93.89 Abnormal findings on diagnostic imaging of other specified body structures (principal) | CPT/HCPCS: 58100; 88305 ==

== ENCOUNTER 2025-05-24 09:30 | Outpatient (AMB) | payer MEDICARE, OTHER, MEDICAID, SELFPAY ==
--- NOTE | 2025-05-24 09:33 | MHC.OFFVIS ---
Vital Signs 05/24/25 09:38 Height 5 ft 7 in BP 124/76 Intake Visit Reasons: EMB/45 minutes Truck Trailer Final Inspector Required: Yes Truck Trailer Final Inspector Language: Office Manager Services: Truck Trailer Final Inspector Present Truck Trailer Final Inspector Name: Cordelia Information Interpreted: non-clinical & clinical Diplomatic Interpreter/Translator: Diplomatic Interpreter/Translator Present (Cordelia) Allergies latex Allergy (Intermediate, Verified 05/24/25 09:33) rash adhesive Allergy (Mild, Verified 05/24/25 09:33) Rash HPI Comments Details: Patient is here for an endometrial biopsy due to thickened endometrial lining on ultrasound. [facility] Medical History Pelvic pain Dysuria Diverticulosis Didelphic uterus Class 1 obesity with body mass index (BMI) of 33.0 to 33.9 in adult Mild persistent asthma Constipation by delayed colonic transit Tubular adenoma Impaired glucose tolerance Hypovitaminosis D Dyslipidemia Surgical History H/O colonoscopy History of biopsy History of tubal ligation Family History Father Stomach cancer Mother Diabetes Hypertension Stroke Brother Thyroid cancer CAD (coronary artery disease) Paternal Uncle CVD (cardiovascular disease) Social History Household Members: None Housing: Apartment Are you a primary daycare teacher to a significant other at home: No Do you presently have visiting nurse or other home services: No Alcohol intake: current Alcohol intake frequency: holidays/special occasions only Alcohol type: wine Patient Tobacco Use Status: Never used Tobacco e-Cigarette/Vaping Use: Never Used Second Hand Smoke Exposure: No service: No Current occupational status: disabled Cognitive needs: No Hearing needs: No Vision needs: Yes Female Reproductive History Menstrual Age of Menarche: 15 Date of menopause: 09/27/02 Review of Systems Const All systems reviewed & are unremarkable except as noted in HPI and below Physical Exam Vital Signs: Last Vital Signs BP 124/76 05/24/25 09:38 Const General: cooperative, healthy appearing and no acute distress Orientation/consciousness: patient oriented x3 GI Inspection: Yes normal to inspection Palpation (GI): Soft to palpation and Other GI palpation findings present (Nontender) Rectal Exam - Female: visual inspection normal General: Yes bladder normal to palpation External Female Exam: normal appearance of the urethra Speculum Exam - Vagina: normal appearance of the vagina, normal palpation, normal vaginal discharge and vagina atrophic Speculum Exam - Cervix: normal appearance of the cervix and normal palpation Bimanual exam- vagina & uterus: normal bimanual exam, normal palpation, uterine size normal, bladder normal to palpation, normal palpation, uterine shape normal and non-tender Bimanual Exam- Adnexa, other: normal adnexae Neuro General: patient oriented x3 Office Procedures Endometrial Biopsy Details: The patient is here today for an endometrial biopsy due to thickened endometrial lining to rule out any pathology including atypical, hyperplasia or cancer cells of the uterus. She was counseled regarding anticipatory guidance for the procedure including the risks for pain, infection, bleeding, perforation, potential injury to the tissues may include the cervix, uterus, tubes, bladder and bowels. These injuries may include further treatment and evaluation including surgery, blood transfusions, antibiotics, hospitalizations and anesthesia. Permanent injury and scarring can occur. She was consented for the procedure, and the consent forms were signed. She is agreeable to have the procedure today. All questions were answered. Endometrial Biopsy Procedure: The patient was placed in the dorsal lithotomy position and a sterile speculum inserted. Using aseptic technique for the procedure. The cervix was cleansed with Betadine x 3 swabs. A single toothed tenaculum was placed on the cervix for stabilization and the uterus was sounded to 7 cm with a 4mm pipelle, and tissue sample obtained. Minimal bleeding was observed. The tissue sample was placed in formalin in a patient labeled container by staff assisting and sent to the pathology department for processing and interpretation. The patient tolerate the procedure well and was in good condition when leaving the department. Endometrial Biopsy Post Procedure Care: Nothing in the vagina including: tampons, douching or intimacy until all the bleeding has subsided. There may be some post procedure bleeding for several days, this bleeding is usually light and may turn to a light brown or pink color. Mild cramps may occurs. Nothing in the vaginal including: tampons, douching, or intimacy until all the bleeding has subsided. You may take an over the counter mild analgesic such as Tylenol or Advil (if no allergies) per the manufactures recommendation on dosing, frequency, and follow the directions completely. Call the office if any: fever (over 100.4), flu like symptoms, abdominal pain (worse than cramping), foul smelling, infected appearing vaginal discharge, or heavy bleeding. If indicated: Use condoms to prevent and STI's, and only after the bleeding has stopped completely. Return to the office in 2 weeks for results and plan of care. This note is constructed using voice recognition software. While every effort has been made to ensure accuracy, milk wagon driver errors may have been included. 08938-[id number] Biopsy Assessment & Plan Assessment & Plan (1) Thickened endometrium: Code(s): R93.89 - Abnormal findings on diagnostic imaging of other specified body structures Plan Endometrial biopsy procedure completed. See procedure notes. This note is constructed using voice recognition software. While every effort has been made to ensure accuracy, milk wagon driver errors may have been included. Orders: Orders Surgical Today R93.89 - Abnormal findings on diagnostic imaging of other specified body structures Coding Level of Care Code Procedure Only Diagnoses Thickened endometrium R93.89 CPT Codes Endometrial Biopsy - CPT: 34422-Woqehjmygtv Biopsy ([id number])
[2025-05-24 09:38] VITALS: BP 124/76
--- OUTSIDE RECORDS SUMMARY | 2025-05-24 10:33 | XMS_ITS | Encounter Summary ---
Author Organization [employer] Address [address] [place] [address] Care Team Providers Care Veterinary Science Teacher Name Role Phone Unavailable Primary Care Provider Unavailabl e Encounter Details Date Type Department Care Team (Latest Contact Info) Description 06/05/2019 Abstract C CONVERSIONS Dental, Provider, DDS Social History Tobacco [...]
--- OUTSIDE RECORDS SUMMARY | 2025-05-24 10:33 | XMS_ITS | Clinical Summary ---
Author Organization [employer] Address [address] [place] [address] [address] [place] [address] Care Team Providers Care Furnace Liner Name Role Phone Unavailable Primary Care Provider [...] patient's age to complete this topic Insurance [facility] MEDICAID STAND ADULT
== END 2025-05-24 10:18 | disposition home or self-care (01) ==
LOC: HO.HWS 09:30
PROVIDERS: PCP Internal Medicine; Visit Provider Advanced Practice Midwife
DX: R93.89 Abnormal findings on diagnostic imaging of other specified body structures (principal)
CPT/HCPCS: 58100

== ENCOUNTER 2025-06-10 21:33 | Emergency (ER) | payer OTHER, SELFPAY ==
--- NOTE | 2025-06-10 | ECG_ITS ---
Test Reason : DIZZINES Blood Pressure : */* mmHG Vent. Rate : 60 BPM Atrial Rate : 60 BPM P-R Int : 160 ms QRS Dur : 84 ms QT Int : 438 ms P-R-T Axes : -7 -1 17 degrees QTcB Int : 438 ms Normal sinus rhythm Normal ECG When compared with ECG of 15-Nov-2024 18:28, No significant change was found Referred By: Generic ED Physician Electronically Signed By: TUTU GILL
[2025-06-10 22:15] VITALS: BP 133/62; PULSE 69; RESP 20; TEMP 36.4; O2SAT 100; BMI 28.7
[2025-06-10 22:41] LABS: MANUAL DIFF FLAG NO
[2025-06-10 22:42] LABS: Hematocrit 42.8 % (37.0-47.0); Hemoglobin 14.7 g/dl (12.0-16.0); Imm Gran Abs Auto 0.02 X10*3/uL (0.00-0.03); Imm Gran Pct Auto 0.3 % (0.0-0.4); Lymphocytes Absolute Auto 1.6 X10*3/uL (1.2-4.9); Mean Corpuscular HGB Conc 34.3 g/dl (31.0-35.0); Mean Corpuscular Hemoglobin 27.7 pg (27.0-33.0); Mean Corpuscular Volume 80.8 fL (80.0-98.0); NRBC Abs Auto 0.000 X10*3/uL (0.0-0.012); NRBC Pct Auto 0.0 /100WBC (0.0-0.2); Platelet Count 198 X10*3/uL (160-400); Red Blood Count 5.30 X10*6/uL (4.20-5.50); White Blood Count 6.7 X10*3/uL (4.8-10.8)
[2025-06-10 22:55] LABS: Alanine Aminotransferase 27 U/L (0-31); Albumin Level 4.5 g/dL (3.5-5.0); Alkaline Phosphatase 63 U/L (39-117); Anion Gap 16 (12-20); Aspartate Amino Transferase 30 U/L (5-31); Blood Urea Nitrogen 13 mg/dL (9-16); Calcium 9.7 mg/dL (8.4-10.2); Carbon Dioxide 23 mmol/L (22-29); Chloride 104 mmol/L (96-108); Creatinine Clr Calc Pharmacy 72.0; Estimated Glomerular Filt Rate > 60; Potassium 3.9 mmol/L (3.3-5.1); Sodium 139 mmol/L (135-145); Total Protein 7.9 g/dL (6.5-8.0)
[2025-06-10 23:08] LABS: Troponin-I High Sensitivity < 2.7 ng/L (<3.5-17.0)
--- OUTSIDE RECORDS SUMMARY | 2025-06-11 00:43 | XMS_ITS | Encounter Summary ---
Author Organization [employer] Address [address] [place] [address] Care Team Providers Care Marine Reporter Name Role Phone Unavailable Primary Care Provider [...]
--- OUTSIDE RECORDS SUMMARY | 2025-06-11 00:43 | XMS_ITS | Clinical Summary ---
Author Organization [employer] Address [address] [place] [address] [address] [place] [address] Care Team Providers Care Scarfing Machine Operator Name Role Phone Unavailable Primary Care [...] 01/27/2024 01/26/2023 COVID-19 Vaccine (3 - season) 2025 02/13/2021, 01/23/2021 Influenza Vaccine (#1) 2025 , [...] patient's age to complete this topic Insurance [facility] MEDICAID STAND ADULT
--- NOTE | 2025-06-11 01:23 | ED_ITS ---
HPI - Nausea/Vomiting/Diarrhea General Chief complaint: Dizziness Stated complaint: dizziness, vomiting Time Seen by Provider: 06/11/25 00:41 Source: patient Mode of arrival: ambulatory Limitations: language barrier History of Present Illness ED Provider: Dr. Tammy Silva HPI Narrative: 70-year-old female with a history of vertigo, meningioma and arachnoid cyst, hiatal hernia presenting with epigastric abdominal pain, nausea, vomiting ongoing for the last several days. Admits that she has been dealing with episodes of vertigo that have been more persistent over the last couple of weeks. States that she really has not gone a day without feeling dizzy and has had several episodes of vomiting in association with this dizziness. She admits that over the last 3 days she has been taking all of her anti nausea and anti vertigo medications without any relief of the vomiting. Tonight she vomited just after eating and came to the hospital for evaluation. No hematemesis. No bowel changes. No urinary complaints. Denies associated fever. Feels that her dizziness is close to baseline. She uses meclizine for it. Denies associated headaches or vision changes. Related Data Home Medications ?Medication ?Instructions ?Recorded ?Confirmed docosahexaenoic acid 200 mg mg PO 06/28/24 05/07/25 capsule (Algal Ward-3 DHA) vitamin B comp and C no.3 15 mg-10 1 cap PO DAILY 11/2005/07/25 mg-50 mg-5 mg-300 mg capsule (B Complex Plus Vitamin C) Previous Rx's ?Medication ?Instructions ?Recorded cholecalciferol (vitamin D3) 50 50 mcg PO DAILY 90 day s #90 caps 11/04/22 mcg (2,000 unit) capsule Ventolin HFA 90 mcg/actuation 2 puff inhalation Q6H VT N for 08/29/23 aerosol inhaler (albuterol sulfate) wheezing #18 ea omeprazole 20 mg capsule,delayed 20 mg PO DAILY #30 ca ps 06/11/25 release Allergies Allergy/AdvReac Type Severity Reaction Status Date / Time latex Allergy Intermediate rash Verified 06/10/25 22:22 adhesive Allergy Mild Rash Verified 06/10/25 22:22 Review of Systems 2 Review of Systems: As per HPI, full review of systems performed and negative but for the above mentioned pertinent positives and negatives. [facility] Past Medical History Medical History Pelvic pain Dysuria Diverticulosis Didelphic uterus Class 1 obesity with body mass index (BMI) of 33.0 to 33.9 in adult Mild persistent asthma Constipation by delayed colonic transit Tubular adenoma Impaired glucose tolerance Hypovitaminosis D Dyslipidemia Surgical History H/O colonoscopy History of biopsy History of tubal ligation Family History Family History Father Stomach cancer Mother Diabetes Hypertension Stroke Brother Thyroid cancer CAD (coronary artery disease) Paternal Uncle CVD (cardiovascular disease) Social History Social History Household Members: None Housing: Apartment Are you a primary career and transition teacher to a significant other at home: No Do you presently have visiting nurse or other home services: No Alcohol intake: current Alcohol intake frequency: holidays/special occasions only Alcohol type: wine Patient Tobacco Use Status: Never used Tobacco e-Cigarette/Vaping Use: Never Used Second Hand Smoke Exposure: No Advance Directives: No Advance Directives Information Provided: No service: No Current occupational status: disabled Cognitive needs: No Hearing needs: No Vision needs: Yes Physical Exam 2 Exam: Exam: GENERAL: Chronically-Appearing, appears uncomfortable. SKIN: Normal skin color for ethnicity, warm, dry, no rashes noted. HEENT: Normocephalic, atraumatic, no stridor, dry mucous membranes, dentition intact, EOMI, PERRLA. NECK: Soft, supple, full ROM, midline structures nontender, no step-offs, no deformities, no lymphadenopathy. CHEST: Heart regular rhythm, no murmurs, symmetric chest rise and fall. PULMONARY: Clear to auscultation bilaterally, diminished at the bases, no labored breathing, no wheezes/rhales/rhonchi. ABDOMINAL: Soft, nondistended, nontender, quiet bowel sounds in all quadrants. : Deferred. MUSCULOSKELETAL: Normal tone, full range of motion, no deformities, no peripheral edema. NEURO: Alert and oriented x3, CN II through XII intact, equal strength and sensation bilateral upper and lower extremities, no focal neurologic deficits. PSYCHIATRIC: Flat affect, fluid speech, good eye contact and appropriate demeanor. Vital Signs: Vital Signs: Last Vital Signs Temp 97.6 F 06/10/25 22:15 Pulse 69 06/10/25 22:15 Resp 20 06/10/25 22:15 BP 133/62 06/10/25 22:15 Pulse Ox 100 06/10/25 22:15 O2 Del Method Room Air 06/10/25 22:15 BMI result Body Mass Index 28.7 Medical Decision Making Medical Decision Making [facility] Narrative: Patient presents today with a chief complaint of vomiting. Differential diagnosis includes gastritis/peptic ulcer disease, surgical emergency such as obstruction or enteritis, as well as hyperglycemia, acidosis, food or drug ingestion, pancreatitis, CVA, allergic reaction such as anaphylaxis, cannabis hyperemesis syndrome or cyclic vomiting syndrome, among many others. Patient is not showing signs of acute dehydration or hemodynamic instability. They are having associated abdominal pain. Broad-based work-up was initiated based on above history and physical exam. Blood work today is reassuring. Patient reports her symptoms are totally resolved despite no treatment here in the emergency department. She did take Zofran and meclizine prior to coming to the hospital though. She is requesting discharge at this time. She has close outpatient follow-up. Using shared decision making, plan for discharge home to follow-up with primary care and/or specialist.? Patient understands and agrees with plan for discharge.? Discharged home in stable condition. Differential Diagnosis Differential Diagnoses: The differential diagnosis associated with the presentation includes (as above) Admission/Observation Consideration of admission/observation: Escalation of care including admission/observation considered Lab Data [facility] Lab Attestation statement: I reviewed the patient's lab results. 06/10/25 22:35 06/10/25 22:35 Labs: Lab Results 06/10/25 Range/Units 22:35 WBC 6.7 (4.8-10.8) X10*3/uL RBC 5.30 (4.20-5.50) X10*6/uL Hgb 14.7 (12.0-16.0) g/dl Hct 42.8 (37.0-47.0) % MCV 80.8 (80.0-98.0) fL MCH 27.7 (27.0-33.0) pg MCHC 34.3 (31.0-35.0) g/dl RDW 12.1 (11.0-16.0) % Plt Count 198 (160-400) X10*3/uL MPV 10.1 (9.4-12.3) fL Immature Gran % (Auto) 0.3 (0.0-0.4) % Neut % (Auto) 68.6 (45-73) % Lymph % (Auto) 23.7 (20-40) % Thomas % (Auto) 6.7 (2-11) % Eos % (Auto) 0.4 (0-4) % Baso % (Auto) 0.3 (0-2) % Lymph # (Auto) 1.6 (1.2-4.9) X10*3/uL Thomas # (Auto) 0.5 (0.1-1.2) X10*3/uL Eos # (Auto) 0.0 (0.0-0.4) X10*3/uL Baso # (Auto) 0.0 (0.0-0.2) X10*3/uL Abs Immat Gran (auto) 0.02 (0.00-0.03) X10*3/uL Absolute Neuts (auto) 4.6 (2.0-8.3) x10*3/uL Absolute Nucleated RBC 0.000 (0.0-0.012) X10*3/uL Nucleated RBC % (auto) 0.0 (0.0-0.2) /100WBC Sodium 139 (135-145) mmol/L Potassium 3.9 (3.3-5.1) mmol/L Chloride 104 (96-108) mmol/L Carbon Dioxide 23 (22-29) mmol/L Anion Gap 16 (12-20) BUN 13 (9-16) mg/dL Creatinine 0.80 (0.5-1.4) mg/dL Estim Creat Clear Calc 72.0 Estimated GFR > 60 Random Glucose 115 (60-115) mg/dL Calcium 9.7 (8.4-10.2) mg/dL Total Bilirubin 0.8 (0.0-1.0) mg/dL AST 30 (5-31) U/L ALT 27 (0-31) U/L Alkaline Phosphatase 63 (39-117) U/L Troponin I High Sens < 2.7 (<3.5-17.0) ng/L Total Protein 7.9 (6.5-8.0) g/dL Albumin 4.5 (3.5-5.0) g/dL Independent Interpretation I performed an independent interpretation of an: EKG Interpretation: My independent interpretation of the ECG reveals normal sinus rhythm with rate of 60, normal axis, normal intervals, no ST elevations or depressions to suggest ischemic changes, no previous for comparison External Record Review External record reviewed: Inpatient record Prescription Management I considered prescription management with: Other (Antacid) Chronic Conditions Patient?s care impacted by: Other (Vertigo) Discharge Plan Discharge Clinical Impression: Gastritis, Acute nausea with nonbilious vomiting, Vertigo Patient Disposition: Home, Self-Care Instructions: Gastritis (ED), Diet for Stomach Ulcers and Gastritis (ED) Additional Instructions: Follow up with the brand director as soon as possible. Return to the emergency department sooner if you develop any new or worsening symptoms including: Worsening abdominal pain, inability to tolerate food or drink, severe headaches with dizziness, fevers greater than 100?, any new symptom that concerns you. Call 911 with any medical emergency. Prescriptions: New omeprazole 20 mg capsule,delayed release(DR/EC) 20 mg PO DAILY Qty: 30 0RF No Action albuterol sulfate [Ventolin HFA] 90 mcg/actuation HFA aerosol inhaler 2 puff inhalation Q6H PRN (Reason: for wheezing) Qty: 18 2RF cholecalciferol (vitamin D3) 50 mcg (2,000 unit) capsule 50 mcg PO DAILY 90 Days Qty: 90 1RF B Complex Plus Vitamin C 62-26-91-5-300 mg capsule 1 cap PO DAILY Rx Instructions: give with food (meal/snack) Algal Ward-3 DHA 200 mg capsule PO Referrals: [facility] [Provider Group, Gastroenterology] Clinical Impression: Gastritis Print Language: Mongolian
[2025-06-11] MEDS: Magnesium Hydrox/Alum Hydrox 30 ML ORAL.SUSP PO (02:09)
[2025-06-11 02:13] VITALS: BP 140/58; PULSE 62; RESP 16; TEMP 36.6; O2SAT 95
== END 2025-06-11 02:13 | disposition home or self-care (01) ==
PROVIDERS: Emergency Provider Emergency Medicine; PCP Internal Medicine
DX: K29.70 Gastritis, unspecified, without bleeding (principal); R42 Dizziness and giddiness; R11.2 Nausea with vomiting, unspecified; Z79.899 Other long term (current) drug therapy
CPT/HCPCS: 36415; 80053; 84484; 85025; 93005; 99283

== ENCOUNTER → 2025-06-10 22:31 | Outpatient (BNV) | payer OTHER, SELFPAY | PROVIDERS: Emergency Provider Emergency Medicine; PCP Internal Medicine; Visit Provider Internal Medicine | DX: R42 Dizziness and giddiness (principal) | CPT/HCPCS: 93010 ==

== ENCOUNTER 2025-06-12 10:29 | Outpatient (AMB) | payer OTHER, SELFPAY ==
[2025-06-12 10:32] VITALS: BP 140/70; PULSE 72; O2SAT 97; BMI 28.6
--- NOTE | 2025-06-12 10:32 | MHC.OFFVIS ---
Vital Signs 06/12/25 10:32 Height 5 ft 6 in Weight 177 lb BMI 28.6 BP 140/70 H Blood Pressure Location Rt brachial Position Sitting Pulse 72 Pulse Source Pulse Oximeter Pulse Oximetry (%) 97 Oxygen Delivery Method Room Air Intake Visit Reasons: vomiting abdominal pain Intake Note: ESTABLISHED PATIENT for mgmt of constipation, N+V, abd pain. Chief Complaint; C.O. constipation, N+V, abd pain intermittently since last visit. Pt was seen in the ED and given new Rx by ED provider and PCP. Pt states that she has been doing well since starting these medications but would like to get a better understanding of what. Licensed Nuclear Operator Required: Yes Licensed Nuclear Operator Services: Licensed Nuclear Operator Present Licensed Nuclear Operator Name: Jakob (GI LM) Prov only Information Interpreted: clinical only Accompanied by: Family/Other Allergies latex Allergy (Intermediate, Verified 06/12/25 10:33) rash adhesive Allergy (Mild, Verified 06/12/25 10:33) Rash HPI HPI vomiting abdominal pain: Details: LAST VISIT: Diverticulosis Constipation by delayed colonic transit Status post colonoscopy LLQ abdominal pain Tubular adenoma of colon Plan Moderate diverticulosis seen in sigmoid colon. Discussed with patient high-fiber diet. Will send a script for Benefiber. 1 tubular adenoma, 5 year recall, sooner if clinically necessary. Patient reports left lower quadrant pain. Patient has moderate diverticulosis in sigmoid colon. Normal exam. Patient was encouraged to drink water, take fiber supplement and stool softener. Patient will return in 3 months, sooner on as needed basis. She is agreeable to this plan and verbalizes understanding of instructions. She was given the opportunity to questions and all questions answered. ? Thank you for allowing me to participate in her care New wheat dextrin (Benefiber Clear Sugar Free(dextrin)) mix into at least 4 oz water or juice before administering 1 packet PO DAILY 28 ea 5RF K59.01 TODAY'S VISIT Patient is here today for requested visit. Patient reports epigastric pain. Seen in the ER yesterday morning. Patient reports that epigastric pain started July 21. Almost every day since till yesterday patient had nausea and vomiting. Patient also reported dizziness. Reports dyspepsia without dysphagia or odynophagia. Patient was not taking any PPI at that time. Omeprazole was prescribed to patient. Patient reports that she is moving her bowels, however she does not empty her bowels completely. Patient is taking fiber supplements and is eating a lot of fiber. Patient feels full very quickly when eating even small amounts. Patient denies any fever or chills. Patient reports today she is feeling okay. Denies having any nausea, mild epigastric discomfort. Patient did not take omeprazole this morning [facility] Medical History Pelvic pain Dysuria Diverticulosis Didelphic uterus Class 1 obesity with body mass index (BMI) of 33.0 to 33.9 in adult Mild persistent asthma Constipation by delayed colonic transit Tubular adenoma Impaired glucose tolerance Hypovitaminosis D Dyslipidemia Surgical History H/O colonoscopy History of biopsy History of tubal ligation Family History Father Stomach cancer Mother Diabetes Hypertension Stroke Brother Thyroid cancer CAD (coronary artery disease) Paternal Uncle CVD (cardiovascular disease) Social History Household Members: None Housing: Apartment Are you a primary day care attendant to a significant other at home: No Do you presently have visiting nurse or other home services: No Alcohol intake: current Alcohol intake frequency: holidays/special occasions only Alcohol type: wine Patient Tobacco Use Status: Never used Tobacco e-Cigarette/Vaping Use: Never Used Second Hand Smoke Exposure: No service: No Current occupational status: disabled Cognitive needs: No Hearing needs: No Vision needs: Yes Female Reproductive History Menstrual Age of Menarche: 15 Date of menopause: 09/27/02 Review of Systems Const Denies weight gain and Denies weight loss ENT Reports no additional complaints, Denies dysphagia and Denies odynophagia Card Reports no additional complaints Resp Reports no additional complaints GI Denies abdominal pain, Denies belching, Denies melena, Denies bloating, Denies change in bowel habits, Denies dysphagia, Denies excessive flatus, Denies dyspepsia, Denies heartburn, Denies diarrhea, Denies loose stools, Denies nausea, Denies odynophagia and Denies vomiting Musc Reports no additional complaints Neuro Reports no additional complaints Psych Reports no additional complaints Endo Reports no additional complaints Physical Exam Vital Signs: Last Vital Signs Pulse 72 06/12/25 10:32 BP 140/70 H 06/12/25 10:32 Pulse Ox 97 06/12/25 10:32 Oxygen Delivery Method Room Air 06/12/25 10:32 BMI result Body Mass Index 28.6 Const General: healthy appearing and no acute distress Nutritional Appearance: obese Orientation/consciousness: patient oriented x3 Resp Effort & Inspection: normal respiratory effort, able to speak in complete sentences, no tracheal deviation and symmetric chest movement Auscultation: clear to auscultation bilaterally Cardio Rate: regular rate Heart sounds: S1 normal heart sound present and S2 normal heart sound present GI Inspection: Yes normal to inspection, No distended and Yes obesity Palpation (GI): Soft to palpation, not firm, nontender and No hepatosplenomegaly present Auscultation: normal bowel sounds General: Yes no CVA tenderness Back/Spine/Pelvis Back: no CVA tenderness Skin General skin exam: elasticity normal, turgor normal and dry skin Neuro General: patient oriented x3 Psych Appearance: grossly normal Mental Status: mental status grossly normal Assessment & Plan Assessment & Plan (1) Nausea and vomiting in adult: Code(s): R11.2 - Nausea with vomiting, unspecified Category: Medical (2) Constipation by delayed colonic transit: Code(s): K59.01 - Slow transit constipation Category: Medical (3) Diverticulosis: Code(s): K57.90 - Diverticulosis of intestine, part unspecified, without perforation or abscess without bleeding Category: Medical (4) Postprandial epigastric pain: Code(s): R10.13 - Epigastric pain Plan Patient was encouraged to take omeprazole daily. Avoid dietary triggers and made an snacking. Patient will start taking senna daily to help her empty bowels better. Increase fluid intake and activity to promote better bowel motility. Patient will be sent for gastric emptying study, reports early satiety. Patient will follow-up in 2 months, sooner on as needed basis. Patient is agreeable to this plan and verbalizes understanding of instructions. She was given the opportunity to ask questions and all questions answered. Thank you for allowing me to participate in her care Orders: Orders NM gastric emptying study Today R68.81 - Early satiety Medications: New sennosides (Natural Senna Laxative) 17.2 mg (2 x 8.6 mg) PO BEDTIME 180 tabs 3RF constipation K59.00 - Constipation, unspecified Coding Level of Care Code Est Pt Level 4 (77347) Complex EM visit Add On G2211 Diagnoses Nausea and vomiting in adult R11.2 Constipation by delayed colonic transit K59.01 Diverticulosis K57.90 Postprandial epigastric pain R10.13 Time Spent (min) 35 Comment 25 minutes spent with patient and additional 10 minutes spent reviewing her records
--- OUTSIDE RECORDS SUMMARY | 2025-06-12 13:44 | XMS_ITS | Encounter Summary ---
Author Organization [employer] Address [address] [facility] [address] [place] [address] Care Team Providers Care Form Setter Supervisor Name Role Phone Unavailable Primary Care Provider [...]
--- OUTSIDE RECORDS SUMMARY | 2025-06-12 13:44 | XMS_ITS | Clinical Summary ---
Author Organization [employer] Address [address] [place] [address] [address] [place] [address] Care Team Providers Care Java Web Application Developer Name Role Phone Unavailable Primary Care Provider [...] patient's age to complete this topic Insurance [facility] STAND ADULT
== END 2025-06-12 11:16 | disposition home or self-care (01) ==
PROVIDERS: PCP Internal Medicine; Visit Provider Nurse Practitioner Family
DX: R11.2 Nausea with vomiting, unspecified (principal); K59.01 Slow transit constipation; K57.90 Diverticulosis of intestine, part unspecified, without perforation or abscess without bleeding; R10.13 Epigastric pain
CPT/HCPCS: 99214; G2211

== ENCOUNTER → 2025-06-12 10:29 | Outpatient (BNVA) | payer OTHER, SELFPAY | PROVIDERS: PCP Internal Medicine; Visit Provider Nurse Practitioner Family | DX: R68.81 Early satiety (principal); R11.2 Nausea with vomiting, unspecified; K59.01 Slow transit constipation; K57.90 Diverticulosis of intestine, part unspecified, without perforation or abscess without bleeding; R10.13 Epigastric pain | CPT/HCPCS: 99212 ==

== ENCOUNTER 2025-06-13 08:44 | Outpatient (AMB) | payer OTHER, SELFPAY ==
--- NOTE | 2025-06-13 08:53 | A.OFFVIS_ITS ---
Intake Visit Reasons: emb results Helicopter Officer Required: Yes Helicopter Officer Language: Record Changer Assembler Services: Helicopter Officer Present (Barafon) Helicopter Officer Name: Roma [id number] Information Interpreted: clinical only Philosophy Specialist: Philosophy Specialist Present Accompanied by: Self / Same As Patient Allergies latex Allergy (Intermediate, Verified 06/12/25 10:33) rash adhesive Allergy (Mild, Verified 06/12/25 10:33) Rash Is last menstrual period known: Yes HPI Comments Details: Patient is here today for endometrial biopsy results, history of thickened endometrium on ultrasound, no history of vaginal bleeding. She has no other concerns today. [facility] Medical History Pelvic pain Dysuria Diverticulosis Didelphic uterus Class 1 obesity with body mass index (BMI) of 33.0 to 33.9 in adult Mild persistent asthma Constipation by delayed colonic transit Tubular adenoma Impaired glucose tolerance Hypovitaminosis D Dyslipidemia Surgical History H/O colonoscopy History of biopsy History of tubal ligation Family History Father Stomach cancer Mother Diabetes Hypertension Stroke Brother Thyroid cancer CAD (coronary artery disease) Paternal Uncle CVD (cardiovascular disease) Social History Household Members: None Housing: Apartment Are you a primary home care music therapist to a significant other at home: No Do you presently have visiting nurse or other home services: No Alcohol intake: current Alcohol intake frequency: holidays/special occasions only Alcohol type: wine Patient Tobacco Use Status: Never used Tobacco e-Cigarette/Vaping Use: Never Used Second Hand Smoke Exposure: No service: No Current occupational status: disabled Cognitive needs: No Hearing needs: No Vision needs: Yes Female Reproductive History Menstrual Age of Menarche: 15 Date of menopause: 09/27/02 Review of Systems Const All systems reviewed & are unremarkable except as noted in HPI and below Endo Reports no additional complaints Physical Exam Const General: cooperative, healthy appearing and no acute distress Psych Appearance: well kempt Attitude: cooperative Thought process: Normal thought process present Results Reviewed Results Reviewed: Name: Marguerite Enriquez Age/Sex: 70/F Attending: Caryn Alcantar CNM : 1955 Submitted by: Caryn Alcantar CNM Copies to: Janet Islas MD MR #: [id number] Status: DEP REF Collected: 05/24/25 Location: [facility] Received: 05/24/25 Diagnosis Endometrium, biopsy: - Superficial strips of benign endometrium; small fragment with features of polyp. - Few fragments of endocervical and squamous epithelium within normal limits. - No atypia identified. Clinical History Thickened endometrium Microscopic Description Microscopic sections reviewed. Material Received Endometrial biopsy Gross Description Received in formalin labeled ?endometrial biopsy? are fragments of red-pink soft tissue mixed with mucus and clotted blood forming an aggregate measuring 1.6 x 1.4 x 0.2 cm which is wrapped in lens paper and entirely submitted for microscopic examination, multiple pieces in cassette A. ([facility]) Copies To Caryn Alcantar CNM [facility] [address] [place] [address] Janet Islas MD [facility] [place] [address] [place] [address] NOTE: Unless otherwise stated, all tissue is formalin-fixed and paraffin- embedded. Some or all of the immunohistochemical tests reported herein may have been developed and their performance characteristics determined by [facility]. They have not been cleared or approved by the U.S. Food and Drug Administration (FDA). However, the FDA has determined that such clearance or approval is not necessary. This laboratory is certified under the Clinical Laboratory Improvement Amendments of 1988 (CLIA) as qualified to perform high complexity clinical laboratory testing. Patient: Marguerite Enriquez Age/Sex: 70/F [id number] MR#: [id number] Page 1 of 2 Assessment & Plan Assessment & Plan (1) Endometrial polyp: Code(s): N84.0 - Polyp of corpus uteri Plan Discussed EMB results- Diagnosis Endometrium, biopsy: - Superficial strips of benign endometrium; small fragment with features of polyp. - Few fragments of endocervical and squamous epithelium within normal limits. - No atypia identified. Counseled regarding findings and recommneded to have a hystreroscopy for removal of poyp tissue, small risk of atypia, precancer and cancer with polyps. Anticipatory guidance for procedure reviewed. Appointment for procedure consult to be scheduled today. The patient expressed understanding and agreement with the plan of care. All of her questions and concerns were addressed to the best of my ability. This note is constructed using voice recognition software. While every effort has been made to ensure accuracy, children's service supervisor errors may have been included. Coding Level of Care Code Est Pt Level 3 (81572) Diagnoses Endometrial polyp N84.0
--- OUTSIDE RECORDS SUMMARY | 2025-06-13 10:10 | XMS_ITS | Encounter Summary ---
Author Organization [employer] Address [address] [facility] [address] [place] [address] Care Team Providers Care Manager Crisis Name Role Phone Unavailable Primary Care Provider [...]
--- OUTSIDE RECORDS SUMMARY | 2025-06-13 10:10 | XMS_ITS | Clinical Summary ---
Author Organization [employer] Address [address] [place] [address] [address] [place] [address] Care Team Providers Care Patent Lawyer Name Role Phone Unavailable Primary Care Provider [...] patient's age to complete this topic Insurance [facility] STAND ADULT
== END 2025-06-13 09:59 | disposition home or self-care (01) ==
LOC: HO.HWS 08:44
PROVIDERS: PCP Internal Medicine; Visit Provider Advanced Practice Midwife
DX: N84.0 Polyp of corpus uteri (principal)
CPT/HCPCS: 99213

== ENCOUNTER → 2025-06-13 08:44 | Outpatient (BNVA) | payer OTHER, SELFPAY | PROVIDERS: PCP Internal Medicine; Visit Provider Advanced Practice Midwife | DX: N84.0 Polyp of corpus uteri (principal) | CPT/HCPCS: 99212 ==

== ENCOUNTER 2025-06-14 13:13 | Outpatient (AMB) | payer OTHER, SELFPAY ==
--- NOTE | 2025-06-14 13:31 | A.OFFVIS_ITS ---
Vital Signs 06/14/25 13:40 BP 140/88 H Intake Visit Reasons: pre op Radiology Transporter Required: Yes Radiology Transporter Language: Buckler [employer] Lacer Services: Radiology Transporter Present Information Interpreted: non-clinical & clinical Therapeutic Recreation Leader: Therapeutic Recreation Leader Present Accompanied by: Unknown Allergies latex Allergy (Intermediate, Verified 06/12/25 10:33) rash adhesive Allergy (Mild, Verified 06/12/25 10:33) Rash triamterene Allergy (Mild, Verified 06/14/25 13:36) Difficulty Breathing Is last menstrual period known: Yes Last menstrual period: 07/25/20 Post menopausal: Yes Patient : No Do you need a note to return to daycare/school/sports/work: Yes (for surgery on wednesday) HPI Comments Details: Presenting to discuss hysteroscopy D&C possible polypectomy/myomectomy Last endometrial biopsy pathology showed the following: Endometrium, biopsy: - Superficial strips of benign endometrium; small fragment with features of polyp. - Few fragments of endocervical and squamous epithelium within normal limits. - No atypia identified [facility] Medical History Pelvic pain Dysuria Diverticulosis Didelphic uterus Class 1 obesity with body mass index (BMI) of 33.0 to 33.9 in adult Mild persistent asthma Constipation by delayed colonic transit Tubular adenoma Impaired glucose tolerance Hypovitaminosis D Dyslipidemia Surgical History H/O colonoscopy History of biopsy History of tubal ligation Family History Father Stomach cancer Mother Diabetes Hypertension Stroke Brother Thyroid cancer CAD (coronary artery disease) Paternal Uncle CVD (cardiovascular disease) Social History Household Members: None Housing: Apartment Are you a primary coronary care unit nurse to a significant other at home: No Do you presently have visiting nurse or other home services: No Alcohol intake: current Alcohol intake frequency: holidays/special occasions only Alcohol type: wine Patient Tobacco Use Status: Never used Tobacco e-Cigarette/Vaping Use: Never Used Second Hand Smoke Exposure: No service: No Current occupational status: disabled Cognitive needs: No Hearing needs: No Vision needs: Yes Female Reproductive History Menstrual Age of Menarche: 15 Date of last menstrual period: 07/25/20 Date of menopause: 09/27/02 Total pregnancies: 2 Full term: 2 Review of Systems Card Reports as per HPI and Reports no additional complaints Resp Reports as per HPI and Reports no additional complaints GI Reports as per HPI and Reports no additional complaints Reports as per HPI Physical Exam Vital Signs: Last Vital Signs BP 140/88 H 06/14/25 13:40 Const General: cooperative, healthy appearing and comfortable Resp Effort & Inspection: normal respiratory effort Auscultation: clear to auscultation bilaterally Percussion: percussion normal Cardio Palpation: normal PMI Rate: regular rate Rhythm: regular rhythm Heart sounds: no murmurs and no rubs Peripheral pulses: Peripheral pulses 2+ throughout GI Inspection: Yes normal to inspection Palpation (GI): Soft to palpation, nontender, no guarding, not rigid and No hepatosplenomegaly present Percussion: Yes normal to percussion Auscultation: normal bowel sounds Rectal Exam - Female: deferred Assessment & Plan Assessment & Plan (1) Polyp of endometrium: Code(s): N84.0 - Polyp of corpus uteri Plan: Discussed with the patient the results of the endometrial biopsy pathology showing fragments of a polyp, recommended hysteroscopy D&C possible polypectomy/myomectomy. Discussed with the patient the procedure , all benefits and risks including but not limited to inability to complete the procedure , insufficient endometrial tissue for a complete evaluation of the endometrial cavity , bleeding, infection, possible need for blood transfusion with all its risk ( HIV,syphilis, Hepatitis, anaphylaxis shock, others..), injury to bladder, rectum, possible need for laparoscopy/laparotomy or hysterectomy. The patient verbalized understanding and signed the consent. Instructions given the patient to stay NPO after midnight the day prior to the procedure and to take only the specific medication (s) discussed the morning of the surgical procedure and to schedule a 2 week postoperative appointment Coding Level of Care Code Est Pt Level 3 (56100) Diagnoses Polyp of endometrium N84.0
[2025-06-14 13:40] VITALS: BP 140/88
--- OUTSIDE RECORDS SUMMARY | 2025-06-14 15:14 | XMS_ITS | Clinical Summary ---
Author Organization [employer] Address [address] [place] [address] [address] [place] [address] Care Team Providers Care Fountain Worker Name Role Phone Unavailable Primary Care Provider [...]
--- OUTSIDE RECORDS SUMMARY | 2025-06-14 15:15 | XMS_ITS | Encounter Summary ---
Author Organization [employer] Address [address] [facility] 7t [place] [address] Care Team Providers Care Marine Transport Professionals Name Role Phone Unavailable Primary Care Provider [...]
== END 2025-06-14 14:14 | disposition home or self-care (01) ==
LOC: HO.HWS 13:13
PROVIDERS: PCP Internal Medicine; Visit Provider Obstetrics & Gynecology
DX: N84.0 Polyp of corpus uteri (principal)
CPT/HCPCS: 99213

== ENCOUNTER → 2025-06-14 13:13 | Outpatient (BNVA) | payer OTHER, SELFPAY | PROVIDERS: PCP Internal Medicine; Visit Provider Obstetrics & Gynecology | DX: N84.0 Polyp of corpus uteri (principal); Z98.890 Other specified postprocedural states | CPT/HCPCS: 99212 ==

== ENCOUNTER 2025-06-29 07:32 | Day surgery (SDC) | payer OTHER, SELFPAY ==
[2025-06-27 13:11] VITALS: BMI 32.6
--- NOTE | 2025-06-27 13:38 | HO.ANESPROP2 ---
Documented by User: Ambreen Vaca NP 06/27/25 13:45 HPI - Anesthesia Eval Consult details Narrative: 70 yr old female for D&C Hysteroscopy,possible myomectomy,possible polypectomy Mild asthma: has prn ventolin inhaler PMFSH Active Problems Active Problems: All Active Problems Vertigo (Acute) Arachnoid cyst (Acute) Nausea and vomiting in adult (Acute) Meningioma (Acute) Vertigo (Acute) Fibroid (Acute) Hospital discharge follow-up (Acute) Pelvic pain (Acute) Dysuria (Acute) Encounter for well woman exam with routine gynecological exam (Acute) Breast pain in female (Acute ~07/26/24) Left flank pain (Acute) Left ear hearing loss (Acute) Foot lesion (Acute) Ear discomfort (Acute) Skin lesion (Acute) Diverticulosis (Acute) Didelphic uterus (Acute) Physical exam (Acute) Class 1 obesity with body mass index (BMI) of 33.0 to 33.9 in adult (Acute) Mild persistent asthma (Acute) Constipation by delayed colonic transit (Acute) Low back pain (Acute) Impaired glucose tolerance (Acute) Hypovitaminosis D (Acute) Dyslipidemia (Acute) Past Medical History Medical History SAGAR (obstructive sleep apnea) Pelvic pain Dysuria Diverticulosis Didelphic uterus Class 1 obesity with body mass index (BMI) of 33.0 to 33.9 in adult Mild persistent asthma Constipation by delayed colonic transit Tubular adenoma Impaired glucose tolerance Hypovitaminosis D Dyslipidemia Family History Family History Father Stomach cancer Mother Diabetes Hypertension Stroke Brother Thyroid cancer CAD (coronary artery disease) Paternal Uncle CVD (cardiovascular disease) Family history of problems with anesthesia: No Surgical History Surgical History H/O colonoscopy History of biopsy History of tubal ligation History of Problems with Anesthesia: No Social History Social History Household Members: None Housing: Apartment Are you a primary before and after school daycare worker to a significant other at home: No Do you presently have visiting nurse or other home services: No Alcohol intake: current Alcohol intake frequency: does not drink Alcohol type: wine Patient Tobacco Use Status: Never used Tobacco e-Cigarette/Vaping Use: Never Used Second Hand Smoke Exposure: No Have you been hit, kicked, punched, or otherwise hurt by someone within the past year? If so, by whom?: No Are you DNR?: No Advance Directives: No Advance Directives Information Provided: Yes service: No Current occupational status: disabled Cognitive needs: No Hearing needs: No Vision needs: Yes Meds Allergies Allergy/AdvReac Type Severity Reaction Status Date / Time latex Allergy Intermediate rash Verified 06/12/25 10:33 adhesive Allergy Mild Rash Verified 06/12/25 10:33 triamterene Allergy Mild Difficulty Verified 06/14/25 13:36 Breathing Home Medications ?Medication ?Instructions ?Recorded ?Confirmed ?Last Taken ?Type vitamin B comp and C no.3 15 mg-10 1 cap PO DAILY 06/28/24 06/27/25 Unknown History mg-50 mg-5 mg-300 mg capsule (B Complex Plus Vitamin C) meclizine 25 mg tablet 25 mg PO DAILY PRN Vertigo 06/12/25 06/27/25 Unknown History ondansetron HCl 4 mg tablet 4 mg PO Q8H 06/12/25 06/27/25 Unknown History Exam Height,Weight and Vital Signs: Height 5 ft 7 in Weight 94.347 kg Airway Adult Head Mouth w/Numbe Teeth:  1. Missing Assessment and Plan Final Anesthetic Review Family History of Problems with Anesthesia: No History of Problems with Anesthesia: No Documented by User: Augie Adamson MD 06/29/25 08:12 [facility] Past Medical History Medical History SAGAR (obstructive sleep apnea) Pelvic pain Dysuria Diverticulosis Didelphic uterus Class 1 obesity with body mass index (BMI) of 33.0 to 33.9 in adult Mild persistent asthma Constipation by delayed colonic transit Tubular adenoma Impaired glucose tolerance Hypovitaminosis D Dyslipidemia Family History Family History Father Stomach cancer Mother Diabetes Hypertension Stroke Brother Thyroid cancer CAD (coronary artery disease) Paternal Uncle CVD (cardiovascular disease) Surgical History Surgical History H/O colonoscopy History of biopsy History of tubal ligation Social History Social History Household Members: None Housing: Apartment Are you a primary before and after school daycare worker to a significant other at home: No Do you presently have visiting nurse or other home services: No Alcohol intake: current Alcohol intake frequency: does not drink Alcohol type: wine Patient Tobacco Use Status: Never used Tobacco e-Cigarette/Vaping Use: Never Used Second Hand Smoke Exposure: No Have you been hit, kicked, punched, or otherwise hurt by someone within the past year? If so, by whom?: No Are you DNR?: No Advance Directives: No Advance Directives Information Provided: Yes service: No Current occupational status: disabled Cognitive needs: No Hearing needs: No Vision needs: Yes Meds Allergies Allergy/AdvReac Type Severity Reaction Status Date / Time latex Allergy Intermediate rash Verified 06/12/25 10:33 adhesive Allergy Mild Rash Verified 06/12/25 10:33 triamterene Allergy Mild Difficulty Verified 06/14/25 13:36 Breathing Home Medications ?Medication ?Instructions ?Recorded ?Confirmed ?Last Taken ?Type vitamin B comp and C no.3 15 mg-10 1 cap PO DAILY 06/28/24 06/27/25 Unknown History mg-50 mg-5 mg-300 mg capsule (B Complex Plus Vitamin C) meclizine 25 mg tablet 25 mg PO DAILY PRN Vertigo 06/12/25 06/27/25 Unknown History ondansetron HCl 4 mg tablet 4 mg PO Q8H 06/12/25 06/27/25 Unknown History Exam Exam Date and Time: 06/29/25 Airway Mallampati Class: II TM Dist: >3cm Neck ROM: Full Adult Head Mouth w/Numbe Teeth:  1. Missing Loose/Missing/Broken Teeth: Yes Heart: rrr Lungs: ctab vesicular Other: sagar Assessment and Plan Assessment Anesthesia Assessment: Anesthesia Plan Discussed Final Anesthetic Review NPO: Yes ASA Class: II Final Preanesthetic Review: No Changes in Pt Med Stat, Meds/Allgs Chart Reviewed, Consent Obtained/Reviewed and Anes Risks/Benef Reviewed Patient Risk: Low Procedure Risk: Low Anesthetic Plan Anesthetic Plan: GA Disposition: Standard PACU
[2025-06-29 07:39] VITALS: BP 153/56; PULSE 74; RESP 18; TEMP 36.1; O2SAT 97; BMI 33.6
[2025-06-29] MEDS: Lactated Ringers 1,000 ML 100 ML IVCONT (07:56)
--- NOTE | 2025-06-29 08:05 | MHC.SHP ---
Pre-Procedural Eval Section A - 24 Hr Update-Section A only Date of Service: 06/29/25 The patient is an INPATIENT: No Changes since office visit: No Cold of Flu in the past 2 weeks, No New Medical Problems, No Changes in Medication and No Patient answered all questions The patient has been examined within 24 hours of the surgical procedure. The History & Physical has been completed within 30 days and I have reviewed it.: Yes Section B - Complete if H&P > 30 days Chief Complaint: Polyp of corpus uteri Allergies: Allergies Allergy/AdvReac Type Severity Reaction Status Date / Time latex Allergy Intermediate rash Verified 06/12/25 10:33 adhesive Allergy Mild Rash Verified 06/12/25 10:33 triamterene Allergy Mild Difficulty Verified 06/14/25 13:36 Breathing Plan Diagnosis/Plan: Unchanged I have reviewed the history and physical and performed a pertinent physical examination on my patient. No changes have occurred unless specified. Time Spent With Patient Time: Total time managing care of this patient today ____ minutes.
--- NOTE | 2025-06-29 08:42 | P.CONAN_ITS ---
[facility] Active Problems Active Problems: All Active Problems (Updated 06/29/25 @ 07:57 by Delia Contreras RN) Vertigo (Acute) Arachnoid cyst (Acute) Nausea and vomiting in adult (Acute) Meningioma (Acute) Vertigo (Acute) Fibroid (Acute) Hospital discharge follow-up (Acute) Encounter for well woman exam with routine gynecological exam (Acute) Breast pain in female (Acute ~07/26/24) Left flank pain (Acute) Left ear hearing loss (Acute) Foot lesion (Acute) Ear discomfort (Acute) Skin lesion (Acute) Physical exam (Acute) Low back pain (Acute) Pelvic pain (Acute) Dysuria (Acute) Diverticulosis (Acute) Didelphic uterus (Acute) Class 1 obesity with body mass index (BMI) of 33.0 to 33.9 in adult (Acute) Mild persistent asthma (Acute) Constipation by delayed colonic transit (Acute) Impaired glucose tolerance (Acute) Hypovitaminosis D (Acute) Dyslipidemia (Acute) Past Medical History Medical History VIVIEN (obstructive sleep apnea) Pelvic pain Dysuria Diverticulosis Didelphic uterus Class 1 obesity with body mass index (BMI) of 33.0 to 33.9 in adult Mild persistent asthma Constipation by delayed colonic transit Tubular adenoma Impaired glucose tolerance Hypovitaminosis D Dyslipidemia Family History Family History Father Stomach cancer Mother Diabetes Hypertension Stroke Brother Thyroid cancer CAD (coronary artery disease) Paternal Uncle CVD (cardiovascular disease) Family history of problems with anesthesia: No Surgical History Surgical History H/O colonoscopy History of biopsy History of tubal ligation History of Problems with Anesthesia: No Social History Social History Household Members: None Housing: Apartment Are you a primary behavioral health care manager to a significant other at home: No Do you presently have visiting nurse or other home services: No Alcohol intake: current Alcohol intake frequency: does not drink Alcohol type: wine Patient Tobacco Use Status: Never used Tobacco e-Cigarette/Vaping Use: Never Used Second Hand Smoke Exposure: No Have you been hit, kicked, punched, or otherwise hurt by someone within the past year? If so, by whom?: No Are you DNR?: No Advance Directives: No Advance Directives Information Provided: Yes service: No Current occupational status: disabled Cognitive needs: No Hearing needs: No Vision needs: Yes Meds Allergies Allergy/AdvReac Type Severity Reaction Status Date / Time latex Allergy Intermediate rash Verified 06/12/25 10:33 adhesive Allergy Mild Rash Verified 06/12/25 10:33 triamterene Allergy Mild Difficulty Verified 06/14/25 13:36 Breathing Active Medications: Current Medications Albuterol Sulfate (Albuterol Sulfate (0.083%) 2.5 Mg/3 Ml Vial.Neb) 2.5 mg INHALE ONCE PRN PRN Reason: Shortness of Breath/Wheezing Lactated Ringer's (Lr) 1,000 mls @ 100 mls/hr IVCONT .Q10H RAJESH Last Admin: 06/29/25 07:56 Dose: 100 mls/hr Home Medications ?Medication ?Instructions ?Recorded ?Confirmed ?Last Taken ?Type vitamin B comp and C no.3 15 mg-10 1 cap PO DAILY 11/2006/27/25 Unknown History mg-50 mg-5 mg-300 mg capsule (B Complex Plus Vitamin C) meclizine 25 mg tablet 25 mg PO DAILY PRN Vertigo 0 06/12/25 06/27/25 Unknown History ondansetron HCl 4 mg tablet 4 mg PO Q8H 06/12/2506/27 Unknown History Exam Height,Weight and Vital Signs: Height 5 ft 7 in Weight 97.3 kg Last Vital Signs Temp 96.9 F 06/29/25 07:39 Pulse 74 06/29/25 07:39 Resp 18 06/29/25 07:39 BP 153/56 H 06/29/25 07:39 Pulse Ox 97 06/29/25 07:39 O2 Del Method Room Air 06/29/25 07:39 Assessment and Plan Final Anesthetic Review Family History of Problems with Anesthesia: No History of Problems with Anesthesia: No
[2025-06-29 08:59] VITALS: BP 130/66; PULSE 71; RESP 12; TEMP 36.4; O2SAT 99
--- NOTE | 2025-06-29 09:02 | P.BOP_ITS ---
Brief Operative Note Date of Service: 06/29/25 Pre-op diagnosis: Thick endometrium by ultrasound, endometrial polyp on EMB pathology Post-op diagnosis: same (Endometrial polyp) Procedure: Hysteroscopy D&C, Polypectomy Surgeon: Mir Talamantes MD Anesthesia: GLMA Was an Professional System Administrator used for this Procedure?: No Estimated blood loss (mL): 0 Pathology: other (Endometrial Scrapping. Polyp) Condition: stable Disposition: PACU
--- NOTE | 2025-06-29 09:02 | W.PM.OPN ---
Operative Note Operative Note Date of Service: 06/29/25 Narrative: Preop Diagnosis: Endometrial polyp by EMB pathology, thick endometrium by US Operation: Diagnostic Hysteroscopy, Dilataion & Curettage and polypectomy Post Op Diagnosis: Endometrial Polyp QBL: Minimal Anesthesia: GLMA Surgeon: Mir Talamantes MD Supervisor Tree Trimming: None Complication: None Pathology: Endometrial Scrapings, Endometrial polyp Procedure: The patient was put in the dorsal lithotomy position, scrubbed, and draped in the usual manner. A sterile speculum was inserted in the patient's vagina. The anterior lip of the cervix was grasped with a single tooth tenaculum. The cervix was dilated up to 5 mm, then the scope was inserted in the patient's uterus. Inspection revealed endometrial polyp. The Myosure Reach device was used; it was introduced through the operative channel and polypectomy done with no complications. The scope was then taken out from the uterine cavity, sharp curettings was carried on with minimal to moderate amount of tissues retrieved. At the end of the procedure, all instruments were taken out of the patient uterine and vaginal cavity. The single tooth tenaculum was removed and homeostasis was assured using pressure,. The patient tolerated the procedure well and was transferred to the PACU in a stable condition.
[2025-06-29 09:04] VITALS: BP 138/66; PULSE 66; RESP 14; O2SAT 96
[2025-06-29 09:09] VITALS: BP 133/62; PULSE 67; RESP 11; O2SAT 99
[2025-06-29 09:14] VITALS: BP 141/63; PULSE 65; RESP 17; O2SAT 99
[2025-06-29 09:24] VITALS: BP 135/61; PULSE 66; RESP 12; TEMP 36.8; O2SAT 100
== END 2025-06-29 10:03 | disposition home or self-care (01) ==
PROVIDERS: PCP Internal Medicine; Visit Provider Obstetrics & Gynecology
PROC: 0UDB8ZZ Extraction of Endometrium, Via Natural or Artificial Opening Endoscopic (ICD-10-PCS; CPT 58558; principal; 2025-06-29 08:40)
DX: N84.0 Polyp of corpus uteri (principal); R93.89 Abnormal findings on diagnostic imaging of other specified body structures; Q51.28 Other and unspecified doubling of uterus; Z98.51 Tubal ligation status; R73.02 Impaired glucose tolerance (oral); J45.30 Mild persistent asthma, uncomplicated; E66.811 Obesity, class 1; Z68.33 Body mass index [BMI] 33.0-33.9, adult; E78.5 Hyperlipidemia, unspecified; E55.9 Vitamin D deficiency, unspecified; K57.30 Diverticulosis of large intestine without perforation or abscess without bleeding; K59.01 Slow transit constipation; Z79.899 Other long term (current) drug therapy; Z91.040 Latex allergy status; L23.1 Allergic contact dermatitis due to adhesives; Z88.8 Allergy status to other drugs, medicaments and biological substances
CPT/HCPCS: 58558; 88305; J0131; J2003; J2405; J2704; J3010

== ENCOUNTER → 2025-06-29 07:32 | Outpatient (BNV) | payer OTHER, SELFPAY | PROVIDERS: PCP Internal Medicine; Visit Provider Obstetrics & Gynecology | DX: N84.0 Polyp of corpus uteri (principal) | CPT/HCPCS: 58558 ==

== ENCOUNTER 2025-07-04 09:14 | Outpatient (AMB) | payer OTHER, SELFPAY ==
--- NOTE | 2025-07-04 09:34 | MHC.OFFVIS ---
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 Systems Support Officer Required: Yes Systems Support Officer Language: Floor Covering Contractor Services: Systems Support Officer Present (in person) Systems Support Officer Name: Cordelia GUTIERREZ Information Interpreted: non-clinical & clinical Assistance Coordinator: Assistance Coordinator Present (Cordelia GUTIERREZ) Accompanied by: Self / Same As Patient Allergies latex Allergy (Intermediate, Verified 07/04/25 09:38) rash adhesive Allergy (Mild, Verified 07/04/25 09:38) Rash triamterene Allergy (Mild, Verified 07/04/25 09:38) Difficulty Breathing Post menopausal: Yes HPI Comments Details: 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 Post op follow up with Dr. Talamantes on 07/20/25. Currently not sexually active w/partner. Denies any vaginal dryness or irritation. STI testing offered; she declines. Attempting to eat a healthy diet with calcium and vitamin D and stays active with exercise. Last pap smear; 2021, negative. Last mammogram; 2023. Colonoscopy is UTD. Denies any family history of breast, ovarian or colon cancer. [facility] Medical History VIVIEN (obstructive sleep apnea) Pelvic pain Dysuria Diverticulosis Didelphic uterus Class 1 obesity with body mass index (BMI) of 33.0 to 33.9 in adult Mild persistent asthma Constipation by delayed colonic transit Tubular adenoma Impaired glucose tolerance Hypovitaminosis D Dyslipidemia Surgical History H/O colonoscopy History of biopsy History of tubal ligation Family History Father Stomach cancer Mother Diabetes Hypertension Stroke Brother Thyroid cancer CAD (coronary artery disease) Paternal Uncle CVD (cardiovascular disease) Social History Household Members: None Housing: Apartment Are you a primary care taker to a significant other at home: No Do you presently have visiting nurse or other home services: No Alcohol intake: current Alcohol intake frequency: does not drink Alcohol type: wine Comment: reports cramping , no pain Patient Tobacco Use Status: Never used Tobacco e-Cigarette/Vaping Use: Never Used Second Hand Smoke Exposure: No service: No Current occupational status: disabled Cognitive needs: No Hearing needs: No Vision needs: Yes Female Reproductive History Menstrual Age of Menarche: 15 control method: permanent sterilization Menopause type: natural Date of menopause: 09/27/02 Date of last pap smear: 09/08/22 Date of Mammogram: 07/17/24 Review of Systems Const All systems reviewed & are unremarkable except as noted in HPI and below Reports as per HPI Eyes Reports no additional complaints ENT Reports no additional complaints Card Reports no additional complaints Resp Reports no additional complaints GI Reports as per HPI and Reports no additional complaints Reports as per HPI Musc Reports no additional complaints Skin/Breast Reports as per HPI Neuro Reports no additional complaints Psych Reports no additional complaints Endo Reports no additional complaints Pee/Lymph Reports no additional complaints Aller/Immun Reports no additional complaints Physical Exam Vital Signs: BMI result Body Mass Index 32.3 Const General: cooperative, healthy appearing, no acute distress, well developed and alert Orientation/consciousness: patient oriented x3 HEENT Head: Yes normal to inspection Eyes General: appearance normal, both eyes and all related structures Neck Neck: Yes normal visual inspection Thyroid: Thyroid normal Chest Chest palpation & inspection: normal inspection of the chest and other (no puckering, dimpling, peau de orange, retraction, discharge, masses) Breast/axilla inspection: normal inspection of the breasts Breast/axilla palpation: normal palpation of the breasts Resp Effort & Inspection: normal respiratory effort GI Inspection: Yes normal to inspection Palpation (GI): Soft to palpation Rectal Exam - Female: deferred General: Yes bladder normal to palpation External Female Exam: normal external appearance and normal appearance of the urethra Speculum Exam - Vagina: normal appearance of the vagina, normal palpation, normal vaginal discharge and vaginal bleeding Speculum Exam - Cervix: normal appearance of the cervix, normal palpation and Other cervical findings present (2 cervix's) Bimanual exam- vagina & uterus: normal bimanual exam, normal palpation, uterine size normal (Didelphys), bladder normal to palpation, normal palpation and non-tender Bimanual Exam- Adnexa, other: no masses OB/external & speculum: vaginal bleeding Skin General skin exam: no rashes or lesions noted Rashes: no rashes Neuro General: patient oriented x3 Cognition (Neuro): normal cognition Extrem General: Yes normal to inspection Psych Attitude: cooperative Thought process: Normal thought process present Assessment & Plan Assessment & Plan (1) Encounter for well woman exam with routine gynecological exam: Code(s): Z01.419 - Encounter for gynecological examination (general) (routine) without abnormal findings Category: Medical Plan Discussed: Current recommendations for pap smears per ASCCP guidelines. Breast awareness, periodic self breast exams and yearly mammogram. Maintain a healthy lifestyle, well balanced diet including Calcium 1,200 mg and Vitamin D 600 IU daily, and routine exercise. Keep follow up postop appointment Dr. Talamantes call it sooner if there is any increase in bleeding or signs of infection, if any immediate medical needs to go to [facility] for evaluation, reviewed symptoms in detail today. Contact the office with any postmenopausal bleeding. Patient verbalizes understanding and agrees to the plan of care. She was given opportunity to ask questions and all questions were answered to the best of my ability. 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 This note is constructed using voice recognition software. While every effort has been made to ensure accuracy, plant utility person errors may have been included. Orders: Orders MM tomosynthesis screening BI Today Z12.31 - Encounter for screening mammogram for malignant neoplasm of breast Coding Level of Care Code Est Pt Prev Care 40-64y(44307) Diagnoses Encounter for well woman exam with routine gynecological exam Z01.419
[2025-07-04 09:36] VITALS: BMI 32.3
== END 2025-07-04 10:23 | disposition home or self-care (01) ==
LOC: HO.HWS 09:14
PROVIDERS: PCP Internal Medicine; Visit Provider Advanced Practice Midwife
DX: Z01.419 Encounter for gynecological examination (general) (routine) without abnormal findings (principal)
CPT/HCPCS: 99397; 99459

== ENCOUNTER → 2025-07-04 09:14 | Outpatient (BNVA) | payer OTHER, SELFPAY | PROVIDERS: PCP Internal Medicine; Visit Provider Advanced Practice Midwife | DX: Z01.419 Encounter for gynecological examination (general) (routine) without abnormal findings (principal) | CPT/HCPCS: 99397 ==

== ENCOUNTER → 2025-07-11 07:33 | Outpatient (REF) | payer OTHER, SELFPAY ==
--- NOTE | ~2025-07-11 | NM_ITS ---
EXAMINATION: HI RADIONUCLIDE SOLID FOOD GASTRIC EMPTYING 4-HOUR STUDY CLINICAL INFORMATION: R68.81 - Early satiety COMPARISON: There are no prior studies available for comparison. TECHNIQUE: A standard meal consisting of 4 oz of Egg Beaters brand tagged with 0.97 mCi Tc-99m Sulfur Colloid, 8 oz water and 2 slices of toast with jelly was administered orally to the patient. Images were obtained using a dual head gamma camera in the anterior and posterior projections over of the stomach immediately post ingestion and at hourly intervals up to 4 hours post ingestion. The anterior and posterior counts at each time interval were averaged using the geometric mean and expressed as percentage of the immediate post ingestion counts. FINDINGS: There is visualization of activity in the stomach immediately post ingestion. As the study progresses, there is clearance of activity from the stomach and visualization of progressively increasing small bowel activity. By the end of the study, there is almost no retention noted in the stomach. Retention in the stomach at each time interval was: 1 hour 86% (normal 37%-90%) 2 hours 67% (normal 30%-60%) 3 hours 52% 4 hours 31% (normal 0%-10%) HI/HI gastric emptying study IMPRESSION: Delayed gastric emptying. For solid meal, rapid gastric emptying is less than 30% at 60 minutes. Delayed gastric emptying criteria is more than 60% remaining at 120 minutes or more than 10% at 240 minutes. The 4-hour value is the best discriminator of a normal or abnormal result). Gastric emptying study grading per JNMT Consensus Recommendations in 2008 (https://tech.snmjournals.org/content/36/1/44) Grade 1 (mild retention): 11-20% at 4h Grade 2 (moderate retention): 21-35% at 4h Grade 3 (severe retention): 36-50% at 4h Grade 4 (very severe retention): >50% retention at 4h Electronically signed by: Alonso Myers MD 07/11/2025 01:37 PM EDT
== END ==
LOC: HO.NUCMED 07:33
PROVIDERS: PCP Internal Medicine; Visit Provider Nurse Practitioner Family
DX: R68.81 Early satiety (principal)
CPT/HCPCS: 78264; A9541

== ENCOUNTER → 2025-07-11 07:36 | Outpatient (BNV) | payer OTHER, SELFPAY | PROVIDERS: PCP Internal Medicine; Visit Provider Radiology Diagnostic Radiology | DX: R68.81 Early satiety (principal) | CPT/HCPCS: 78264 ==

== ENCOUNTER 2025-07-20 14:45 | Outpatient (AMB) | payer OTHER, SELFPAY ==
--- NOTE | 2025-07-20 14:46 | A.OFFVIS_ITS ---
Intake Visit Reasons: post op Applied Statistician Required: Yes Applied Statistician Language: Assembly Operator Services: Applied Statistician Present (in person) Applied Statistician Name: Cordelia GUTIERREZ Information Interpreted: non-clinical & clinical Accompanied by: Daughter Allergies latex Allergy (Intermediate, Verified 07/20/25 14:48) rash adhesive Allergy (Mild, Verified 07/20/25 14:48) Rash triamterene Allergy (Mild, Verified 07/20/25 14:48) Difficulty Breathing HPI Comments Details: The patient is presenting post hysteroscopy polypectomy D&C no complaints minimal vaginal bleeding no feverishness chills or abdominal pain. The pathology showed the following: A. Endometrium, curettage: - Superficial fragments of benign endometrium; no atypia or hyperplasia identified. - Few strips of benign endocervical epithelium; no atypia identified. B. Endometrium, polypectomy: Fragments of endometrial polyp; no atypia identified PFSH Medical History VIVIEN (obstructive sleep apnea) Pelvic pain Dysuria Diverticulosis Didelphic uterus Class 1 obesity with body mass index (BMI) of 33.0 to 33.9 in adult Mild persistent asthma Constipation by delayed colonic transit Tubular adenoma Impaired glucose tolerance Hypovitaminosis D Dyslipidemia Surgical History H/O colonoscopy History of biopsy History of tubal ligation Family History Father Stomach cancer Mother Diabetes Hypertension Stroke Brother Thyroid cancer CAD (coronary artery disease) Paternal Uncle CVD (cardiovascular disease) Social History Household Members: None Housing: Apartment Are you a primary respiratory care assistant to a significant other at home: No Do you presently have visiting nurse or other home services: No Alcohol intake: current Alcohol intake frequency: does not drink Alcohol type: wine Comment: reports cramping , no pain Patient Tobacco Use Status: Never used Tobacco e-Cigarette/Vaping Use: Never Used Second Hand Smoke Exposure: No service: No Current occupational status: disabled Cognitive needs: No Hearing needs: No Vision needs: Yes Female Reproductive History Menstrual Age of Menarche: 15 Date of menopause: 09/27/02 Review of Systems Const All systems reviewed & are unremarkable except as noted in HPI and below Reports as per HPI and Reports no additional complaints GI Reports no additional complaints Reports no additional complaints Assessment & Plan Assessment & Plan (1) Endometrial polyp: Comment: Status post hysteroscopic polypectomy Code(s): N84.0 - Polyp of corpus uteri Category: Medical Plan: Discussed with the patient the intraoperative finding, endometrial polyp, and the results of the pathology of the D and C and the polyp, the patient was fela ssured. Discussed with the patient the sensitivity, specificity, positive and negative predictive value, of endometrial biopsy in detecting endometrial pathology including but not limited to endometrial hyperplasia, cancer and other pathology; instructed the patient to call in case vaginal bleeding , the next step will be to proceed with further endometrial sampling evaluation to rule out endometrial pathology. All questions answered and the patient verbalized understanding and agreed with the plan. Coding Level of Care Code Est Pt Level 3 (30249) Diagnoses Endometrial polyp N84.0
--- OUTSIDE RECORDS SUMMARY | 2025-07-20 16:29 | XMS_ITS | Data Portability ---
Author Organization [place] - [facility], Allergy Address [address] [place] [address] Care Team Providers Care Tractor Trailer Technician Name Role Phone YARA MARROQUIN Primary Care Provider Assessment Encounter Date Assessment Date Assessment LastModified by Organization Details LastModified Time 09/11/2024 09/11/2024 MRI demonstrates no retrocochlear lesion [...] of today's audiogram to bring to her recycling coordinator at [facility] audiology to ensure that her hearing aids are adjusted to match her current level of hearing loss. gautam Not available 02/05/2025 11:17:28 02/05/2025 02/05/2025 Follow up with referring provider. [email or web address] Not available 02/05/2025 10:29:41 05/09/2025 05/09/2025 Patient with left-sided M ni re's disease, currently quiescent on low-sodium diet and limitation of caffeine. We did discuss that her continued use of even 1 cup of caffeinated beverage a day does put her at somewhat higher risk for M ni re's disease flareups. She has taken this under advisement. Patient did not tolerate the triamterene/hydr ochlorothiazide due to what sounds like hypotension, so there is no need to attempt to restart that at the moment. We reviewed her audiometric testing which shows stable sensorineural hearing loss. I given her a copy of this to bring to her upcoming audiology appointment to make sure her hearing aids are adjusted appropriately. She may follow-up with me as needed gautam Not available 05/09/2025 14:13:46 05/09/2025 05/09/2025 Follow up with referring provider.She reported the left hearing aid is broken. Recommend going to her current recycling coordinator and having it looked at. [email or web address] Not available 05/09/2025 13:15:08 Plan of Treatment Reminders Order Date Submit Date Provider Last Modified By Organization Details Last Modified Time Details Appointments None recorded. Lab None recorded. Referral spine center referral - Referral for Peripheral vertigo. CT of cervical spine pending result. Thank you. 2023 024 [email or web address] [facility], [address] [facility], [place], [address], 08:33:03 neurologica l surgeon referral - Referral for Intracrania l meningioma. Thank you. 2023 024 [email or web address] [facility] Scheduling, [address] [place], [address], 11:32:44 Procedures None recorded. Surgeries None recorded. Imaging CT, cervical spine, w/o contrast 2023 024 [email or web address] [facility], [address] , [facility] [address], [address], 13:42:30 Medication Orders triamterene 37.5 mg-hydrochl orothiazide [address] [facility][id number], [address] [place], [address], 11:14:05 Patient TargetsNo targets recorded. Patient InstructionsNo instructions recorded. Reason for Referral Neurological Surgeon Referra l for Intracranial meningioma Referral for Intracranial meningioma. Thank you. Referring Physician: Osvaldo Saha, Otolaryngology, Encounter Date: 09/11/2024 Spine Center Referral for Pe ripheral vertigo Referral for Peripheral vertigo. CT of cervical spine pending result. Thank you. Referring Physician: Osvaldo Saha Otolaryngology, Encounter Date: 09/11/2024 Results Created Date Observation Date Name Description Value Unit Range Abnormal Flag Note LastModifiedBy Organization Detail LastModifiedTime 09/28/1909/26/2024 CT, cervi jennifer spine , w/ contr ast No observ ation record ed. [email or web address] [facility] [address], [address], 10/04/2024 14:29:51 10/06/19 25 09/26/2024 CT, cervi jennifer spine , w/ contr ast No observ ation record ed. [email or web address] Not Available 2024 12:17:32 02/06/20 audio gram No observ ation record ed. BARCODE Not Available 2024 15:52:35 05/09/20 audio gram No observ ation record ed. BARCODE Not Available 2024 17:47:14 Result Notes None recorded. Problems Name Problem SNOMED Code Status Onset Date Resolution Date Notes Provider Name and Address Organization Details Recorded Time Sensorine ural hearing loss of bilateral ears 019757276 Active 2022 Sensorine ural hearing loss, bilateral ; Note: Date Diagnosed : 05/19/2023 10:09 AM (H90.3) Not Available [facility] 4 02:56:54 Tinnitus of left ear 15706181860 06 Active 2022 Tinnitus, left ear; Note: Date Diagnosed : 05/19/2023 10:52 AM (H93.12) Not Available [facility] 4 02:56:57 Bilateral tinnitus 31522123116 02 Active 2023 Osvaldo Martinez null, [place] - [facility] 4 13:49:24 Vertigo 661260952 Active 2023 Osvaldothomas Saha null, [place] - [facility] 4 15:30:47 Intracran ial meningiom a 904240028 Active 2023 Osvaldo Saha null[place] - [facility] 4 15:17:34 Arachnoid cyst 63378190 Active 2023 Osvaldothomas Saha null, [place] - [facility] 4 15:17:39 Periphera l vertigo 74595574 Active 2023 Osvaldopatricio Saha null, [place] - [facility] 4 15:30:13 Benign neoplasm of meninges 142803366 Active 2023 Cinthia spaulding, [place] - [facility] 4 14:24:58 Active M ni re's disease 96140775 Active 2024 HODAN SHAH MD [address] [facility],[place] [address], [place], [address] , [place] - [facility] 5 11:11:25 Sensorine ural hearing loss of bilateral ears 929869055 Active 2024 DEMETRIUS LANCE [address] [facility] [address], [place], [address] , [place] - [facility] 13:15:11 Problem Notes None recorded. Procedures Surgical History Date Name Laterality Status Provider Name and Address Organization Details Recorded Time 05/09/2025 Air & Speech Audio with Tymps - 14446, 53490 & 15503 completed MAYRA GUERRA, AUD [address], [place], [address], [facility] 05/09/2025 13:13:29 02/05/2025 Comp Audio with Tymps - 81577 & 98267 completed MAYRA GUERRA, AUD [address] [facility] [address], [place], [address], [facility] 02/05/2025 10:29:41 05/01/2024 Air & Speech Audio with Tymps - 32644, 97397 & 76865 completed MAYRA GUERRA, AUD [address] [facility] [place],[address], [address], [facility] 05/01/2024 13:14:45 Imaging Results None recorded. Procedure Notes None recorded. Medical Equipment None Reported. Allergies Allergen ID Allergen Name Allergen Category Reaction Reaction Severity Criticality Documentation Date Start Date Code Code System Note Provider Name and Address Organization Details Recorded Time 007538 ethinyl estradiol / levonorge strel medicatio n Not available Not available Not available 02/05/2025 04874 8 [facility] 10:16:56 Medications Name Sig Start Date Stop [...] TAKE 1 TABLET BY MOUTH EVERY DAY 2024 active Not Available Not Available Not Avai lable ondansetr on 4 mg disintegr ating tablet DISSOLVE 1 TABLET ORALLY EVERY 6 TO 8 HOURS NEEDED FOR NAUSEA AND VOMITING active Not Available Not Available No t Available Ventolin HFA 90 mcg/actua tion aerosol inhaler 02/05 completed Medicati on ID: [id number] B rand Name: Ventolin HFA Send Method: [...] unit) capsule 02/05 completed Medicati on ID: [id number] B rand Name: cholecal ciferol (vitamin D3) Send Method: E-Prescr ibed Sub s Allowed: subs OK Speci al Instruct ion: TAKE 1 CAPSULE BY MOUTH EVERY DAY Medi cationGe nericNam e: cholecal ciferol (vitamin D3) Not Available Not Available Not Available Gavilax 17 gram/dose oral powder MIX AND TAKE ONCE DIRECTED BY [facility]STRO[facility] TEROLOGY DEPARTME NT AT [facility] 02/05 completed Not Available Not Available Not Available Vitals Date Recorded Body height Provider Name an d Address Organization Details Last Updated DateTime 02/05/2025 167.64 cm Yara Beckford [place] - [facility] 02/05/2025 10:16:49 Date Recorded Body height Body mass index (BMI) Body weight Provider Name and Address Organization Details Last Updated DateTime 09/11/2024 167.64 cm 31 kg/m2 00444.74 g Jasson Petros [facility] 09/11/2024 15:13:19 Social History Question Answer Notes LastModified by Organizat ion Details LastModified Time Tobacco Smoking Status Never Smoker Yara spaulding [facility] 02/05/2025 10:17:26 What Type Of Trade Show Coordinator Do You Use? None Information not available 02/05/2025 Do You Have Any Pets? No [email or web address] Information not available 02/05/2025 Are You Passively Exposed To Smoke? No [email or web address] Information not available 02/05/2025 Are There Any Smokers In Your House? No [email or web address] Information not available 02/05/2025 Sex: Unknown Functional Status Question Answer Note LastModified by Organization Details LastModified Time Do you use any illicit or recreational drugs? No [email or web address] Information not available 02/05/2025 Do you or have you ever used any other forms of tobacco or nicotine? No [email or web address] Information not available 02/05/2025 What is your level of alcohol consumption? None [email or web address] Information not available 02/05/2025 What type of noise exposure are you exposed to? noExposureToExcessiveNoise [email or web address] Infor mation not available 02/05/2025 Mental Status None recorded. Family History Nothing Reported. Medical History Condition Response Allergies/Hayfever Y Heart Problems N Anxiety N Tonsil Infections N Emphysema N Migraines N Thyroid Problems N Glaucoma N Developmental Delay N Depression N COPD N Nasal or Sinus Problems N Anemia N Immune System Disorder N Anesthesia Complications N Heart Attack ([place]) N Other Skin Condition N Diabetes N Rhinitis N Bleeding Disorder N Food Allergy N Hearing Loss Y Arthritis Y Hyperlipidemia N Cancer N Stroke N Dementia N Nasal polyps N Asthma Y Sleep Disorder Y High Cholesterol N GERD/Reflux N Liver Disease N Fibromyalgia N Hypertension N Speech Delay N Kidney Disease N Gynecological HistoryNo gynecological history recorded. Obstetrics History GPAL:G 0 P 0 0 0 0 Past Encounters Encounter ID Performer Location Encounter Start Date Encounter Closed Date Diagnosis/Indication Diagnosis SNOMED-CT Code Diagnosis ICD10 Code Diagnosis IMO Codes Diagnosis Note [id number] OSVALDO SAHA PA-C [facility] [address] [address] 05/01/2024 12:44:59 05/01/2024 13:51:33 Sensorineural hearing loss of bilateral ears 371000465 H90.3 Bilateral tinnitus 70182 71896 102 H93.13 [id number] DEMETRIUS LANCE [facility] [address] [address] 05/01/2024 13:14:02 05/01/2024 16:59:39 Sensorineural hearing loss 41519841 H90.5 Audiologic al evaluation results: Right ear: Normal sloping to mild sensorineu ral hearing loss with good word recognitio n. Left ear: Moderate to profound sensorineu ral hearing loss with poor word recognitio n. Tympanomet ry: Right Ear:Type A Left Ear:Type A [id number] OSVALDO SAHA PA-C [facility] [address] [address] 07/20/2024 10:08:55 07/20/2024 11:42:51 Vertigo 474361626 R42 Sensorineu ral hearing loss of bilateral ears 164182911 H90.3 Tinnitus of left ear 046 6528719 106 H93.12 [id number] OSVALDO SAHA PA-C [facility] [address] [address] 09/11/2024 15:03:39 09/11/2024 16:45:46 Intracranial meningioma 798509270 D32.0 Arachnoid cyst 43967502 G93.0 Peripheral vertigo 11251 001 H81.399 [id number] HODAN SHAH MD [facility] [address] [address] 02/05/2025 09:56:18 02/05/2025 11:16:26 Active M ni re's disease 99046126 H81.02 8617968161 Sensorineu ral hearing loss of bilateral ears 669105001 H90.3 [id number] DEMETRIUS LANCE [facility] [address] [address] 02/05/2025 10:29:19 02/05/2025 12:33:52 Sensorineural hearing loss of bilateral ears 878311893 H90.3 Audiologic al evaluation results:Ri ght ear:Normal sloping to moderate sensorineu ral hearing loss with excellent word recognitio n.Left ear:Severe to profound sensorineu ral hearing loss with poor word recognitio n.Tympanom etry:Right Ear:Type ALeft Ear:Type A [id number] HODAN SHAH MD [facility] [address] [address] 05/09/2025 12:36:53 05/09/2025 14:13:06 Active M ni re's disease 71739758 H81.02 6440791607 Sensorineu ral hearing loss of bilateral ears 780298483 H90.3 [id number] DEMETRIUS LANCE [facility] [address] [address] 05/09/2025 13:13:22 05/10/2025 11:29:14 Sensorineural hearing loss of bilateral ears 975344415 H90.3 [id number] Audiologic al evaluation results:Ri ght ear:Normal sloping to moderately -severe sensorineu ral hearing loss with excellent word recognitio n.Left ear:Severe to profound sensorineu ral hearing loss with poor word recognitio n.Tympanom etry:Right Ear:Type AsLeft Ear:Type As Health Concerns Section Related Observation LastModified by Organization Detai ls LastModified Time None Recorded Concern Status LastModified by Organization Details LastModified Time None Recorded Advance Directives Directive None Recorded Payers Insurance Date Sequence Insurance Name Policy Number Policy Ghosh Covered Member ID Ghosh Member ID Guarantor Name 05/09/2025 1 [place] B-[place]: [employer] Marguerite Zamora [id number] Marguerite Mccall 06/01/2025 2 [place] [facility] Marguerite Mccall Noah [id number] Marguerite Mccall 08/13/2024 2 UNSPECIFIED REMIT PAYOR Marguerite Mccall Notes Date Note Type Note Provider Name and Address Organization Details Recorded Time 09/11/2024 text/html ROS as noted in the [...] no associated tinnitus. BREANA KATZ MD [address], [address], [facility] - [facility] 09/12/2024 10:20:53 02/05/2025 text/html Audiological Evaluation HPIReported by PatientHearing LossFor hearing loss perceived, patient reportshearing loss in both ears (left ear worse).Use of amplification or other hearing devicesFor use of amplification or other hearing devices, patient reportshearing aid use in both ears. DEMETRIUS LANCE [address], [address], [facility] 02/05/2025 10:30:46 02/05/2025 text/html 70-year-old female previously evaluated by Osvaldo Saha PA-C for evaluation of episodic vertigo. Patient reports that vertigo will be preceded by a feeling of tension at the back of the neck with some pressure in the head and some increased sensitivity to light. MRI scan showed 6 mm meningioma. Patient was referred to [facility] for evaluation of neck [...] vertigo. Patient did have physical therapy at [facility]. Patient saw Dr. Perez at [facility] last month at which point she had not had any episodes since early November. He felt patient's symptoms were consistent with left-sided M ni re's disease and recommended follow-up if symptoms recurred Patient has binaural amplification dispensed through [facility] audiology. Patient comes in today accompanied by her [id number] who is helping to translate Icelandic and provide history. Patient reports that she had a string of exacerbation of balance disturbance back in October, but has been asymptomatic since then with regards to episodic dizziness. HODAN SHAH MD [address] [facility],[place] [address], [place], [address], [facility] - [facility] 02/05/2025 11:18:19 05/09/2025 text/html Audiological Evaluation HPIReported by PatientHearing LossFor hearing loss perceived, patient reportshearing loss in both ears (left ear worse). Here today after being diagnosed with meneire's of the left ear per Dr Shah. Started lifestyle changes/ treatment and recommended a three month follow up to monitor the hearing. DEMETRIUS LANCE [address] [facility],[place] [address], [place], [address], [facility] 05/09/2025 13:15:45 05/09/2025 text/html Patient with likely left-sided M ni re's disease. At her last visit 3 months ago I recommended low-sodium diet, caffeine cessation. We initiated triamterene/hydrochlo rothiazide. She was given a copy of her audiogram to bring to her recycling coordinator at [facility] audiology to ensure her hearing aids were adjusted appropriately. She dropped out of the devices for repair. The follow-up appointment is set up for the .She stopped the triamterene/hydrochlo rothiazide after a few days due to sensation of lightheadedness and general unwellness.She is making efforts to follow a low-sodium diet. Still drinking 1 cup of coffee a day.Patient has not had any episodes of vertigo since her last visit. Last vertigo spell was back in November. HODAN SHAH MD [address] [place] [address], [place], [address], [facility] - [facility] 05/09/2025 14:14:05 OBGyn Episode No OBEpisode recorded.
--- OUTSIDE RECORDS SUMMARY | 2025-07-20 16:29 | XMS_ITS | Clinical Summary ---
Author Organization [employer] Address [address] [place] [address] [address] [place] [address] Care Team Providers Care Customer Service Specialist Name Role Phone Unavailable Primary Care [...] patient's age to complete this topic Insurance [facility] MED[facility] STAND ADULT
--- OUTSIDE RECORDS SUMMARY | 2025-07-20 16:29 | XMS_ITS | Encounter Summary ---
Author Organization [employer] Address [address] [facility] [address] [place] [address] Care Team Providers Care Vulcan Crewmember Name Role Phone Unavailable Primary Care Provider [...]
== END 2025-07-20 14:57 | disposition home or self-care (01) ==
LOC: HO.HWS 14:46
PROVIDERS: PCP Internal Medicine; Visit Provider Obstetrics & Gynecology
DX: N84.0 Polyp of corpus uteri (principal)
CPT/HCPCS: 99213

== ENCOUNTER → 2025-07-20 14:45 | Outpatient (BNVA) | payer OTHER, SELFPAY | PROVIDERS: PCP Internal Medicine; Visit Provider Obstetrics & Gynecology | DX: N84.0 Polyp of corpus uteri (principal) | CPT/HCPCS: 99212 ==

== ENCOUNTER 2025-07-30 08:58 | Outpatient (REF) | payer OTHER, SELFPAY ==
--- NOTE | ~2025-07-30 | MM_ITS ---
EXAMINATION: MM SCREENING DIGITAL BREAST TOMOSYNTHESIS, BILATERAL CLINICAL INFORMATION: Screening. Asymptomatic. COMPARISON: Mammography: Comparison is made with available priors TECHNIQUE: Digital breast mammography with tomosynthesis is performed in both the craniocaudal and mediolateral oblique views along with computer-aided detection (CAD). FINDINGS: There are scattered areas of fibroglandular density. There are no significant masses, abnormal calcifications, or other abnormalities. MM/MM tomosynthesis screening BI IMPRESSION: No mammographic evidence of malignancy. ASSESSMENT: BI-RADS Category 1: Negative RECOMMENDATION: Routine annual mammography screening. 1 year F/U This examination should not preclude the clinical evaluation of a suspicious palpable abnormality. This patient's information was entered into a reminder system with a target due date for their next mammogram. Electronically signed by: Kristie Wright DO 07/31/2025 03:44 PM JOSE
--- OUTSIDE RECORDS SUMMARY | 2025-07-30 09:41 | XMS_ITS | Clinical Summary ---
Author Organization [employer] Address [address] [place] [address] [address] [place] [address] Care Team Providers Care Dress Operator Name Role Phone Unavailable Primary Care [...] patient's age to complete this topic Insurance [facility] STAND ADULT
--- OUTSIDE RECORDS SUMMARY | 2025-07-30 09:41 | XMS_ITS | Encounter Summary ---
Author Organization [employer] Address [address] [facility] [address]t [place] [address] Care Team Providers Care Human Resources Supervisor Name Role Phone Unavailable Primary Care [...]
== END 2025-07-30 08:59 | disposition home or self-care (01) ==
LOC: HO.MAMMO 08:58
PROVIDERS: PCP Internal Medicine; Visit Provider Internal Medicine
DX: Z12.31 Encounter for screening mammogram for malignant neoplasm of breast (principal)
CPT/HCPCS: 77063; 77067

== ENCOUNTER → 2025-07-30 09:30 | Outpatient (BNV) | payer OTHER, SELFPAY | PROVIDERS: PCP Internal Medicine; Visit Provider Internal Medicine | DX: Z12.31 Encounter for screening mammogram for malignant neoplasm of breast (principal) | CPT/HCPCS: 77063; 77067 ==

== ENCOUNTER 2025-08-17 09:18 | Outpatient (AMB) | payer OTHER, SELFPAY ==
--- NOTE | 2025-08-17 09:23 | A.OFFVIS_ITS ---
Vital Signs 08/17/25 09:29 Height 5 ft 6 in Weight 200 lb BMI 32.3 BP 148/74 H Blood Pressure Location Rt brachial Position Sitting Pulse 66 Pulse Source Pulse Oximeter Pulse Oximetry (%) 98 Oxygen Delivery Method Room Air Intake Visit Reasons: Sooner appt per pt req. Abd pain Intake Note: ESTABLISHED PATIENT for mgmt of constipation, N+V, abd pain. Chief Complaint; C.O. intermittent LLQ pain persistence (burning) despite current therapies. Pt reports that she is still taking her current therapies w/o complication, and still believes they are helping her. Certified Professional Controller Required: Yes Certified Professional Controller Services: Certified Professional Controller Present Certified Professional Controller Name: [id number] Francisco Information Interpreted: clinical only Accompanied by: Self / Same As Patient Allergies latex Allergy (Intermediate, Verified 08/17/25 09:26) rash adhesive Allergy (Mild, Verified 08/17/25 09:26) Rash triamterene Allergy (Mild, Verified 08/17/25 09:26) Difficulty Breathing Medication List - Last Reconciled 08/17/25 by ASIM Burroughs-DIMAS cholecalciferol (vitamin D3) 50 mcg PO DAILY 90 days meclizine 25 mg PO DAILY PRN omeprazole 20 mg PO DAILY ondansetron HCl 4 mg PO Q8H psyllium husk (Metamucil Fiber (aspartame)) 1 packet PO DAILY sennosides (Natural Senna Laxative) 17.2 mg (2 x 8.6 mg) PO BEDTIME [Suction grab bars As directed] Ventolin HFA 90 mcg/actuation (albuterol sulfate) 2 puffs inhalation Q6H PRN NS vitamin B comp and C no.3 (B Complex Plus Vitamin C) 1 cap PO DAILY HPI HPI Sooner appt per pt req. Abd pain: Details: LAST VISIT: Nausea and vomiting in adult Constipation by delayed colonic transit Diverticulosis Postprandial epigastric pain Plan Patient was encouraged to take omeprazole daily. Avoid dietary triggers and made an snacking. Patient will start taking senna daily to help her empty bowels better. Increase fluid intake and activity to promote better bowel motility. Patient will be sent for gastric emptying study, reports early satiety. Patient will follow-up in 2 months, sooner on as needed basis. Patient is agreeable to this plan and verbalizes understanding of instructions. She was given the opportunity to ask questions and all questions answered. ? Thank you for allowing me to participate in her care Orders NM gastric emptying study Today R68.81 New sennosides (Natural Senna Laxative) 17.2 mg (2 x 8.6 mg) PO BEDTIME 180 tabs 3RF constipation K59.00 TODAY'S VISIT: Patient is here today for follow-up. Patient reports that she has been doing fairly well. Patient's face that she takes Senokot and reports that she is moving her bowels without any issues. However patient does reports that occasionally she will have left lower quadrant burning and cramping. Patient reports that it happens a couple times a week. Patient feels like she empties her bowels. Reports that she is drinking fluids. Denies melena, hematochezia, unintentional weight loss or ribbon like stools. Patient denies dyspepsia, dysphagia or odynophagia. Reports that she is taking omeprazole and feels like the medication is working. Patient reports that she will be moving after the holidays to [place] to be with their her daughter's. Patient reports that she has 2 daughters who live in [place]. Patient will try to gather all her medical records to take with her before leaving. [facility] Medical History VIVIEN (obstructive sleep apnea) Pelvic pain Dysuria Diverticulosis Didelphic uterus Class 1 obesity with body mass index (BMI) of 33.0 to 33.9 in adult Mild persistent asthma Constipation by delayed colonic transit Tubular adenoma Impaired glucose tolerance Hypovitaminosis D Dyslipidemia Surgical History H/O colonoscopy History of biopsy History of tubal ligation Family History Father Stomach cancer Mother Diabetes Hypertension Stroke Brother Thyroid cancer CAD (coronary artery disease) Paternal Uncle CVD (cardiovascular disease) Social History Household Members: None Housing: Apartment Are you a primary intensive care medicine specialist to a significant other at home: No Do you presently have visiting nurse or other home services: No Alcohol intake: current Alcohol intake frequency: does not drink Alcohol type: wine Comment: reports cramping , no pain Patient Tobacco Use Status: Never used Tobacco e-Cigarette/Vaping Use: Never Used Second Hand Smoke Exposure: No service: No Current occupational status: disabled Cognitive needs: No Hearing needs: No Vision needs: Yes Female Reproductive History Menstrual Age of Menarche: 15 Date of menopause: 09/27/02 Review of Systems Const Denies weight gain and Denies weight loss ENT Reports no additional complaints, Denies dysphagia and Denies odynophagia Card Reports no additional complaints Resp Reports no additional complaints GI Denies abdominal pain, Denies belching, Denies melena, Denies bloating, Denies change in bowel habits, Denies dysphagia, Denies excessive flatus, Denies dyspepsia, Denies heartburn, Denies diarrhea, Denies loose stools, Denies nausea, Denies odynophagia and Denies vomiting Musc Reports no additional complaints Neuro Reports no additional complaints Psych Reports no additional complaints Endo Reports no additional complaints Physical Exam Vital Signs: Last Vital Signs Pulse 66 08/17/25 09:29 BP 148/74 H 08/17/25 09:29 Pulse Ox 98 08/17/25 09:29 Oxygen Delivery Method Room Air 08/17/25 09:29 BMI result Body Mass Index 32.3 Const General: healthy appearing and no acute distress Nutritional Appearance: obese Orientation/consciousness: patient oriented x3 Resp Effort & Inspection: normal respiratory effort, able to speak in complete sentences, no tracheal deviation and symmetric chest movement Auscultation: clear to auscultation bilaterally Cardio Rate: regular rate Heart sounds: S1 normal heart sound present and S2 normal heart sound present GI Inspection: Yes normal to inspection, No distended and Yes obesity Palpation (GI): Soft to palpation, not firm, nontender and No hepatosplenomegaly present Auscultation: normal bowel sounds General: Yes no CVA tenderness Back/Spine/Pelvis Back: no CVA tenderness Skin General skin exam: elasticity normal, turgor normal and dry skin Neuro General: patient oriented x3 Psych Appearance: grossly normal Mental Status: mental status grossly normal Assessment & Plan Assessment & Plan (1) Nausea and vomiting in adult: Code(s): R11.2 - Nausea with vomiting, unspecified Category: Medical (2) Constipation by delayed colonic transit: Code(s): K59.01 - Slow transit constipation Category: Medical (3) Diverticulosis: Code(s): K57.90 - Diverticulosis of intestine, part unspecified, without perforation or abscess without bleeding Category: Medical (4) Left flank pain: Code(s): R10.9 - Unspecified abdominal pain Category: Medical (5) GERD (gastroesophageal reflux disease): Code(s): K21.9 - Gastro-esophageal reflux disease without esophagitis Qualifiers: Esophagitis presence: esophagitis presence not specified Qualified Code(s): K21.9 - Gastro-esophageal reflux disease without esophagitis Plan Discussed with patient the importance of increasing fluids and activity to promote bowel motility. Patient was encouraged to take fiber in with he and probiotic. She can continue taking senna. Patient was encouraged to eat smaller meals or more often. Patient was encouraged to eat more fiber and more vegetables. Continue omeprazole daily. Avoid dietary triggers in late night snacking. Staying upright for minimum 3 hours after meals discussed with patient. Patient will follow-up with us as needed. She is moving to floor back to stay with her daughters. Patient was encouraged to call our office if she will have any GI concerning symptoms before she leaves. Patient is agreeable to current plan of care and verbalizes understanding of instructions. She was given the opportunity to ask questions and all questions answered Thank you for allowing me to participate in her care Medications: Refilled omeprazole 20 mg PO DAILY 90 caps 2RF Coding Level of Care Code Est Pt Level 3 (61481) Diagnoses Nausea and vomiting in adult R11.2 Constipation by delayed colonic transit K59.01 Diverticulosis K57.90 Left flank pain R10.9 Gastroesophageal reflux disease, unspecified whether esophagitis present K21.9 Esophagitis presence: esophagitis presence not specified Time Spent (min) 30 Comment 20 minutes spent with patient and additional 10 minutes spent reviewing her records
[2025-08-17 09:29] VITALS: BP 148/74; PULSE 66; O2SAT 98; BMI 32.3
--- OUTSIDE RECORDS SUMMARY | 2025-08-17 09:38 | XMS_ITS | Data Portability ---
Author Organization [place] - [facility], Allergy Address [address] [place] [address] Care Team Providers Care Signal Worker Name Role Phone YARA MARROQUIN Primary Care [...] of today's audiogram to bring to her commercial designer at [facility] audiology to ensure that her hearing aids [...] is broken. Recommend going to her current commercial designer and having it looked at. [email or web address] Not available 05/09/2025 13:15:08 Plan of Treatment Reminders Order Date Submit Date Provider Last Modified By Organization Details Last Modified Time Details Appointments None recorded. Lab None recorded. Referral spine center referral - Referral for Peripheral vertigo. CT of cervical spine pending result. Thank you. 2023 024 [email or web address] [facility], [address] [facility], [place], [address], 08:33:03 neurologica l surgeon referral - Referral for Intracrania l meningioma. Thank you. 2023 024 [email or web address] [facility] Neurology Scheduling, [address] [place], [address], 11:32:44 Procedures None recorded. Surgeries None recorded. Imaging CT, cervical spine, w/o contrast 2023 024 [email or web address] [facility], [address] , [facility] [address], [place], [address], 13:42:30 Medication Orders triamterene 37.5 mg-hydrochl orothiazide [address] [facility][id number], [address] [place], [address], 11:14:05 Patient TargetsNo targets recorded. Patient InstructionsNo [...] contr ast No observ ation record ed. [email or web address] [facility] [place] [address], [address], 10/04/2024 14:29:51 10/06/19 25 09/26/2024 CT, cervi [...] Sensorine ural hearing loss of bilateral ears 181341952 Active 2022 Sensorine ural hearing loss, bilateral ; Note: Date Diagnosed : 05/19/2023 10:09 AM (H90.3) Not Available [facility] 4 02:56:54 Tinnitus of left ear 22642218704 06 Active 2022 Tinnitus, left ear; Note: Date Diagnosed : 05/19/2023 10:52 AM (H93.12) Not Available [facility] 4 02:56:57 Bilateral tinnitus 20174739124 02 Active 2023 Osvaldo Martinez null, [place] - [facility] 4 13:49:24 Vertigo 468644350 Active 2023 Osvaldothomas Saha null, [place] - [facility] 4 15:30:47 Intracran ial meningiom a 400390407 Active 2023 Osvaldo Saha null, [place] - [facility] 4 15:17:34 Arachnoid cyst 45378367 Active 2023 Osvaldothomas Saha null, [place] - [facility] 4 15:17:39 Periphera l vertigo 08331197 Active 2023 Osvaldopatricio Saha null, [place] - [facility] 4 15:30:13 Benign neoplasm of meninges 614221936 Active 2023 Cinthia spaulding, [place] - [facility] 4 14:24:58 Active M ni re's disease 70642148 Active 2024 HODAN SHAH MD [address] [facility],[place] [address], [place], [address] , [place] - [facility] 5 11:11:25 Sensorine ural hearing loss of bilateral ears 048002734 Active 2024 DEMETRIUS LANCE [address] [facility], [place], [address] , [place] - [facility] 13:15:11 Problem Notes None recorded. Procedures Surgical History Date Name Laterality Status Provider Name and Address Organization Details Recorded Time 05/09/2025 Air & Speech Audio with Tymps - 44030, 12101 & 23468 completed MAYRA GUERRA, AUD [address], [place], [address], [facility] 05/09/2025 13:13:29 02/05/2025 Comp Audio with Tymps - 06239 & 54927 completed MAYRA GUERRA, AUD [address], [place], [address], [facility] 02/05/2025 10:29:41 05/01/2024 Air & Speech Audio with Tymps - 64880, 85093 & 75896 completed MAYRA GUERRA, AUD [address] [facility] [place], [address], [facility] 05/01/2024 13:14:45 Imaging Results None recorded. Procedure Notes None recorded. Medical Equipment None Reported. Allergies Allergen ID Allergen Name Allergen Category Reaction Reaction Severity Criticality Documentation Date Start Date Code Code System Note Provider Name and Address Organization Details Recorded Time 126387 ethinyl estradiol / levonorge strel medicatio n Not available Not available Not available 02/05/2025 14884 8 [facility] 10:16:56 Medications Name Sig Start Date Stop [...] aerosol inhaler 02/05 completed Medicati on ID: [id number] B rand Name: Ventolin HFA Send Method: [...] unit) capsule 02/05 completed Medicati on ID: [id number] B rand Name: cholecal ciferol (vitamin D3) Send Method: E-Prescr ibed Sub s Allowed: subs OK Speci al Instruct ion: TAKE 1 CAPSULE BY MOUTH EVERY DAY Medi cationGe nericNam e: cholecal ciferol (vitamin D3) Not Available Not Available Not Available Gavilax 17 gram/dose oral powder MIX AND TAKE ONCE DIRECTED BY GASTROEN TEROLOGY DEPARTME NT AT [facility] 02/05 completed Not Available Not Available Not Available Vitals Date Recorded Body height Provider Name an d Address Organization Details Last Updated DateTime 02/05/2025 167.64 cm Yara Beckford [place] - [facility] 02/05/2025 10:16:49 Date Recorded Body height Body mass index (BMI) Body weight Provider Name and Address Organization Details Last Updated DateTime 09/11/2024 167.64 cm 31 kg/m2 88940.74 g Jasson Petros [facility] 09/11/2024 15:13:19 Social History Question Answer Notes LastModified by Organizat ion Details LastModified Time Tobacco Smoking Status Never Smoker Yara spaulding [facility] 02/05/2025 10:17:26 What Type Of Railroad Inspector Do You Use? None [email or web address] Information not available 02/05/2025 Do You Have Any Pets? No [email or web address] Information not available 02/05/2025 Are You Passively Exposed To Smoke? No [email or web address] Information not available 02/05/2025 Are There Any Smokers In Your House? No [email or web address] Information not available 02/05/2025 Sex: Unknown Functional Status Question Answer Note LastModified by Organization Details LastModified Time Do you use any illicit or recreational drugs? No [email or web address] Information not available 02/05/2025 Do you or have you ever used any other forms of tobacco or nicotine? No [email or web address] Information not available 02/05/2025 What is your level of alcohol consumption? None [email or web address] Information not available 02/05/2025 What type of noise exposure are you exposed to? noExposureToExcessiveNoise [email or web address] Infor mation not available 02/05/2025 Mental Status None recorded. Family History Nothing Reported. Medical History Condition Response Allergies/Hayfever Y Heart Problems N Anxiety N Tonsil Infections N Emphysema N Migraines N Thyroid Problems N COPD N Depression N Glaucoma N Developmental Delay N Nasal or Sinus Problems N Anemia N Immune System Disorder N Anesthesia Complications N Heart Attack (DC) N Other Skin Condition N Diabetes N [...] ICD10 Code Diagnosis IMO Codes Diagnosis Note [id number] OSVALDO SAHA PA-C [facility] [address] [address] 05/01/2024 12:44:59 05/01/2024 13:51:33 Sensorineural hearing loss of bilateral ears 482259296 H90.3 Bilateral tinnitus 59183 55685 102 H93.13 [id number] DEMETRIUS LANCE [facility] [address] [address] 05/01/2024 13:14:02 05/01/2024 16:59:39 Sensorineural hearing loss 82313283 H90.5 Audiologic al evaluation results: Right ear: Normal sloping to mild sensorineu ral hearing loss with good word recognitio n. Left ear: Moderate to profound sensorineu ral hearing loss with poor word recognitio n. Tympanomet ry: Right Ear:Type A Left Ear:Type A [id number] OSVALDO SAHA PA-C [facility] [address] [address] 07/20/2024 10:08:55 07/20/2024 11:42:51 Vertigo 717514412 R42 Sensorineu ral hearing loss of bilateral ears 679960533 H90.3 Tinnitus of left ear 798 9845097 106 H93.12 [id number] OSVALDO SAHA PA-C [facility] [address] [address] 09/11/2024 15:03:39 09/11/2024 16:45:46 Intracranial meningioma 607723578 D32.0 Arachnoid cyst 62859189 G93.0 Peripheral vertigo 61154 001 H81.399 [id number] HODAN SHAH MD [facility] [address] [address] 02/05/2025 09:56:18 02/05/2025 11:16:26 Active M ni re's disease 59430501 H81.02 4164363281 Sensorineu ral hearing loss of bilateral ears 823465029 H90.3 [id number] DEMETRIUS LANCE [facility] [address] [address] 02/05/2025 10:29:19 02/05/2025 12:33:52 Sensorineural hearing loss of bilateral ears 862431683 H90.3 Audiologic al evaluation results:Ri ght ear:Normal sloping to moderate sensorineu ral hearing loss with excellent word recognitio n.Left ear:Severe to profound sensorineu ral hearing loss with poor word recognitio n.Tympanom etry:Right Ear:Type ALeft Ear:Type A [id number] HODAN SHAH MD [facility] [address] [address] 05/09/2025 12:36:53 05/09/2025 14:13:06 Active M ni re's disease 64699089 H81.02 9294127360 Sensorineu ral hearing loss of bilateral ears 313724211 H90.3 [id number] DEMETRIUS LANCE [facility] [address] [address] 05/09/2025 13:13:22 05/10/2025 11:29:14 Sensorineural hearing loss of bilateral ears 105659306 H90.3 [id number] Audiologic al evaluation results:Ri ght ear:Normal sloping [...] ID Guarantor Name 05/09/2025 1 MEDICARE B-[place]: [employer] Marguerite Zamora [id number] Marguerite Mccall 06/01/2025 2 MEDICAID-[place]: [facility] Marguerite Mccall Noah [id number] Marguerite Mccall 08/13/2024 2 UNSPECIFIED REMIT PAYOR [...] no associated tinnitus. BREANA KATZ MD [address], [address], [facility] - [facility] 09/12/2024 10:20:53 02/05/2025 text/html Audiological Evaluation HPIReported by PatientHearing LossFor hearing loss perceived, patient reportshearing loss in both ears (left ear worse).Use of amplification or other hearing devicesFor use of amplification or other hearing devices, patient reportshearing aid use in both ears. DEMETRIUS LANCE [address], [address], [facility] 02/05/2025 10:30:46 02/05/2025 text/html 70-year-old female previously evaluated by Osvaldo Saha PA-C for evaluation of episodic vertigo. Patient reports that vertigo will be preceded by a feeling of tension at the back of the neck with some pressure in the head and some increased sensitivity to light. MRI scan showed 6 mm meningioma. Patient was referred to [facility] for evaluation of neck [...] vertigo. Patient did have physical therapy at [facility]. Patient saw Dr. Perez at [facility] last month at which point she had not had any episodes since early November. He felt patient's symptoms were consistent with left-sided M ni re's disease and recommended follow-up if symptoms recurred Patient has binaural amplification dispensed through [facility] audiology. Patient comes in today accompanied by her [id number] who is helping to translate Cambodian and provide history. Patient reports that she had a string of exacerbation of balance disturbance back in October, but has been asymptomatic since then with regards to episodic dizziness. HODAN SHAH MD [address] [facility],[place] [address], [place], [address], [facility] - [facility] 02/05/2025 11:18:19 05/09/2025 text/html Audiological Evaluation HPIReported by PatientHearing LossFor hearing loss perceived, patient reportshearing loss in both ears (left ear worse). Here today after being diagnosed with meneire's of the left ear per Dr Shah. Started lifestyle changes/ treatment and recommended a three month follow up to monitor the hearing. DEMETRIUS LANCE [address] [facility],[place] [address], [place], [address], [facility] 05/09/2025 13:15:45 05/09/2025 text/html Patient with likely left-sided M ni re's disease. At her last visit 3 months ago I recommended low-sodium diet, caffeine cessation. We initiated triamterene/hydrochlo rothiazide. She was given a copy of her audiogram to bring to her commercial designer at [facility] audiology to ensure her hearing aids were [...] back in November. HODAN SHAH MD [address] [place] [address], [place], [address], [facility] - [facility] 05/09/2025 14:14:05 OBGyn Episode No OBEpisode recorded.
--- OUTSIDE RECORDS SUMMARY | 2025-08-17 09:38 | XMS_ITS | Clinical Summary ---
Author Organization [employer] Address [address] [place] [address] [address] [place] [address] Care Team Providers Care Machine Heel Sprayer Name Role Phone Unavailable Primary Care Provider [...] 1969 Hepatitis C Screening 1975 Mammogram 1997 RSV Patients and Patients Aged 60 years or older (1 - Risk 50-74 years 1-dose series) 2007 Zoster Vaccines (1 of 2) 2007 Pneumococcal Vaccine: 50+ Years (2 of 2 - PCV) 06/05/2011 06/05/2010 Tobacco Screening 01/27/2024 01/26/2023 COVID-19 Vaccine (3 [...] patient's age to complete this topic Insurance [facility] STAND ADULT
--- OUTSIDE RECORDS SUMMARY | 2025-08-17 09:38 | XMS_ITS | Encounter Summary ---
Author Organization [employer] Address [address] [place] [address] [address] [place] [address] Care Team Providers Care Kiln Firer Name Role Phone Unavailable Primary Care Provider [...]
== END 2025-08-17 09:57 | disposition home or self-care (01) ==
LOC: HO.HGI 09:18
PROVIDERS: PCP Internal Medicine; Visit Provider Nurse Practitioner Family
DX: R11.2 Nausea with vomiting, unspecified (principal); K59.01 Slow transit constipation; K57.90 Diverticulosis of intestine, part unspecified, without perforation or abscess without bleeding; R10.9 Unspecified abdominal pain; K21.9 Gastro-esophageal reflux disease without esophagitis
CPT/HCPCS: 99213

== ENCOUNTER → 2025-08-17 09:18 | Outpatient (BNVA) | payer OTHER, SELFPAY | PROVIDERS: PCP Internal Medicine; Visit Provider Nurse Practitioner Family | DX: K21.9 Gastro-esophageal reflux disease without esophagitis (principal); R10.9 Unspecified abdominal pain; R11.2 Nausea with vomiting, unspecified; K57.90 Diverticulosis of intestine, part unspecified, without perforation or abscess without bleeding; K59.01 Slow transit constipation | CPT/HCPCS: 99212 ==